=== PATIENT | female | born 1950 | race Caucasian/White ===

== ENCOUNTER 2020-07-24 07:48 | Outpatient (REF) | payer MEDICARE, SELFPAY ==
[2020-07-24 11:59] LABS: Alanine Aminotransferase 22 U/L (0-31); Albumin Level 4.1 g/dL (3.5-5.0); Alkaline Phosphatase 49 U/L (39-117); Anion Gap 14 (12-20); Aspartate Amino Transferase 18 U/L (5-31); Bilirubin Total 0.8 mg/dL (0.0-1.0); Blood Urea Nitrogen 17 mg/dL (9-16); Calcium 8.6 mg/dL (8.4-10.2); Carbon Dioxide 29 mmol/L (22-29); Chloride 104 mmol/L (96-108); Estimated Glomerular Filt Rate > 60; Glucose Fasting 88 mg/dL (60-99); Potassium 4.5 mmol/l (3.3-5.1); Sodium 142 mmol/L (135-145); Total Protein 6.5 g/dL (6.5-8.0)
[2020-07-24 12:01] LABS: Vitamin D 25-OH Total 34.6 ng/mL (>30)
[2020-07-28 21:47] LABS: N-Telopeptide 25 (see note); NTXCreaRU 82 mg/dL (20-275)
== END 2020-07-24 07:49 | disposition home or self-care (01) ==
LOC: HO.HMGCLDS 07:48
PROVIDERS: PCP Internal Medicine; Visit Provider Internal Medicine Endocrinology, Diabetes & Metabolism
DX: M81.0 Age-related osteoporosis without current pathological fracture (principal)
CPT/HCPCS: 80053; 82306; 82523

== ENCOUNTER → 2020-08-03 11:09 | Outpatient (BNVA) | payer MEDICARE, SELFPAY | PROVIDERS: Referring Provider Internal Medicine; Visit Provider Internal Medicine Endocrinology, Diabetes & Metabolism | DX: Z13.89 Encounter for screening for other disorder (principal) | CPT/HCPCS: 99212 ==

== ENCOUNTER → 2020-08-04 10:30 | Outpatient (BNVA) | payer MEDICARE, SELFPAY | PROVIDERS: Visit Provider Nurse Practitioner Gerontology | DX: M81.0 Age-related osteoporosis without current pathological fracture (principal) | CPT/HCPCS: 96401; J0897 ==

== ENCOUNTER 2020-08-18 07:16 | Outpatient (REF) | payer MEDICARE, SELFPAY ==
[2020-08-18 11:44] LABS: Albumin Level 3.9 g/dL (3.5-5.0); Calcium 8.6 mg/dL (8.4-10.2)
== END 2020-08-18 07:17 | disposition home or self-care (01) ==
LOC: HO.HMGCLDS 07:16
PROVIDERS: PCP Internal Medicine; Visit Provider Internal Medicine Endocrinology, Diabetes & Metabolism
DX: M81.0 Age-related osteoporosis without current pathological fracture (principal)
CPT/HCPCS: 82040; 82310

== ENCOUNTER 2020-08-27 08:59 | Outpatient (REF) | payer MEDICARE, SELFPAY ==
[2020-08-27 10:34] LABS: MANUAL DIFF FLAG NO
[2020-08-27 10:44] LABS: Basophils Percent Auto 0.7 % (0-2); Eosinophils Absolute Auto 0.2 X10*3/uL (0.0-0.4); Hematocrit 42.4 % (37-47); Hemoglobin 13.8 g/dl (12.0-16.0); Imm Gran Abs Auto 0.01 X10*3/uL (0.00-0.03); Imm Gran Pct Auto 0.2 % (0.0-0.4); Lymphocytes Percent Auto 35.1 % (20-40); Mean Corpuscular HGB Conc 32.5 g/dl (31.0-35.0); Mean Corpuscular Hemoglobin 31.9 pg (27.0-33.0); Mean Corpuscular Volume 98.1 fL (80-98); Mean Platelet Volume 9.4 fL (9.4-12.3); Monocytes Absolute Auto 0.5 X10*3/uL (0.1-1.2); Monocytes Percent Auto 8.2 % (2-11); Neutrophils Percent Auto 52.8 % (45-73); Platelet Count 287 X10*3/uL (160-400); Red Blood Count 4.32 X10*6/uL (4.20-5.50); Red Cell Distribution Width 12.7 % (11.0-16.0); White Blood Count 5.7 X10*3/uL (4.8-10.8)
[2020-08-27 11:27] LABS: Erythrocyte Sedimentation Rate 6 MM/HR (0-20)
== END 2020-08-27 09:00 | disposition home or self-care (01) ==
LOC: HO.LAB 08:59
PROVIDERS: PCP Internal Medicine; Referring Provider Internal Medicine; Visit Provider Hospitalist
DX: J31.0 Chronic rhinitis (principal); R05 Cough; R91.8 Other nonspecific abnormal finding of lung field; K21.9 Gastro-esophageal reflux disease without esophagitis
CPT/HCPCS: 36415; 82785; 85025; 85652; 86003; 99212

== ENCOUNTER 2020-09-03 11:27 | Outpatient (REF) | payer MEDICARE, SELFPAY ==
--- NOTE | 2020-09-03 11:28 | CT_ITS ---
EXAMINATION: CT CHEST WITHOUT CONTRAST CLINICAL INFORMATION: Nonspecific abnormal finding of lung field COMPARISON: None TECHNIQUE: Multidetector volumetric CT imaging of the chest was done. Axial MIP volume rendering provided. Sagittal and coronal reformatted images were obtained. This CT examination was performed using dose optimization techniques as appropriate, variously including the following: *Automated exposure control *Adjustment of mA and/or kV according to patient size (this includes techniques or standardized protocols for targeted exams where dose is matched to indication/reason for exam; i.e. extremities or head) *Use of iterative reconstruction technique DLP: 100 mGy-cm FINDINGS: LUNGS AND PLEURA: Trachea and central airways are widely patent and normal in caliber. Multiple small calcified granulomas are present in both lungs. There is a 0.3 cm noncalcified nodule at the right lung apex (image 54, series 7). 0.3 cm noncalcified nodule is observed in the region of junction of the right minor and major fissures (image 242, series 7). An irregular 0.9 cm subsolid opacity is present in the anterior right upper lobe. A mildly dilated bronchus is seen in this area of the nodularity, within which there is a small, 0.4 cm irregular solid focus with adjacent groundglass attenuation. This has a linear configuration on coronal reformatted images. Although it probably represents focal fibrosis, intermittent imaging surveillance would be advised to ensure stability, and exclude an evolving neoplastic lesion. Small, 0.2 cm noncalcified nodular focus is present in the left upper lobe (image 195, series 7). No pleural effusion. CARDIOVASCULAR: Cardiac chambers, thoracic aorta and pulmonary arteries are normal in size. No pericardial effusion. Mild atherosclerotic calcification of the aortic arch. MEDIASTINUM AND LOWER NECK: No mediastinal mass. The esophagus and the visualized portion of the thyroid gland are unremarkable. LYMPHATICS: No axillary or internal mammary lymphadenopathy. No pathologic sized hilar or mediastinal lymph nodes. UPPER ABDOMEN: Adrenal glands are normal. The visualized solid and hollow viscera of the upper abdomen have normal appearance on these noncontrast images. SKELETAL AND CHEST WALL: No chest wall mass. Thoracic vertebra have normal height and alignment. No suspicious skeletal lesions within the thorax. Mild spondylosis of the thoracic spine. Small Schmorl's node of the T12 inferior endplate. CT/CT chest wo con IMPRESSION: * Multiple small calcified granulomas are present in both lungs. * An irregular 0.9 cm subsolid nodule is present in the anterior right upper lobe. There are no recent chest CT imaging exams for comparison. In the absence of comparison studies, standard recommendations would be to pursue noncontrast chest CT follow-up in the next 3-6 months to determine persistence. If the nodule is unchanged on future follow-up, then annual CT imaging surveillance may be performed.
== END 2020-09-03 11:28 | disposition home or self-care (01) ==
LOC: HO.CT 11:27
PROVIDERS: PCP Internal Medicine; Visit Provider Hospitalist
DX: R91.8 Other nonspecific abnormal finding of lung field (principal)
CPT/HCPCS: 71250

== ENCOUNTER 2020-10-06 14:34 | Outpatient (REF) | payer MEDICARE, SELFPAY ==
--- NOTE | 2020-10-06 14:40 | XR_ITS ---
EXAMINATION: XR BILATERAL HIPS WITH AP PELVIS CLINICAL INFORMATION: Bilateral hip pain COMPARISON: Previous x-ray December 2016 TECHNIQUE: 2 views of each hip FINDINGS: Right: Bone alignment is normal. No fracture or dislocation seen. There is mild arthritis with joint space narrowing and small osteophytes. Soft tissues are unremarkable. Left: Bone alignment is normal. No fracture or dislocation is seen. There is mild arthritis with joint space narrowing and small osteophytes soft tissues are unremarkable. XR/XR hips JEANNE min 3V IMPRESSION: Mild bilateral hip arthritis.
== END 2020-10-06 14:35 | disposition home or self-care (01) ==
LOC: HO.HMGCX 14:34
PROVIDERS: PCP Internal Medicine; Visit Provider Nurse Practitioner Family
DX: M25.551 Pain in right hip (principal); M25.552 Pain in left hip
CPT/HCPCS: 73522

== ENCOUNTER → 2020-10-28 10:51 | Outpatient (BNVA) | payer MEDICARE, SELFPAY | PROVIDERS: PCP Internal Medicine; Visit Provider Hospitalist | DX: R91.8 Other nonspecific abnormal finding of lung field (principal); R05 Cough; J31.0 Chronic rhinitis; J41.1 Mucopurulent chronic bronchitis | CPT/HCPCS: 99212 ==

== ENCOUNTER 2021-01-19 11:44 | Outpatient (REF) | payer MEDICARE, SELFPAY ==
[2021-01-19 12:28] LABS: Glucose Urine UA NEG (NEG); Leukocyte Esterase Urine NEG (NEG); Nitrite Urine NEG (NEG); Specific Gravity - Urine 1.015 (1.005-1.025); Urine Blood NEG (NEG); Urine Ketones NEG (NEG); Urine Protein NEG (NEG-TRACE)
[2021-01-19 12:31] LABS: Appearance Urine CLEAR; Color Urine YELLOW
[2021-01-19 12:54] LABS: WBC Urine 0-2 /HPF (0-4)
== END 2021-01-19 11:45 | disposition home or self-care (01) ==
LOC: HO.LNP 11:44
PROVIDERS: Visit Provider Internal Medicine
DX: N93.9 Abnormal uterine and vaginal bleeding, unspecified (principal); R31.9 Hematuria, unspecified
CPT/HCPCS: 81001

== ENCOUNTER 2021-01-21 07:36 | Outpatient (REF) | payer MEDICARE, SELFPAY ==
[2021-01-21 12:07] LABS: Albumin Level 3.9 g/dL (3.5-5.0); Calcium 8.9 mg/dL (8.4-10.2)
[2021-01-21 12:36] LABS: Vitamin D 25-OH Total 30.8 ng/mL (>30)
[2021-01-26 18:32] LABS: N-Telopeptide 28 (see note); NTXCreaRU 83 mg/dL (20-275)
== END 2021-01-21 07:37 | disposition home or self-care (01) ==
LOC: HO.HMGCLDS 07:36
PROVIDERS: PCP Internal Medicine; Visit Provider Internal Medicine Endocrinology, Diabetes & Metabolism
DX: M81.0 Age-related osteoporosis without current pathological fracture (principal)
CPT/HCPCS: 36415; 82040; 82306; 82310; 82523

== ENCOUNTER → 2021-02-01 12:25 | Outpatient (BNVA) | payer MEDICARE, SELFPAY | PROVIDERS: PCP Internal Medicine; Visit Provider Internal Medicine Endocrinology, Diabetes & Metabolism | DX: M81.0 Age-related osteoporosis without current pathological fracture (principal); Z79.899 Other long term (current) drug therapy | CPT/HCPCS: 99212 ==

== ENCOUNTER → 2021-02-02 10:28 | Outpatient (BNVA) | payer MEDICARE, SELFPAY | PROVIDERS: PCP Internal Medicine; Visit Provider Hospitalist | DX: J30.2 Other seasonal allergic rhinitis (principal); R09.82 Postnasal drip; J41.1 Mucopurulent chronic bronchitis; R91.8 Other nonspecific abnormal finding of lung field; R05 Cough | CPT/HCPCS: 99212 ==

== ENCOUNTER 2021-06-02 09:53 | Outpatient (REF) | payer MEDICARE, SELFPAY ==
[2021-06-02 11:49] LABS: MANUAL DIFF FLAG NO
[2021-06-02 11:54] LABS: Basophils Absolute Auto 0.1 X10*3/uL (0.0-0.2); Basophils Percent Auto 0.8 % (0-2); Eosinophils Absolute Auto 0.1 X10*3/uL (0.0-0.4); Hematocrit 42.4 % (37-47); Hemoglobin 14.1 g/dl (12.0-16.0); Imm Gran Abs Auto 0.01 X10*3/uL (0.00-0.03); Imm Gran Pct Auto 0.2 % (0.0-0.4); Lymphocytes Absolute Auto 1.6 X10*3/uL (1.2-4.9); Lymphocytes Percent Auto 26.6 % (20-40); Mean Corpuscular HGB Conc 33.3 g/dl (31.0-35.0); Mean Corpuscular Hemoglobin 32.5 pg (27.0-33.0); Mean Corpuscular Volume 97.7 fL (80-98); Mean Platelet Volume 9.2 fL (9.4-12.3); Monocytes Absolute Auto 0.5 X10*3/uL (0.1-1.2); Neutrophils Absolute Auto 3.6 X10*3/uL (2.0-8.3); Neutrophils Percent Auto 61.4 % (45-73); Platelet Count 257 X10*3/uL (160-400); Red Blood Count 4.34 X10*6/uL (4.20-5.50); Red Cell Distribution Width 13.2 % (11.0-16.0); White Blood Count 5.9 X10*3/uL (4.8-10.8)
[2021-06-02 12:06] LABS: Albumin Level 4.1 g/dL (3.5-5.0); Calcium 9.5 mg/dL (8.4-10.2)
[2021-06-02 12:33] LABS: Erythrocyte Sedimentation Rate 7 MM/HR (0-20)
[2021-06-03 18:32] LABS: IgA 143 mg/dL (70-320); IgG 829 mg/dL (600-1540); IgM 25 mg/dL (50-300)
[2021-06-03 23:17] LABS: Immunoglobulin E 17 kU/L (<OR=114)
[2021-06-04 13:16] LABS: Anti Nuclear Antibody Screen NEGATIVE (NEGATIVE)
[2021-06-07 12:46] LABS: Asperg fumigatus Precip Abs NEGATIVE (NEGATIVE); Micropoly faeni Abs NEGATIVE (NEGATIVE); Pigeon serum Abs NEGATIVE (NEGATIVE); Saccharo pora viridis Abs NEGATIVE (NEGATIVE); Thermo candidus Abs NEGATIVE (NEGATIVE); Thermoa vulgaris #1 NEGATIVE (NEGATIVE)
== END 2021-06-02 09:54 | disposition home or self-care (01) ==
LOC: HO.LAB 09:53
PROVIDERS: Internal Medicine Endocrinology, Diabetes & Metabolism; PCP Internal Medicine; Visit Provider Hospitalist
DX: R91.8 Other nonspecific abnormal finding of lung field (principal); M81.0 Age-related osteoporosis without current pathological fracture; J31.0 Chronic rhinitis; J41.1 Mucopurulent chronic bronchitis
CPT/HCPCS: 36415; 82040; 82310; 82784; 82785; 85025; 85652; 86038; 86039; 86331; 86606; 86609; 99212

== ENCOUNTER 2021-06-15 10:06 | Outpatient (REF) | payer MEDICARE, SELFPAY ==
--- NOTE | ~2021-06-15 | CT_ITS ---
EXAMINATION: CT CHEST WITHOUT CONTRAST CLINICAL INFORMATION: Other nonspecific abnormal finding of lung field. Pulmonary nodules. COMPARISON: Previous chest CT August 2020 TECHNIQUE: Multidetector volumetric CT imaging of the chest was done. Axial MIP volume rendering provided. Sagittal and coronal reformatted images were obtained. This CT examination was performed using dose optimization techniques as appropriate, variously including the following: *Automated exposure control *Adjustment of mA and/or kV according to patient size (this includes techniques or standardized protocols for targeted exams where dose is matched to indication/reason for exam; i.e. extremities or head) *Use of iterative reconstruction technique DLP: 95 mGy-cm FINDINGS: LUNGS: The heterogeneous partially cystic partially solid 9 mm right upper lobe nodule axial image 166 series 5 is stable. There is a a second 5 mm groundglass attenuation peripheral right lower lobe nodule axial image 4 3 series 5 that is stable. Other smaller 3 mm solid noncalcified and noncalcified nodules are stable. No new pulmonary nodules are seen. MEDIASTINUM: The mediastinum is normal. PLEURA: There is no pleural effusion. No pleural mass or thickening. AXILLA: No lymphadenopathy. UPPER ABDOMEN: Unremarkable. OSSEOUS STRUCTURES: There are mild degenerative changes of the spine. CT/CT chest wo con IMPRESSION: Stable pulmonary nodules.
== END 2021-06-15 10:07 | disposition home or self-care (01) ==
LOC: HO.CT 10:06
PROVIDERS: PCP Internal Medicine; Visit Provider Hospitalist
DX: R91.8 Other nonspecific abnormal finding of lung field (principal)
CPT/HCPCS: 71250

== ENCOUNTER 2021-07-08 14:53 | Outpatient (REF) | payer MEDICARE, SELFPAY ==
--- NOTE | ~2021-07-08 | MM_ITS ---
EXAMINATION: MM SCREENING DIGITAL BREAST TOMOSYNTHESIS, BILATERAL CLINICAL INFORMATION: Screening. Asymptomatic. The lifetime risk of breast cancer based on the Tyrer-Cuzick Model is 3%. COMPARISON: Mammography: 04/30/2020, 02/12/2019, 02/05/2018 TECHNIQUE: Digital breast tomosynthesis is performed in both the craniocaudal and mediolateral oblique views along with computer-aided detection (CAD). Synthesized 2D images are generated from the tomosynthesis. FINDINGS: There are scattered areas of fibroglandular density (ACR BI-RADS breast composition Category b). There are no significant masses, abnormal calcifications, or other abnormalities. No developing density. No significant changes. MM/MM tomosynthesis screening BI IMPRESSION: No mammographic evidence of malignancy. ASSESSMENT: BI-RADS 1: Negative RECOMMENDATION: Routine annual mammography screening. This patient's information was entered into a reminder system with a target due date for their next mammogram.
== END 2021-07-08 14:54 | disposition home or self-care (01) ==
LOC: HO.MAMMO 14:53
PROVIDERS: Visit Provider Internal Medicine
DX: Z12.31 Encounter for screening mammogram for malignant neoplasm of breast (principal)
CPT/HCPCS: 77063; 77067

== ENCOUNTER → 2021-07-27 09:21 | Outpatient (BNVA) | payer MEDICARE, SELFPAY | PROVIDERS: PCP Internal Medicine; Visit Provider Hospitalist | DX: R91.8 Other nonspecific abnormal finding of lung field (principal); J31.0 Chronic rhinitis; J41.1 Mucopurulent chronic bronchitis | CPT/HCPCS: 99212 ==

== ENCOUNTER 2021-08-24 06:58 | Outpatient (REF) | payer MEDICARE, SELFPAY ==
[2021-08-24 11:32] LABS: Calcium 9.6 mg/dL (8.4-10.2)
[2021-08-24 12:03] LABS: Vitamin D 25-OH Total 35.2 ng/mL (>30)
[2021-08-27 17:27] LABS: N-Telopeptide 69 (see note); NTXCreaRU 104 mg/dL (20-275)
== END 2021-08-24 06:59 | disposition home or self-care (01) ==
LOC: HO.HMGCLDS 06:58
PROVIDERS: PCP Internal Medicine; Visit Provider Internal Medicine Endocrinology, Diabetes & Metabolism
DX: M81.0 Age-related osteoporosis without current pathological fracture (principal)
CPT/HCPCS: 36415; 82040; 82306; 82310; 82523

== ENCOUNTER → 2021-09-01 07:49 | Outpatient (BNVA) | payer MEDICARE, SELFPAY | PROVIDERS: PCP Internal Medicine; Visit Provider Internal Medicine | DX: M81.0 Age-related osteoporosis without current pathological fracture (principal); E55.9 Vitamin D deficiency, unspecified | CPT/HCPCS: 99212 ==

== ENCOUNTER 2021-12-27 09:45 | Outpatient (REF) | payer MEDICARE, SELFPAY ==
[2021-12-27 12:27] LABS: Alanine Aminotransferase 26 U/L (0-31); Albumin Level 3.9 g/dL (3.5-5.0); Alkaline Phosphatase 81 U/L (39-117); Anion Gap 12 (12-20); Aspartate Amino Transferase 22 U/L (5-31); Bilirubin Total 0.6 mg/dL (0.0-1.0); Blood Urea Nitrogen 18 mg/dL (9-16); Calcium 9.6 mg/dL (8.4-10.2); Carbon Dioxide 28 mmol/L (22-29); Chloride 102 mmol/L (96-108); Estimated Glomerular Filt Rate > 60; Glucose Random 92 mg/dL (60-115); Phosphorus 3.6 mg/dL (2.7-4.5); Potassium 4.5 mmol/L (3.3-5.1); Sodium 137 mmol/L (135-145); Total Protein 6.4 g/dL (6.5-8.0)
[2021-12-27 12:51] LABS: Thyroid Stimulating Hormone 1.95 uIU/mL (0.32-4.0); Vitamin D 25-OH Total 37.5 ng/mL (>30)
[2021-12-28 11:16] LABS: Calcium (PTHI) 9.2 mg/dL (8.6-10.4); PTHI 40 pg/mL (16-77)
[2021-12-30 12:17] LABS: Alkaline Phosphatase Bone 16.9 mcg/L (5.6-29.0)
[2021-12-31 22:32] LABS: Prot Elec - Albumin 3.9 g/dL (3.8-4.8); Prot Elec - Alpha1 0.3 g/dL (0.2-0.3); Prot Elec - Alpha2 0.7 g/dL (0.5-0.9); Prot Elec - Beta 1 0.4 g/dL (0.4-0.6); Prot Elec - Beta 2 0.3 g/dL (0.2-0.5); Prot Elec - Gamma 0.7 g/dL (0.8-1.7); Prot Elec - Total Protein 6.3 g/dL (6.1-8.1)
== END 2021-12-27 09:46 | disposition home or self-care (01) ==
LOC: HO.HMGCLDS 09:45
PROVIDERS: Visit Provider Internal Medicine
DX: M81.0 Age-related osteoporosis without current pathological fracture (principal); E55.9 Vitamin D deficiency, unspecified
CPT/HCPCS: 36415; 80053; 82306; 82330; 83970; 84075; 84100; 84165; 84439; 84443

== ENCOUNTER 2021-12-29 09:10 | Outpatient (REF) | payer MEDICARE, SELFPAY ==
[2021-12-29 12:35] LABS: Creatinine, mg/dL 48.27
[2021-12-29 15:07] LABS: Creatinine, 24Hr Urine 0.8 G/Day (1.0-2.0); Total Volume 24 Hour Urine 1725 mL
[2021-12-31 19:12] LABS: Calcium, 24 Hr Urine 136 mg/24 h; Calcium/Creatinine Ratio 158 mg/g creat (30-275); Creatinine 24Hr Urine 0.86 g/24 h (0.50-2.15)
[2022-01-04 16:41] LABS: N-Telopeptide 104 (see note); NTXCreaRU 113 mg/dL (20-275)
== END 2021-12-29 09:11 | disposition home or self-care (01) ==
LOC: HO.HMGCLNP 09:10
PROVIDERS: Visit Provider Internal Medicine
DX: M81.0 Age-related osteoporosis without current pathological fracture (principal)
CPT/HCPCS: 82340; 82523; 82570

== ENCOUNTER → 2022-01-24 10:21 | Outpatient (BNVA) | payer MEDICARE, SELFPAY | PROVIDERS: PCP Internal Medicine; Visit Provider Hospitalist | DX: J41.1 Mucopurulent chronic bronchitis (principal); R91.8 Other nonspecific abnormal finding of lung field; J31.0 Chronic rhinitis | CPT/HCPCS: 99212 ==

== ENCOUNTER → 2022-03-10 08:54 | Outpatient (BNVA) | payer MEDICARE, SELFPAY | PROVIDERS: PCP Internal Medicine; Visit Provider Internal Medicine | DX: M81.0 Age-related osteoporosis without current pathological fracture (principal); E55.9 Vitamin D deficiency, unspecified | CPT/HCPCS: Q3014 ==

== ENCOUNTER 2022-05-03 10:31 | Outpatient (REF) | payer MEDICARE, SELFPAY ==
--- NOTE | ~2022-05-03 | CT_ITS ---
EXAMINATION: CT CHEST WITHOUT CONTRAST CLINICAL INFORMATION: Other nonspecific abnormal finding of lungs. Pulmonary nodules. COMPARISON: CT chest 06/15/2021. TECHNIQUE: Multidetector volumetric CT imaging of the chest was done. Axial MIP volume rendering provided. Sagittal and coronal reformatted images were obtained. This CT examination was performed using dose optimization techniques as appropriate, variously including the following: *Automated exposure control *Adjustment of mA and/or kV according to patient size (this includes techniques or standardized protocols for targeted exams where dose is matched to indication/reason for exam; i.e. extremities or head) *Use of iterative reconstruction technique DLP: 102 mGy-cm FINDINGS: BENCH MOLDER: Unremarkable. LUNGS: The lungs are well expanded and clear of acute pneumonic consolidation. Again visualized partially cystic and semisolid 1 cm lesion right upper lobe axial image 151/9. A 2 mm calcified nodule is seen in right upper lobe axial image 148/9. There are punctate 1 mm calcifications in both lower lobes. No consolidation, mass or ground-glass density seen. MEDIASTINUM: The thyroid lobes are symmetric and normal. The central trachea and the bronchi are widely patent. Heart size and the great vessels are normal caliber. No abnormal size mediastinal or hilar lymph node seen. There is no pericardial effusion. PLEURA: There is no pleural effusion. No pleural mass or thickening. AXILLA: No lymphadenopathy. UPPER ABDOMEN: Visualized spleen, pancreas and bilateral adrenal glands are unremarkable. OSSEOUS STRUCTURES: No aggressive lytic or sclerotic process seen. CT/CT chest wo con IMPRESSION: Stable calcified bilateral pulmonary nodules. Semisolid and cystic 1 cm lymph node right upper lobe previously measured 9 mm is again noted, stable. Fleischner guidelines were followed.
== END 2022-05-03 10:32 | disposition home or self-care (01) ==
LOC: HO.CT 10:31
PROVIDERS: PCP Internal Medicine; Visit Provider Hospitalist
DX: R91.8 Other nonspecific abnormal finding of lung field (principal); J41.1 Mucopurulent chronic bronchitis
CPT/HCPCS: 71250

== ENCOUNTER → 2022-06-07 14:24 | Outpatient (BNVA) | payer MEDICARE, SELFPAY | PROVIDERS: PCP Internal Medicine; Referring Provider Internal Medicine; Visit Provider Internal Medicine Cardiovascular Disease | DX: I49.3 Ventricular premature depolarization (principal); E78.5 Hyperlipidemia, unspecified | CPT/HCPCS: 93005; 99212 ==

== ENCOUNTER 2022-06-15 14:21 | Outpatient (REF) | payer MEDICARE, SELFPAY ==
[2022-06-15 17:06] LABS: Alanine Aminotransferase 26 U/L (0-31); Albumin Level 4.2 g/dL (3.5-5.0); Alkaline Phosphatase 74 U/L (39-117); Anion Gap 14 (12-20); Aspartate Amino Transferase 23 U/L (5-31); Bilirubin Total 0.7 mg/dL (0.0-1.0); Blood Urea Nitrogen 15 mg/dL (9-16); Calcium 8.7 mg/dL (8.4-10.2); Carbon Dioxide 25 mmol/L (22-29); Chloride 103 mmol/L (96-108); Estimated Glomerular Filt Rate > 60; Glucose Random 86 mg/dL (60-115); Phosphorus 3.4 mg/dL (2.7-4.5); Potassium 4.2 mmol/L (3.3-5.1); Sodium 138 mmol/L (135-145); Total Protein 6.4 g/dL (6.5-8.0)
[2022-06-15 17:19] LABS: Vitamin D 25-OH Total 33.7 ng/mL (>30)
[2022-06-16 14:57] LABS: PTHI 73 pg/mL (16-77)
== END 2022-06-15 14:22 | disposition home or self-care (01) ==
LOC: HO.HMGCLDS 14:21
PROVIDERS: PCP Internal Medicine; Visit Provider Internal Medicine
DX: M81.0 Age-related osteoporosis without current pathological fracture (principal); E55.9 Vitamin D deficiency, unspecified
CPT/HCPCS: 36415; 80053; 82306; 83970; 84100

== ENCOUNTER → 2022-06-22 09:23 | Outpatient (BNVA) | payer MEDICARE, SELFPAY | PROVIDERS: PCP Internal Medicine; Visit Provider Hospitalist | DX: R91.8 Other nonspecific abnormal finding of lung field (principal); J31.0 Chronic rhinitis; J41.1 Mucopurulent chronic bronchitis | CPT/HCPCS: 99212 ==

== ENCOUNTER 2022-06-24 08:37 | Outpatient (REF) | payer MEDICARE, SELFPAY ==
--- NOTE | ~2022-06-24 | MM_ITS ---
EXAMINATION: BONE DENSITOMETRY CLINICAL INDICATION: Age-related osteoporosis without current pathological fracture. COMPARISON: Previous BD dated 06/12/2020 and baseline BD dated 08/05/2008, spine and left hip; 06/12/2020, left forearm radius 33%. TECHNIQUE: Using a [employer] DXA System (software version: 13.1) manufactured by [employer], dual-energy x-ray absorptiometry was performed of the lumbar spine, left hip, and left forearm radius 33%. The images are of good technical quality. Summary results are attached. FINDINGS: AP SPINE L1-L4: Current: BMD 1.103 g/cm2, Z-score 1.2, T-score -0.6, normal, 7.9% decrease from previous, 7.3% increase from baseline (<5% change is not significant). Prior: BMD 1.197 g/cm2. Baseline: BMD 1.028 g/cm2. LEFT FEMUR, NECK: Current: BMD 0.770 g/cm2, Z-score 0.0, T-score -1.9, osteopenia. Prior: BMD 0.764 g/cm2. Baseline: BMD 0.800 g/cm2. LEFT FEMUR, TOTAL: Current: BMD 0.782 g/cm2, Z-score 0.0, T-score -1.8, osteopenia, 3.2% decrease from previous, 8.0% decrease from baseline (<5% change is not significant). Prior: BMD 0.808 g/cm2. Baseline: BMD 0.850 g/cm2. LEFT FOREARM RADIUS 33%: BMD 0.612 g/cm2, Z-score -0.8, T-score -3.0, osteoporosis, 10.1% decrease from baseline (<5% change is not significant). Prior (and baseline for radius): BMD 0.681 g/cm2. IDENTIFIED RISK FACTORS: Early menopause, secondary osteoporosis, osteoporosis, hysterectomy, bilateral oophorectomy. HISTORY OF FRACTURE: None listed. MEDICATIONS: Calcium/multivitamin, bisphosphonate. MM/XR DEXA appendicular skeleton IMPRESSION: 1. DIAGNOSIS: Osteoporosis based on the lowest T-score value of -3.0 in the forearm radius 33% applying World Health Organization criteria. 2. 10-YEAR FRACTURE RISK PREDICTION, FRAX: According to the guidelines, FRAX calculation should only be performed on patients in the osteopenia bone density category. Therefore, FRAX was not performed on this patient. 3. Treatment Recommendations: NOF guidelines recommend consideration for treatment in postmenopausal women and men age 50 and older presenting with the following: -A hip or vertebral (clinical or morphometric) fracture. -T-score less than or equal to -2.5 at the femoral neck or spine after appropriate evaluation to exclude secondary causes. -Low bone mass at the hip or spine and a 10-year fracture probability by FRAX of greater than or equal to 3% for hip fracture or greater than or equal to 20% for major osteoporotic fracture based on the [place] adapted WHO algorithm. 4. Other Recommendations: All treatment decisions require clinical judgment and consideration of individual patient factors, including patient preferences, comorbidities, previous drug use, risk factors not captured in the FRAX model (e.g. frailty, falls, vitamin D deficiency, increased bone turnover, interval significant decline in bone density) and possible under or overestimation of fracture risk by FRAX. Additional medical evaluation for secondary cause of low bone mineral density may be appropriate. FUTURE SCAN RECOMMENDATION: People with diagnosed cases of or at high risk for fracture should have regular bone mineral density tests. For patients eligible for Medicare, routine testing is allowed once every 2 years. The testing frequency can be increased to one year for patients who have rapidly progressing disease, those who are receiving or discontinuing medical therapy to restore bone mass, or have additional risk factors.
== END 2022-06-24 08:38 | disposition home or self-care (01) ==
LOC: HO.MAMMO 08:37
PROVIDERS: PCP Internal Medicine; Visit Provider Internal Medicine
DX: Z13.820 Encounter for screening for osteoporosis (principal); M81.0 Age-related osteoporosis without current pathological fracture; Z78.0 Asymptomatic menopausal state
CPT/HCPCS: 77081

== ENCOUNTER → 2022-06-28 14:04 | Outpatient (BNVA) | payer MEDICARE, SELFPAY | PROVIDERS: PCP Internal Medicine; Visit Provider Internal Medicine | DX: M81.0 Age-related osteoporosis without current pathological fracture (principal); E04.9 Nontoxic goiter, unspecified; E55.9 Vitamin D deficiency, unspecified | CPT/HCPCS: 99212 ==

== ENCOUNTER 2022-07-12 13:43 | Outpatient (REF) | payer MEDICARE, SELFPAY ==
--- NOTE | ~2022-07-12 | MM_ITS ---
EXAMINATION: MM SCREENING DIGITAL BREAST TOMOSYNTHESIS, BILATERAL CLINICAL INFORMATION: Screening. Asymptomatic. The lifetime risk of breast cancer based on the Tyrer-Cuzick Model is 3%. COMPARISON: Mammography: 07/08/2021, 04/30/2020, 02/12/2019 TECHNIQUE: Digital breast tomosynthesis is performed in both the craniocaudal and mediolateral oblique views along with computer-aided detection (CAD). Synthesized 2D images are generated from the tomosynthesis. FINDINGS: There are scattered areas of fibroglandular density (ACR BI-RADS breast composition Category b). There are no significant masses, abnormal calcifications, or other abnormalities. Parenchymal pattern is similar to prior studies. There is no developing density or architectural abnormality. The axilla and skin contours are unremarkable. No significant changes. MM/MM tomosynthesis screening BI IMPRESSION: No mammographic evidence of malignancy. ASSESSMENT: BI-RADS 1: Negative RECOMMENDATION: Routine annual mammography screening. This patient's information was entered into a reminder system with a target due date for their next mammogram.
== END 2022-07-12 13:44 | disposition home or self-care (01) ==
LOC: HO.MAMMO 13:43
PROVIDERS: PCP Internal Medicine; Visit Provider Internal Medicine
DX: Z12.31 Encounter for screening mammogram for malignant neoplasm of breast (principal)
CPT/HCPCS: 77063; 77067

== ENCOUNTER 2022-07-19 13:52 | Outpatient (REF) | payer MEDICARE, SELFPAY ==
--- NOTE | ~2022-07-19 | US_ITS ---
EXAMINATION: US THYROID CLINICAL INFORMATION: Nontoxic goiter, unspecified. COMPARISON: None TECHNIQUE: Linear transducer grayscale and color Doppler examination with attention to the region of the thyroid. FINDINGS: SIZE: Measurements of the thyroid lobes and nodules are given in sagittal, anteroposterior and transverse dimensions respectively. Right Thyroid Lobe: 5.23 x 1.56 x 1.42 cm, volume 6.05 mL. Parenchyma: The gland echotexture is homogeneous. Thyroid vascularity is increased. Left Thyroid Lobe: 5.55 x 1.30 x 1.57 cm, volume 5.91 mL. Parenchyma: The gland echotexture is homogeneous. Thyroid vascularity is increased. Isthmus: 0.24 cm in maximum AP dimension. Estimated total number of nodules greater than or equal to 1 cm: 0. Business Associate nodules are described as follows: 1. Location: Right superior. Size: 0.51 x 0.49 x 0.63 cm, volume 0.08 mL. Nodule characteristics: Composition: Spongiform (0). Echogenicity: Anechoic (0). Shape: Not taller than wide (0). Margins: Smooth (0). Echogenic Foci: None (0). ACR TI-RADS total points: 0 ACR TI-RADS category: 1 2. Location: Right mid. Size: 1.0 x 0.56 x 0.64 cm, volume 0.18 mL. Nodule characteristics: Composition: Spongiform (0). Echogenicity: Anechoic (0). Shape: Not taller than wide (0). Margins: Smooth (0). Echogenic Foci: None (0). ACR TI-RADS total points: 0 ACR TI-RADS category: 1 3. Location: Right inferior. Size: 0.56 x 0.30 x 0.57 cm, volume 0.05 mL. Nodule characteristics: Composition: Spongiform (0). Echogenicity: Anechoic (0). Shape: Not taller than wide (0). Margins: Smooth (0). Echogenic Foci: None (0). ACR TI-RADS total points: 0 ACR TI-RADS category: 1 4. Location: Left superior. Size: 0.56 x 0.31 x 0.55 cm, volume 0.05 mL. Nodule characteristics: Composition: Spongiform (0). Echogenicity: Anechoic (0). Shape: Not taller than wide (0). Margins: Smooth (0). Echogenic Foci: None (0). ACR TI-RADS total points: 0 ACR TI-RADS category: 1 5. Location: Left mid. Size: 0.40 x 0.31 x 0.42 cm, volume 0.03 mL. Nodule characteristics: Composition: Spongiform (0). Echogenicity: Anechoic (0). Shape: Not taller than wide (0). Margins: Smooth (0). Echogenic Foci: None (0). ACR TI-RADS total points: 0 ACR TI-RADS category: 1 NODES: No lymphadenopathy is seen in the tissue surrounding the thyroid gland. US/US thyroid IMPRESSION: Bilateral nodules do not meet ACR criteria for follow-up. ACR TI-RADS RECOMMENDATION REFERENCE: Ultrasound-guided fine-needle aspiration, followup ultrasound, no further follow up. * TR1 (0 point) and TR 2 (2 points): No FNA or follow up. * TR3 (3 points): FNA if more than or equal to 2.5 cm in maximum dimension, followup ultrasound in 1, 3 and 5 years if 1.5 to 2.4 cm in maximum dimension. * TR4 (4-6 points): FNA if more than or equal to 1.5 cm in maximum dimension, followup ultrasound in 1, 2, 3 and 5 years if 1 to 1.4 cm in maximum dimension. * TR5 (more than or equal to 7 points): FNA if more than or equal to 1 cm in maximum dimension, followup ultrasound every year for 5 years if 0.5 to 0.9 cm in maximum dimension. * TR3, TR4 or TR5 nodules that are below the size threshold for followup receive no follow up.
== END 2022-07-19 13:53 | disposition home or self-care (01) ==
LOC: HO.HMGCX 13:52
PROVIDERS: PCP Internal Medicine; Visit Provider Internal Medicine
DX: E04.9 Nontoxic goiter, unspecified (principal)
CPT/HCPCS: 76536

== ENCOUNTER 2022-08-30 06:58 | Outpatient (REF) | payer MEDICARE, SELFPAY ==
[2022-08-30 12:00] LABS: Alanine Aminotransferase 25 U/L (0-31); Aspartate Amino Transferase 20 U/L (5-31); Cholesterol 195 mg/dL; HDL Cholesterol 80 mg/dL; LDL Cholesterol Calculated 101 mg/dl; Triglycerides 73 mg/dL
== END 2022-08-30 06:59 | disposition home or self-care (01) ==
LOC: HO.HMGCLDS 06:58
PROVIDERS: PCP Internal Medicine; Visit Provider Internal Medicine
DX: E78.5 Hyperlipidemia, unspecified (principal)
CPT/HCPCS: 36415; 80061; 84450; 84460

== ENCOUNTER 2022-10-13 08:44 | Outpatient (REF) | payer MEDICARE, SELFPAY ==
--- NOTE | 2022-10-13 09:15 | PM.OP ---
Brief Operative Note Date of Service: 10/13/22 Pre-op diagnosis: Multinodular Thyroid Procedure: EXAMINATION: US THYROID CLINICAL INFORMATION: Multinodular Thyroid COMPARISON: Prior TECHNIQUE: Linear transducer grimes-scale and color Doppler examination with attention to the region of the thyroid. FINDINGS: SIZE: Measurements of the thyroid lobes and nodules are given in sagittal, anteroposterior and transverse dimensions respectively. Right Thyroid Lobe: 5.3 x 1.2 x 2.0 cm, volume 6.7 mL. Parenchyma: The gland echotexture is heterogenous. Thyroid vascularity is normal. Left Thyroid Lobe: 4.8 x 1.3 x 1.4 cm, volume 4.6 mL. Parenchyma: The gland echotexture is homogenous. Thyroid vascularity is normal. Isthmus: 0.2 cm in maximum AP dimension. RIGHT THYROID LOBE: There are no nodules. LEFT THYROID LOBE: There is 1 nodule. There is a 0.6 x 0.3 x 0.5 cm predominantly solid hypoechoic nodule with smooth margins and no microcalcifications. Vascularity is normal. NODES: No lymph nodes were assessed during today's exam. Surgeon: Salina Jha, DO Was an [employer] Developer used for this Procedure?: No Estimated blood loss (mL): 0
== END 2022-10-13 08:45 | disposition home or self-care (01) ==
LOC: HO.US 08:44
PROVIDERS: Visit Provider Internal Medicine
DX: E04.2 Nontoxic multinodular goiter (principal)
CPT/HCPCS: 76536

== ENCOUNTER → 2022-12-27 09:35 | Outpatient (BNVA) | payer MEDICARE, SELFPAY | PROVIDERS: PCP Internal Medicine; Visit Provider Hospitalist | DX: R91.8 Other nonspecific abnormal finding of lung field (principal); J31.0 Chronic rhinitis; J41.1 Mucopurulent chronic bronchitis; G47.33 Obstructive sleep apnea (adult) (pediatric) | CPT/HCPCS: 99212 ==

== ENCOUNTER 2023-01-03 07:19 | Outpatient (REF) | payer MEDICARE, SELFPAY ==
[2023-01-03 12:12] LABS: Alanine Aminotransferase 26 U/L (0-31); Alkaline Phosphatase 72 U/L (39-117); Anion Gap 9 (12-20); Aspartate Amino Transferase 20 U/L (5-31); Bilirubin Total 0.6 mg/dL (0.0-1.0); Blood Urea Nitrogen 21 mg/dL (9-16); Calcium 9.4 mg/dL (8.4-10.2); Carbon Dioxide 31 mmol/L (22-29); Chloride 105 mmol/L (96-108); Estimated Glomerular Filt Rate > 60; Glucose Random 101 mg/dL (60-115); Phosphorus 3.1 mg/dL (2.7-4.5); Potassium 4.3 mmol/L (3.3-5.1); Sodium 141 mmol/L (135-145); Total Protein 6.2 g/dL (6.5-8.0)
[2023-01-03 12:14] LABS: Vitamin D 25-OH Total 34.7 ng/mL (>30)
[2023-01-04 13:49] LABS: Calcium (PTHI) 9.6 mg/dL (8.6-10.4); PTHI 35 pg/mL (16-77)
== END 2023-01-03 07:20 | disposition home or self-care (01) ==
LOC: HO.HMGCLDS 07:19
PROVIDERS: Internal Medicine; PCP Internal Medicine; Visit Provider Internal Medicine
DX: M81.0 Age-related osteoporosis without current pathological fracture (principal); E55.9 Vitamin D deficiency, unspecified
CPT/HCPCS: 36415; 80053; 82306; 83970; 84100

== ENCOUNTER 2023-01-04 07:32 | Outpatient (REF) | payer MEDICARE, SELFPAY ==
[2023-01-10 07:09] LABS: N-Telopeptide 33 (see note); NTXCreaRU 53 mg/dL (20-275)
== END 2023-01-04 07:33 | disposition home or self-care (01) ==
LOC: HO.HMGCLNP 07:32
PROVIDERS: Visit Provider Internal Medicine
DX: M81.0 Age-related osteoporosis without current pathological fracture (principal)
CPT/HCPCS: 82523

== ENCOUNTER → 2023-01-10 09:09 | Outpatient (REF) | payer MEDICARE, SELFPAY | LOC: HO.SL 09:09 | PROVIDERS: PCP Internal Medicine; Visit Provider Hospitalist | DX: G47.33 Obstructive sleep apnea (adult) (pediatric) (principal) | CPT/HCPCS: 95806 ==

== ENCOUNTER → 2023-01-16 12:55 | Outpatient (BNVA) | payer MEDICARE, SELFPAY | PROVIDERS: PCP Internal Medicine; Visit Provider Internal Medicine | DX: M81.0 Age-related osteoporosis without current pathological fracture (principal); E04.9 Nontoxic goiter, unspecified; E55.9 Vitamin D deficiency, unspecified | CPT/HCPCS: 99212 ==

== ENCOUNTER 2023-06-09 09:25 | Outpatient (REF) | payer MEDICARE, SELFPAY ==
--- NOTE | ~2023-06-09 | CT_ITS ---
EXAMINATION: CT CHEST WITHOUT CONTRAST CLINICAL INFORMATION: Follow-up lung nodule COMPARISON: 05/03/2022 and 06/15/2021 and 09/03/2020 TECHNIQUE: Multidetector volumetric CT imaging of the chest was done. Axial MIP volume rendering provided. Sagittal and coronal reformatted images were obtained. This CT examination was performed using dose optimization techniques as appropriate, variously including the following: *Automated exposure control *Adjustment of mA and/or kV according to patient size (this includes techniques or standardized protocols for targeted exams where dose is matched to indication/reason for exam; i.e. 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 This is felt likely to reflect postinflammatory scarring given the interval two-year stability. Calcified right upper and right lower lobe granulomata are again evident. No new or suspicious mass, nodule or consolidation is evident. The trachea and major bronchi are patent. MEDIASTINUM: The mediastinum is normal. CORONARY ARTERY CALCIFICATION: None visualized on this study. PLEURA: There is no pleural effusion. No pleural mass or thickening. AXILLA: No lymphadenopathy. UPPER ABDOMEN: Unremarkable. OSSEOUS STRUCTURES: Unremarkable. CT/CT chest wo IV con IMPRESSION: 1. Since 09/03/2020, no significant change in ill-defined right upper lobe nodule, presumably postinflammatory. 2. Stable small bilateral calcified granulomata. 3. No new or suspicious disease in the chest. 4. Follow-up thoracic imaging should be based on the patient's risk status. Fleischner guidelines were followed.
== END 2023-06-09 09:26 | disposition home or self-care (01) ==
LOC: HO.CT 09:25
PROVIDERS: PCP Internal Medicine; Visit Provider Hospitalist
DX: R91.8 Other nonspecific abnormal finding of lung field (principal)
CPT/HCPCS: 71250

== ENCOUNTER 2023-06-22 13:03 | Outpatient (AMB) | payer MEDICARE, SELFPAY ==
[2023-06-22 13:16] VITALS: PULSE 72; O2SAT 96; BMI 24.5
--- NOTE | 2023-06-22 13:16 | A.OFFVIS_ITS ---
Intake Vital Signs 06/22/23 13:16 Height 5 ft 3 in Weight 138 lb 3.677 oz BMI 24.5 Pulse 72 Pulse Source Pulse Oximeter Pulse Oximetry (%) 96 Oxygen Delivery Method Room Air Intake Visit Reasons: ct follow up Other Spatial Scientist Required: No Allergies meloxicam Allergy (Severe, Verified 06/22/23 13:17) esophagitis minocycline Allergy (Severe, Verified 06/22/23 13:17) esophagitis HPI HPI Comments History of Present Illness Details The patient is a 72-year-old woman with a known history of pulmonary nodules. Overall she has been doing well for respiratory status. Denies any coughing or shortness of breath or any other concerning symptoms. She did have a CT scan of the chest back in June 2018. We did review the images here in the office. He does have an 8 mm ground-glass the pulmonary nodule in addition to other smaller nodules. I did compare this finding to her CT scan from 2014 and it was indeed interval increase in the size of the nodules. Her CT scan from 2016 was relatively similar to the 1 she had 2018. Based on the fact that this was nodules are subsolid and ground glassy when he to monitor them for longer period of time. The fact that the increasing size from 2014 2016 also suggested we have to monitor this very closely to avoid smoldering malignant processes. At this point the patient is scheduled to undergo a CT scan now. She did have a CT scan of the chest that was personally by us in the office back in August 2019 demonstrating multiple pulmonary nodules largest 1 measuring 8 mm and ground- glass in nature. Explained to her that the ground-glass nodular densities we have to follow little longer due to the possibility of a smoldering malignancy. At this point the patient will have a repeat CT scan this month which should be 1 year from her last 1. In addition to that we will check for allergies. 12/12/2020 the patient is here for pulmo nary follow-up visit. Overall she continues to have this productive cough which is ongoing and on comfortable. Sometimes she feels that is a postnasal drip and sometimes she feels the mucus is coming from her lungs. Did do accumulate in the the neck area and she feels congested. She did try the singular but was not very helpful. We did have her go for blood work but no significant allergies noted. No significant eosinophilia noted and normal sedimentation rate. At this point the patient has evidence of chronic bronchitis with ongoing wheezing and rhonchi. The patient is not interested in using inhalers at this time. She is open to trying azithromycin 3 times a week and see if this helps with the treatment of a chronic bronchitis. In addition to that we did look at her CT scan of the [facility] t. We did compare this CT scan to there CT scan from [facility] back in 2019 and also from 2017. It appears that she has this 1 cm subsolid nodular density. Does not appear to have significant change in size which is reassuring. However it is subsolid and ground-glass therefore should be monitor closely. Based on the fact that the nodule looks fairly the same will hold off on doing any more CT scans until 18 months from now. In the meantime will treat her for the chronic bronchitis her follow-up in 3 months. 06/02/2021 the patient is here for a pulmonary follow-up visit. Since we last spoke she is doing better on the Breo. Her cough and chest congestion are improved. She did not have the blood work which she will have it done today to assess for her underlying chronic bronchitis. She also has a pulmonary nodule which is a ground-glass the nodular density in the right upper lobe that is measuring 9 mm back and August 2020. patient is concerned because she is developing some chest heaviness and some increase discomfort in the chest area and some fullness in her chest than axilla and neck area. She is concerned about this nodule. She has looked at all reports going back to 2015 in appears that the measurements and slowly increased in size. Therefore based on worsening symptoms and the interval increase in the right upper lobe nodular density on however repeat a CT scan of the chest now. 07/27/2021 the patient is here for a pul monary follow-up visit. Since we last spoke the patient stopped the Breo. She did not really see any significant improvement. She does feel this sensation that she wants to cough in does have some shortness of breath at times. Her breathing does feel better. 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 Otherwise her blood work was reassuring. We also reviewed her CT scan of the chest personally by me as the subsolid nodular density in the right upper lobe which appears to be pretty stable when compared to 2019 measuring between 9-10 mm in size. In addition to that there was a 5 mm ground-glass nodular density in the right lower lobe. She also has other subcentimeter pulmonary nodules that are solid in nature that appear to be stable as well. No evidence of any pneumonitis or airway disease. On examination she does have some wheezing. Will provide her with a peak flow in order for her to check her peak flows while she goes back on the Breo. if she does not feel that the Breo is helping she will call so we can provide her with an alternative inhaler. 01/24/2022 patient is here for a pulmonary follow-up visit. She continues to have a cough. Moderate severity. Sometimes the cough is a result of a scratchy throat. Sometimes she even scratches her throat with her finger. A does provi de some relief sometimes she feels that the cough is more the and associated with chest tightness and wheezing. She has been using the Breo which has been partially helpful. We did talk about considering other medications to suppress her upper airway cough syndrome. She is going to try some dark chocolate and also we did talk about the Tessalon Perles. Patient may also have an allergic component to the for Astelin nasal spray may be helpful. In the meantime she also has some wheezing on examination. Therefore will optimize therapy by switching her Breo to Trelegy. I am hopeful that this provides additional support. When she completes the months on Trelegy come go back to Breo and see if her symptoms reoccur. The patient has underlying pulmonary nodules. She should have a CT scan a year from her last 1 which will be sometime in May 2022. Will follow-up after that. 06/22/2022 the patient is here for a pulmonary follow-up visit. The patient continues to complaint of cough. She did try the Trelegy inhaler but was not helpful. She went back on the Breo. Still she does not see any significant improvement. On examination she does have expiratory wheezing. Will go ahead and add Spiriva to Breo see if this provides better affect. In addition to that she did undergo a CT scan of the chest that was personally by me. We did compared to her CT scans from 2020 and 2019. The subsolid pulmonary nodules not changing significantly but he did increase briefly from 9 mm to 10 mm since last year. I do not see any worsening solid component to the nodule. At this point will plan to repeat the CT scan in 1 year. In the meantime will present her at thoracic conference to can look at the nodule a little closer in multidisciplinary approach since the had a slight increase in size. 12/27/2022 the patient is here for a pulmo nary follow-up visit. The patient overall is doing better. She is tolerating the Breo. She did not tolerate the Spiriva due to dryness of her mouth and other adverse effects. Therefore she stopped it. She did not really see any significant improvement on the Spiriva anyway. She continues on the Breo. Now she is going to allergy season. She does have a cough and some nasal congestion. She is using her nasal sprays with good effect. On examination she also has some mild wheezing. Therefore will go ahead and add Singulair to her regimen to help with allergic symptoms and asthma symptoms as well. The patient also has significant daytime drowsiness with an Hollister score elevated at 10 over 24. She has had episodes which she has awakened suddenly at nighttime with shortness of breath. She has noticed a day been happening more often and she is getting concern. Usually happen when she is in deep sleep. This is very likely to be sleep apnea. Therefore will have her undergo a home sleep study at this time. She also has pulmonary nodules however closely monitoring. She is due for CT scan in May. Therefore, will follow-up after her sleep study. But, if her sleep study is negative she can postpone that visit till May after her CT scan. 06/22/2023 the patient is here for a pulmonary follow-up visit. The patient overall has been doing well. Denies any significant shortness of breath or wheezing. She is responding well to the current respiratory regimen which is Breo. She is tried multiple inhalers in the past without any good response. The patient has been exercising regularly. She does get winded at times. On examination she does have some wheezing. I did recommend we can increase the Breo to the 200 mcg dose at least for a month and see if it helps. She also complains of daytime drowsiness. The patient did have a home sleep study. It demonstrated that she did have mild sleep apnea primarily while sleeping supine. She will try positional therapy. I will give her some ideas. However, she continues have daytime drowsiness she should consider trial of CPAP specially because of her cardiovascular risk factors. We did review her CT scan of the chest that she had in May 2023 demonstrating stable subsolid pulmonary nodule in the rather low. Has not changed in the last few years. This is a subsolid nodule so we just have to make sure we follow it a little bit longer. She has had CT scans now for some time. Therefore will plan to follow this nodule in 18-24 months. If the patient develops any worsening symptoms prior to that she is to call the office for an earlier assessment. [facility] Medical History (Updated 06/10/23 @ 09:40 by Keli Ball MD) Hearing loss ADAM (obstructive sleep apnea) Depression, major, in remission Multinodular thyroid Goiter Vitamin D deficiency Osteoporosis Dyslipidemia Osteopenia of left femoral neck Seasonal allergies Chronic bronchitis GERD (gastroesophageal reflux disease) Pulmonary nodules Chronic rhinitis Surgical History Hx of colonoscopy Hx of esophagogastroduodenoscopy History of total abdominal hysterectomy and bilateral salpingo-oophorectomy Family History Father CVD (cardiovascular disease) Hypertension GI cancer Mother Hypertension Alzheimer disease Daughter Mental health disorder Sister Mental health disorder Social History Alcohol intake: current Alcohol intake frequency: a few times a month Alcohol type: wine Patient Tobacco Use Status: Former Tobacco user Tobacco use type: Cigarette Years Smoked: 10 years Review of Systems Const Reports no additional complaints, Reports daytime sleepiness, Denies frequent falls, Denies headache(s), Reports snoring and Denies weakness Eyes Denies blind spots, Denies blurry vision, Denies change in vision, Denies diplopia and Denies loss of vision ENT Reports no additional complaints, Denies vertigo, Denies dizziness and Denies headache(s) Card Reports no additional complaints and Reports dyspnea on exertion Resp Reports no additional complaints, Reports cough, Reports dyspnea on exertion, Reports snoring and Reports wheezing Details: Denies nausea or vomiting Musc Reports no additional complaints, Reports as per HPI, Denies abnormal gait and Denies numbness Skin/Breast Reports wounds (Abrasion of left knee) Neuro Denies abnormal gait, Denies vertigo, Denies dizziness, Denies frequent falls, Denies headache(s), Denies lack of coordination, Denies loss of vision, Denies memory loss, Denies numbness and Denies weakness Psych Denies memory loss Aller/Immun Reports wheezing Physical Exam Vital Signs: Last Vital Signs Pulse 72 06/22/23 13:16 Pulse Ox 96 06/22/23 13:16 Oxygen Delivery Method Room Air 06/22/23 13:16 BMI result Body Mass Index 24.5 Const General: alert Neck Neck: Yes normal visual inspection Chest Chest palpation & inspection: normal inspection of the chest Resp Auscultation: wheezes and diminished lung sounds Cardio Rate: regular rate Rhythm: regular rhythm Heart sounds: S1 normal heart sound present and S2 normal heart sound present GI Inspection: Yes normal to inspection and No distended Results Reviewed Results Reviewed: [address] [address] [address] Scan Report Signed Patient: Aislinn Sarkar MR#: [id number] : 1950 Acct:[id number] Age/Sex: 72 / F ADM Date: 06/09/23 Loc: HO.CT Attending Dr: Valentin Badillo MD Ordering Physician: Valentin Badillo MD Date of Service: 06/09/23 Procedure(s): CT chest wo IV con Accession Number(s): [id number] cc: Keli Ball MD; Valentin Badillo MD~ EXAMINATION: CT CHEST WITHOUT CONTRAST CLINICAL INFORMATION: Follow-up lung nodule COMPARISON: 05/03/2022 and 06/15/2021 and 09/03/2020 TECHNIQUE: Multidetector volumetric CT imaging of the chest was done. Axial MIP volume rendering provided. Sagittal and coronal reformatted images were obtained. This CT examination was performed using dose optimization techniques as appropriate, variously including the following: *Automated exposure control *Adjustment of mA and/or kV according to patient size (this includes techniques or standardized protocols for targeted exams where dose is matched to indication/reason for exam; i.e. extremities or head) *Use of iterative reconstruction technique DLP: 105 mGy-cm FINDINGS: SPEECH AND HEARING DIRECTOR: Unremarkable LUNGS: There is been no significant change in 11 x 9 mm ill-defined nodular opacity in the right upper lobe with a focal cystic or cavitary component. This is felt likely to reflect postinflammatory scarring given the interval two-year stability. Calcified right upper and right lower lobe granulomata are again evident. No new or suspicious mass, nodule or consolidation is evident. The trachea and major bronchi are patent. MEDIASTINUM: The mediastinum is normal. CORONARY ARTERY CALCIFICATION: None visualized on this study. PLEURA: There is no pleural effusion. No pleural mass or thickening. AXILLA: No lymphadenopathy. UPPER ABDOMEN: Unremarkable. OSSEOUS STRUCTURES: Unremarkable. CT/CT chest wo IV con IMPRESSION: 1. Since 09/03/2020, no significant change in ill-defined right upper lobe nodule, presumably postinflammatory. 2. Stable small bilateral calcified granulomata. 3. No new or suspicious disease in the chest. 4. Follow-up thoracic imaging should be based on the patient's risk status. Fleischner guidelines were followed. Dictated By: Tomy Chapman MD Signed By: <Electronically signed by Tomy Chapman MD in OV> 06/13/23 1105 DD/ 0953 TD/TT: Special Agent In Charge: Assessment & Plan Assessment & Plan (1) Pulmonary nodules: Code(s): R91.8 - Other nonspecific abnormal finding of lung field (2) Chronic rhinitis: Code(s): J31.0 - Chronic rhinitis (3) Chronic bronchitis: Code(s): J42 - Unspecified chronic bronchitis Qualifiers: Chronic bronchitis type: mucopurulent Qualified Code(s): J41.1 - Mucopurulent chronic bronchitis (4) ADAM (obstructive sleep apnea): Code(s): G47.33 - Obstructive sleep apnea (adult) (pediatric) Plan POsitional sleep therapy. Consider elastic mandibular device with her dentist. Otherwise, consider trial of APAP ELOINA as needed and prior to exercise activity increase Breo 200mcg 1 inhaltion daily continue singulair stopped Spiriva, adverse effects repeat CT scan 18-24 months Astelin nasal spray F/U 12 months Medications: New fluticasone furoate-vilanterol 200-25 mcg/dose (Breo Ellipta) 1 inh inhalation DAILY 30 days 60 ea 11RF J45.909 - Unspecified asthma, uncomplicated Coding Level of Care Code Est Pt Level 4 (33390) Diagnoses Pulmonary nodules R91.8 Chronic rhinitis J31.0 Mucopurulent chronic bronchitis J41.1 Chronic bronchitis type: mucopurulent ADAM (obstructive sleep apnea) G47.33 Time Spent (min) 18
== END 2023-06-22 13:47 | disposition home or self-care (01) ==
PROVIDERS: PCP Internal Medicine; Visit Provider Hospitalist
DX: R91.8 Other nonspecific abnormal finding of lung field (principal); J31.0 Chronic rhinitis; J41.1 Mucopurulent chronic bronchitis; G47.33 Obstructive sleep apnea (adult) (pediatric)
CPT/HCPCS: 99214

== ENCOUNTER → 2023-06-22 13:03 | Outpatient (BNVA) | payer MEDICARE, SELFPAY | PROVIDERS: PCP Internal Medicine; Visit Provider Hospitalist | DX: R91.8 Other nonspecific abnormal finding of lung field (principal); J31.0 Chronic rhinitis; J41.1 Mucopurulent chronic bronchitis; G47.33 Obstructive sleep apnea (adult) (pediatric) | CPT/HCPCS: 99212 ==

== ENCOUNTER 2023-07-18 12:49 | Outpatient (REF) | payer MEDICARE, SELFPAY | END 2023-07-18 12:50 | disposition home or self-care (01) | LOC: HO.MAMMO 12:49 | PROVIDERS: PCP Internal Medicine; Visit Provider Internal Medicine | DX: Z12.31 Encounter for screening mammogram for malignant neoplasm of breast (principal) | CPT/HCPCS: 77063; 77067 ==

== ENCOUNTER → 2023-07-18 13:00 | Outpatient (BNV) | payer MEDICARE, SELFPAY | PROVIDERS: PCP Internal Medicine; Visit Provider Radiology Diagnostic Radiology | DX: Z12.31 Encounter for screening mammogram for malignant neoplasm of breast (principal) | CPT/HCPCS: 77063; 77067 ==

== ENCOUNTER 2023-08-28 08:24 | Outpatient (AMB) | payer MEDICARE, SELFPAY ==
--- NOTE | 2023-08-28 08:33 | A.OFFVIS_ITS ---
Intake Vital Signs 08/28/23 08:37 Height 5 ft 3 in Weight 138 lb 2 oz BMI 24.5 BP 118/76 Blood Pressure Location Rt brachial Position Sitting Pulse 71 Pulse Source Pulse Oximeter Pulse Oximetry (%) 96 Oxygen Delivery Method Room Air Intake Visit Reasons: SHERIDAN G0439 Allergies meloxicam Allergy (Severe, Verified 10/24/23 01:50) esophagitis minocycline Allergy (Severe, Verified 10/24/23 01:50) esophagitis Medication List - Last Reconciled 08/28/23 by Keli Ball MD atorvastatin 20 mg PO DAILY Breo Ellipta 100-25 mcg/dose (fluticasone furoate-vilanterol) 1 ea PO DAILY NS calcium carbonate 600 mg PO DAILY 30 days citalopram 40 mg PO DAILY montelukast (Singulair) 10 mg PO BEDTIME 30 days xtasudad-qzj-fegl-FA-vit K-lut 8 mg iron-400 mcg-50 mcg (Centrum Silver Women) 1 tab PO DAILY risedronate 150 mg PO .once a month 90 days vitamin B complex 1 tab PO DAILY HPI SHERIDAN G0439 HPI Details SWV 73-year-old lady with history of pulmonary nodules, chronic bronchitis, obstructive sleep apnea, followed by Pulmonary; has osteopenia in left femoral neck and left femur currently on risedronate, multinodular thyroid, currently followed by endocrine clinic, and has an appointment coming up next month, has dyslipidemia and osteoarthritis, here today for her subsequent annual wellness visit. She is up-to-date with her screening mammogram done 07/18/2023 with normal findings, had a bone density scan done 06/24/2022 which showed presence of osteopenia in left femoral neck and left femur, and had a normal screening colonoscopy done in 2019 by doctors removed again . She had a normal fasting lipid panel screening done as well as a fasting glucose done January 03. She is up-to-date with her flu vaccine, pneumococcal vaccine, Shingrix vaccine and Tdap, but does not want to get the COVID booster and is hesitant to get RSV vaccine. ? Medical / Social History Reviewed? Past Medical History ?Yes . ? [place] of Care / Care Team list updated ?Yes . ? Surgical/Hospitalization History ?Yes . ? Current Medications (including OTC and supplements) ?Yes . ? Family History ?Yes . ? Tobacco Control form ?Yes . ? AUDIT-C (Alcohol use) form ?Yes . ? Illicit drug use in Social History ?Yes . ? Current diagnosis of depression? ?No ? Appropriate PHQ2/PHQ9 completed ?Yes . ? Data entered by ?Utility Person and reviewed by provider ? Fall Risk ? Fall History? Have you had any falls with injury in the past year? ?No . ? Have you had two or more falls in the past year? ?No . ? Fall Risk Assessment: ?No falls in the past year . ? HRA filled out by the patient, reviewed by Provider and scanned. ?SWV ? Balance? Romberg ?Yes . ? Tandem walk ?Yes . ? Walk and Turn ?Yes . ? Rise from sit to stand ?Yes . ?Vision? Corrective lens ?Yes ? Vision screen ? Up-to-date, sees [facility], and has seen Dr. Domingo ?Hearing? Whisper test ?fail, has been referred to the [facility] speech and hearing center . ?Written Plan?Completed. See Patient Documents.? [facility] Medical History Hearing loss ADAM (obstructive sleep apnea) Depression, major, in remission Multinodular thyroid Goiter Vitamin D deficiency Osteoporosis Dyslipidemia Osteopenia of left femoral neck Seasonal allergies Chronic bronchitis GERD (gastroesophageal reflux disease) Pulmonary nodules Chronic rhinitis Surgical History Hx of colonoscopy Hx of esophagogastroduodenoscopy History of total abdominal hysterectomy and bilateral salpingo-oophorectomy Family History Father CVD (cardiovascular disease) Hypertension GI cancer Mother Hypertension Alzheimer disease Daughter Mental health disorder Sister Mental health disorder Social History Alcohol intake: current Alcohol intake frequency: a few times a month Alcohol type: wine Patient Tobacco Use Status: Former Tobacco user Tobacco use type: Cigarette Years Smoked: 10 years Questionnaire Medicare Wellness Checkup [age] What gender do you identify with?: female During the past 4 weeks, how much have you been bothered by emotional problems such as feeling anxious, depressed, irritable, sad or downhearted, and blue?: slightly During the past 4 weeks, has your physical & emotional health limited your so cial activities with family, friends, neighbors, or groups?: not at all During the past 4 weeks, how much bodily pain have you generally had?: no pain During the past 4 weeks, was someone available to help you if you needed & wanted help?: yes, as much as I wanted During the past 4 weeks, what was the hardest physical activity you could do for at least 2 minutes?: moderate Can you get to places out of walking distance without help? (For eg., can you travel alone on buses, taxis or drive your car?): Yes Can you go shopping for groceries or clothes without someone's help?: Yes Can you prepare your own meals?: Yes Can you do your housework without help?: Yes Because of any health problems, do you need the help of another person with your personal care needs such as eating, bathing, dressing or getting around the house?: No Can you handle your own money without help?: Yes During the past 4 weeks, how would you rate your health in general?: good During the past 4 weeks how have things been going for you?: pretty well Are you having difficulties driving your car?: no Do you always fasten your seat belt when you are in a car?: yes, usually During past 4 weeks, have you been bothered by the following: never: Falling or dizzy when standing up, Sexual problems?, Trouble eating well?, Teeth or denture problems? and Problems using the telephone? and sometimes: Tiredness or fatigue? Have you fallen 2 or more times in the past year?: No Are you afraid of falling?: No Are you a smoker?: no During the past 4 weeks, how many drinks of wine, beer, or other alcoholic beverages did you have?: 6-9 drinks per week Do you exercise for about 20 minutes 3 or more times a week?: yes, most of the time Have you been given information to help with the following?: no: Hazards in your house that might hurt you? and no: Keeping track of your medications? How often do you have trouble taking medicines the way you have been told to take them?: I always take medicine as prescribed How confident are you that you can control & manage most of your health problems?: very confident What is your race?: White Mini Mental State Exam (MMSE) Orientation What is the (year) (season) (date) (day) (month)?: year (2022), season (Winter), date (08/28/2023), day (Monday) and month (August) Where are we (state) (county) (town or city) (hospital) (floor)?: state ([place]), counts include 234 beds at the [facility] ([place]), town or city ([place]) and hospital/clinic ([facility]) Score Score: 9 Activity of Daily Living Bathing - sponge bath, tub bath or shower: receives no assistance (gets in/out by self, if usual bathing means Dressing - getting clothes from closets & drawers, including inner/outer garments & fasteners.: gets clothes & gets completely dressed without help Toileting - going to the 'toilet room' for urine/bowel elimination & cleaning self/arranging clothes: goes to toilet room, cleans self, arranges clothes without help Transfer: moves in & out of bed and chair without help (may use support object) Continence: controls urination/bowel movements completely by self Feeding: feeds self without help Total Score: 0 Information obtained from: patient Using telephone: independent Traveling: independent Shopping: independent Preparing meals: independent Housework: independent Taking medicine: independent Managing money: independent PHQ-9 Over the last 2 weeks, how often have you been bothered by any of the following problems? 1. Little interest or pleasure in doing things: not at all 2. Feeling down, depressed, or hopeless: not at all 3. Trouble falling or staying asleep, or sleeping too much: several days 4. Feeling tired or having little energy: several days 5. Poor appetite or overeating: not at all 6. Feeling bad about yourself - or that you are a failure or have let yourself or your family down: not at all 7. Trouble concentrating on things, such as reading the newspaper or watching television: not at all 8. Moving or speaking so slowly that other people could have noticed. Or the opposite - being so fidgety or restless that you have been moving around a lot more than usual: not at all 9. Thoughts that you would be better off or of hurting yourself in some way: not at all Total score: 2 Depression Screening Interpretation: Negative Depression Screening Done: Yes 37577 - PHQ-9 Billing: Yes Source: Developed by Drs. Gabo Weems, Mary Briscoe, Simone Smith and colleagues, with an educational javon from [employer]. SONJA-7 AMB Questionnaire SONJA-7 Date SONJA - 7 assessed: 08/28/23 Feeling nervous, anxious, or on edge: 1 = Several days Not being able to stop or control worryin = Several days Worrying too much about different things: 1 = Several days Trouble relaxin = Several days Being so restless that it is hard to sit still: 0 = Not at all Becoming easily annoyed or irritable: 1 = Several days Feeling afraid as if something awful might happen: 1 = Several days Total SONJA-7 score (0-4 normal; 5-9 mild; 10-14 moderate; 15-21 severe): 6 Source: Developed by Drs. Gabo Weems, Mary Briscoe, Simone Smith and colleagues, with an educational javon from [employer]. AUDIT C Alcohol Use Questionnaire (AUDIT-C) 1. How often do you have a drink containing alcohol?: 4 or more times a week 2. How many drinks containing alcohol do you have on a typical day when you are drinking?: 1 or 2 3. How often do you have six or more drinks on one occasion?: Never Total Score: 4 Physical Exam Vital Signs: Last Vital Signs Pulse 71 08/28/23 08:37 BP 118/76 08/28/23 08:37 Pulse Ox 96 08/28/23 08:37 Oxygen Delivery Method Room Air 08/28/23 08:37 BMI result Body Mass Index 24.5 Assessment & Plan Assessment & Plan (1) Encounter for subsequent annual wellness visit (AWV) in Medicare patient: Code(s): Z00.00 - Encounter for general adult medical examination without abnormal findings Plan: Medical wellness checklist reviewed discussed with patient and updated. Copy given. Up-to-date with her advanced directive (2) Depression, major, in remission: Code(s): F32.5 - Major depressive disorder, single episode, in full remission Plan: On citalopram (3) Multinodular thyroid: Code(s): E04.2 - Nontoxic multinodular goiter Plan: Asymptomatic (4) Osteoporosis: Code(s): M81.0 - Age-related osteoporosis without current pathological fracture Plan: Taking risedronate and multivitamins as well as calcium carbonate supplement (5) Dyslipidemia: Code(s): E78.5 - Hyperlipidemia, unspecified Plan: On atorvastatin (6) Chronic bronchitis: Code(s): J42 - Unspecified chronic bronchitis Qualifiers: Chronic bronchitis type: mucopurulent Qualified Code(s): J41.1 - Mucopurulent chronic bronchitis Plan: On Breo Ellipta followed by Pulmonary (7) Osteoarthritis of both hips: Code(s): M16.0 - Bilateral primary osteoarthritis of hip Plan: Takes Tylenol as needed (8) Pulmonary nodules: Code(s): R91.8 - Other nonspecific abnormal finding of lung field Plan: Followed by Pulmonary (9) ADAM (obstructive sleep apnea): Code(s): G47.33 - Obstructive sleep apnea (adult) (pediatric) Plan: Followed by Pulmonary Quality Reporting (2019) Depression/Bipolar (159/160/161/177) PHQ-9: Total score: 2 Coding Level of Care Code Medicare Subsequent (G0439) Diagnoses Encounter for subsequent annual wellness visit (AWV) in Medicare patient Z00.00 Depression, major, in remission F32.5 Multinodular thyroid E04.2 Osteoporosis M81.0 Dyslipidemia E78.5 Mucopurulent chronic bronchitis J41.1 Chronic bronchitis type: mucopurulent Osteoarthritis of both hips M16.0 Pulmonary nodules R91.8 ADAM (obstructive sleep apnea) G47.33 CPT Codes Advance Care Planning - Advance Care Planning discussion: On file, no changes ([id number]) Advance Care Planning - Time spent: 1-15 minutes, on File ([id number]) Advance Care Planning Advance Care Planning discussion: On file, no changes Date of discussion: 08/28/23 Who was present: Patient Forms completed: Health Care Proxy and MOLST Time spent: 1-15 minutes, on File Actual minutes spent: 15
[2023-08-28 08:37] VITALS: BP 118/76; PULSE 71; O2SAT 96; BMI 24.5
== END 2023-08-28 09:24 | disposition home or self-care (01) ==
PROVIDERS: Visit Provider Internal Medicine
DX: Z00.00 Encounter for general adult medical examination without abnormal findings (principal); F32.5 Major depressive disorder, single episode, in full remission; J41.1 Mucopurulent chronic bronchitis; E04.2 Nontoxic multinodular goiter; M81.0 Age-related osteoporosis without current pathological fracture; E78.5 Hyperlipidemia, unspecified; M16.0 Bilateral primary osteoarthritis of hip; R91.8 Other nonspecific abnormal finding of lung field; G47.33 Obstructive sleep apnea (adult) (pediatric)
CPT/HCPCS: 1123F; G0439

== ENCOUNTER 2023-10-05 13:18 | Outpatient (REF) | payer MEDICARE, SELFPAY ==
[2023-10-05 16:51] LABS: Alanine Aminotransferase 25 U/L (0-31); Alkaline Phosphatase 61 U/L (39-117); Anion Gap 12 (12-20); Aspartate Amino Transferase 21 U/L (5-31); Bilirubin Total 0.4 mg/dL (0.0-1.0); Blood Urea Nitrogen 19 mg/dL (9-16); Calcium 9.6 mg/dL (8.4-10.2); Carbon Dioxide 30 mmol/L (22-29); Chloride 103 mmol/L (96-108); Estimated Glomerular Filt Rate > 60; Glucose Random 74 mg/dL (60-115); Phosphorus 3.5 mg/dL (2.7-4.5); Potassium 3.7 mmol/L (3.3-5.1); Sodium 141 mmol/L (135-145); Total Protein 6.7 g/dL (6.5-8.0)
[2023-10-05 16:55] LABS: Free T4 (Free Thyroxine) 0.85 ng/dL (0.71-1.85); Thyroid Stimulating Hormone 1.25 uIU/mL (0.32-4.0); Vitamin D 25-OH Total 67.8 ng/mL (>30)
== END 2023-10-05 13:19 | disposition home or self-care (01) ==
LOC: HO.HMGCLDS 13:18
PROVIDERS: PCP Internal Medicine; Visit Provider Internal Medicine
DX: M81.0 Age-related osteoporosis without current pathological fracture (principal); E55.9 Vitamin D deficiency, unspecified; E04.2 Nontoxic multinodular goiter
CPT/HCPCS: 36415; 80053; 82306; 84075; 84100; 84439; 84443

== ENCOUNTER 2023-10-06 07:25 | Outpatient (REF) | payer MEDICARE, SELFPAY ==
[2023-10-11 15:32] LABS: N-Telopeptide 44 (see note); NTXCreaRU 71 mg/dL (20-275)
== END 2023-10-06 07:26 | disposition home or self-care (01) ==
LOC: HO.HMGCLNP 07:25
PROVIDERS: Visit Provider Internal Medicine
DX: M81.0 Age-related osteoporosis without current pathological fracture (principal)
CPT/HCPCS: 82523

== ENCOUNTER 2023-10-16 12:46 | Outpatient (AMB) | payer MEDICARE, SELFPAY ==
--- NOTE | 2023-10-16 13:00 | MHC.OFFVIS ---
Intake Vital Signs 10/16/23 13:01 Height 5 ft 3 in Weight 139 lb 5.314 oz BMI 24.7 BP 122/68 Blood Pressure Location Lt brachial Position Sitting Pulse 72 Pulse Source Pulse Oximeter Intake Visit Reasons: F/U Osteoporosis Intake Note: Patient presents today for Osteoporosis follow up, last seen by Dr. Arrieta on 01/16/2023. Resource Conservationist Required: No Accompanied by: Self / Same As Patient Allergies meloxicam Allergy (Severe, Verified 10/16/23 13:04) esophagitis minocycline Allergy (Severe, Verified 10/16/23 13:04) esophagitis Medication List - Last Reconciled 10/16/23 by Gabo Washington MD atorvastatin 20 mg PO DAILY Breo Ellipta 100-25 mcg/dose (fluticasone furoate-vilanterol) 1 ea PO DAILY NS calcium carbonate 600 mg PO DAILY 30 days citalopram 40 mg PO DAILY montelukast (Singulair) 10 mg PO BEDTIME 30 days nipvbvvh-pja-wmfr-FA-vit K-lut 8 mg iron-400 mcg-50 mcg (Centrum Silver Women) 1 tab PO DAILY risedronate 150 mg PO .once a month 90 days vitamin B complex 1 tab PO DAILY HPI HPI Comments History of Present Illness Details 73 YO Female with PMHx Osteoporosis who is seen in F/U for the same. She was previously followed by Dr. Cruz. The patient last saw Dr. Arrieta First diagnosed in 2017 when her BMD declined in the hip to the osteoporotic range. She was previously osteopenic dating back to 2002. She was on Fosamax initially and used this for 1 year in the early , but developed severe GERD so this was stopped. She started Prolia 02/01/2019 and received 3 doses, the last 07/2020. She did not tolerate Prolia well due to myalgias, so this was stopped. She was switched to Risedronate 150 mg once a month as of January 2021. She is tolerating the Risedronate well. After our initial visit we completed a full biochemical assessment for secondary causes of Osteoporosis, which was completely WNL other than elevated NTX indicating rapid bone turnover. No history of pathologic fracture or ONJ. Has 1 servings of dietary calcium per day in the form of milk. Takes Calcium supplement 600 mg daily. She is not on a Vitamin D supplement currently. Did use PPI many years ago. Denies ever using anticoagulant, antiepileptic or glucocorticoid medication. Does weight bearing exercise 3 days per week in the form of aerobics and walking.. 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 Menses were regular coming monthly. . She did not breastfeed. She underwent a TAHBSOO at the age of 41. She did use HRT until the age of 48. Denies history of Kidney stones. Denies family history of Osteoporosis or hip fracture. UTD on dental cleanings and sees dentist every 6 months. No planned upcoming dental work or extractions. DXA dated 06/24/2022: FINDINGS: AP SPINE L1-L4: Current: BMD 1.103 g/cm2, Z-score 1.2, T-score -0.6, normal, 7.9% decrease from previous, 7.3% increase from baseline (<5% change is not significant). Prior: BMD 1.197 g/cm2. Baseline: BMD 1.028 g/cm2. LEFT FEMUR, NECK: Current: BMD 0.770 g/cm2, Z-score 0.0, T-score -1.9, osteopenia. Prior: BMD 0.764 g/cm2. Baseline: BMD 0.800 g/cm2. LEFT FEMUR, TOTAL: Current: BMD 0.782 g/cm2, Z-score 0.0, T-score -1.8, osteopenia, 3.2% decrease from previous, 8.0% decrease from baseline (<5% change is not significant). Prior: BMD 0.808 g/cm2. Baseline: BMD 0.850 g/cm2. LEFT FOREARM RADIUS 33%: BMD 0.612 g/cm2, Z-score -0.8, T-score -3.0, osteoporosis, 10.1% decrease from baseline (<5% change is not significant). Prior (and baseline for radius): BMD 0.681 g/cm2. Labs: Laboratory Tests 01/03/23 01/03/23 01/04/23 07:26 07:26 05:30 Sodium 141 Potassium 4.3 Creatinine 0.74 Estimated GFR > 60 Albumin 4.0 N-Telopeptide X-li nked 33 25-OH Vitamin D To peg 34.7 PTH Intact 35 Calcium (PTH Intac t) 9.6 PFSH Medical History Hearing loss ADAM (obstructive sleep apnea) Depression, major, in remission Multinodular thyroid Goiter Vitamin D deficiency Osteoporosis Dyslipidemia Osteopenia of left femoral neck Seasonal allergies Chronic bronchitis GERD (gastroesophageal reflux disease) Pulmonary nodules Chronic rhinitis Surgical History Hx of colonoscopy Hx of esophagogastroduodenoscopy History of total abdominal hysterectomy and bilateral salpingo-oophorectomy Family History Father CVD (cardiovascular disease) Hypertension GI cancer Mother Hypertension Alzheimer disease Daughter Mental health disorder Sister Mental health disorder Social History Alcohol intake: current Alcohol intake frequency: a few times a month Alcohol type: wine Patient Tobacco Use Status: Former Tobacco user Tobacco use type: Cigarette Years Smoked: 10 years Physical Exam Vital Signs: Last Vital Signs Pulse 72 10/16/23 13:01 BP 122/68 10/16/23 13:01 BMI result Body Mass Index 24.7 Const Other: Thyroid gland is of normal size weighs about 15 g. There are no thyroid nodules palpated Assessment & Plan Assessment & Plan (1) Osteoporosis: Code(s): M81.0 - Age-related osteoporosis without current pathological fracture Plan: This is a 73-year-old white female with a history of osteoporosis with negative secondary workup. Patient was treated with Prolia in the past is now taking risedronate. Urine NTX is still suppressed. Would have patient hold the risedronate and continue calcium and vitamin-D. Will check DEXA bone density in about 8 9 months' time along with urine NTX. Depending upon above may reinitiate the bisphosphonate 1st continue the drug holiday (2) Multinodular thyroid: Code(s): E04.2 - Nontoxic multinodular goiter Plan: History of subcentimeter thyroid nodules with low T-rads score. No need for follow-up ultrasound Orders: Orders Collagen Crosslinks NTX 8 Months M81.0 - Age-related osteoporosis without current pathological fracture XR DEXA axial skeleton 8 Months M81.0 - Age-related osteoporosis without current pathological fracture Coding Level of Care Code Est Pt Level 3 (87730) Diagnoses Osteoporosis M81.0 Multinodular thyroid E04.2
[2023-10-16 13:01] VITALS: BP 122/68; PULSE 72; BMI 24.7
== END 2023-10-16 13:30 | disposition home or self-care (01) ==
PROVIDERS: PCP Internal Medicine; Visit Provider Internal Medicine Endocrinology, Diabetes & Metabolism
DX: M81.0 Age-related osteoporosis without current pathological fracture (principal); E04.2 Nontoxic multinodular goiter
CPT/HCPCS: 99213

== ENCOUNTER → 2023-10-16 12:46 | Outpatient (BNVA) | payer MEDICARE, SELFPAY | PROVIDERS: Visit Provider Internal Medicine Endocrinology, Diabetes & Metabolism | DX: M81.0 Age-related osteoporosis without current pathological fracture (principal); E04.2 Nontoxic multinodular goiter | CPT/HCPCS: 99212 ==

== ENCOUNTER 2023-11-14 06:28 | Outpatient (REF) | payer MEDICARE, SELFPAY ==
[2023-11-14 11:55] LABS: Alanine Aminotransferase 24 U/L (0-31); Aspartate Amino Transferase 21 U/L (5-31); Cholesterol 195 mg/dL (<200); HDL Cholesterol 80 mg/dL (>40); LDL Cholesterol Calculated 97 mg/dL (<100); Triglycerides 94 mg/dL (<150)
== END 2023-11-14 06:29 | disposition home or self-care (01) ==
LOC: HO.HMGCLDS 06:28
PROVIDERS: PCP Internal Medicine; Visit Provider Internal Medicine
DX: E78.5 Hyperlipidemia, unspecified (principal)
CPT/HCPCS: 36415; 80061; 84450; 84460

== ENCOUNTER 2023-11-24 08:21 | Outpatient (REF) | payer MEDICARE, SELFPAY | END 2023-11-24 08:22 | disposition home or self-care (01) | LOC: HO.SH 08:21 | PROVIDERS: Visit Provider Internal Medicine | DX: Z01.118 Encounter for examination of ears and hearing with other abnormal findings (principal); H91.90 Unspecified hearing loss, unspecified ear | CPT/HCPCS: 92557; 92567 ==

== ENCOUNTER 2023-12-18 08:44 | Outpatient (AMB) | payer MEDICARE, SELFPAY ==
--- NOTE | 2023-12-18 09:40 | MHC.OFFWIV ---
Intake Vital Signs 12/18/23 09:41 Height 5 ft 3 in Weight 139 lb 4 oz BMI 24.7 BP 130/72 Blood Pressure Location Rt brachial Position Sitting Pulse 82 Pulse Source Pulse Oximeter Temp 98.0 F Temp Source Oral Pulse Oximetry (%) 99 Oxygen Delivery Method Room Air Intake Visit Reasons: Ep swollen throat Intake Note: Pt presents to the office today for throat swelling. She states this has been going on for about 5 months and states that she has a lot of mucous buildup and states she has been having a bad sore throat. She states she also has right ear pain on and off as well. Patient Tobacco Use Status: Former Tobacco user Allergies meloxicam Allergy (Severe, Verified 12/18/23 10:32) esophagitis minocycline Allergy (Severe, Verified 12/18/23 10:32) esophagitis Medication List - Last Reconciled 12/18/23 by Canelo Dominique MD atorvastatin 20 mg PO DAILY Breo Ellipta 100-25 mcg/dose (fluticasone furoate-vilanterol) 1 ea PO DAILY NS calcium carbonate 600 mg PO DAILY 30 days citalopram 40 mg PO DAILY montelukast (Singulair) 10 mg PO BEDTIME 30 days febkeyla-zns-uxih-FA-vit K-lut 8 mg iron-400 mcg-50 mcg (Centrum Silver Women) 1 tab PO DAILY vitamin B complex 1 tab PO DAILY HPI Ep swollen throat HPI Details Year old female presents to the office for a sick visit. Patient is reporting symptoms of sore throat and difficulty swallowing. Symptoms present for a few weeks. Also complaining of itchiness around the corners of the eye, sneezing. PFSH Medical History Hearing loss ADAM (obstructive sleep apnea) Depression, major, in remission Multinodular thyroid Goiter Vitamin D deficiency Osteoporosis Dyslipidemia Osteopenia of left femoral neck Seasonal allergies Chronic bronchitis GERD (gastroesophageal reflux disease) Pulmonary nodules Chronic rhinitis Surgical History Hx of colonoscopy Hx of esophagogastroduodenoscopy History of total abdominal hysterectomy and bilateral salpingo-oophorectomy Family History Father CVD (cardiovascular disease) Hypertension GI cancer Mother Hypertension Alzheimer disease Daughter Mental health disorder Sister Mental health disorder Social History Alcohol intake: current Alcohol intake frequency: a few times a month Alcohol type: wine Patient Tobacco Use Status: Former Tobacco user Tobacco use type: Cigarette Years Smoked: 10 years Physical Exam Vital Signs: Last Vital Signs Temp 98.0 F 12/18/23 09:41 Pulse 82 12/18/23 09:41 BP 130/72 12/18/23 09:41 Pulse Ox 99 12/18/23 09:41 Oxygen Delivery Method Room Air 12/18/23 09:41 BMI result Body Mass Index 24.7 Const General: cooperative and healthy appearing Nutritional Appearance: well nourished Orientation/consciousness: patient oriented x3 Limitations: no limitations HEENT Head: Yes normal to inspection Eyes General: appearance normal, both eyes and all related structures Neck Neck: Yes normal visual inspection Chest Chest palpation & inspection: normal palpation of entire chest wall Resp Effort & Inspection: normal respiratory effort Neuro General: patient oriented x3 Results AMB Rapid Strep AMB Rapid Strep Negative Last Edit by Yolanda Zhu MA on 12/18/23 09:56 Results Reviewed Results Reviewed: Laboratory Last Values Strep Scn Rapid Clinic Negative 12/18/23 09:53 Assessment & Plan Assessment & Plan (1) Allergic rhinitis: Code(s): J30.9 - Allergic rhinitis, unspecified Plan: Patient was advised to increase the Singulair to once a day. Zyrtec added to the regimen. Antibiotics added to the regimen. If symptoms do not improve to follow-up here. Orders: Orders AMB Rapid Strep Screen Today Z13.9 - Encounter for screening, unspecified Coding Level of Care Code Est Pt Level 3 (51240) Diagnoses Allergic rhinitis J30.9
[2023-12-18 09:41] VITALS: BP 130/72; PULSE 82; TEMP 36.7; O2SAT 99; BMI 24.7
== END 2023-12-18 10:50 | disposition home or self-care (01) ==
PROVIDERS: PCP Internal Medicine; Visit Provider Internal Medicine
DX: J30.9 Allergic rhinitis, unspecified (principal); J02.9 Acute pharyngitis, unspecified
CPT/HCPCS: 87880; 99213

== ENCOUNTER 2024-02-01 13:22 | Outpatient (AMB) | payer MEDICARE, SELFPAY ==
[2024-02-01 13:33] VITALS: BP 136/66; PULSE 84; O2SAT 96; BMI 24.6
--- NOTE | 2024-02-01 13:33 | A.OFFPC_ITS ---
Vital Signs 02/01/24 13:33 Height 5 ft 3 in Weight 139 lb BMI 24.6 BP 136/66 Blood Pressure Location Rt brachial Position Sitting Pulse 84 Pulse Source Pulse Oximeter Pulse Oximetry (%) 96 Oxygen Delivery Method Room Air Intake Visit Reasons: F/U Throat lots of mucus Intake Note: Pt is here today follow up from walk in. Allergies meloxicam Allergy (Severe, Verified 02/01/24 13:59) esophagitis minocycline Allergy (Severe, Verified 02/01/24 13:59) esophagitis Medication List - Last Reconciled 02/01/24 by Keli Ball MD atorvastatin 20 mg PO DAILY Breo Ellipta 100-25 mcg/dose (fluticasone furoate-vilanterol) 1 ea PO DAILY NS calcium carbonate 600 mg PO DAILY 30 days citalopram 40 mg PO DAILY fexofenadine 60 mg PO Q12H montelukast (Singulair) 10 mg PO BEDTIME 30 days nequxluf-xgv-hlid-FA-vit K-lut 8 mg iron-400 mcg-50 mcg (Centrum Silver Women) 1 tab PO DAILY vitamin B complex 1 tab PO DAILY Tobacco use date assessed: 02/01/24 Fall risk assessment: No Falls in past year Last assessed Fall Risk: 02/01/24 Dental Screening Dental Screen Date: 02/01/24 Did you have a dental visit in the last 12 months?: Yes Did you have a dental problem in the last 6 months where you did not have access to dental care?: No Was dental information given to patient?: Patient has dentist HPI F/U Throat lots of mucus HPI Details 73-year-old lady here today complaining of having frequent episodes of nasal congestion and mucus in her throat. This has been present now for the last 6 months and seems to have gotten better in November, went to the walk-in clinic and was given cetirizine 10 mg to take at night which she stopped taking as it was making her very drowsy. She has been using Flonase, doing saline nasal washes which has helped, however it seems like symptoms are starting to come back again. Denies any accompanying fever, no chills, no shortness of breath, no cough or wheezing reported [facility] Medical History (Updated 02/01/24 @ 14:05 by Keli Ball MD) Environmental and seasonal allergies Hearing loss ADAM (obstructive sleep apnea) Depression, major, in remission Multinodular thyroid Goiter Vitamin D deficiency Osteoporosis Dyslipidemia Osteopenia of left femoral neck Seasonal allergies Chronic bronchitis GERD (gastroesophageal reflux disease) Pulmonary nodules Chronic rhinitis Surgical History Hx of colonoscopy Hx of esophagogastroduodenoscopy History of total abdominal hysterectomy and bilateral salpingo-oophorectomy Family History Father CVD (cardiovascular disease) Hypertension GI cancer Mother Hypertension Alzheimer disease Daughter Mental health disorder Sister Mental health disorder Social History Housing: House Alcohol intake: current Alcohol intake frequency: a few times a month Alcohol type: wine Patient Tobacco Use Status: Former Tobacco user Tobacco use type: Cigarette Years Smoked: 10 years Current occupational status: unemployed Cognitive needs: No Hearing needs: No Vision needs: Yes Questionnaire PHQ-9 Over the last 2 weeks, how often have you been bothered by any of the following problems? Depression Screening Interpretation: Negative Depression Screening Done: Yes Source: Developed by Drs. Gabo Weems, Mary Briscoe, Simone Smith and colleagues, with an educational javon from [employer]. Thrive Questionnaire Date Thrive assessed: 02/01/24 I am a: Patient What is your living situation today?: I have a steady place to live Within the past 12 months, did the food you bought not last and you didn't have the money to get more?: Never true Within the past 12 months, did you worry whether your food would run out before you got money to buy more?: Never true Do you have trouble paying for medicines?: No Do you have trouble getting transportation to medical appointments?: No Do you have trouble paying your heating and electricity bill?: No Do you have trouble taking care of your child, family member or friend?: No Do you have trouble with day-to-day activities such as bathing, preparing meals, shopping, managing finances, etc.?: No Are you currently unemployed and looking for a job?: No Are you interested in more education?: No THRIVE Score: 0 AUDIT C Alcohol Use Questionnaire (AUDIT-C) 1. How often do you have a drink containing alcohol?: 4 or more times a week 2. How many drinks containing alcohol do you have on a typical day when you are drinking?: 1 or 2 3. How often do you have six or more drinks on one occasion?: Never Total Score: 4 Score Reviewed/Action Taken: Yes SONJA-7 AMB Questionnaire SONJA-7 Date SONJA - 7 assessed: 02/01/24 Feeling nervous, anxious, or on edge: 0 = Not at all Not being able to stop or control worryin = Not at all Worrying too much about different things: 1 = Several days Trouble relaxin = Not at all Being so restless that it is hard to sit still: 0 = Not at all Becoming easily annoyed or irritable: 1 = Several days Feeling afraid as if something awful might happen: 0 = Not at all Total SONJA-7 score (0-4 normal; 5-9 mild; 10-14 moderate; 15-21 severe): 2 Source: Developed by Drs. Gabo Weems, Mary Briscoe, Simone Smith and colleagues, with an educational javon from [employer]. SONJA-7 Assessment Billing SONJA-7 Assessment Tool: SONJA-7 Assessment 44467 Review of Systems Const Reports no additional complaints Eyes Reports no additional complaints ENT Reports as per HPI, Denies otalgia, Denies facial pain, Denies epistaxis and Denies sore throat Card Reports no additional complaints Resp Reports no additional complaints Aller/Immun Reports as per HPI Physical exam (Primary Care) Vital Signs: Last Vital Signs Pulse 84 02/01/24 13:33 BP 136/66 02/01/24 13:33 Pulse Ox 96 02/01/24 13:33 Oxygen Delivery Method Room Air 02/01/24 13:33 BMI result Body Mass Index 24.6 Tobacco/Smoking Status: Tobacco use Status Tobacco use date assessed 02/01/24 02/01/24 13:37 Patient Tobacco Use Status Former Tobacco user 02/01/24 13:37 Tobacco use type Cigarette 02/01/24 13:37 Depression Screening Interpretation: Negative Thrive Assessment: Date of Thrive Assessment Date Thrive assessed 11/29/21 02/01/24 13:37 Const General: cooperative, healthy appearing, comfortable and no acute distress HENMT Head: Yes normal to inspection and Yes normocephalic Ears: hearing grossly normal bilaterally, TM's normal bilaterally and EAC's normal General nose exam: Normal external nose present and No nasal discharge present Face and sinus: Yes sinuses nontender and Yes face symmetric Mouth: Normal oral and palatal mucosa present and moist mucous membranes Eyes General: appearance normal, both eyes and all related structures Neck Neck: Yes full ROM, Yes no lymphadenopathy, Yes supple and Yes torticollis Resp Auscultation: clear to auscultation bilaterally Cardio Other: S1-S2 present regular rate and rhythm Skin General skin exam: no rashes or lesions noted Assessment and Plan Assessment & Plan (1) Environmental and seasonal allergies: Code(s): J30.89 - Other allergic rhinitis Plan: Patient stop taking cetirizine as it was making her very drowsy, prescription was sent for fexofenadine 60 mg per tablet to take 1 every 12 hours as needed for nasal congestion may continue using saline nasal wash. Medications: New fexofenadine 60 mg PO Q12H 60 tabs 0RF Coding Level of Care Code Est Pt Level 3 (97889) Diagnoses Environmental and seasonal allergies J30.89 Additional Codes SONJA-7 Assessment Billing - SONJA-7 Assessment Tool: SONJA-7 Assessment 24059 ([id number])
== END 2024-02-01 14:45 | disposition home or self-care (01) ==
PROVIDERS: PCP Internal Medicine; Visit Provider Internal Medicine
DX: J30.89 Other allergic rhinitis (principal)
CPT/HCPCS: 99213

== ENCOUNTER 2024-06-21 08:56 | Outpatient (AMB) | payer MEDICARE, SELFPAY ==
[2024-06-21 09:01] VITALS: BP 130/64; PULSE 78; O2SAT 99; BMI 24.6
--- NOTE | 2024-06-21 09:01 | A.OFFVIS_ITS ---
Vital Signs 06/21/24 09:01 Height 5 ft 3 in Weight 138 lb 14.259 oz BMI 24.6 BP 130/64 Blood Pressure Location Lt brachial Position Sitting Pulse 78 Pulse Source Pulse Oximeter Pulse Oximetry (%) 99 Oxygen Delivery Method Room Air Intake Visit Reasons: COPD Type Bar And Segment Assembler Required: No Allergies meloxicam Allergy (Severe, Verified 06/21/24 09:03) esophagitis minocycline Allergy (Severe, Verified 06/21/24 09:03) esophagitis HPI Comments Details: The patient is a 73-year-old woman with a known history of pulmonary nodules. Overall she has been doing well for respiratory status. Denies any coughing or shortness of breath or any other concerning symptoms. She did have a CT scan of the chest back in June 2018. We did review the images here in the office. He does have an 8 mm ground-glass the pulmonary nodule in addition to other smaller nodules. I did compare this finding to her CT scan from 2014 and it was indeed interval increase in the size of the nodules. Her CT scan from 2016 was relatively similar to the 1 she had 2018. Based on the fact that this was nodules are subsolid and ground glassy when he to monitor them for longer period of time. The fact that the increasing size from 2014 2016 also suggested we have to monitor this very closely to avoid smoldering malignant processes. At this point the patient is scheduled to undergo a CT scan now. She did have a CT scan of the chest that was personally by us in the office back in August 2019 demonstrating multiple pulmonary nodules largest 1 measuring 8 mm and ground- glass in nature. Explained to her that the ground-glass nodular densities we have to follow little longer due to the possibility of a smoldering malignancy. At this point the patient will have a repeat CT scan this month which should be 1 year from her last 1. In addition to that we will check for allergies. 12/12/2020 the patient is here for pulmonary follow-up visit. Overall she continues to have this productive cough which is ongoing and on comfortable. Sometimes she feels that is a postnasal drip and sometimes she feels the mucus is coming from her lungs. Did do accumulate in the the neck area and she feels congested. She did try the singular but was not very helpful. We did have her go for blood work but no significant allergies noted. No significant eosinophilia noted and normal sedimentation rate. At this point the patient has evidence of chronic bronchitis with ongoing wheezing and rhonchi. The patient is not interested in using inhalers at this time. She is open to trying azithromycin 3 times a week and see if this helps with the treatment of a chronic bronchitis. In addition to that we did look at her CT scan of the chest. We did compare this CT scan to there CT scan from [facility] back in 2019 and also from 2017. It appears that she has this 1 cm subsolid nodular density. Does not appear to have significant change in size which is reassuring. However it is subsolid and ground-glass therefore should be monitor closely. Based on the fact that the nodule looks fairly the same will hold off on doing any more CT scans until 18 months from now. In the meantime will treat her for the chronic bronchitis her follow-up in 3 months. 06/02/2021 the patient is here for a pulmonary follow-up visit. Since we last spoke she is doing better on the Breo. Her cough and chest congestion are improved. She did not have the blood work which she will have it done today to assess for her underlying chronic bronchitis. She also has a pulmonary nodule which is a ground-glass the nodular density in the right upper lobe that is measuring 9 mm back and August 2020. patient is concerned because she is developing some chest heaviness and some increase discomfort in the chest area and some fullness in her chest than axilla and neck area. She is concerned about this nodule. She has looked at all reports going back to 2015 in appears that the measurements and slowly increased in size. Therefore based on worsening symptoms and the interval increase in the right upper lobe nodular density on however repeat a CT scan of the chest now. 07/27/2021 the patient is here for a pulmonary follow-up visit. Since we last spoke the patient stopped the Breo. She did not really see any significant improvement. She does feel this sensation that she wants to cough in does have some shortness of breath at times. Her breathing does feel better. 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 Otherwise her blood work was reassuring. We also reviewed her CT scan of the chest personally by me as the subsolid nodular density in the right upper lobe which appears to be pretty stable when compared to 2019 measuring between 9-10 mm in size. In addition to that there was a 5 mm ground-glass nodular density in the right lower lobe. She also has other subcentimeter pulmonary nodules that are solid in nature that appear to be stable as well. No evidence of any pneumonitis or airway disease. On examination she does have some wheezing. Will provide her with a peak flow in order for her to check her peak flows while she goes back on the Breo. if she does not feel that the Breo is helping she will call so we can provide her with an alternative inhaler. 01/24/2022 patient is here for a pulmonary follow-up visit. She continues to have a cough. Moderate severity. Sometimes the cough is a result of a scratchy throat. Sometimes she even scratches her throat with her finger. A does pr ovide some relief sometimes she feels that the cough is more the and associated with chest tightness and wheezing. She has been using the Breo which has been partially helpful. We did talk about considering other medications to suppress her upper airway cough syndrome. She is going to try some dark chocolate and also we did talk about the Tessalon Perles. Patient may also have an allergic component to the for Astelin nasal spray may be helpful. In the meantime she also has some wheezing on examination. Therefore will optimize therapy by switching her Breo to Trelegy. I am hopeful that this provides additional support. When she completes the months on Trelegy come go back to Breo and see if her symptoms reoccur. The patient has underlying pulmonary nodules. She should have a CT scan a year from her last 1 which will be sometime in May 2022. Will follow-up after that. 06/22/2022 the patient is here for a pulmonary follow-up visit. The patient continues to complaint of cough. She did try the Trelegy inhaler but was not helpful. She went back on the Breo. Still she does not see any significant improvement. On examination she does have expiratory wheezing. Will go ahead and add Spiriva to Breo see if this provides better affect. In addition to that she did undergo a CT scan of the chest that was personally by me. We did compared to her CT scans from 2020 and 2019. The subsolid pulmonary nodules not changing significantly but he did increase briefly from 9 mm to 10 mm since last year. I do not see any worsening solid component to the nodule. At this point will plan to repeat the CT scan in 1 year. In the meantime will present her at thoracic conference to can look at the nodule a little closer in multidisciplinary approach since the had a slight increase in size. 12/27/2022 the patient is here for a pulmonary follow-up visit. The patient overall is doing better. She is tolerating the Breo. She did not tolerate the Spiriva due to dryness of her mouth and other adverse effects. Therefore she stopped it. She did not really see any significant improvement on the Spiriva anyway. She continues on the Breo. Now she is going to allergy season. She does have a cough and some nasal congestion. She is using her nasal sprays with good effect. On examination she also has some mild wheezing. Therefore will go ahead and add Singulair to her regimen to help with allergic symptoms and asthma symptoms as well. The patient also has significant daytime drowsiness with an [place] score elevated at 10 over 24. She has had episodes which she has awakened suddenly at nighttime with shortness of breath. She has noticed a day been happening more often and she is getting concern. Usually happen when she is in deep sleep. This is very likely to be sleep apnea. Therefore will have her undergo a home sleep study at this time. She also has pulmonary nodules however closely monitoring. She is due for CT scan in May. Therefore, wi ll follow-up after her sleep study. But, if her sleep study is negative she can postpone that visit till May after her CT scan. 06/22/2023 the patient is here for a pulmonary follow-up visit. The patient overall has been doing well. Denies any significant shortness of breath or wheezing. She is responding well to the current respiratory regimen which is Breo. She is tried multiple inhalers in the past without any good response. The patient has been exercising regularly. She does get winded at times. On examination she does have some wheezing. I did recommend we can increase the Breo to the 200 mcg dose at least for a month and see if it helps. She also complains of daytime drowsiness. The patient did have a home sleep study. It demonstrated that she did have mild sleep apnea primarily while sleeping supine. She will try positional therapy. I will give her some ideas. However, she continues have daytime drowsiness she should consider trial of CPAP specially because of her cardiovascular risk factors. We did review her CT scan of the chest that she had in May 2023 demonstrating stable subsolid pulmonary nodule in the rather low. Has not changed in the last few years. This is a subsolid nodule so we just have to make sure we follow it a little bit longer. She has had CT scans now for some time. Therefore will plan to follow this nodule in 18-24 months. If the patient develops any worsening symptoms prior to that she is to call the office for an earlier assessment. 06/21/2024 the patient is here for a pulmonary follow-up visit over the went to time she had a hard time with slow. She had pharyngitis and also some difficulty swallowing. She did go to an urgent care and she was given additional allergy medications without any significant improvement. So her symptoms did improve. Then after that effort her told her that she was having some issues with halitosis. She wants to see a dentist. She had to have a tooth extraction which she had recently without any complications. Seems to be getting a little better. She still has a little bit of soreness in the throat. Also has poor dentition. Will be reasonable to treat with chlorhexidine at this time. The patient also has pulmonary nodules noted on previous CT scans specially from 06/14/2023. Will go ahead and plan to repeat the CT scan in 6 months specially with her ongoing respiratory symptoms. She is responding well to the Breo inhaler. She did not do well on the higher dose so she was brought down to the 100 mcg dose with better effect. She still has some wheezing at times. The patient also has nasal congestion will go ahead and start her nasal therapy. [facility] Medical History (Updated 02/01/24 @ 14:05 by eKli Ball MD) Environmental and seasonal allergies Hearing loss ADAM (obstructive sleep apnea) Depression, major, in remission Multinodular thyroid Goiter Vitamin D deficiency Osteoporosis Dyslipidemia Osteopenia of left femoral neck Seasonal allergies Chronic bronchitis GERD (gastroesophageal reflux disease) Pulmonary nodules Chronic rhinitis Surgical History Hx of colonoscopy Hx of esophagogastroduodenoscopy History of total abdominal hysterectomy and bilateral salpingo-oophorectomy Family History Father CVD (cardiovascular disease) Hypertension GI cancer Mother Hypertension Alzheimer disease Daughter Mental health disorder Sister Mental health disorder Social History Housing: House Alcohol intake: current Alcohol intake frequency: a few times a month Alcohol type: wine Patient Tobacco Use Status: Former Tobacco user Tobacco use type: Cigarette Years Smoked: 10 years Current occupational status: unemployed Cognitive needs: No Hearing needs: No Vision needs: Yes Review of Systems Const Reports no additional complaints, Reports daytime sleepiness, Denies frequent falls, Denies headache(s), Reports snoring and Denies weakness Eyes Denies blind spots, Denies blurry vision, Denies change in vision, Denies diplopia and Denies loss of vision ENT Reports no additional complaints, Denies vertigo, Denies dizziness and Denies headache(s) Card Reports no additional complaints and Reports dyspnea on exertion Resp Reports no additional complaints, Reports cough, Reports dyspnea on exertion, Reports snoring and Reports wheezing Details: Denies nausea or vomiting Musc Reports no additional complaints, Reports as per HPI, Denies abnormal gait and Denies numbness Skin/Breast Reports wounds (Abrasion of left knee) Neuro Denies abnormal gait, Denies vertigo, Denies dizziness, Denies frequent falls, Denies headache(s), Denies lack of coordination, Denies loss of vision, Denies memory loss, Denies numbness and Denies weakness Psych Denies memory loss Aller/Immun Reports wheezing Physical Exam Vital Signs: Last Vital Signs Pulse 78 06/21/24 09:01 BP 130/64 06/21/24 09:01 Pulse Ox 99 06/21/24 09:01 Oxygen Delivery Method Room Air 06/21/24 09:01 BMI result Body Mass Index 24.6 Const General: alert Neck Neck: Yes normal visual inspection Chest Chest palpation & inspection: normal inspection of the chest Resp Auscultation: no wheezes and diminished lung sounds Cardio Rate: regular rate Rhythm: regular rhythm Heart sounds: S1 normal heart sound present and S2 normal heart sound present GI Inspection: Yes normal to inspection and No distended Assessment & Plan Assessment & Plan (1) Pulmonary nodules: Code(s): R91.8 - Other nonspecific abnormal finding of lung field Category: Medical (2) Chronic rhinitis: Code(s): J31.0 - Chronic rhinitis Category: Medical (3) Chronic bronchitis: Code(s): J42 - Unspecified chronic bronchitis Category: Medical Qualifiers: Chronic bronchitis type: mucopurulent Qualified Code(s): J41.1 - Mucopurulent chronic bronchitis (4) ADAM (obstructive sleep apnea): Code(s): G47.33 - Obstructive sleep apnea (adult) (pediatric) Category: Medical Plan POsitional sleep therapy. Consider elastic mandibular device with her dentist. Otherwise, consider trial of APAP ELOINA as needed and prior to exercise activity Breo 100mcg 1 inhaltion daily (did not tolerate the 200mcg) discontinued singulair stopped Spiriva, adverse effects repeat CT scan 6 months Astelin nasal spray restart Fluticasone chlerhexadine MW consider Doxycycline F/U 6 months Orders: Orders CT chest wo IV con 6 Months R91.8 - Other nonspecific abnormal finding of lung field Medications: New fluticasone propionate 50 mcg/actuation 2 sprays intranasal DAILY 15.8 mL 11RF 30 days J31.0 - Chronic rhinitis chlorhexidine gluconate 0.12% 15 mL buccal DAILY 473 mL 5RF 14 days Coding Level of Care Code Est Pt Level 4 (95214) Diagnoses Pulmonary nodules R91.8 Chronic rhinitis J31.0 Mucopurulent chronic bronchitis J41.1 Chronic bronchitis type: mucopurulent ADAM (obstructive sleep apnea) G47.33 Time Spent (min) 16
== END 2024-06-21 09:21 | disposition home or self-care (01) ==
PROVIDERS: PCP Internal Medicine; Visit Provider Hospitalist
DX: R91.8 Other nonspecific abnormal finding of lung field (principal); J31.0 Chronic rhinitis; J41.1 Mucopurulent chronic bronchitis; G47.33 Obstructive sleep apnea (adult) (pediatric)
CPT/HCPCS: 99214

== ENCOUNTER → 2024-06-21 08:56 | Outpatient (BNVA) | payer MEDICARE, SELFPAY | PROVIDERS: PCP Internal Medicine; Visit Provider Hospitalist | DX: J41.1 Mucopurulent chronic bronchitis (principal); R91.8 Other nonspecific abnormal finding of lung field; J31.0 Chronic rhinitis; G47.33 Obstructive sleep apnea (adult) (pediatric) | CPT/HCPCS: 99212 ==

== ENCOUNTER 2024-07-23 13:42 | Outpatient (REF) | payer MEDICARE, SELFPAY ==
--- NOTE | ~2024-07-23 | MM_ITS ---
EXAMINATION: BONE DENSITOMETRY CLINICAL INDICATION: Age-related osteoporosis without current pathological fracture. COMPARISON: Previous BD dated 06/24/2022 and baseline BD dated 08/05/2008, spine and left hip; 06/12/2020, forearm radius 33%. TECHNIQUE: Using a [employer] DXA System (software version: 13.1) manufactured by [employer], dual-energy x-ray absorptiometry was performed of the lumbar spine, left hip and left forearm radius 33%. The images are of good technical quality. Summary results are attached. FINDINGS: LEFT FEMUR, NECK: Current: BMD 0.772 g/cm2, Z-score 0.1, T-score -1.9, osteopenia. Prior: BMD 0.770 g/cm2. Baseline: BMD 0.800 g/cm2. LEFT FEMUR, TOTAL: Current: BMD 0.748 g/cm2, Z-score -0.2, T-score -2.1, osteopenia, 4.3% decrease from previous, 12.0% decrease from baseline (<5% change is not significant). Prior: BMD 0.782 g/cm2. Baseline: BMD 0.850 g/cm2. AP SPINE L1-L4: Current: BMD 1.066 g/cm2, Z-score 0.9, T-score -1.0, normal, 3.4% decrease from previous, 3.7% decrease from baseline (<5% change is not significant). Prior: BMD 1.103 g/cm2. Baseline: BMD 1.028 g/cm2. LEFT FOREARM RADIUS 33%: BMD 0.667 g/cm2, Z-score 0.0, T-score -2.4, osteopenia, 9.0% increase from previous, 2.1% decrease from baseline (<5% change is not significant). Prior: BMD 0.612 g/cm2. Baseline: BMD 0.681 g/cm2. IDENTIFIED RISK FACTORS: Osteoporosis. Early menopause, secondary osteoporosis, hysterectomy, bilateral oophorectomy. HISTORY OF FRACTURE: None listed. MEDICATIONS: Calcium/multivitamin, bisphosphonate. MM/XR DEXA axial skeleton IMPRESSION: 1. DIAGNOSIS: Osteopenia based on the lowest T-score value of -2.4 in the forearm radius 33% applying World Health Organization criteria. 2. 10-YEAR FRACTURE RISK PREDICTION, FRAX: Not performed in this patient on estrogen or bone building treatments. 3. Treatment Recommendations: NOF guidelines recommend consideration for treatment in postmenopausal women and men age 50 and older presenting with the following: -A hip or vertebral (clinical or morphometric) fracture. -T-score less than or equal to -2.5 at the femoral neck or spine after appropriate evaluation to exclude secondary causes. -Low bone mass at the hip or spine and a 10-year fracture probability by FRAX of greater than or equal to 3% for hip fracture or greater than or equal to 20% for major osteoporotic fracture based on the [place] adapted WHO algorithm. 4. Other Recommendations: All treatment decisions require clinical judgment and consideration of individual patient factors, including patient preferences, comorbidities, previous drug use, risk factors not captured in the FRAX model (e.g. frailty, falls, vitamin D deficiency, increased bone turnover, interval significant decline in bone density) and possible under or overestimation of fracture risk by FRAX. Additional medical evaluation for secondary cause of low bone mineral density may be appropriate. FUTURE SCAN RECOMMENDATION: People with diagnosed cases of osteoporosis or at high risk for fracture should have regular bone mineral density tests. For patients eligible for Medicare, routine testing is allowed once every 2 years. The testing frequency can be increased to one year for patients who have rapidly progressing disease, those who are receiving or discontinuing medical therapy to restore bone mass, or have additional risk factors. Electronically signed by: Brian Meyer MD 07/25/2024 01:41 PM EDT RP
--- NOTE | ~2024-07-23 | MM_ITS ---
EXAMINATION: MM SCREENING DIGITAL BREAST TOMOSYNTHESIS, BILATERAL CLINICAL INFORMATION: Screening. Asymptomatic. COMPARISON: Mammography: Comparison is made with available priors TECHNIQUE: Digital breast mammography with tomosynthesis is performed in both the craniocaudal and mediolateral oblique views along with computer-aided detection (CAD). FINDINGS: There are scattered areas of fibroglandular density (ACR BI-RADS breast composition Category b). There are no significant masses, abnormal calcifications, or other abnormalities. MM/MM tomosynthesis screening BI IMPRESSION: No mammographic evidence of malignancy. ASSESSMENT: BI-RADS BI-RADS 1 - Negative RECOMMENDATION: Routine annual mammography screening. 1 year F/U This examination should not preclude the clinical evaluation of a suspicious palpable abnormality. This patient's information was entered into a reminder system with a target due date for their next mammogram. Electronically signed by: Martha Cohen DO 07/31/2024 10:46 AM MICHELLE
== END 2024-07-23 13:43 | disposition home or self-care (01) ==
LOC: HO.MAMMO 13:42
PROVIDERS: PCP Internal Medicine; Visit Provider Internal Medicine Endocrinology, Diabetes & Metabolism
DX: Z12.31 Encounter for screening mammogram for malignant neoplasm of breast (principal); M81.0 Age-related osteoporosis without current pathological fracture
CPT/HCPCS: 77063; 77067; 77080

== ENCOUNTER → 2024-07-23 14:30 | Outpatient (BNV) | payer MEDICARE, SELFPAY | PROVIDERS: PCP Internal Medicine; Visit Provider Internal Medicine | DX: Z12.31 Encounter for screening mammogram for malignant neoplasm of breast (principal) | CPT/HCPCS: 77063; 77067 ==

== ENCOUNTER 2024-08-01 14:20 | Outpatient (AMB) | payer MEDICARE, SELFPAY ==
[2024-08-01 14:24] VITALS: BP 115/56; PULSE 78; BMI 25.1
--- NOTE | 2024-08-01 14:24 | MHC.OFFVIS ---
Vital Signs 08/01/24 14:24 Height 5 ft 3 in Weight 141 lb 8.588 oz BMI 25.1 BP 115/56 L Blood Pressure Location Lt brachial Position Sitting Pulse 78 Pulse Source Pulse Oximeter Intake Visit Reasons: f/u osteoporosis-conf Intake Note: Patient present today for Osteoporosis follow up visit. Assistant Director Of Admissions Required: No Accompanied by: Self / Same As Patient Allergies meloxicam Allergy (Severe, Verified 08/01/24 14:28) esophagitis minocycline Allergy (Severe, Verified 08/01/24 14:28) esophagitis HPI Comments Details: 74 YO Female with PMHx Osteoporosis who is seen in F/U for the same. She was previously followed by Dr. Cruz. First diagnosed in 2018 when her BMD declined in the hip to the osteoporotic range. She was previously osteopenic dating back to 2002. She was on Fosamax initially and used this for 1 year in the early , but developed severe GERD so this was stopped. She started Prolia 02/01/2019 and received 3 doses, the last 07/2020. She did not tolerate Prolia well due to myalgias, so this was stopped. She was switched to Risedronate 150 mg once a month as of January 2021. She is tolerating the Risedronate well. After our initial visit we completed a full biochemical assessment for secondary causes of Osteoporosis, which was completely WNL other than elevated NTX indicating rapid bone turnover. No history of pathologic fracture or ONJ. Has 1 servings of dietary calcium per day in the form of milk. Takes Calcium supplement 600 mg daily. She is not on a Vitamin D supplement currently. Did use PPI many years ago. Denies ever using anticoagulant, antiepileptic or glucocorticoid medication. Does weight bearing exercise 3 days per week in the form of aerobics and walking.. 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 Menses were regular coming monthly. . She did not breastfeed. She underwent a TAHBSOO at the age of 41. She did use HRT until the age of 48. Denies history of Kidney stones. Denies family history of Osteoporosis or hip fracture. UTD on dental cleanings and sees dentist every 6 months. No planned upcoming dental work or extractions. DXA dated 06/24/2022: FINDINGS: AP SPINE L1-L4: Current: BMD 1.103 g/cm2, Z-score 1.2, T-score -0.6, normal, 7.9% decrease from previous, 7.3% increase from baseline (<5% change is not significant). Prior: BMD 1.197 g/cm2. Baseline: BMD 1.028 g/cm2. LEFT FEMUR, NECK: Current: BMD 0.770 g/cm2, Z-score 0.0, T-score -1.9, osteopenia. Prior: BMD 0.764 g/cm2. Baseline: BMD 0.800 g/cm2. LEFT FEMUR, TOTAL: Current: BMD 0.782 g/cm2, Z-score 0.0, T-score -1.8, osteopenia, 3.2% decrease from previous, 8.0% decrease from baseline (<5% change is not significant). Prior: BMD 0.808 g/cm2. Baseline: BMD 0.850 g/cm2. LEFT FOREARM RADIUS 33%: BMD 0.612 g/cm2, Z-score -0.8, T-score -3.0, osteoporosis, 10.1% decrease from baseline (<5% change is not significant). Prior (and baseline for radius): BMD 0.681 g/cm2. Labs: Laboratory Tests 01/03/23 01/03/23 01/04/23 07:26 07:26 05:30 Sodium 141 Potassium 4.3 Creatinine 0.74 Estimated GFR > 60 Albumin 4.0 N-Telopeptide X-linked 33 25-OH Vitamin D Total 34.7 PTH Intact 35 Calcium (PTH Intact) 9.6 Off pharmacologic therapy. On calcium and vitamin-D. No fracture since last visit [facility] Medical History (Updated 02/01/24 @ 14:05 by Keli Ball MD) Environmental and seasonal allergies Hearing loss ADAM (obstructive sleep apnea) Depression, major, in remission Multinodular thyroid Goiter Vitamin D deficiency Osteoporosis Dyslipidemia Osteopenia of left femoral neck Seasonal allergies Chronic bronchitis GERD (gastroesophageal reflux disease) Pulmonary nodules Chronic rhinitis Surgical History Hx of colonoscopy Hx of esophagogastroduodenoscopy History of total abdominal hysterectomy and bilateral salpingo-oophorectomy Family History Father CVD (cardiovascular disease) Hypertension GI cancer Mother Hypertension Alzheimer disease Daughter Mental health disorder Sister Mental health disorder Social History Housing: House Alcohol intake: current Alcohol intake frequency: a few times a month Alcohol type: wine Patient Tobacco Use Status: Former Tobacco user Tobacco use type: Cigarette Years Smoked: 10 years Current occupational status: unemployed Cognitive needs: No Hearing needs: No Vision needs: Yes Physical Exam Vital Signs: Last Vital Signs Pulse 78 08/01/24 14:24 BP 115/56 L 08/01/24 14:24 BMI result Body Mass Index 25.1 Assessment & Plan Assessment & Plan (1) Osteoporosis: Code(s): M81.0 - Age-related osteoporosis without current pathological fracture Category: Medical Plan: This is a 73-year-old white female with a history of osteoporosis with negative secondary workup. Patient was treated with Prolia in the past is then risedronate now on drug holiday. Bone density is stable Would have patient continue to hold the risedronate and continue calcium and vitamin-D. Will check urine NTX. Depending upon above may reinitiate the bisphosphonate 1st continue the drug holiday Coding Level of Care Code Est Pt Level 3 (10309) Diagnoses Osteoporosis M81.0
== END 2024-08-01 14:40 | disposition home or self-care (01) ==
LOC: HO.ENCR 14:21
PROVIDERS: PCP Internal Medicine; Visit Provider Internal Medicine Endocrinology, Diabetes & Metabolism
DX: M81.0 Age-related osteoporosis without current pathological fracture (principal)
CPT/HCPCS: 99213

== ENCOUNTER → 2024-08-01 14:20 | Outpatient (BNVA) | payer MEDICARE, SELFPAY | PROVIDERS: PCP Internal Medicine; Visit Provider Internal Medicine Endocrinology, Diabetes & Metabolism | DX: M81.0 Age-related osteoporosis without current pathological fracture (principal) | CPT/HCPCS: 99212 ==

== ENCOUNTER 2024-08-02 07:45 | Outpatient (REF) | payer MEDICARE, SELFPAY ==
[2024-08-09 15:59] LABS: N-Telopeptide 74 (see note); NTXCreaRU 79 mg/dL (20-275)
== END 2024-08-02 07:46 | disposition home or self-care (01) ==
LOC: HO.HMGCLDS 07:45
PROVIDERS: PCP Internal Medicine; Visit Provider Internal Medicine Endocrinology, Diabetes & Metabolism
DX: M81.0 Age-related osteoporosis without current pathological fracture (principal)
CPT/HCPCS: 82523

== ENCOUNTER 2024-08-29 10:42 | Outpatient (AMB) | payer MEDICARE, SELFPAY ==
[2024-08-29 10:44] VITALS: BP 130/78; PULSE 70; O2SAT 96; BMI 25.0
--- NOTE | 2024-08-29 10:44 | A.OFFVIS_ITS ---
Intake Vital Signs 08/29/24 10:44 Height 5 ft 3 in Weight 141 lb 6 oz BMI 25.0 BP 130/78 Blood Pressure Location Rt brachial Position Sitting Pulse 70 Pulse Source Pulse Oximeter Pulse Oximetry (%) 96 Oxygen Delivery Method Room Air Intake Visit Reasons: SHERIDAN G0439 Allergies meloxicam Allergy (Severe, Verified 08/29/24 13:12) esophagitis minocycline Allergy (Severe, Verified 08/29/24 13:12) esophagitis Medication List - Last Reconciled 08/29/24 by Keli Ball MD atorvastatin 20 mg PO DAILY Breo Ellipta 100-25 mcg/dose (fluticasone furoate-vilanterol) 1 ea PO DAILY NS calcium carb-vitamin D3-vit K2 600 mg-1,000 unit-90 mcg tabs PO citalopram 40 mg PO DAILY fluticasone propionate 50 mcg/actuation 2 sprays intranasal DAILY 30 days montelukast 10 mg PO BEDTIME risedronate (Actonel) 150 mg PO .monthly vitamin B complex 1 tab PO DAILY Do you need a note to return to daycare/school/sports/work: No HPI SHERIDAN G0439 HPI Details SWV 74 year-old lady with history of pulmonary nodules, chronic bronchitis, obstructive sleep apnea, followed by Pulmonary; has osteopenia in left femoral neck and left femur currently on risedronate, multinodular thyroid, currently followed by endocrine clinic, has dyslipidemia , depression in remission , and osteoarthritis, here today for her subsequent annual wellness visit. She is up-to-date with her screening mammogram done 07/23/24 with normal findings, had a bone density scan done at the same time which showed presence of osteopenia in left femoral neck and left femur, and had a normal screening colonoscopy done in 2018, repeat due in 2028. . She had a normal fasting lipid panel screening done as well as a fasting glucose done 11/14/23 She is up-to-date with her flu vaccine, pneumococcal vaccine, Shingrix vaccine and Tdap, but does not want to get the COVID booster and is hesitant to get RSV vaccine. ? Medical / Social History Reviewed? Past Medical History ?Yes . ? [place] of Care / Care Team list updated ?Yes . ? Surgical/Hospitalization History ?Yes . ? Current Medications (including OTC and supplements) ?Yes . ? Family History ?Yes . ? Tobacco Control form ?Yes . ? AUDIT-C (Alcohol use) form ?Yes . ? Illicit drug use in Social History ?Yes . ? Current diagnosis of depression? ?No ? Appropriate PHQ2/PHQ9 completed ?Yes . ? Data entered by ?Medical Administrative Technician and reviewed by provider ? Fall Risk ? Fall History? Have you had any falls with injury in the past year? ?No . ? Have you had two or more falls in the past year? ?No . ? Fall Risk Assessment: ?No falls in the past year . ? HRA filled out by the patient, reviewed by Provider and scanned. ?SWV ? Balance? Romberg negative ? Tandem walk ?Yes . ? Walk and Turn ?Yes . ? Rise from sit to stand ?Yes . ?Vision? Corrective lens ?Yes ? Vision screen ? Up-to-date, sees [facility], and has seen Dr. Domingo ?Hearing? Whisper test ?fail, has Hearing aids which she returned , stating she does not need it still . ?Written Plan?Completed. See Patient Documents.? HPI Comments History of Present Illness Details The patient is a 74-year-old female With past medical history significant for osteoporosis, obstructive sleep apnea, depression major in remission, history of goiter and multinodular thyroid, dyslipidemia, chronic bronchitis , pulmonary nodule, chronic GERD , presenting today with multiple medical issues. Her acid reflux has been problematic, with occurrences a few times a week without clear food triggers, leading to frequent heartburn and occasional sore throats. Currently not taking any medication to address her symptoms She is currently seeing Dr. Washington for treatment of her osteoporosis. She was on Fosamax initially but developed severe GERD so this was stopped and was started on Prolia 02/01/2019, received 3 doses last one of which was on 08/14/20. Patient states that she did not tolerate it as well , developed myalgias , and it was stopped . She was then started on risidronate 150 mg once a month as of January 2021, tolerating medication well, And has been placed on drug holiday by dr. Washington. She was later started back on it after urine NTX was checked which revealed elevated levels. Additionally, she noted a growing mass below right breast, which was previously documented as a benign fatty tumor but has increased significantly in size, causing occasional pain and tightness under breast , worse when she wears a bra . [facility] Medical History (Updated 08/29/24 @ 13:19 by Keli Ball MD) Heartburn symptom Environmental and seasonal allergies Hearing loss ADAM (obstructive sleep apnea) Depression, major, in remission Multinodular thyroid Goiter Vitamin D deficiency Osteoporosis Dyslipidemia Osteopenia of left femoral neck Seasonal allergies Chronic bronchitis GERD (gastroesophageal reflux disease) Pulmonary nodules Chronic rhinitis Surgical History Hx of colonoscopy Hx of esophagogastroduodenoscopy History of total abdominal hysterectomy and bilateral salpingo-oophorectomy Family History Father CVD (cardiovascular disease) Hypertension GI cancer Mother Hypertension Alzheimer disease Daughter Mental health disorder Sister Mental health disorder Social History Housing: House Alcohol intake: current Alcohol intake frequency: a few times a month Alcohol type: wine Patient Tobacco Use Status: Former Tobacco user Tobacco use type: Cigarette Years Smoked: 10 years Current occupational status: unemployed Cognitive needs: No Hearing needs: No Vision needs: Yes Questionnaire Medicare Wellness Checkup [age] What gender do you identify with?: female During the past 4 weeks, how much have you been bothered by emotional problems such as feeling anxious, depressed, irritable, sad or downhearted, and blue?: moderately During the past 4 weeks, has your physical & emotional health limited your social activities with family, friends, neighbors, or groups?: slightly During the past 4 weeks, how much bodily pain have you generally had?: very mild pain During the past 4 weeks, was someone available to help you if you needed & wanted help?: yes, as much as I wanted During the past 4 weeks, what was the hardest physical activity you could do for at least 2 minutes?: heavy Can you get to places out of walking distance without help? (For eg., can you travel alone on buses, taxis or drive your car?): Yes Can you go shopping for groceries or clothes without someone's help?: Yes Can you prepare your own meals?: Yes Can you do your housework without help?: Yes Because of any health problems, do you need the help of another person with your personal care needs such as eating, bathing, dressing or getting around the house?: No Can you handle your own money without help?: Yes During the past 4 weeks, how would you rate your health in general?: very good During the past 4 weeks how have things been going for you?: pretty well Are you having difficulties driving your car?: no Do you always fasten your seat belt when you are in a car?: yes, usually During past 4 weeks, have you been bothered by the following: never: Falling or dizzy when standing up, Sexual problems?, Trouble eating well? and Problems using the telephone?, seldom: Teeth or denture problems? and often: Tiredness or fatigue? Have you fallen 2 or more times in the past year?: No Are you afraid of falling?: No Are you a smoker?: no During the past 4 weeks, how many drinks of wine, beer, or other alcoholic beverages did you have?: 6-9 drinks per week Do you exercise for about 20 minutes 3 or more times a week?: yes, some of the time Have you been given information to help with the following?: no: Hazards in your house that might hurt you? and no: Keeping track of your medications? How often do you have trouble taking medicines the way you have been told to take them?: I always take medicine as prescribed How confident are you that you can control & manage most of your health problems?: very confident What is your race?: White Mini Mental State Exam (MMSE) Orientation What is the (year) (season) (date) (day) (month)?: year (2023), season (fall), date (08/29/2024), day () and month (August) Where are we (state) (county) (town or city) (hospital) (floor)?: state ([place]), county ([place]), town or city ([place]) and hospital/clinic ([facility]) Score Score: 9 Activity of Daily Living Bathing - sponge bath, tub bath or shower: receives no assistance (gets in/out by self, if usual bathing means Dressing - getting clothes from closets & drawers, including inner/outer garments & fasteners.: gets clothes & gets completely dressed without help Toileting - going to the 'toilet room' for urine/bowel elimination & cleaning self/arranging clothes: goes to toilet room, cleans self, arranges clothes without help Transfer: moves in & out of bed and chair without help (may use support object) Continence: controls urination/bowel movements completely by self Feeding: feeds self without help Total Score: 0 Information obtained from: patient Using telephone: independent Traveling: independent Shopping: independent Preparing meals: independent Housework: independent Taking medicine: independent Managing money: independent PHQ-9 Over the last 2 weeks, how often have you been bothered by any of the following problems? 1. Little interest or pleasure in doing things: several days 2. Feeling down, depressed, or hopeless: not at all 3. Trouble falling or staying asleep, or sleeping too much: several days 4. Feeling tired or having little energy: more than half the days 5. Poor appetite or overeating: not at all 6. Feeling bad about yourself - or that you are a failure or have let yourself or your family down: not at all 7. Trouble concentrating on things, such as reading the newspaper or watching television: not at all 8. Moving or speaking so slowly that other people could have noticed. Or the opposite - being so fidgety or restless that you have been moving around a lot more than usual: not at all 9. Thoughts that you would be better off or of hurting yourself in some way: not at all Total score: 4 Depression Screening Interpretation: Negative Depression Screening Done: Yes 08083 - PHQ-9 Billing: Yes Source: Developed by Drs. Gabo Weems, Mary Briscoe, Simone Smith and colleagues, with an educational javon from [employer]. Review of Systems Const All systems reviewed & are unremarkable except as noted in HPI and below Physical Exam Vital Signs: Last Vital Signs Pulse 70 08/29/24 10:44 BP 130/78 08/29/24 10:44 Pulse Ox 96 08/29/24 10:44 Oxygen Delivery Method Room Air 08/29/24 10:44 BMI result Body Mass Index 25.0 Const General: healthy appearing, no acute distress, alert and Physically active Nutritional Appearance: average body habitus Orientation/consciousness: patient oriented x3 Neck Neck: Yes normal visual inspection, Yes full ROM, Yes no lymphadenopathy and Yes supple Chest Other: round mass , fluctuant , nontender to palpation undr right breast Resp Auscultation: no wheezes and diminished lung sounds Cardio Rate: regular rate Rhythm: regular rhythm Heart sounds: S1 normal heart sound present and S2 normal heart sound present GI Inspection: Yes normal to inspection and No distended Palpation (GI): Soft to palpation, nontender, no guarding and no masses Neuro General: patient oriented x3 Assessment & Plan Assessment & Plan (1) Encounter for subsequent annual wellness visit (AWV) in Medicare patient: Code(s): Z00.00 - Encounter for general adult medical examination without abnormal findings Plan: medical wellness reviewd , discussed with patient and updated , copy given (2) Dyslipidemia: Code(s): E78.5 - Hyperlipidemia, unspecified (3) Osteoporosis: Code(s): M81.0 - Age-related osteoporosis without current pathological fracture (4) Vitamin D deficiency: Code(s): E55.9 - Vitamin D deficiency, unspecified (5) Depression, major, in remission: Code(s): F32.5 - Major depressive disorder, single episode, in full remission (6) Mass of soft tissue of abdomen: Code(s): R19.00 - Intra-abdominal and pelvic swelling, mass and lump, unspecified site (7) Heartburn symptom: Code(s): R12 - Heartburn Plan - Anxiety: Continue citalopram - Osteoporosis: Continue current management with monthly Actonel and continue with adequate dietary calcium and vitamin D supplementation - Acid Reflux: Start Pepcid AC for symptom relief, assess effectiveness. - Bad Breath: Evaluate after addressing reflux; up-to-date with her dental prophylaxis - Fatty Tumor/Possible Hernia: Refer to a surgeon, patient requesting Dr. Ching, for evaluation and possible excision. - Visual Impairment: Continue routine follow-up care. - Encourage lifestyle modifications to manage reflux and consider alternative medications if ineffective. Patient was informed and verbally consented to the use of an ambient scribe for clinic note documentation during this visit. Orders: Orders Basic Metabolic Panel Fasting 01/23/25 E55.9 - Vitamin D deficiency, unspecified, E78.5 - Hyperlipidemia, unspecified, M81.0 - Age-related osteoporosis without current pathological fracture Aspartate Amino Transferase 01/23/25 E55.9 - Vitamin D deficiency, unspecified, E78.5 - Hyperlipidemia, unspecified, M81.0 - Age-related osteoporosis without current pathological fracture Alanine Aminotransferase 01/23/25 E55.9 - Vitamin D deficiency, unspecified, E78.5 - Hyperlipidemia, unspecified, M81.0 - Age-related osteoporosis without current pathological fracture Lipid Panel 01/23/25 E55.9 - Vitamin D deficiency, unspecified, E78.5 - Hyperlipidemia, unspecified, M81.0 - Age-related osteoporosis without current pathological fracture Vitamin D 25-OH Total 01/23/25 E55.9 - Vitamin D deficiency, unspecified, E78.5 - Hyperlipidemia, unspecified, M81.0 - Age-related osteoporosis without current pathological fracture Vitamin B12 and Folate 01/23/25 E55.9 - Vitamin D deficiency, unspecified, E78.5 - Hyperlipidemia, unspecified, M81.0 - Age-related osteoporosis without current pathological fracture Referrals General Surgery Referral R19.00 - Intra-abdominal and pelvic swelling, mass and lump, unspecified site Medications: New hydrocortisone 2.5% 1 appl topical BID PRN 30 grams 0RF skin irritation lorazepam 0.5 mg PO DAILY PRN 20 tabs 0RF anxiety Quality Reporting (2019) Depression/Bipolar (159/160/161/177) PHQ-9: Total score: 4 Coding Level of Care Code Medicare Subsequent (G0439) Est Pt Level 4 (54042) Diagnoses Encounter for subsequent annual wellness visit (AWV) in Medicare patient Z00.00 Dyslipidemia E78.5 Osteoporosis M81.0 Vitamin D deficiency E55.9 Depression, major, in remission F32.5 Mass of soft tissue of abdomen R19.00 Heartburn symptom R12 CPT Codes Advance Care Planning - Advance Care Planning discussion: On file, no changes ([id number]) Advance Care Planning - Time spent: 1-15 minutes, on File ([id number]) Additional Codes PHQ-9 - 10822 - PHQ-9 Billing: Yes ([id number]) Advance Care Planning Advance Care Planning discussion: On file, no changes Date of discussion: 08/29/24 Who was present: patient Forms completed: Health Care Proxy and MOLST Time spent: 1-15 minutes, on File Actual minutes spent: 2
== END 2024-08-29 11:38 | disposition home or self-care (01) ==
PROVIDERS: PCP Internal Medicine; Visit Provider Internal Medicine
DX: Z00.00 Encounter for general adult medical examination without abnormal findings (principal); E78.5 Hyperlipidemia, unspecified; M81.0 Age-related osteoporosis without current pathological fracture; E55.9 Vitamin D deficiency, unspecified; F32.5 Major depressive disorder, single episode, in full remission; R19.00 Intra-abdominal and pelvic swelling, mass and lump, unspecified site; R12 Heartburn

== ENCOUNTER → 2024-08-29 10:42 | Outpatient (BNVA) | payer MEDICARE, SELFPAY | PROVIDERS: PCP Internal Medicine; Visit Provider Internal Medicine | DX: Z00.00 Encounter for general adult medical examination without abnormal findings (principal); E78.5 Hyperlipidemia, unspecified; M81.0 Age-related osteoporosis without current pathological fracture; E55.9 Vitamin D deficiency, unspecified; F32.5 Major depressive disorder, single episode, in full remission; R12 Heartburn; R19.00 Intra-abdominal and pelvic swelling, mass and lump, unspecified site | CPT/HCPCS: 96127; 99212 ==

== ENCOUNTER 2024-10-09 11:02 | Outpatient (AMB) | payer MEDICARE, SELFPAY ==
--- NOTE | 2024-10-09 11:09 | A.OFFVIS_ITS ---
Vital Signs 10/09/24 11:14 Height 5 ft 3 in Weight 135 lb BMI 23.9 Intake Visit Reasons: Mass right upper quadrant Intake Note: This patient presents for Mass right upper quadrant. Pt c/o; reports mass RUQ, occasional redness depending on clothing, no pain or discomfort. Enrolled Nurse Required: No Accompanied by: Self / Same As Patient Allergies meloxicam Allergy (Severe, Verified 10/09/24 11:15) esophagitis minocycline Allergy (Severe, Verified 10/09/24 11:15) esophagitis Medication List - Last Reconciled 10/09/24 by Murphy Wallace MD atorvastatin 20 mg PO DAILY Breo Ellipta 100-25 mcg/dose (fluticasone furoate-vilanterol) 1 ea PO DAILY NS calcium carb-vitamin D3-vit K2 600 mg-1,000 unit-90 mcg tabs PO citalopram 40 mg PO DAILY fluticasone propionate 50 mcg/actuation 2 sprays intranasal DAILY 30 days hydrocortisone 2.5% 1 appl topical BID PRN lorazepam 0.5 mg PO DAILY PRN montelukast 10 mg PO BEDTIME risedronate (Actonel) 150 mg PO .monthly vitamin B complex 1 tab PO DAILY HPI HPI Mass right upper quadrant: Details: 74-year-old female referred for a mass under the right breast on the lower chest. She says she has noticed this about 10 years ago but this has been increasing in size over the years. She describes some discomfort and some skin changes. She denies any discharge. She is healthy otherwise except for a diagnosis of COPD but she says she quit smoking about 30 years ago. [facility] Medical History (Updated 10/09/24 @ 11:26 by Murphy Wallace MD) Lipoma of chest wall Heartburn symptom Environmental and seasonal allergies Hearing loss ADAM (obstructive sleep apnea) Depression, major, in remission Multinodular thyroid Goiter Vitamin D deficiency Osteoporosis Dyslipidemia Osteopenia of left femoral neck Seasonal allergies Chronic bronchitis GERD (gastroesophageal reflux disease) Pulmonary nodules Chronic rhinitis Surgical History Hx of colonoscopy Hx of esophagogastroduodenoscopy History of total abdominal hysterectomy and bilateral salpingo-oophorectomy Family History Father CVD (cardiovascular disease) Hypertension GI cancer Mother Hypertension Alzheimer disease Daughter Mental health disorder Sister Mental health disorder Social History Housing: House Alcohol intake: current Alcohol intake frequency: a few times a month Alcohol type: wine Patient Tobacco Use Status: Former Tobacco user Tobacco use type: Cigarette Years Smoked: 10 years Current occupational status: unemployed Cognitive needs: No Hearing needs: No Vision needs: Yes Review of Systems Const Denies chills and Denies fever(s) Card Denies chest pain, Denies dyspnea and Denies dyspnea on exertion Resp Denies cough, Denies dyspnea and Denies dyspnea on exertion GI Denies hematochezia and Denies change in bowel habits Denies hematuria Musc Denies back pain and Denies limited range of motion Neuro Denies focal weakness and Denies convulsions Psych Denies depression and Denies mood swings Physical Exam Vital Signs: BMI result Body Mass Index 23.9 Const General: comfortable and no acute distress Orientation/consciousness: patient oriented x3 Neck Neck: Yes no lymphadenopathy Chest Other: Lower chest under the breast is note of a soft mass about 7 cm in dimension, consistent with a lipoma Resp Auscultation: clear to auscultation bilaterally Cardio Rhythm: regular rhythm GI Palpation (GI): Soft to palpation, nontender and no guarding Neuro General: patient oriented x3 Assessment & Plan Assessment & Plan (1) Lipoma of chest wall: Code(s): D17.1 - Benign lipomatous neoplasm of skin and subcutaneous tissue of trunk Category: Medical Plan: She has a large lipoma under the right breast. This has been increasing in size over the years. She now wants this removed. I explained the technique of excision which will be under anesthesia in view of the large size. I explained the risks including but not limited to bleeding, infections and poor healing, as well as the benefits and alternatives. I reviewed with her what to expect postoperatively. She has given consent. Coding Level of Care Code New Pt Level 3 (05437) Diagnoses Lipoma of chest wall D17.1
[2024-10-09 11:14] VITALS: BMI 23.9
== END 2024-10-09 11:24 | disposition home or self-care (01) ==
PROVIDERS: PCP Internal Medicine; Visit Provider Surgery
DX: D17.1 Benign lipomatous neoplasm of skin and subcutaneous tissue of trunk (principal)
CPT/HCPCS: 99203

== ENCOUNTER → 2024-10-09 11:02 | Outpatient (BNVA) | payer MEDICARE, SELFPAY | PROVIDERS: PCP Internal Medicine; Visit Provider Surgery | DX: D17.1 Benign lipomatous neoplasm of skin and subcutaneous tissue of trunk (principal) | CPT/HCPCS: 99202 ==

== ENCOUNTER 2024-11-27 09:10 | Outpatient (REF) | payer MEDICARE, SELFPAY ==
--- OUTSIDE RECORDS SUMMARY | 2024-11-27 10:07 | XMS_ITS | Clinical Summary ---
Author Organization [facility] [employer] Address [address] [place] [address] [place] [address] Care Team Providers Care Planisher Name Role Phone Unavailable Primary Care Provider Unavailabl e Immunizations Name Administration Dates Next Due Influenza, seasonal, injectable, preservative fr ee 06/17/2024 Social History Tobacco Use Types Packs/Day Years Used Date Smoking Tobacco: Never Assessed Comments Unknown Sex and Gender Information Value Date Recorded Sex Assigned at Female 07/25/2022 10:39 AM EDT Legal Sex Female 10:39 AM EDT Gender Identity Female 07/25/2022 10:39 AM EDT Sexual Orientation Straight 07/25/2022 10 :39 AM EDT Plan of Treatment Health Maintenance Due Date Last Done Comments Depression Screening 1950 SDOH Screening 1950 Alcohol/Substance Use Screening 1960 Tobacco Screening 1960 Hepatitis C Screening 1966 RSV Patients and Patients Aged 60 years or older (1 - 1-dose 75+ series) 2023 COVID-19 Vaccine ( season) 2024 06/29/2022, 08/26/2021, 12/23/2020, Additional history exists DTaP/Tdap/Td Vaccines (2 - Td or Tdap) 02/26/2033 02/26/2023 Zoster Vaccines Completed 08/31/2019, 06/19/2019 Pneumococcal Vaccine: 50+ Years Completed 08/26/2022, 07/18/2013 Influenza Vaccine Completed 06/17/2024, , 06/23/2022, Additional history exists HIB Vaccines Aged Out No longer eligi ble based on patient's age to complete this topic HPV Vaccines Aged Out No longer eligi ble based on patient's age to complete this topic Hepatitis A Vaccines Aged Out No long er eligible based on patient's age to complete this topic Hepatitis B Vaccines Aged Out No long er eligible based on patient's age to complete this topic IPV Vaccines Aged Out No longer eligi ble based on patient's age to complete this topic Meningococcal Vaccine Aged Out No ailyn kecia eligible based on patient's age to complete this topic RSV under 20 months Aged Out No longe r eligible based on patient's age to complete this topic Rotavirus Vaccines Aged Out No longer eligible based on patient's age to complete this topic Insurance MEDICARE [facility] MEDEX CARE
[2024-12-02 22:18] LABS: N-Telopeptide 45 (see note); NTXCreaRU 67 mg/dL (20-275)
== END 2024-11-27 09:11 | disposition home or self-care (01) ==
LOC: HO.HMGCLDS 09:10
PROVIDERS: PCP Internal Medicine; Visit Provider Internal Medicine Endocrinology, Diabetes & Metabolism
DX: M81.0 Age-related osteoporosis without current pathological fracture (principal)
CPT/HCPCS: 82523

== ENCOUNTER 2024-12-04 09:44 | Outpatient (REF) | payer MEDICARE, SELFPAY ==
--- NOTE | ~2024-12-04 | CT_ITS ---
CLINICAL HISTORY: R91.8 - Other nonspecific abnormal finding of lung field CT chest without IV contrast. COMPARISON: CT chest dated 06/09/23 at 09:[address] chest dated 09/03/20 at 11:58 EST FINDINGS: Visualized thyroid is unremarkable. No supraclavicular or axillary lymphadenopathy. Ascending aorta and main pulmonary artery are normal in caliber. Aortic annular and valve calcifications. No pericardial effusion. Normal esophagus. No mediastinal lymphadenopathy. No pleural effusion. No consolidation. Trachea and central airways are clear. No significant bronchial wall thickening. No bronchiectasis. Stable appearance of ill-defined nodular opacity within the right upper lobe with internal cystic or cavitary component measuring in total 1.1 x 0.9 cm (series 4, image 45), stable. This is stable in size and appearance since earliest available imaging performed in 2019. No new or growing pulmonary nodule. Visualized portions of the upper abdomen are unremarkable. Mild spondylosis. No acute fracture identified. IMPRESSION: 1. Stable appearance of ill-defined right upper lobe nodular opacity since earliest available imaging performed in 2019, favored to postinflammatory. No further specific follow-up recommendations. This document has been electronically signed by: João Elizabeth MD on 12/04/2024 14:53:30
--- OUTSIDE RECORDS SUMMARY | 2024-12-04 10:47 | XMS_ITS | Clinical Summary ---
Author Organization [facility] [employer] Address [address] [place] [address] [place] [address] Care Team Providers Care Cleaning Attendant Name Role Phone Unavailable Primary Care Provider [...] age to complete this topic Insurance MEDICARE [facility] MEDEX CARE
== END 2024-12-04 09:45 | disposition home or self-care (01) ==
LOC: HO.CT 09:44
PROVIDERS: PCP Internal Medicine; Visit Provider Hospitalist
DX: R91.8 Other nonspecific abnormal finding of lung field (principal); M81.0 Age-related osteoporosis without current pathological fracture
CPT/HCPCS: 71250; 99212

== ENCOUNTER → 2024-12-04 09:46 | Outpatient (BNV) | payer MEDICARE, SELFPAY | PROVIDERS: PCP Internal Medicine; Visit Provider Radiology Diagnostic Radiology | DX: R91.8 Other nonspecific abnormal finding of lung field (principal) | CPT/HCPCS: 71250 ==

== ENCOUNTER 2024-12-04 12:48 | Outpatient (AMB) | payer MEDICARE, SELFPAY ==
[2024-12-04 12:54] VITALS: BP 124/66; PULSE 74; O2SAT 98; BMI 24.9
--- NOTE | 2024-12-04 12:54 | MHC.OFFVIS ---
Vital Signs 12/04/24 12:54 Height 5 ft 3 in Weight 140 lb 10.479 oz BMI 24.9 BP 124/66 Blood Pressure Location Rt brachial Position Sitting Pulse 74 Pulse Source Pulse Oximeter Pulse Oximetry (%) 98 Oxygen Delivery Method Room Air Intake Visit Reasons: Osteoporosis Intake Note: Patient present today for Osteoporosis follow up visit. Allergies meloxicam Allergy (Severe, Verified 12/04/24 12:56) esophagitis minocycline Allergy (Severe, Verified 12/04/24 12:56) esophagitis HPI Comments Details: 74 YO Female with PMHx Osteoporosis who is seen in F/U for the same. She was previously followed by Dr. Cruz. First diagnosed in 2018 when her BMD declined in the hip to the osteoporotic range. She was previously osteopenic dating back to 2002. She was on Fosamax initially and used this for 1 year in the early s, but developed severe GERD so this was stopped. She started Prolia 02/01/2019 and received 3 doses, the last 07/2020. She did not tolerate Prolia well due to myalgias, so this was stopped. She was switched to Risedronate 150 mg once a month as of January 2021. She is tolerating the Risedronate well. After our initial visit we completed a full biochemical assessment for secondary causes of Osteoporosis, which was completely WNL other than elevated NTX indicating rapid bone turnover. No history of pathologic fracture or ONJ. Has 1 servings of dietary calcium per day in the form of milk. Takes Calcium supplement 600 mg daily. She is not on a Vitamin D supplement currently. Did use PPI many years ago. Denies ever using anticoagulant, antiepileptic or glucocorticoid medication. Does weight bearing exercise 3 days per week in the form of aerobics and walking.. 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 Menses were regular coming monthly. . She did not breastfeed. She underwent a TAHBSOO at the age of 41. She did use HRT until the age of 48. Denies history of Kidney stones. Denies family history of Osteoporosis or hip fracture. UTD on dental cleanings and sees dentist every 6 months. No planned upcoming dental work or extractions. DXA dated 06/24/2022: FINDINGS: AP SPINE L1-L4: Current: BMD 1.103 g/cm2, Z-score 1.2, T-score -0.6, normal, 7.9% decrease from previous, 7.3% increase from baseline (<5% change is not significant). Prior: BMD 1.197 g/cm2. Baseline: BMD 1.028 g/cm2. LEFT FEMUR, NECK: Current: BMD 0.770 g/cm2, Z-score 0.0, T-score -1.9, osteopenia. Prior: BMD 0.764 g/cm2. Baseline: BMD 0.800 g/cm2. LEFT FEMUR, TOTAL: Current: BMD 0.782 g/cm2, Z-score 0.0, T-score -1.8, osteopenia, 3.2% decrease from previous, 8.0% decrease from baseline (<5% change is not significant). Prior: BMD 0.808 g/cm2. Baseline: BMD 0.850 g/cm2. LEFT FOREARM RADIUS 33%: BMD 0.612 g/cm2, Z-score -0.8, T-score -3.0, osteoporosis, 10.1% decrease from baseline (<5% change is not significant). Prior (and baseline for radius): BMD 0.681 g/cm2. Labs: Laboratory Tests 01/03/23 01/03/23 01/04/23 07:26 07:26 05:30 Sodium 141 Potassium 4.3 Creatinine 0.74 Estimated GFR > 60 Albumin 4.0 N-Telopeptide X-linked 33 25-OH Vitamin D Total 34.7 PTH Intact 35 Calcium (PTH Intact) 9.6 on pharmacologic therapy. On calcium and vitamin-D. No fracture since last visit .Started risidronate 09/2025 once monthly Recent urine NTX was suppressed The patient is a 74-year-old female presenting on follow up today with concerns regarding the management and treatment options for osteoporosis. The patient has been using medications such as Risedronate after a prior course of Prolia, with evidence that her bone density improves on medication. However, the patient is contemplating potential discontinuation due to concerns about dental complications and insurance-related issues. Currently, her bone density T-score is at a low of -2.4 in the forearm, indicating osteopenia, but she has had no history of fractures. Consideration is being given to halting Risedronate, possibly evaluating bone density in a year and a half to guide further management. The patient engages in weight-bearing exercises at a senior center, which she finds very helpful for maintaining bone health. [facility] Medical History (Updated 10/09/24 @ 11:26 by Murphy Wallace MD) Lipoma of chest wall Heartburn symptom Environmental and seasonal allergies Hearing loss ADAM (obstructive sleep apnea) Depression, major, in remission Multinodular thyroid Goiter Vitamin D deficiency Osteoporosis Dyslipidemia Osteopenia of left femoral neck Seasonal allergies Chronic bronchitis GERD (gastroesophageal reflux disease) Pulmonary nodules Chronic rhinitis Surgical History Hx of colonoscopy Hx of esophagogastroduodenoscopy History of total abdominal hysterectomy and bilateral salpingo-oophorectomy Family History Father CVD (cardiovascular disease) Hypertension GI cancer Mother Hypertension Alzheimer disease Daughter Mental health disorder Sister Mental health disorder Social History Housing: House Alcohol intake: current Alcohol intake frequency: a few times a month Alcohol type: wine Patient Tobacco Use Status: Former Tobacco user Tobacco use type: Cigarette Years Smoked: 10 years Current occupational status: unemployed Cognitive needs: No Hearing needs: No Vision needs: Yes Assessment & Plan Assessment & Plan (1) Osteoporosis: Code(s): M81.0 - Age-related osteoporosis without current pathological fracture Category: Medical Plan: This is a 74-year-old white female with a history of osteoporosis with negative secondary workup. Patient was treated with Prolia in the past is then risedronate now on drug holiday. Bone density is stable. Urine NTX is suppressed 1. Osteopenia: Managed primarily with a cautiously considered cessation of Risedronate and monitoring for a future bone density test in 1.5 years. Continuation of calcium and vitamin D intake is advised. The approach intends to observe the changes in bone density without medication to evaluate the benefits of long-term medication use. The repeat DEXA bone density can be performed by the patient's primary care provider. If the bone density decline since the osteoporotic range, the risedronate can be restarted by the patient's primary care provider with the patient referred back to endocrinology. I discussed with the patient the potential risks and benefits of continuing versus pausing Risedronate treatment for osteopenia. We discussed the strategy of monitoring bone density over time to assess medication effectiveness. She has not experienced fractures and currently maintains a T-score that does not indicate osteoporosis. I explained the relevance of bone turnover markers and their role in helping us assess treatment efficacy. The benefits of calcium and vitamin D supplementation and regular weight-bearing exercises were confirmed, and options of future reevaluation of bone health were considered. The patient had an opportunity to ask questions regarding treatment plan. The patient expressed understanding and agreement with the above treatment plan. Patient was informed and verbally consented to the use of an ambient scribe for clinic note documentation during this visit. Coding Level of Care Code Est Pt Level 3 (36364) Diagnoses Osteoporosis M81.0
--- OUTSIDE RECORDS SUMMARY | 2024-12-04 14:49 | XMS_ITS | Clinical Summary ---
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
== END 2024-12-04 13:10 | disposition home or self-care (01) ==
LOC: HO.ENCR 12:49
PROVIDERS: PCP Internal Medicine; Visit Provider Internal Medicine Endocrinology, Diabetes & Metabolism
DX: M81.0 Age-related osteoporosis without current pathological fracture (principal)
CPT/HCPCS: 99213

== ENCOUNTER 2024-12-25 09:29 | Outpatient (AMB) | payer MEDICARE, SELFPAY ==
[2024-12-25 09:49] VITALS: BP 122/64; PULSE 81; O2SAT 95; BMI 24.6
--- NOTE | 2024-12-25 09:49 | MHC.OFFVIS ---
Vital Signs 12/25/24 09:49 Height 5 ft 3 in Weight 139 lb BMI 24.6 BP 122/64 Blood Pressure Location Lt brachial Position Sitting Pulse 81 Pulse Source Doppler Pulse Oximetry (%) 95 Oxygen Delivery Method Room Air Intake Visit Reasons: COPD Allergies meloxicam Allergy (Severe, Verified 12/25/24 09:53) esophagitis minocycline Allergy (Severe, Verified 12/25/24 09:53) esophagitis HPI Comments Details: The patient is a 74 year-old woman with a known history of pulmonary nodules. Overall she has been doing well for respiratory status. Denies any coughing or shortness of breath or any other concerning symptoms. She did have a CT scan of the chest back in June 2018. We did review the images here in the office. He does have an 8 mm ground-glass the pulmonary nodule in addition to other smaller nodules. I did compare this finding to her CT scan from 2014 and it was indeed interval increase in the size of the nodules. Her CT scan from 2016 was relatively similar to the 1 she had 2018. Based on the fact that this was nodules are subsolid and ground glassy when he to monitor them for longer period of time. The fact that the increasing size from 2014 2016 also suggested we have to monitor this very closely to avoid smoldering malignant processes. At this point the patient is scheduled to undergo a CT scan now. She did have a CT scan of the chest that was personally by us in the office back in August 2019 demonstrating multiple pulmonary nodules largest 1 measuring 8 mm and ground-glass in nature. Explained to her that the ground-glass nodular densities we have to follow little longer due to the possibility of a smoldering malignancy. At this point the patient will have a repeat CT scan this month which should be 1 year from her last 1. In addition to that we will check for allergies. 12/12/2020 the patient is here for pulmonary follow-up visit. Overall she continues to have this productive cough which is ongoing and on comfortable. Sometimes she feels that is a postnasal drip and sometimes she feels the mucus is coming from her lungs. Did do accumulate in the the neck area and she feels congested. She did try the singular but was not very helpful. We did have her go for blood work but no significant allergies noted. No significant eosinophilia noted and normal sedimentation rate. At this point the patient has evidence of chronic bronchitis with ongoing wheezing and rhonchi. The patient is not interested in using inhalers at this time. She is open to trying azithromycin 3 times a week and see if this helps with the treatment of a chronic bronchitis. In addition to that we did look at her CT scan of the chest. We did compare this CT scan to there CT scan from [facility] back in 2019 and also from 2017. It appears that she has this 1 cm subsolid nodular density. Does not appear to have significant change in size which is reassuring. However it is subsolid and ground-glass therefore should be monitor closely. Based on the fact that the nodule looks fairly the same will hold off on doing any more CT scans until 18 months from now. In the meantime will treat her for the chronic bronchitis her follow-up in 3 months. 06/02/2021 the patient is here for a pulmonary follow-up visit. Since we last spoke she is doing better on the Breo. Her cough and chest congestion are improved. She did not have the blood work which she will have it done today to assess for her underlying chronic bronchitis. She also has a pulmonary nodule which is a ground-glass the nodular density in the right upper lobe that is measuring 9 mm back and August 2020. patient is concerned because she is developing some chest heaviness and some increase discomfort in the chest area and some fullness in her chest than axilla and neck area. She is concerned about this nodule. She has looked at all reports going back to 2014 in appears that the measurements and slowly increased in size. Therefore based on worsening symptoms and the interval increase in the right upper lobe nodular density on however repeat a CT scan of the chest now. 07/27/2021 the patient is here for a pulmonary follow-up visit. Since we last spoke the patient stopped the Breo. She did not really see any significant improvement. She does feel this sensation that she wants to cough in does have some shortness of breath at times. Her breathing does feel better. 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 Otherwise her blood work was reassuring. We also reviewed her CT scan of the chest personally by me as the subsolid nodular density in the right upper lobe which appears to be pretty stable when compared to 2019 measuring between 9-10 mm in size. In addition to that there was a 5 mm ground-glass nodular density in the right lower lobe. She also has other subcentimeter pulmonary nodules that are solid in nature that appear to be stable as well. No evidence of any pneumonitis or airway disease. On examination she does have some wheezing. Will provide her with a peak flow in order for her to check her peak flows while she goes back on the Breo. if she does not feel that the Breo is helping she will call so we can provide her with an alternative inhaler. 01/24/2022 patient is here for a pulmonary follow-up visit. She continues to have a cough. Moderate severity. Sometimes the cough is a result of a scratchy throat. Sometimes she even scratches her throat with her finger. A does provide some relief sometimes she feels that the cough is more the and associated with chest tightness and wheezing. She has been using the Breo which has been partially helpful. We did talk about considering other medications to suppress her upper airway cough syndrome. She is going to try some dark chocolate and also we did talk about the Tessalon Perles. Patient may also have an allergic component to the for Astelin nasal spray may be helpful. In the meantime she also has some wheezing on examination. Therefore will optimize therapy by switching her Breo to Trelegy. I am hopeful that this provides additional support. When she completes the months on Trelegy come go back to Breo and see if her symptoms reoccur. The patient has underlying pulmonary nodules. She should have a CT scan a year from her last 1 which will be sometime in May 2022. Will follow-up after that. 06/22/2022 the patient is here for a pulmonary follow-up visit. The patient continues to complaint of cough. She did try the Trelegy inhaler but was not helpful. She went back on the Breo. Still she does not see any significant improvement. On examination she does have expiratory wheezing. Will go ahead and add Spiriva to Breo see if this provides better affect. In addition to that she did undergo a CT scan of the chest that was personally by me. We did compared to her CT scans from 2020 and 2019. The subsolid pulmonary nodules not changing significantly but he did increase briefly from 9 mm to 10 mm since last year. I do not see any worsening solid component to the nodule. At this point will plan to repeat the CT scan in 1 year. In the meantime will present her at thoracic conference to can look at the nodule a little closer in multidisciplinary approach since the had a slight increase in size. 12/27/2022 the patient is here for a pulmonary follow-up visit. The patient overall is doing better. She is tolerating the Breo. She did not tolerate the Spiriva due to dryness of her mouth and other adverse effects. Therefore she stopped it. She did not really see any significant improvement on the Spiriva anyway. She continues on the Breo. Now she is going to allergy season. She does have a cough and some nasal congestion. She is using her nasal sprays with good effect. On examination she also has some mild wheezing. Therefore will go ahead and add Singulair to her regimen to help with allergic symptoms and asthma symptoms as well. The patient also has significant daytime drowsiness with an Chantilly score elevated at 10 over 24. She has had episodes which she has awakened suddenly at nighttime with shortness of breath. She has noticed a day been happening more often and she is getting concern. Usually happen when she is in deep sleep. This is very likely to be sleep apnea. Therefore will have her undergo a home sleep study at this time. She also has pulmonary nodules however closely monitoring. She is due for CT scan in May. Therefore, will follow-up after her sleep study. But, if her sleep study is negative she can postpone that visit till May after her CT scan. 06/22/2023 the patient is here for a pulmonary follow-up visit. The patient overall has been doing well. Denies any significant shortness of breath or wheezing. She is responding well to the current respiratory regimen which is Breo. She is tried multiple inhalers in the past without any good response. The patient has been exercising regularly. She does get winded at times. On examination she does have some wheezing. I did recommend we can increase the Breo to the 200 mcg dose at least for a month and see if it helps. She also complains of daytime drowsiness. The patient did have a home sleep study. It demonstrated that she did have mild sleep apnea primarily while sleeping supine. She will try positional therapy. I will give her some ideas. However, she continues have daytime drowsiness she should consider trial of CPAP specially because of her cardiovascular risk factors. We did review her CT scan of the chest that she had in May 2023 demonstrating stable subsolid pulmonary nodule in the rather low. Has not changed in the last few years. This is a subsolid nodule so we just have to make sure we follow it a little bit longer. She has had CT scans now for some time. Therefore will plan to follow this nodule in 18-24 months. If the patient develops any worsening symptoms prior to that she is to call the office for an earlier assessment. 06/21/2024 the patient is here for a pulmonary follow-up visit over the went to time she had a hard time with slow. She had pharyngitis and also some difficulty swallowing. She did go to an urgent care and she was given additional allergy medications without any significant improvement. So her symptoms did improve. Then after that effort her told her that she was having some issues with halitosis. She wants to see a dentist. She had to have a tooth extraction which she had recently without any complications. Seems to be getting a little better. She still has a little bit of soreness in the throat. Also has poor dentition. Will be reasonable to treat with chlorhexidine at this time. The patient also has pulmonary nodules noted on previous CT scans specially from 06/14/2023. Will go ahead and plan to repeat the CT scan in 6 months specially with her ongoing respiratory symptoms. She is responding well to the Breo inhaler. She did not do well on the higher dose so she was brought down to the 100 mcg dose with better effect. She still has some wheezing at times. The patient also has nasal congestion will go ahead and start her nasal therapy. 12/25/2024 the patient is here for pulmonary follow-up visit. Overall she is doing okay. She still has the same complaints of this very tenacious mucus buildup in her throat. Sometimes it chokes her up. Sometimes difficult to expectorate. Sometimes is related to a sore throat. She does not feel like it is really drainage from the nose. She is not sure is coming from. She did have a CT scan of the chest recently that were I personally reviewed with her. She still has this irregular looking nodular density in the right upper lobe that has not appear to change compared to last year. Although is irregular and concerning in appearance. Therefore still think that she should continue to follow yearly basis. In addition to that her rest of the lungs appeared to be healthy. She does have an exam have erythematous slow. She does complaint of reflux at times. I do believe that reflux may be playing a big role in her ongoing chronic bronchitis. Likely for micro aspirations. Will go ahead and start her on azithromycin to see this provides relief. In addition to that will order a barium swallow. She does not feel like her maintenance inhalers helping so therefore she can hold off although she should have a rescue inhaler available in case she needs it. And if she notices that she needs it more than 2 times a week she needs to go back on her maintenance inhaler. Will plan to follow-up in 4-6 months. If she has any issues prior to this she will call for an earlier assessment. Also to note because she has been on citalopram when she starts the macrolide therapy she will need to get an EKG to make sure that her QT is within normal limits. [facility] Medical History (Updated 12/25/24 @ 23:20 by Valentin Badillo MD) GERD (gastroesophageal reflux disease) Lipoma of chest wall Heartburn symptom Environmental and seasonal allergies Hearing loss ADAM (obstructive sleep apnea) Depression, major, in remission Multinodular thyroid Goiter Vitamin D deficiency Osteoporosis Dyslipidemia Osteopenia of left femoral neck Seasonal allergies Chronic bronchitis Pulmonary nodules Chronic rhinitis Surgical History Hx of colonoscopy Hx of esophagogastroduodenoscopy History of total abdominal hysterectomy and bilateral salpingo-oophorectomy Family History Father CVD (cardiovascular disease) Hypertension GI cancer Mother Hypertension Alzheimer disease Daughter Mental health disorder Sister Mental health disorder Social History Housing: House Alcohol intake: current Alcohol intake frequency: a few times a month Alcohol type: wine Patient Tobacco Use Status: Former Tobacco user Tobacco use type: Cigarette Years Smoked: 10 years Current occupational status: unemployed Cognitive needs: No Hearing needs: No Vision needs: Yes Review of Systems Const Reports no additional complaints, Reports daytime sleepiness, Denies frequent falls, Denies headache(s), Reports snoring and Denies weakness Eyes Denies blind spots, Denies blurry vision, Denies change in vision, Denies diplopia and Denies loss of vision ENT Reports no additional complaints, Denies vertigo, Denies dizziness and Denies headache(s) Card Reports no additional complaints and Reports dyspnea on exertion Resp Reports no additional complaints, Reports chest congestion, Reports cough, Reports dyspnea on exertion, Reports snoring and Denies wheezing GI Reports dyspepsia and Reports heartburn Details: Denies nausea or vomiting Musc Reports no additional complaints, Reports as per HPI, Denies abnormal gait and Denies numbness Skin/Breast Reports wounds (Abrasion of left knee) Neuro Denies abnormal gait, Denies vertigo, Denies dizziness, Denies frequent falls, Denies headache(s), Denies lack of coordination, Denies loss of vision, Denies memory loss, Denies numbness and Denies weakness Psych Denies memory loss Aller/Immun Denies wheezing Physical Exam Vital Signs: Last Vital Signs Pulse 81 12/25/24 09:49 BP 122/64 12/25/24 09:49 Pulse Ox 95 12/25/24 09:49 Oxygen Delivery Method Room Air 12/25/24 09:49 BMI result Body Mass Index 24.6 Const General: alert Neck Neck: Yes normal visual inspection Chest Chest palpation & inspection: normal inspection of the chest Resp Auscultation: no wheezes and diminished lung sounds Cardio Rate: regular rate Rhythm: regular rhythm Heart sounds: S1 normal heart sound present and S2 normal heart sound present GI Inspection: Yes normal to inspection and No distended Assessment & Plan Assessment & Plan (1) Pulmonary nodules: Code(s): R91.8 - Other nonspecific abnormal finding of lung field Category: Medical (2) Chronic rhinitis: Code(s): J31.0 - Chronic rhinitis Category: Medical (3) Chronic bronchitis: Code(s): J42 - Unspecified chronic bronchitis Category: Medical Qualifiers: Chronic bronchitis type: mucopurulent Qualified Code(s): J41.1 - Mucopurulent chronic bronchitis (4) ADAM (obstructive sleep apnea): Code(s): G47.33 - Obstructive sleep apnea (adult) (pediatric) Category: Medical (5) GERD (gastroesophageal reflux disease): Code(s): K21.9 - Gastro-esophageal reflux disease without esophagitis Category: Medical Plan Positional sleep therapy. Consider elastic mandibular device with her dentist. ELOINA as needed and prior to exercise activity repeat CT scan 12 months Astelin nasal spray restart Fluticasone start Azithromycin MWF Barium swallow EKG F/U 4-6 months Orders: Orders ECG 12 lead EKG Today J44.9 - Chronic obstructive pulmonary disease, unspecified [place] barium swallow Today K21.9 - Gastro-esophageal reflux disease without esophagitis Medications: New azithromycin Take 1 tablet on Monday/Monday/Monday 250 mg PO 3XW 12 tabs 1RF 28 days K21.9 - Gastro-esophageal reflux disease without esophagitis albuterol sulfate 90 mcg/actuation 2 inhalations inhalation Q6H PRN 18 grams 12RF shortness of breath or wheezing 30 days J44.9 - Chronic obstructive pulmonary disease, unspecified Coding Level of Care Code Est Pt Level 4 (31155) Complex EM visit Add On G2211 Diagnoses Pulmonary nodules R91.8 Chronic rhinitis J31.0 Mucopurulent chronic bronchitis J41.1 Chronic bronchitis type: mucopurulent ADAM (obstructive sleep apnea) G47.33 GERD (gastroesophageal reflux disease) K21.9 Time Spent (min) 17
--- OUTSIDE RECORDS SUMMARY | 2024-12-25 10:41 | XMS_ITS | Clinical Summary ---
Author Organization Formerly [facility] [employer] Address [address] [place] [address] [place] [address] Care Team Providers Care Accreditation Coordinator Name Role Phone Unavailable Primary Care Provider [...] to complete this topic Insurance MEDICARE [facility] MEDEX CARE
--- OUTSIDE RECORDS SUMMARY | 2024-12-25 10:41 | XMS_ITS | Data Portability ---
Author Organization [place] - [facility], [facility], [facility] Address [address] [place] [address] Care Team Providers Care Photolithographic Stripper Name Role Phone NELL DUVALL Referring Provider DUSTIN CORTEZ Trenching Machine Operator SIMIN HUERTA Internal Medicine [phone] Assessment No assessment recorded. Plan of Treatment Reminders Order Date Submit Date Provider Last Modified By Organization Details Last Modified Time Details Appointments None recorded. Lab AST/SGOT (aspartate aminotransf erase), serum or plasma 2015 016 [facility], [address] [place], [address], 6 12:27:59 ALT (alanine aminotransf erase), serum or plasma 2015 016 [facility], [address], [place], [address], 6 12:28:00 venipunctur e 2015 016 [facility], [address], [place], [address], 6 12:05:16 lipid panel, serum 2015 016 [facility], [address], [place], [address], 6 12:28:00 Referral None recorded. Procedures None recorded. Surgeries None recorded. Imaging None recorded. Medication Orders Aplisol 5 tub. unit/0.1 mL intradermal injection solution 2014 015 [email or web address] Not available 6 11:35:07 Patient TargetsNo targets recorded. Patient Instructions Encounter Date Encounter Id Patient Instructions Last Modified By Organization Details Last Modified Time 11/20/2014 [id number] learning about mood disorders RALPH Not available 11/21/2014 04:02:53 10/14/2015 [id number] depression treatment: care instructions RALPH Not available 10/15/2015 10:29:41 08/30/2016 [id number] depression treatment: care instructions RALPH Not available 08/31/2016 07:39:12 Reason for Referral None Reported. Results Created Date Observation Date Name Description Value Unit Range Abnormal Flag Note LastModifiedBy Organization Detail LastModifiedTime 10/16/19 16 10/16/2015 AST/S GOT (aspa rtate amino trans feras e), serum or plasm a AST (SGOT) 14 U/L 13-39 Not Available [facility] [address] [facility] [address] [place], [address], 10/16/2015 12:27:59 10/16/19 16 10/16/2015 ALT (alec ine amino trans feras e), serum or plasm a ALT (SGPT) 16 U/L 7-52 Not Available [facility] [address] [place], [address], 10/16/2015 12:28:00 10/16/19 16 10/16/2015 lipid panel , serum cholesterol 222 mg/dL 20-180 high Not Available [facility] [address] [place], [address], 10/16/2015 12:28:00 10/16/19 16 10/16/2015 lipid panel , serum triglyceride s 119 mg/dL 30-150 Not Available [facility] [address] [place], [address], 10/16/2015 12:28:00 10/16/19 16 10/16/2015 lipid panel , serum HDL cholesterol 72 mg/dL 23-92 Not Available [facility] [address] [facility] [address] [facility], [place], [address], 10/16/2015 12:28:00 10/16/19 16 10/16/2015 lipid panel , serum LDL calculated 126 mg/dL <=100 high Not Available [facility] [address] [facility] [address] [facility], [place], [address], 10/16/2015 12:28:00 10/16/19 16 10/16/2015 lipid panel , serum VLDL cholesterol 24 calc Not Available [facility] [address], [address], 10/16/2015 12:28:00 10/16/19 16 10/16/2015 lipid panel , serum HDL risk factor 3.1 calc RISK FACTO R MALE FEMAL E 1/2 AVG RISK 3.4 3.3 AVG RISK 5.0 4.0 2X AVG RISK 9.6 7.1 3X AVG RISK 24.0 11.0 Not Available [facility] [address], [address], 10/16/2015 12:28:00 10/16/19 16 10/16/2015 lipid panel , serum cholesterol/ HDL ratio 3 calc CHOL/ HDL RATIO <3 OPTIM AL 3-4 BORDE RLINE >6 HIGH RISK Not Available [facility] [address] [facility] [address] [place], [address], 10/16/2015 12:28:00 10/16/19 16 10/16/2015 lipid panel , serum non-HDL cholesterol 150 calc NON-H DL MULUGETA STERO L <190 MG/DL LOW RISK <160 MG/DL MODER ATE RISK <130 MG/DL HIGH RISK Not Available [facility] [address], [place], [address], 10/16/2015 12:28:00 10/16/19 16 10/16/2015 venip unctu re venipuncture CHARGE Not Available [facility] [address], [place], [address], 10/16/2015 12:05:16 11/21/19 15 11/20/2014 x-ray , chest PA AND LATERA L CHEST Histor y: Consta nt chroni c cough. Dry cough. Findin gs: PA and latera l views of the chest obtain ed on 5 demons trates heart, medias tinum and pulmon rach vascul arity to be normal . Acute parenc hymal infilt rates are not identi fied. Impres dustin: 1. No active pulmon rach diseas e. Thank you for this referr al. Electr onical ly signed Estelle montana Radiol ogist: Nell adames DO [email or web address] [address], [facility], 11/21/2014 15:45:35 12/02/19 15 12/01/2014 CT, chest No observ ation record ed. [email or web address] [facility] [address] [place], [address], 12/03/2014 12:08:51 07/28/20 15 03/04/2015 imagi ng/di agnos tic resul t No observ ation record ed. [email or web address] Not Available 2014 16:54:22 07/28/20 15 07/15/2015 imagi ng/di agnos tic resul t No observ ation record ed. [email or web address] Not Available 2014 16:54:22 10/19/19 16 10/14/2015 RT hip 3 views AP PELVIS AND RIGHT HIP: THREE VIEWS Histor y: Right hip and right thigh pain. Compar davi: None. Findin gs: Three views of the pelvis and right hip were obtain ed. There is degene rative arthri tis with mild narrow ing of the right femora l-acet abular joint accomp anied by mild margin al spurri ng of the femora l head. No bony erosio ns are seen. The left hip joint and sacroi liac joints are grossl y preser stephanie. There are multip le pelvic phlebo liths. Impres dustin: 1. Mild osteoa rthrit is, right hip. Thank you for this referr al. Buchanan onical ly signed Readin g Radiol ogist: Nancy Evangelista MD [facility] [address] [place], [address], 10/19/2015 12:20:48 10/19/19 16 10/14/2015 RT femur 4 views RIGHT FEMUR: FOUR VIEWS Histor y: Right hip and right thigh pain. Compar davi: None. Findin gs: Four views of the right femur were obtain ed. No fractu re is presen t. At the right hip, there is degene rative arthri tis with mild joint space narrow ing and mild margin al spurri ng of the femora l head. The right femur is otherw ise unrema rkable . No suspic ious bony lesion is seen. As visual ized, the soft tissue s are negati ve. Impres dustin: 1. Negati ve for fractu re or acute osseou s abnorm ality. 2. Mild degene rative arthri tis, right hip. Otherw ise, negati ve exam. 3. No suspic ious bony lesion seen. Thank you for this referr al. Buchanan onical ly signed Readin g Radiol ogist: Nancy Evangelista MD [facility] [address] [place], [address], 10/19/2015 12:20:48 08/12/20 16 08/10/2016 RT hip 3 views RIGHT HIP: THREE VIEWS Histor y: Right hip pain. Techni que: A three- view pelvis and right hip x-ray series was perfor med. Compar davi: Compar davi was made to the pelvis and right hip x-ray perfor med on 6. Findin gs: The bones of the pelvis and right hip are intact . There is no eviden ce for an acute fractu re or bone destru ction. There is mild narrow ing of the right hip, which is compat ible with mild osteoa rthrit is. The left hip has a normal width. The sacroi liac joints are symmet rical and have normal widths . There are degene rative change s of the lower lumbar spine. The soft tissue s are unrema rkable . Impres dustin: Compar ed to 6: 1. Mild osteoa rthrit is of the right hip. 2. Degene rative change s of the lower lumbar spine. 3. No eviden ce for acute bony change s. If the sympto ms persis t, then an MRI is recomm ended for furthe r evalua tion, if there are not any contra indica tions. Thank you for this referr al. Electr onical ly signed Readin g Radiol ogist: Елена Sal MD [address], [facility], 08/30/2016 11:42:16 09/27/19 17 09/22/2016 chest 2 views CHEST: TWO VIEWS Histor y: Cough. Techni que: APA and latera l chest x-ray was perfor med. Compar davi: Compar davi was made to the chest x-ray perfor med on 5. Findin gs: The lungs are clear. The heart and medias tinum are within normal limits . There is mild levosc oliosi s of the thorac ic spine. The soft tissue s are unrema rkable . Impres dustin: Compar ed to 5: 1. No active cardio pulmon rach diseas e. Thank you for this referr al. Please Note: The [employer], [facility] and the [place] Preven tative Servic es Task Force now approv e CT Low Dose Chest Screen ing in the follow ing patien ts: * Age 55-77 who curren tly smoke or who have quit within the last 15 years * Asympt omatic patien ts with a 30 pack year smokin g histor y (i.e. 1 pack/d ay for 30 years; 2 pack/d ay for 15 years) Electr onical ly signed Readin g Radiol ogist: Елена Sal MD [address], [address], 09/28/2016 17:09:30 Result Notes None recorded. Problems Name Problem SNOMED Code Status Onset Date Resolution Date Notes Provider Name and Address Organization Details Recorded Time Depressive disorder 75153839 Completed 10/14/2015 Maryann O'Ministerio null, [facility], [facility] 11:18:45 Cough 04650757 Completed 08/30/2016 DO [address]ya Verma [address], [email or web address], [address], [facility], [facility] 11:36:48 Pure hypercholes terolemia 823523261 Active Maryann O'Ministerio null, [facility], [facility] 11:18:45 Recurrent major depression 07365677 Active Maryann O'Ministerio null, [facility], [facility] 11:18:45 Hip pain 00870188 Active Maryann O'Ministerio null, [facility], [facility] 11:18:45 Thigh pain 74344576 Active Maryann O'Ministerio null, [facility], [facility] 11:18:45 Notes:right lung nodules 201 6, 12 months, [facility] Problem Notes None recorded. Procedures Surgical History Date Name Laterality Status Provider Name and Address Organization Details Recorded Time 08/30/20 16 Dictated Progress Note completed DO Mireya Verma[address], [email or web address], [address], [facility], [facility] 08/30/2016 11:59:05 10/14/19 16 Dictated Progress Note completed DO Ray Verma [address], [place], [address], [facility], [facility] 10/14/2015 12:00:31 11/20/19 15 Dictated Progress Note completed DO Ray Verma [address], [email or web address], [address], [facility], [facility] 11/20/2014 16:53:37 09/22/20 09 Colonoscopy completed Zaynab Banks [facility], [facility] 10/03/2014 11:19:15 09/25/18 92 Hysterectomy completed Nell Duvall, DO [address], [place], [address], [facility], [facility] 10/06/2014 17:12:15 Imaging Results Imaging Date Name Status LastModified by Organ [facility] Details LastModified Time 11/20/2014 x-ray, chest completed [email or web address] [facility] [address] [place] [address], [address], 11/21/2014 15:45:35 12/01/2014 CT, chest completed [email or web address] [facility] [address], [place], [address], 12/03/2014 12:08:51 03/04/2015 imaging/diag nostic result completed Information not available 07/28/2015 16:54:22 07/15/2015 imaging/diag nostic result completed Information not available 07/28/2015 16:54:22 10/14/2015 RT hip 3 views completed blepley [facility] [address] [place], [address], 10/19/2015 12:20:48 10/14/2015 RT femur 4 views completed blepley [facility] [address] [place], [address], 10/19/2015 12:20:48 08/10/2016 RT hip 3 views completed dgooding [facility] [address] [place] [address], [address], 08/30/2016 11:42:16 09/22/2016 chest 2 views completed dgooding [facility] [address] [place] [address], [address], 09/28/2016 17:09:30 Procedure Notes None recorded. Medical Equipment None Reported. Allergies Allergen ID Allergen Name Allergen Category Reaction Reaction Severity Criticality Documentation Date Start Date Code Code System Note Provider Name and Address Organization Details Recorded Time 737008 minocycli ne medicatio n rash severe Not available 10/14/2015 6980 RxNorm job garcía Maryann BRIDGET [facility], [facility] 6 11:26:18 Medications Name Sig Start Date Stop Date Status Note LastModified by Organization Details LastModified Time Augmentin 875 mg-125 mg tablet Take 1 tablet every 12 hours by oral route. 2015 active Not Available Not Available Not Avai lable atorvasta tin 20 mg tablet Take 1 tablet every day by oral route. active Not Available Not Available No t Available citalopra m 40 mg tablet Take 1 tablet every day by oral route. active Not Available Not Available No t Available ibuprofen 200 mg capsule Take 1 capsule every 6 hours by oral route as needed. active Not Available Not Available No t Available Medrol (Mohan) 4 mg tablets in a dose pack Take by oral route as directed . 2015 active Not Available Not Available Not Avai lable Aplisol 5 tub. unit/0.1 mL intraderm al injection solution Take 0.1 mL every day by intrader mal route. 08/30 completed 0.1ml placed intrader alin Not Available Not Available Not Available Zithromax Z-Mohan 250 mg tablet take 2 po today then 1 qd for 4 more days 09/21 completed Not Available Not Available Not Available lorazepam 0.5 mg tablet Take 1 tablet every day by oral route as needed. active Not Available Not Available No t Available pravastat in 20 mg tablet Take 2 tablets every other day by oral route. 08/30 completed med change Not Available Not Available Not Available cyclobenz aprine 5 mg tablet Take 1 tablet 3 times a day by oral route for 10 days. 2014 active Not Available Not Available Not Avai lable Multi Vitamin 1qd active Not Available Not Available Not Available Vitals Date Recorded Body height Respiratory rate Oxygen saturation Oxygen saturation in Arterial blood by Pulse oximetry Body weight Body temperature Heart rate Body mass index (BMI) Systolic blood pressure Diastolic blood pressure Provider Name and Address Organization Details Last Updated DateTime 5 161.29 cm 18 /min 98 % 98 % 50699.9 318 g 98.3 [degF] 77 /min 24.4 kg/m2 128 mm[Hg] 72 mm[Hg] Ana Claire [facility], [facility] 5 14:33:38 Date Recorded Body height Heart rate Body temperature Body weight Respiratory rate Body mass index (BMI) Systolic blood pressure Diastolic blood pressure Provider Name and Address Organization Details Last Updated DateTime 6 161.29 cm 72 /min 98.3 [degF] 95496.3 3943 g 16 /min 24.2 kg/m2 118 mm[Hg] 70 mm[Hg] Maryann Harrington [facility], [facility] 6 11:26:18 Date Recorded Body temperature Oxygen saturation Oxygen saturation in Arterial blood by Pulse oximetry Respiratory rate Body mass index (BMI) Body weight Heart rate Body height Systolic blood pressure Diastolic blood pressure Provider Name and Address Organization Details Last Updated DateTime 6 98.5 [degF] 98 % 98 % 14 /min 24.2 kg/m2 18732.9 71131 g 71 /min 161.29 cm 132 mm[Hg] 80 mm[Hg] Marcy Cardenas [facility], [facility] 6 09:15:33 Date Recorded Body height Body mass index (BMI) Body weight Respiratory rate Body temperature Heart rate Systolic blood pressure Diastolic blood pressure Provider Name and Address Organization Details Last Updated DateTime 6 161.29 cm 24 kg/m2 41373.5 75006 g 16 /min 98.3 [degF] 20 /min 106 mm[Hg] 72 mm[Hg] Maryann Harrington [facility], [facility] 6 11:27:55 Social History Question Answer Notes LastModified by Organizat ion Details LastModified Time Tobacco Smoking Status Former Smoker Zaynab may [facility], [facility] 10/03/2014 11:19:15 Alcohol Use 1-2 Per Day Wine Information not available 10/03/2014 Year Quit Tobacco Use 1980 Information not available 10/03/2014 How Much Tobacco Do You Smoke? 1 PPD Information not available 10/03/2014 How Many Years Have You Smoked Tobacco? 10 Information not available 10/03/2014 Sex: Unknown Functional Status None recorded. Mental Status None recorded. Family History Relationship Description Onset Age of this Age Resolved Age Notes LastModified by Organization Details LastModified Time Mother Alzheimer's disease 85 [email or web address] Not available 2015 11:19:22 Mother Hypertensive disorder [email or web address] Not available 2015 11:19:22 Father Hypertensive disorder [email or web address] Not available 2015 11:19:22 Notes:Father from C A at age of 91, FHX; Depression, High cholesterol, Skin CA & Stroke Medical History Condition Response Cancer (location) N Other N Gout N Thyroid Disease N Kidney Stones N Measles/Mumps N Emphysema/COPD N Sexually Transmitted Disease N Depression Y Prostate Problems N Vascular Disease N Rash/Skin Condition N Amputation (location) N Parkinson's N Paralysis N Headaches/Migraines Y Cardiac Pacemaker/defibrillator N Nerve Damage / Neuropathy N Arthritis N Sleep disorder/Insomnia N Heart disease / Heart Attack N Crohn's Disease N HIV/AIDS N Stroke/TIA N Colon Problems Y High Cholesterol Y Serious Injuries N Kidney Disease N Memory Loss/Alzheimer's N Gallbladder disease N High blood pressure N Congestive heart failure N Falls N Alcohol Overuse N Blood Thinner Treatment N Hormone Replacement N Nervous Breakdown N Idas's Esophagus N Anemia N Urinary Problems N Colon Polyps N Gastritis N Hospitalizations (other than operations) N Back pain Y Diabetes N Rheumatic Fever N Bleeding Disorder N Cardiac Arrhythmias /irregular heart rat e N Osteopenia/Osteoporosis Y Anxiety/Stress N Asthma N Vision Problems N Erectile / Sexual Dysfunction N Ostomies (location) N Seizures N Jaundice N Hepatitis N Past Reacton to Contrast Media N Cirrhosis N GERD/Ulcer N Chicken Pox Y Allergies (other than meds) N Gynecological HistoryNo gynecological history recorded. Obstetrics History GPAL:G 0 P 0 0 0 0 Immunizations Vaccine Type Date Status Note Provider Nam e and Address Organization Details Recorded Time Pneumococcal Conjugate, unspecified formulation 3 completed Zaynab may [facility], [facility] 10/03/2014 11:19:15 tetanus toxoid, adsorbed 3 completed Zaynab may [facility], [facility] 10/03/2014 11:19:15 influenza nasal, unspecified formulation 4 completed Zaynab Banks null, [facility], [facility] 10/03/2014 11:19:15 zoster live 2 completed Zaynab Banks null, [facility], [facility] 10/03/2014 11:19:15 influenza, unspecified formulation 5 completed Maryann CummingsOscarMinisterio null, [facility], [facility] 10/14/2015 11:26:18 Influenza, split virus, trivalent, preservative 6 completed Maryann Harrington null, [facility], [facility] 08/30/2016 11:27:55 Past Encounters Encounter ID Performer Location Encounter Start Date Encounter Closed Date Diagnosis/Indication Diagnosis SNOMED-CT Code Diagnosis ICD10 Code Diagnosis Note [id number] Ana Claire [facility] [address] [address] 7 10/06/2014 09:32:55 10/06/2014 10:41:57 Low back pain 806108568 [id number] [facility] [address] [address] 7 11/20/2014 14:13:43 11/20/2014 15:21:35 Depressive disorder 85988612 Cough 61689973 [id number] Nell Duvall DO [facility] [address] [address] 7 08/31/2015 11:29:11 08/31/2015 12:04:49 Tuberculosis screening 539242596 Z11.1 [id number] Nell Duvall DO [facility] [address] [address] 7 10/14/2015 11:17:19 10/14/2015 11:48:37 Pure hypercholesterolemia 907085094 E78.0 Recurrent major depression 23067758 F33.9 Hip pain 16979402 M25.55 1 Thigh pain 31411833 M79. 651 Cough 43394335 R05 [id number] Myriam BOWERS [facility] [address] [address] 7 11/25/2015 09:04:30 11/25/2015 11:06:07 Anxiety 31279255 F41.9 She has taken the Lorazepam, had the same bottle for the past 8 years which only has taken 15. Instructed patient to follow up if symptoms persists and voiced understand ing. Instructed to go to ER if develop life threatenin g symptoms and voiced understand ing. Instructed on side effects and possible drug interactio ns and voiced understand ing. Instructed to take medication as directed and voiced understand ing. [id number] Nell Duvall DO [facility] [address] [address] [place] [address] 08/30/2016 11:12:18 08/30/2016 11:51:05 Localized, primary osteoarthritis of the pelvic region and thigh 463895823 M19.91 Pure hypercholesterolemia 516903175 E78.00 Recurrent major depression 71805735 F33.9 Health Concerns Section Related Observation LastModified by Organization Detai ls LastModified Time None Recorded Concern Status LastModified by Organization Details LastModified Time None Recorded Advance Directives Directive None Recorded Payers Encounter Date Sequence Insurance Name Policy Number Policy Kuhn Covered Member ID Kuhn Member ID Guarantor Name 11/20/2014 2 [place] [id number] Aislinn A Pontz [id number] Aislinn Pontz 11/20/2014 1 [place] Aislinn A Pontz [id number] A Aislinn Pontz 08/31/2015 2 [place] [id number] Aislinn A Pontz [id number] Aislinn Pontz 08/31/2015 1 [place] Aislinn A Pontz [id number] A Aislinn Pontz 10/14/2015 2 [place] [id number] Aislinn A Pontz [id number] Aislinn Pontz 10/14/2015 1 [place] Aislinn A Pontz [id number] A Aislinn Pontz 11/25/2015 2 [place] [id number] Aislinn A Pontz [id number] Aislinn Pontz 11/25/2015 1 [place] Aislinn A Pontz [id number] A Aislinn [place] 08/30/2016 2 [facility] [id number] Aislinn Mcallister [place] [id number] Aislinn [place] 08/30/2016 1 [place] Aislinn Mcallister [place] [id number] Esvin Tao Antonina Notes Date Note Type Note Provider Name and Address Organization Details Recorded Time 11/25/2015 text/html AnxietyReported bypatient.Reason for visit:acute complaint Anxiety Type:episodic anxiety Onset/Timing:recurren t episode Context:major life stressors Associated Symptoms:denies suicidal ideations; no significant weight change; no shortness of breath; no panic; appetite good; energy good; no apathy; maintaining functionality;sleep disturbances Myriam BOWERS [address], [place], [address], [facility], [facility] 11/25/2015 10:09:40 OBGyn Episode No OBEpisode recorded.
== END 2024-12-25 10:17 | disposition home or self-care (01) ==
LOC: HO.HPS 09:30
PROVIDERS: PCP Internal Medicine; Visit Provider Hospitalist
DX: R91.8 Other nonspecific abnormal finding of lung field (principal); J31.0 Chronic rhinitis; J41.1 Mucopurulent chronic bronchitis; G47.33 Obstructive sleep apnea (adult) (pediatric); K21.9 Gastro-esophageal reflux disease without esophagitis
CPT/HCPCS: 99214; G2211

== ENCOUNTER → 2024-12-25 09:29 | Outpatient (BNVA) | payer MEDICARE, SELFPAY | PROVIDERS: PCP Internal Medicine; Visit Provider Hospitalist | DX: J41.1 Mucopurulent chronic bronchitis (principal); J31.0 Chronic rhinitis; R91.8 Other nonspecific abnormal finding of lung field; G47.33 Obstructive sleep apnea (adult) (pediatric); K21.9 Gastro-esophageal reflux disease without esophagitis | CPT/HCPCS: 99212 ==

== ENCOUNTER → 2025-01-01 11:48 | Outpatient (REF) | payer MEDICARE, SELFPAY ==
--- NOTE | 2025-01-01 11:53 | ECG_ITS ---
Test Reason : copd Blood Pressure : */* mmHG Vent. Rate : 69 BPM Atrial Rate : 69 BPM P-R Int : 156 ms QRS Dur : 82 ms QT Int : 424 ms P-R-T Axes : 6 -17 58 degrees QTcB Int : 454 ms Normal sinus rhythm Normal ECG When compared with ECG of 05-Mar-2015 10:21, No significant change was found Referred By: Valentin Badillo Electronically Signed By: Dexter Lofton
--- OUTSIDE RECORDS SUMMARY | 2025-01-01 13:57 | XMS_ITS | Encounter Summary ---
Author Organization [facility] Address [address] [place] [address] Care Team Providers Care Bias Cutter Helper Name Role Phone Keli Ball Md, MD Primary Care Provider Unavailable Encounter Details Date Type Department Care Team Description 07/13/2018 Orders Only Pulmonology - [address] [place] [address] Valentin Badillo MD Multiple pulmonary nodules; Breath shortness Social History Tobacco Use Types Packs/Day Years Used Date Smoking Tobacco: Former Cigarettes 1 15 Alcohol Use Standard Drinks/Week Comments Yes 0 (1 standard drink = 0.6 oz pur e alcohol) Sex Assigned at Date Recorded Not on file documented as of this encounter Plan of Treatment Not on file documented as of this encounter Procedures Procedure Name Priority Date/Time Associated Diagnosis Comments CAT SCAN OF CHEST NO CONTRAST Routine 2018 Multiple pulmonary nodules Breath shortness documented in this encounter Results * CAT SCAN OF CHEST NO CONTRAST (2018) Valentin Badillo MD CT SCANS documented in this encounter Visit Diagnoses Diagnosis Multiple pulmonary nodules Other nonspecific abnormal finding of lung field Breath shortness Shortness of breath documented in this encounter Care Teams Bias Cutter Helper Relationship Specialty Start Date End Date Keli Ball MD, MD PCP - General Internal Medicine 07/21/17 documented as of this encounter
--- OUTSIDE RECORDS SUMMARY | 2025-01-01 13:57 | XMS_ITS | Data Portability ---
Author Organization [place] - [facility], [facility], [facility] Address [address] [place] [address] Care Team Providers Care Supervisor Hydrochloric Area Name Role Phone NELL DUVALL Referring Provider [phone] DUSTIN CORTEZ Blood Bank Worker SIMIN HUERTA Internal Medicine Assessment No assessment recorded. Plan of Treatment Reminders Order Date Submit Date Provider Last Modified By Organization Details Last Modified Time Details Appointments None recorded. Lab AST/SGOT (aspartate aminotransf erase), serum or plasma 2015 016 [facility], [address] [place], [address], 6 12:27:59 ALT (alanine aminotransf erase), serum or plasma 2015 016 [facility], [address], [place], [address], 6 12:28:00 venipunctur e 2015 016 [facility], [address], [place], [address], 6 12:05:16 lipid panel, serum 2015 016 [facility], [address], [place], [address], 6 12:28:00 Referral None recorded. Procedures None recorded. Surgeries None recorded. Imaging None recorded. Medication Orders Aplisol 5 tub. unit/0.1 mL intradermal injection solution 2014 015 dgooding Not available 6 11:35:07 Patient TargetsNo targets recorded. Patient Instructions Encounter Date Encounter Id Patient Instructions Last Modified By Organization Details Last Modified Time 11/20/2014 [id number] learning about mood disorders RALPH Not available 11/21/2014 04:02:53 10/14/2015 [id number] depression treatment: care instructions RALPH Not available 10/15/2015 10:29:41 08/30/2016 [id number] depression treatment: care instructions RALPH Not available 08/31/2016 07:39:12 Reason for Referral None Reported. Results Created Date Observation Date Name Description Value Unit Range Abnormal Flag Note LastModifiedBy Organization Detail LastModifiedTime 10/16/19 16 10/16/2015 AST/S GOT (aspa rtate amino trans feras e), serum or plasm a AST (SGOT) 14 U/L 13-39 Not Available [facility] [address] [place], [address], 10/16/2015 12:27:59 10/16/19 16 10/16/2015 ALT (alec ine amino trans feras e), serum or plasm a ALT (SGPT) 16 U/L 7-52 Not Available [facility] [address] [place], [address], 10/16/2015 12:28:00 10/16/19 16 10/16/2015 lipid panel , serum cholesterol 222 mg/dL 20-180 high Not Available [facility] [address] [place], [address], 10/16/2015 12:28:00 10/16/19 16 10/16/2015 lipid panel , serum triglyceride s 119 mg/dL 30-150 Not Available [facility] [address] [place], [address], 10/16/2015 12:28:00 10/16/19 16 10/16/2015 lipid panel , serum HDL cholesterol 72 mg/dL 23-92 Not Available [facility] [address] [facility] [address] [facility], [place], [address], 10/16/2015 12:28:00 10/16/19 16 10/16/2015 lipid panel , serum LDL calculated 126 mg/dL <=100 high Not Available [facility] [address] [facility] [address] [facility], [place], [address], 10/16/2015 12:28:00 10/16/19 16 10/16/2015 lipid panel , serum VLDL cholesterol 24 calc Not Available [facility] [address], [address], 10/16/2015 12:28:00 10/16/19 16 10/16/2015 lipid panel , serum HDL risk factor 3.1 calc RISK FACTO R MALE FEMAL E 1/2 AVG RISK 3.4 3.3 AVG RISK 5.0 4.0 2X AVG RISK 9.6 7.1 3X AVG RISK 24.0 11.0 Not Available [facility] [address], [address], 10/16/2015 12:28:00 10/16/19 16 10/16/2015 lipid panel , serum cholesterol/ HDL ratio 3 calc CHOL/ HDL RATIO <3 OPTIM AL 3-4 BORDE RLINE >6 HIGH RISK Not Available [facility] [address] [facility] [address] [place], [address], 10/16/2015 12:28:00 10/16/19 16 10/16/2015 lipid panel , serum non-HDL cholesterol 150 calc NON-H DL MULUGETA STERO L <190 MG/DL LOW RISK <160 MG/DL MODER ATE RISK <130 MG/DL HIGH RISK Not Available [facility] [address], [place], [address], 10/16/2015 12:28:00 10/16/19 16 10/16/2015 venip unctu re venipuncture CHARGE Not Available [facility] [address], [place], [address], 10/16/2015 12:05:16 11/21/19 15 11/20/2014 x-ray , [...] [place] Radiol ogist: Nell adames DO [email or web address] [address], [facility], 11/21/2014 15:45:35 12/02/19 15 12/01/2014 CT, chest No observ ation record ed. [email or web address] [facility] [address] [place], [address], 12/03/2014 12:08:51 07/28/20 15 03/04/2015 imagi ng/di [...] Readin g Radiol ogist: Nancy Evangelista MD [facility] [address] [place], [address], 10/19/2015 12:20:48 10/19/19 16 10/14/2015 RT femur [...] Readin g Radiol ogist: Nancy Evangelista MD [facility] [address] [place], [address], 10/19/2015 12:20:48 08/12/20 16 08/10/2016 RT hip [...] Readin g Radiol ogist: Елена Sal MD [address], [facility], 08/30/2016 11:42:16 09/27/19 17 09/22/2016 chest 2 [...] Note: [facility] [employer] [facility], [facility] and the [place] Preven tative Servic es [...] Readin g Radiol ogist: Елена Sal MD [address], [address], 09/28/2016 17:09:30 Result Notes None recorded. Problems Name Problem SNOMED Code Status Onset Date Resolution Date Notes Provider Name and Address Organization Details Recorded Time Depressive disorder 91062236 Completed 10/14/2015 Maryann O'Ministerio null, [facility] Physician [facility], [facility] 11:18:45 Cough 33927696 Completed 08/30/[address] Verm[address], [place], [address], [facility] Physician [facility], [facility] 11:36:48 Pure hypercholes terolemia 517452254 Active Maryann O'Ministerio null, [facility], [facility] 11:18:45 Recurrent major depression 83036902 Active Maryann O'Ministerio null, [facility], [facility] 11:18:45 Hip pain 25009206 Active Maryann O'Ministerio null, [facility] Physician [facility], [facility] 11:18:45 Thigh pain 94457693 Active Maryann O'Ministerio null, [facility], [facility] 11:18:45 Notes:right lung nodules 201 6, 12 months, Dr. Cortez [facility] Problem Notes None recorded. Procedures Surgical History Date Name Laterality Status Provider Name and Address Organization Details Recorded Time 08/30/20 16 Dictated Progress Note completed DO Mireya Verma[address], [place], [address], [facility] Physician [facility], [facility] 08/30/2016 11:59:05 10/14/19 16 Dictated Progress Note completed DO Ray Verma [address], [place], [address], [facility] Physician [facility], [facility] 10/14/2015 12:00:31 11/20/19 15 Dictated Progress Note completed DO Ray Verma [address], [place], [address], [facility], [facility] 11/20/2014 16:53:37 09/22/20 09 Colonoscopy completed Zaynab Banks [facility], [facility] 10/03/2014 11:19:15 09/25/18 92 Hysterectomy completed Nell Duvall, DO [address], [place], [address], [facility], [facility] 10/06/2014 17:12:15 Imaging Results Imaging Date Name Status LastModified by [facility] Details LastModified Time 11/20/2014 x-ray, chest completed [email or web address] [facility] [address] [place] [address], [address], 11/21/2014 15:45:35 12/01/2014 CT, chest completed [email or web address] [facility] [address], [place], [address], 12/03/2014 12:08:51 03/04/2015 imaging/diag nostic result completed Information not available 07/28/2015 16:54:22 07/15/2015 imaging/diag nostic result completed Information not available 07/28/2015 16:54:22 10/14/2015 RT hip 3 views completed [email or web address] [facility] [address] [place], [address], 10/19/2015 12:20:48 10/14/2015 RT femur 4 views completed [email or web address] [facility] [address] [place], [address], 10/19/2015 12:20:48 08/10/2016 RT hip 3 views completed [email or web address] [facility] [address] [place] [address], [address], 08/30/2016 11:42:16 09/22/2016 chest 2 views completed [email or web address] [facility] [address] [place] [address], [address], 09/28/2016 17:09:30 Procedure Notes None recorded. Medical Equipment None Reported. Allergies Allergen ID Allergen Name Allergen Category Reaction Reaction Severity Criticality Documentation Date Start Date Code Code System Note Provider Name and Address Organization Details Recorded Time [id number] minocycli ne medicatio n rash severe Not available 10/14/2015 6980 RxNorm job garcía Maryann BRIDGET [facility], [facility] 6 11:26:18 Medications Name Sig Start Date [...] cm 18 /min 98 % 98 % 24250.9 318 g 98.3 [degF] 77 /min 24.4 kg/m2 128 mm[Hg] 72 mm[Hg] Ana Claire [facility], [facility] 5 14:33:38 Date Recorded Body height Heart rate Body temperature Body weight Respiratory rate Body mass index (BMI) Systolic blood pressure Diastolic blood pressure Provider Name and Address Organization Details Last Updated DateTime 6 161.29 cm 72 /min 98.3 [degF] 04124.3 3943 g 16 /min 24.2 kg/m2 118 mm[Hg] 70 mm[Hg] Maryann Harrington [facility], [facility] 6 11:26:18 Date Recorded Body temperature Oxygen saturation Oxygen saturation in Arterial blood by Pulse oximetry Respiratory rate Body mass index (BMI) Body weight Heart rate Body height Systolic blood pressure Diastolic blood pressure Provider Name and Address Organization Details Last Updated DateTime 6 98.5 [degF] 98 % 98 % 14 /min 24.2 kg/m2 54199.9 85691 g 71 /min 161.29 cm 132 mm[Hg] 80 mm[Hg] Marcy Cardenas [facility], [facility] 6 09:15:33 Date Recorded Body height Body mass index (BMI) Body weight Respiratory rate Body temperature Heart rate Systolic blood pressure Diastolic blood pressure Provider Name and Address Organization Details Last Updated DateTime 6 161.29 cm 24 kg/m2 07383.5 57059 g 16 /min 98.3 [degF] 20 /min 106 mm[Hg] 72 mm[Hg] Maryann Harrington [facility], [facility] 6 11:27:55 Social History Question Answer Notes LastModified by Organizat ion Details LastModified Time Tobacco Smoking Status Former Smoker Zaynab may [facility], [facility] 10/03/2014 11:19:15 Alcohol Use 1-2 Per Day [...] Details LastModified Time [facility]'s [email or web address] Not available 2015 11:19:22 Mother Hypertensive disorder [email or web address] Not available 2015 11:19:22 Father Hypertensive disorder [email or web address] Not available 2015 11:19:22 Notes:Father from [place] A at age of 91, FHX; Depression, High cholesterol, Skin CA & Stroke Medical History Condition Response Cancer (location) N Other N Gout N Kidney Stones N Measles/Mumps N Sexually Transmitted Disease N Depression Y Prostate Problems N Parkinson's N Paralysis N Headaches/Migraines Y Cardiac Pacemaker/defibrillator N Arthritis N Crohn's Disease N HIV/AIDS N Stroke/TIA N Kidney Disease N Gallbladder disease N High blood pressure N Alcohol Overuse N Blood Thinner Treatment N Nervous Breakdown N Dias's Esophagus N Urinary Problems N Gastritis N Back pain Y Rheumatic Fever N Bleeding Disorder N Osteopenia/Osteoporosis Y Asthma N Ostomies (location) N Seizures N Jaundice N Hepatitis N Past Reacton to Contrast Media N Cirrhosis N Chicken Pox Y Allergies (other than meds) N Thyroid Disease N Emphysema/COPD N Vascular Disease N Rash/Skin Condition N Amputation (location) N Nerve Damage / Neuropathy N Sleep disorder/Insomnia N Heart disease / Heart Attack N High Cholesterol Y Colon Problems Y Serious Injuries N Memory Loss/Alzheimer's N Congestive heart failure N Falls N Hormone Replacement N Anemia N Colon Polyps N Hospitalizations (other than operations) N Diabetes N Cardiac Arrhythmias /irregular heart rat e N Anxiety/Stress N Vision Problems N Erectile / Sexual Dysfunction N GERD/Ulcer N Gynecological HistoryNo gynecological history recorded. Obstetrics History GPAL:G 0 P 0 0 0 0 Immunizations Vaccine Type Date Status Note Provider Nam e and Address Organization Details Recorded Time Pneumococcal Conjugate, unspecified formulation 3 completed Zaynab may [facility], [facility] 10/03/2014 11:19:15 tetanus toxoid, adsorbed 3 completed Zaynab may [facility], [facility] 10/03/2014 11:19:15 influenza nasal, unspecified formulation 4 completed Zaynab Banks null, [facility], [facility] 10/03/2014 11:19:15 zoster live 2 completed Zaynab Banks null, [facility], [facility] 10/03/2014 11:19:15 influenza, unspecified formulation 5 completed Maryann CummingsOscarMinisterio null, [facility], [facility] 10/14/2015 11:26:18 Influenza, split virus, trivalent, preservative 6 completed Maryann Harrington null, [facility], [facility] 08/30/2016 11:27:55 Past Encounters Encounter ID Performer Location Encounter Start Date Encounter Closed Date Diagnosis/Indication Diagnosis SNOMED-CT Code Diagnosis ICD10 Code Diagnosis Note [id number] Ana Claire [facility] [address] [place] [address] 10/06/2014 09:32:55 10/06/2014 10:41:57 Low back pain 509778857 [id number] [facility] [address] [address] 7 11/20/2014 14:13:43 11/20/2014 15:21:35 Depressive disorder 34511469 Cough 76971934 [id number] Nell Duvall DO [facility] [address] [address] 7 08/31/2015 11:29:11 08/31/2015 12:04:49 Tuberculosis screening 136323070 Z11.1 [id number] Nell Duvall DO [facility] [address] [address] 10/14/2015 11:17:19 10/14/2015 11:48:37 Pure hypercholesterolemia 896288607 E78.0 Recurrent major depression 47245505 F33.9 Hip pain 18104445 M25.55 1 Thigh pain 27685930 M79. 651 Cough 67044163 R05 [id number] Myriam BOWERS [facility] [address] [address] 11/25/2015 09:04:30 11/25/2015 11:06:07 Anxiety 56827962 F41.9 She has taken the Lorazepam, had [...] medication as directed and voiced understand ing. [id number] Nell Duvall DO [facility] [address] [place] [address] 08/30/2016 11:12:18 08/30/2016 11:51:05 Localized, primary osteoarthritis of the pelvic region and thigh 294796557 M19.91 Pure hypercholesterolemia 251441124 E78.00 Recurrent major depression 35094866 F33.9 Health Concerns Section Related Observation LastModified by Organization Detai ls LastModified Time None Recorded Concern Status LastModified by Organization Details LastModified Time None Recorded Advance Directives Directive None Recorded Payers Encounter Date Sequence Insurance Name Policy Number Policy Kuhn Covered Member ID Kuhn Member ID Guarantor Name 11/20/2014 2 [place] [id number] Aislinn A Pontz [id number] Aislinn Pontz 11/20/2014 1 [place] Aislinn A Pontz [id number] A Aislinn Pontz 08/31/2015 2 [place] [id number] Aislinn A Pontz [id number] Aislinn Pontz 08/31/2015 1 [place] Aislinn A Pontz [id number] A Aislinn Pontz 10/14/2015 2 [place] [id number] Aislinn A Pontz [id number] Aislinn Pontz 10/14/2015 1 [place] Aislinn A Pontz [id number] A Aislinn Pontz 11/25/2015 2 [place] [id number] Aislinn A Pontz [id number] Aislinn Pontz 11/25/2015 1 [place] Aislinn A Pontz [id number] A Aislinn Antonina 08/30/2016 2 [facility] [id number] Aislinn Mcallister Antonina [id number] Aislinn Antonina 08/30/2016 1 [place] Aislinn Mcallister Antonina [id number] Esvin Tao Antonina Notes Date Note Type Note Provider Name and Address Organization Details Recorded Time 11/25/2015 text/html AnxietyReported bypatient.Reason for visit:acute complaint Anxiety Type:episodic anxiety Onset/Timing:recurren t episode Context:major life stressors Associated Symptoms:denies suicidal ideations; no significant weight change; no shortness of breath; no panic; appetite good; energy good; no apathy; maintaining functionality;sleep disturbances Myriam BOWERS [address], [place], [address], [facility], [facility] 11/25/2015 10:09:40 OBGyn Episode No OBEpisode recorded.
--- OUTSIDE RECORDS SUMMARY | 2025-01-01 13:57 | XMS_ITS | Encounter Summary ---
Author Organization [facility] Address [address] [place] [address] Care Team Providers Care Grounding Engineer Name Role Phone Keli Ball Md, MD Primary Care Provider Unavailable Reason for Visit * Reason Onset Date Comments Architect Intern Feedback 07/17/2018 CT Encounter Details Date Type Department Care Team Description 07/17/2018 Telephone Pulmonology - [address] [place] [address] Valentin Badillo MD Architect Intern Feedback (CT) Social History Tobacco Use Types Packs/Day Years Used Date Smoking Tobacco: Former Cigarettes 1 15 Alcohol Use Standard Drinks/Week Comments Yes 0 (1 standard drink = 0.6 oz pur e alcohol) Sex Assigned at Date Recorded Not on file documented as of this encounter Miscellaneous Notes * Telephone Encounter - Palak Badillo - 07/17/2018 12:01 PM EDT FYI to , The referrals department received a CT order for scheduling. It was forwarded to [facility] however I received a fax stating patient will not schedule with them because she already has a CT completed on 07/03/18. Thank you, Palak Referrals Department documented in this encounter Plan of Treatment Not on file documented as of this encounter Visit Diagnoses Not on filedocumented in this encounter Care Teams Grounding Engineer Relationship Specialty Start Date End Date Keli Ball MD, MD PCP - General Internal Medicine 07/21/17 documented as of this encounter
--- OUTSIDE RECORDS SUMMARY | 2025-01-01 13:57 | XMS_ITS | Clinical Summary ---
Author Organization [facility] [employer] Address [address] [place] [address] [place] [address] Care Team Providers Care Furniture Removalist Name Role Phone Unavailable Primary Care Provider [...] age to complete this topic Insurance MEDICARE [facility] MEDEX CARE
--- OUTSIDE RECORDS SUMMARY | 2025-01-01 13:57 | XMS_ITS | Encounter Summary ---
Author Organization [facility] Address [address] [place] [address] Care Team Providers Care Senior Data Quality Analyst Name Role Phone Keli Ball Md, MD Primary Care Provider Unavailable Encounter Details Date Type Department Care Team Description 08/04/2017 Transfer Records Medical Records [address] [place] [address] Abstract, Provider Social History Tobacco Use Types Packs/Day Years [...] on filedocumented in this encounter Care Teams Senior Data Quality Analyst Relationship Specialty Start Date End Date Keli Ball MD, MD PCP - General Internal Medicine 07/21/17 documented as of this encounter
--- OUTSIDE RECORDS SUMMARY | 2025-01-01 13:57 | XMS_ITS | Encounter Summary ---
Author Organization [facility] Address [address] [place] [address] Care Team Providers Care Market Research Manager Name Role Phone Keli Ball Md, MD Primary Care Provider Unavailable Encounter Details Date Type Department Care Team Description 07/13/2018 Telephone Adult Medicine [address] [address] Tony Stallworth MD [address] [place] [address] Social History Tobacco Use Types Packs/Day Years [...] on filedocumented in this encounter Care Teams Market Research Manager Relationship Specialty Start Date End Date Keli Ball MD, MD PCP - General Internal Medicine 07/21/17 documented as of this encounter
== END ==
LOC: HO.CARD 11:48
PROVIDERS: PCP Internal Medicine; Visit Provider Hospitalist
DX: J44.9 Chronic obstructive pulmonary disease, unspecified (principal)
CPT/HCPCS: 93005

== ENCOUNTER → 2025-01-01 11:53 | Outpatient (BNV) | payer MEDICARE, SELFPAY | PROVIDERS: PCP Internal Medicine; Visit Provider Internal Medicine Cardiovascular Disease | DX: J44.9 Chronic obstructive pulmonary disease, unspecified (principal) | CPT/HCPCS: 93010 ==

== ENCOUNTER 2025-01-22 08:10 | Outpatient (REF) | payer MEDICARE, SELFPAY ==
--- OUTSIDE RECORDS SUMMARY | 2025-01-22 08:24 | XMS_ITS | Encounter Summary ---
Author Organization [facility] Address [address] [place] [address] Care Team Providers Care Political Reporter Name Role Phone Keli Ball Md, MD Primary Care Provider Unavailable Encounter Details Date Type Department Care Team Description 07/23/2018 Release of Information Medical Records [address] [place] [address] Abstract, Provider Social History Tobacco Use Types [...] on filedocumented in this encounter Care Teams Political Reporter Relationship Specialty Start Date End Date Keli Ball MD, MD PCP - General Internal Medicine 07/21/17 documented as of this encounter
--- OUTSIDE RECORDS SUMMARY | 2025-01-22 08:24 | XMS_ITS | Encounter Summary ---
Author Organization [facility] Address [address] [place] [address] Care Team Providers Care Section Housekeeper Name Role Phone Keli Ball Md, MD Primary Care Provider Unavailable Encounter Details Date Type Department Care Team Description 08/03/2017 Release of Information Medical Records [address] [place] [address] Abstract, Provider Social History Tobacco Use Types [...] on filedocumented in this encounter Care Teams Section Housekeeper Relationship Specialty Start Date End Date Keli Ball MD, MD PCP - General Internal Medicine 07/21/17 documented as of this encounter
--- OUTSIDE RECORDS SUMMARY | 2025-01-22 08:25 | XMS_ITS | Encounter Summary ---
Author Organization [facility] Address [address] [place] [address] Care Team Providers Care Film Loader Name Role Phone Keli Ball Md, MD Primary Care Provider Unavailable Encounter Details Date Type Department Care Team Description 07/13/2018 Orders Only Pulmonology - [address] [place] [address] Valentin Badillo MD Multiple pulmonary [...] breath documented in this encounter Care Teams Film Loader Relationship Specialty Start Date End Date Keli Ball MD, MD PCP - General Internal Medicine 07/21/17 documented as of this encounter
--- OUTSIDE RECORDS SUMMARY | 2025-01-22 08:25 | XMS_ITS | Clinical Summary ---
Author Organization [facility] [employer] Address [address] [place] [address] [place] [address] Care Team Providers Care Qa Test Analyst Name Role Phone Unavailable Primary Care Provider [...] age to complete this topic Insurance MEDICARE [facility] MEDEX CARE
--- OUTSIDE RECORDS SUMMARY | 2025-01-22 08:25 | XMS_ITS | Encounter Summary ---
Author Organization [facility] Address [address] [place] [address] Care Team Providers Care Equipment Operator Warehouse Name Role Phone Keli Ball Md, MD Primary Care Provider Unavailable Encounter Details Date Type Department Care Team Description 07/13/2018 Telephone Adult Medicine [address] [address] Tony Stallworth MD [address] [place] [id number] Social History Tobacco Use Types Packs/Day Years [...] on filedocumented in this encounter Care Teams Equipment Operator Warehouse Relationship Specialty Start Date End Date Keli Ball MD, MD PCP - General Internal Medicine 07/21/17 documented as of this encounter
--- OUTSIDE RECORDS SUMMARY | 2025-01-22 08:25 | XMS_ITS | Data Portability ---
Author Organization [place] - [facility], [facility], [facility] Address [address] [place] [address] Care Team Providers Care Loader Operator Supervisor Name Role Phone NELL DUVALL Referring Provider [phone] DUSTIN CORTEZ Director Orange SIMIN HUERTA Internal Medicine [phone] Assessment No assessment recorded. Plan of Treatment Reminders Order Date Submit Date Provider Last Modified By Organization Details Last Modified Time Details Appointments None recorded. Lab AST/SGOT (aspartate aminotransf erase), serum or plasma 2015 016 [facility], [address] [place], [address], 6 12:27:59 ALT (alanine aminotransf erase), serum or plasma 2015 016 [facility], [address], [place], [address], 6 12:28:00 venipunctur e 2015 016 [facility], [address], [place], [address], 6 12:05:16 lipid panel, serum 2015 016 [facility], [address], [place], [address], 6 12:28:00 Referral None recorded. Procedures None recorded. Surgeries None recorded. Imaging None recorded. Medication Orders Aplisol 5 tub. unit/0.1 mL intradermal injection solution 2014 015 dgooding Not available 6 11:35:07 Patient TargetsNo targets recorded. Patient Instructions Encounter Date Encounter Id Patient Instructions Last Modified By Organization Details Last Modified Time 11/20/2014 [id number] learning about mood disorders RALPH Not available 11/21/2014 04:02:53 10/14/2015 [id number] depression treatment: care instructions RALPH Not available 10/15/2015 10:29:41 08/30/2016 [id number] depression treatment: care instructions RALPH Not available 08/31/2016 07:39:12 Reason for Referral None Reported. Results Created Date Observation Date Name Description Value Unit Range Abnormal Flag Note LastModifiedBy Organization Detail LastModifiedTime 10/16/19 16 10/16/2015 AST/S GOT (aspa rtate amino trans feras e), serum or plasm a AST (SGOT) 14 U/L 13-39 Not Available [facility] [address] [place], [address], 10/16/2015 12:27:59 10/16/19 16 10/16/2015 ALT (alec ine amino trans feras e), serum or plasm a ALT (SGPT) 16 U/L 7-52 Not Available [facility] [address] [place], [address], 10/16/2015 12:28:00 10/16/19 16 10/16/2015 lipid panel , serum cholesterol 222 mg/dL 20-180 high Not Available [facility] [address] [place], [address], 10/16/2015 12:28:00 10/16/19 16 10/16/2015 lipid panel , serum triglyceride s 119 mg/dL 30-150 Not Available [facility] [address] [place], [address], 10/16/2015 12:28:00 10/16/19 16 10/16/2015 lipid panel , serum HDL cholesterol 72 mg/dL 23-92 Not Available [facility] [address] [facility] [address] [facility], [place], [address], 10/16/2015 12:28:00 10/16/19 16 10/16/2015 lipid panel , serum LDL calculated 126 mg/dL <=100 high Not Available [facility] [address] [facility] [address] [facility], [place], [address], 10/16/2015 12:28:00 10/16/19 16 10/16/2015 lipid panel , serum VLDL cholesterol 24 calc Not Available [facility] [address], [address], 10/16/2015 12:28:00 10/16/19 16 10/16/2015 lipid panel , serum HDL risk factor 3.1 calc RISK FACTO R MALE FEMAL E 1/2 AVG RISK 3.4 3.3 AVG RISK 5.0 4.0 2X AVG RISK 9.6 7.1 3X AVG RISK 24.0 11.0 Not Available [facility] [address], [address], 10/16/2015 12:28:00 10/16/19 16 10/16/2015 lipid panel , serum cholesterol/ HDL ratio 3 calc CHOL/ HDL RATIO <3 OPTIM AL 3-4 BORDE RLINE >6 HIGH RISK Not Available [facility] [address] [facility] [address] [place], [address], 10/16/2015 12:28:00 10/16/19 16 10/16/2015 lipid panel , serum non-HDL cholesterol 150 calc NON-H DL MULUGETA STERO L <190 MG/DL LOW RISK <160 MG/DL MODER ATE RISK <130 MG/DL HIGH RISK Not Available [facility] [address], [place], [address], 10/16/2015 12:28:00 10/16/19 16 10/16/2015 venip unctu re venipuncture CHARGE Not Available [facility] [address], [place], [address], 10/16/2015 12:05:16 11/21/19 15 11/20/2014 x-ray , [...] [place] Radiol ogist: Nell adames DO [email or web address] [address], [facility], 11/21/2014 15:45:35 12/02/19 15 12/01/2014 CT, chest No observ ation record ed. [email or web address] [facility] ([facility] [address] [place], [address], 12/03/2014 12:08:51 07/28/20 15 03/04/2015 imagi ng/di [...] Readin g Radiol ogist: Nancy Evangelista MD [facility] [address] [place], [address], 10/19/2015 12:20:48 10/19/19 16 10/14/2015 RT femur [...] Readin g Radiol ogist: Nancy Evangelista MD [facility] [address] [place], [address], 10/19/2015 12:20:48 08/12/20 16 08/10/2016 RT hip [...] Readin g Radiol ogist: Елена Sal MD [address], [facility], 08/30/2016 11:42:16 09/27/19 17 09/22/2016 chest 2 [...] Note: [facility] [employer], [facility] and the [place] Preven tative Servic [...] Readin g Radiol ogist: Елена Sal MD [address], [address], 09/28/2016 17:09:30 Result Notes None recorded. Problems Name Problem SNOMED Code Status Onset Date Resolution Date Notes Provider Name and Address Organization Details Recorded Time Depressive disorder 72391035 Completed 10/14/2015 Maryann O'Ministerio null, [facility] Physician [facility], [facility] 11:18:45 Cough 88707099 Completed 08/30/2016 DO Ray Verma [address], [place], [address], [facility] Physician [facility], [facility] 11:36:48 Pure hypercholes terolemia 424208386 Active Maryann O'Ministerio null, [facility], [facility] 6 11:18:45 Recurrent major depression 14656322 Active Maryann O'Ministerio null, [facility] Physician [facility], [facility] 6 11:18:45 Pain of hip region 23167643 Active Maryann O'Ministerio null, [facility] Physician [facility], [facility] 11:18:45 Thigh pain 07455148 Active Maryann O'Ministerio null, [facility] Physician [facility], [facility] 11:18:45 Notes:right lung nodules 201 6, 12 months, [facility] Problem Notes None recorded. Procedures Surgical History Date Name Laterality Status Provider Name and Address Organization Details Recorded Time 08/30/20 16 Dictated Progress Note completed DO Mireya Verma[address], [place], [address], [facility] Physician [facility], [facility] 08/30/2016 11:59:05 10/14/19 16 Dictated Progress Note completed DO Ray Verma [address], [place], [address], [facility] Physician [facility], [facility] 10/14/2015 12:00:31 11/20/19 15 Dictated Progress Note completed DO Ray Verma [address], [place], [address], [facility], [facility] 11/20/2014 16:53:37 09/22/20 09 Colonoscopy completed Zaynab Banks [facility] Physician [facility], [facility] 10/03/2014 11:19:15 09/25/18 92 Hysterectomy completed Nell Duvall, DO [address], [place], [address], [facility] Physician [facility], [facility] 10/06/2014 17:12:15 Imaging Results Imaging Date Name Status LastModified by [facility] Details LastModified Time 11/20/2014 x-ray, chest completed [email or web address] [facility] [address] [place] [address], [address], 11/21/2014 15:45:35 12/01/2014 CT, chest completed [email or web address] [facility] [address] [place], [address], 12/03/2014 12:08:51 03/04/2015 imaging/diag nostic result completed Information not available 07/28/2015 16:54:22 07/15/2015 imaging/diag nostic result completed Information not available 07/28/2015 16:54:22 10/14/2015 RT hip 3 views completed blepley [facility] [address] [place], [address], 10/19/2015 12:20:48 10/14/2015 RT femur 4 views completed blepley [facility] [address] [place], [address], 10/19/2015 12:20:48 08/10/2016 RT hip 3 views completed dgooding [facility] [address] [place], [address], 08/30/2016 11:42:16 09/22/2016 chest 2 views completed dgooding [facility] [address] [place] [address], [address], 09/28/2016 17:09:30 Procedure Notes None recorded. Medical Equipment None Reported. Allergies Allergen ID Allergen Name Allergen Category Reaction Reaction Severity Criticality Documentation Date Start Date Code Code System Note Provider Name and Address Organization Details Recorded Time 349039 minocycli ne medicatio n rash severe Not available 10/14/2015 6980 RxNorm job garcía BRIDGET [facility], [facility] 6 11:26:18 Medications Name Sig Start Date [...] cm 18 /min 98 % 98 % 66249.9 318 g 98.3 [degF] 77 /min 24.4 kg/m2 128 mm[Hg] 72 mm[Hg] Ana Claire [facility], [facility] 5 14:33:38 Date Recorded Body height Heart rate Body temperature Body weight Respiratory rate Body mass index (BMI) Systolic blood pressure Diastolic blood pressure Provider Name and Address Organization Details Last Updated DateTime 6 161.29 cm 72 /min 98.3 [degF] 90616.3 3943 g 16 /min 24.2 kg/m2 118 mm[Hg] 70 mm[Hg] Maryann Harrington [facility], [facility] 6 11:26:18 Date Recorded Body temperature Oxygen saturation Oxygen saturation in Arterial blood by Pulse oximetry Respiratory rate Body mass index (BMI) Body weight Heart rate Body height Systolic blood pressure Diastolic blood pressure Provider Name and Address Organization Details Last Updated DateTime 6 98.5 [degF] 98 % 98 % 14 /min 24.2 kg/m2 82004.9 08023 g 71 /min 161.29 cm 132 mm[Hg] 80 mm[Hg] Marcy Cardenas [facility], [facility] 6 09:15:33 Date Recorded Body height Body mass index (BMI) Body weight Respiratory rate Body temperature Heart rate Systolic blood pressure Diastolic blood pressure Provider Name and Address Organization Details Last Updated DateTime 6 161.29 cm 24 kg/m2 83757.5 50783 g 16 /min 98.3 [degF] 20 /min 106 mm[Hg] 72 mm[Hg] Maryann Harrington [facility], [facility] 6 11:27:55 Social History Question Answer Notes LastModified by Organizat ion Details LastModified Time Tobacco Smoking Status Former Smoker Zaynab may [facility], [facility] 10/03/2014 11:19:15 Alcohol Use 1-2 Per Day [...] Details LastModified Time Mother Alzheimer's disease [address] [email or web address] Not available 2015 11:19:22 [email or web address] Not available 2015 11:19:22 Father Hypertensive disorder [...] N Hormone Replacement N Nervous Breakdown N Dias's Esophagus N Anemia N Urinary Problems N [...] Time Pneumococcal Conjugate, unspecified formulation 3 completed BRIDGET Berumen [facility], [facility] 10/03/2014 11:19:15 tetanus toxoid, adsorbed 3 completed Zaynab may [facility], [facility] 10/03/2014 11:19:15 influenza nasal, unspecified formulation 4 completed Zaynab Banks null, [facility], [facility] 10/03/2014 11:19:15 zoster live 2 completed Zaynab Banks null, [facility], [facility] 10/03/2014 11:19:15 influenza, unspecified formulation 5 completed Maryann CummingsOscarMinisterio null, [facility], [facility] 10/14/2015 11:26:18 Influenza, split virus, trivalent, preservative 6 completed Maryann Harrington null, [facility], [facility] 08/30/2016 11:27:55 Past Encounters Encounter ID Performer Location Encounter Start Date Encounter Closed Date Diagnosis/Indication Diagnosis SNOMED-CT Code Diagnosis ICD10 Code Diagnosis Note [id number] Ana Claire [facility] [address] [address] 7 10/06/2014 09:32:55 10/06/2014 10:41:57 Low back pain 281709511 [id number] [facility] [address] [address] 7 11/20/2014 14:13:43 11/20/2014 15:21:35 Depressive disorder 60126852 Cough 40121366 [id number] Nell Duvall DO [facility] [address] [address] 7 08/31/2015 11:29:11 08/31/2015 12:04:49 Tuberculosis screening 855026023 Z11.1 [id number] Nell Duvall DO [facility] [address] [address] 7 10/14/2015 11:17:19 10/14/2015 11:48:37 Pure hypercholesterolemia 777162878 E78.0 Recurrent major depression 39215322 F33.9 Pain of hip region 14127 002 M25.551 Thigh pain 11605439 M79. 651 Cough 11727072 R05 [id number] Myriam BOWERS [facility] [address] [address] 7 11/25/2015 09:04:30 11/25/2015 11:06:07 Anxiety 02595454 F41.9 She has taken the Lorazepam, had [...] medication as directed and voiced understand ing. [id number] Nell Duvall DO [facility] [address] [address] [place] [address] 08/30/2016 11:12:18 08/30/2016 11:51:05 Localized, primary osteoarthritis of the pelvic region and thigh 375515221 M19.91 Pure hypercholesterolemia 096697599 E78.00 Recurrent major depression 76211767 F33.9 Health Concerns Section Related Observation LastModified by Organization Detai ls LastModified Time None Recorded Concern Status LastModified by Organization Details LastModified Time None Recorded Advance Directives Directive None Recorded Payers Encounter Date Sequence Insurance Name Policy Number Policy Kuhn Covered Member ID Kuhn Member ID Guarantor Name 11/20/2014 2 [place] [id number] Aislinn A Pontz [id number] Aislinn Pontz 11/20/2014 1 [place] Aislinn A Pontz [id number] A Aislinn Pontz 08/31/2015 2 [place] [id number] Aislinn A Pontz [id number] Aislinn Pontz 08/31/2015 1 [place] Aislinn A Pontz [id number] A Aislinn Pontz 10/14/2015 2 [place] [id number] Aislinn A Pontz [id number] Aislinn Pontz 10/14/2015 1 [place] Aislinn A Pontz [id number] A Aislinn Pontz 11/25/2015 2 [place] [id number] Aislinn A Pontz [id number] Aislinn Pontz 11/25/2015 1 [place] Aislinn A Pontz [id number] A Aislinn Antonina 08/30/2016 2 [facility] [id number] Aislinn Mcallister Antonina [id number] Aislinn Antonina 08/30/2016 1 [place] Aislinn Mcallister Antonina [id number] Esvin Tao Antonina Notes Date Note Type Note Provider Name and Address Organization Details Recorded Time 11/25/2015 text/html AnxietyReported bypatient.Reason for visit:acute complaint Anxiety Type:episodic anxiety Onset/Timing:recurren t episode Context:major life stressors Associated Symptoms:denies suicidal ideations; no significant weight change; no shortness of breath; no panic; appetite good; energy good; no apathy; maintaining functionality;sleep disturbances Myriam BOWERS [address] [facility], [place], [address], [facility] - [facility], [facility] 11/25/2015 10:09:40 OBGyn Episode No OBEpisode recorded.
[2025-01-22 10:41] LABS: Alanine Aminotransferase 24 U/L (0-31); Anion Gap 11 (12-20); Aspartate Amino Transferase 24 U/L (5-31); Blood Urea Nitrogen 13 mg/dL (9-16); Calcium 9.4 mg/dL (8.4-10.2); Carbon Dioxide 30 mmol/L (22-29); Chloride 105 mmol/L (96-108); Cholesterol 199 mg/dL (<200); Estimated Glomerular Filt Rate > 60; Glucose Fasting 95 mg/dL (60-99); HDL Cholesterol 78 mg/dL (>40); LDL Cholesterol Calculated 101 mg/dL (<100); Potassium 4.1 mmol/L (3.3-5.1); Sodium 142 mmol/L (135-145); Triglycerides 102 mg/dL (<150)
[2025-01-22 11:07] LABS: Folate 15.2 ng/mL (> or = 4.0); Vitamin B12 763 pg/mL (200-900)
[2025-01-22 11:08] LABS: Vitamin D 25-OH Total 65.2 ng/mL (>30)
== END 2025-01-22 08:11 | disposition home or self-care (01) ==
LOC: HO.HMGCLDS 08:10
PROVIDERS: PCP Internal Medicine; Visit Provider Internal Medicine
DX: E55.9 Vitamin D deficiency, unspecified (principal); M81.0 Age-related osteoporosis without current pathological fracture; E78.5 Hyperlipidemia, unspecified
CPT/HCPCS: 36415; 80048; 80061; 82306; 82607; 82746; 84450; 84460

== ENCOUNTER 2025-01-29 09:13 | Outpatient (AMB) | payer MEDICARE, SELFPAY ==
--- NOTE | 2025-01-29 09:23 | A.OFFPC_ITS ---
Vital Signs 01/29/25 09:34 Height 5 ft 3 in Weight 142 lb BMI 25.2 BP 130/80 Blood Pressure Location Lt brachial Position Sitting Respiration 15 Pulse 74 Pulse Source Pulse Oximeter Temp 98.2 F Temp Source Oral Pulse Oximetry (%) 95 Oxygen Delivery Method Room Air Intake Visit Reasons: 5 months f/up Intake Note: Pt is here today for her 5mo. f/u Allergies meloxicam Allergy (Severe, Verified 01/29/25 09:53) esophagitis minocycline Allergy (Severe, Verified 01/29/25 09:53) esophagitis Medication List - Last Reconciled 01/29/25 by Keli Ball MD atorvastatin 20 mg PO DAILY calcium carb-vitamin D3-vit K2 600 mg-1,000 unit-90 mcg tabs PO citalopram 40 mg PO DAILY hydrocortisone 2.5% 1 appl topical BID PRN lorazepam 0.5 mg PO DAILY PRN vitamin B complex 1 tab PO DAILY Tobacco use date assessed: 01/29/25 Fall risk assessment: No Falls in past year Last assessed Fall Risk: 01/29/25 Dental Screening Dental Screen Date: 01/29/25 Did you have a dental visit in the last 12 months?: Yes Did you have a dental problem in the last 6 months where you did not have access to dental care?: Yes Was dental information given to patient?: Patient has dentist HPI 5 months f/up HPI Details 74-year-old lady, with a history of dysl ipidemia and depression currently, here today for follow-up . She has been compliant with taking medications, states that she has been feeling well, with depression stable controlled on citalopram, rarely needs to take lorazepam for acute anxiety attacks. Recent fasting labs showed lipids are within normal limits. [facility] Medical History Cervicalgia GERD (gastroesophageal reflux disease) Lipoma of chest wall Heartburn symptom Environmental and seasonal allergies Hearing loss ADAM (obstructive sleep apnea) Depression, major, in remission Multinodular thyroid Goiter Vitamin D deficiency Osteoporosis Dyslipidemia Osteopenia of left femoral neck Seasonal allergies Chronic bronchitis Pulmonary nodules Chronic rhinitis Surgical History Hx of colonoscopy Hx of esophagogastroduodenoscopy History of total abdominal hysterectomy and bilateral salpingo-oophorectomy Family History Father CVD (cardiovascular disease) Hypertension GI cancer Mother Hypertension Alzheimer disease Daughter Mental health disorder Sister Mental health disorder Social History Housing: House Alcohol intake: current Alcohol intake frequency: a few times a month Alcohol type: wine Patient Tobacco Use Status: Former Tobacco user Tobacco use type: Cigarette Years Smoked: 10 years Current occupational status: unemployed Cognitive needs: No Hearing needs: No Vision needs: Yes Questionnaire PHQ-9 Over the last 2 weeks, how often have you been bothered by any of the following problems? 1. Little interest or pleasure in doing things: not at all 2. Feeling down, depressed, or hopeless: not at all 3. Trouble falling or staying asleep, or sleeping too much: several days 4. Feeling tired or having little energy: several days 5. Poor appetite or overeating: not at all 6. Feeling bad about yourself - or that you are a failure or have let yourself or your family down: not at all 7. Trouble concentrating on things, such as reading the newspaper or watching television: not at all 8. Moving or speaking so slowly that other people could have noticed. Or the opposite - being so fidgety or restless that you have been moving around a lot more than usual: not at all 9. Thoughts that you would be better off or of hurting yourself in some way: not at all Total score: 2 Depression Screening Interpretation: Negative (Controlled on citalopram) Depression Screening Done: Yes 64736 - PHQ-9 Billing: Yes Source: Developed by Drs. Gabo Weems, Mary Briscoe, Simone Smith and colleagues, with an educational javon from [employer]. Thrive Questionnaire Date Thrive assessed: 01/22/25 I am a: Patient What is your living situation today?: I have a steady place to live Within the past 12 months, did the food you bought not last and you didn't have the money to get more?: Never true Within the past 12 months, did you worry whether your food would run out before you got money to buy more?: Never true Do you have trouble paying for medicines?: No Do you have trouble getting transportation to medical appointments?: No Do you have trouble paying your heating and electricity bill?: No Do you have trouble taking care of your child, family member or friend?: No Do you have trouble with day-to-day activities such as bathing, preparing meals, shopping, managing finances, etc.?: No Are you currently unemployed and looking for a job?: No Are you interested in more education?: No Please select the resources that you would like help with: None Currently or been in a relationship where the following occur: No concerns reported THRIVE Score: 0 AUDIT C Alcohol Use Questionnaire (AUDIT-C) 1. How often do you have a drink containing alcohol?: 2-3 times a week 2. How many drinks containing alcohol do you have on a typical day when you are drinking?: 1 or 2 3. How often do you have six or more drinks on one occasion?: Never Total Score: 3 SONJA-7 AMB Questionnaire SONJA-7 Date SONJA - 7 assessed: 01/29/25 Feeling nervous, anxious, or on edge: 1 = Several days Not being able to stop or control worryin = Not at all Worrying too much about different things: 1 = Several days Trouble relaxin = Not at all Being so restless that it is hard to sit still: 0 = Not at all Becoming easily annoyed or irritable: 0 = Not at all Feeling afraid as if something awful might happen: 0 = Not at all Total SONJA-7 score (0-4 normal; 5-9 mild; 10-14 moderate; 15-21 severe): 2 Source: Developed by Drs. Gabo Weems, Mary Briscoe, Simone Smith and colleagues, with an educational javon from [employer]. Review of Systems Const All systems reviewed & are unremarkable except as noted in HPI and below Physical exam (Primary Care) Vital Signs: Last Vital Signs Temp 98.2 F 01/29/25 09:34 Pulse 74 01/29/25 09:34 Resp 15 01/29/25 09:34 BP 130/80 01/29/25 09:34 Pulse Ox 95 01/29/25 09:34 Oxygen Delivery Method Room Air 05/07/25 09:34 BMI result Body Mass Index 25.2 Tobacco/Smoking Status: Tobacco use Status Tobacco use date assessed 01/29/25 01/29/25 09:36 Patient Tobacco Use Status Former Tobacco user 01/29/25 09:24 Tobacco use type Cigarette 01/29/25 09:24 PHQ-9: PHQ-9 Score PHQ-9: Total score 4 01/29/25 09:55 Depression Screening Interpretation: Negative (Controlled on citalopram) Thrive Assessment: Date of Thrive Assessment Date Thrive assessed 01/22/25 01/29/25 09:24 Currently or been in a relationship where the following occur: No concerns reported Const General: healthy appearing, comfortable and no acute distress Orientation/consciousness: patient oriented x3 HENMT Head: Yes normocephalic Ears: hearing grossly normal bilaterally, TM's normal bilaterally and EAC's normal General nose exam: Normal external nose present and No nasal discharge present Face and sinus: Yes face symmetric Mouth: Normal oral and palatal mucosa present and moist mucous membranes Eyes General: appearance normal, both eyes and all related structures Neck Neck: Yes full ROM, Yes no lymphadenopathy and Yes supple Resp Auscultation: clear to auscultation bilaterally Cardio Other: S1-S2 present regular rate and rhythm GI Palpation (GI): Soft to palpation, nontender, no guarding and no masses Auscultation: normal bowel sounds Skin General skin exam: no rashes or lesions noted Neuro General: patient oriented x3, gait normal, Normal light touch and pain sensation and no focal motor deficits Extrem General: Yes full ROM, Yes no joint enlargement, Yes no clubbing, cyanosis or edema and Yes normal gait Psych Affect: normal affect Results Reviewed Results Reviewed: Name: Aislinn Sarkar Age/Sex: 74/F : 1950 Unit#: [id number] Attend Dr: Keli Ball MD Re01/22/25 Status: DEP [facility]F [facility] kamron: SPEC : [id number] GAVINO: 01/22/25 STATUS: COMP REQ : [id number] RECD: 01/22/[address]: Keli Ball MD COMP: 01/22/25 ENTERED: 01/22/[address] [facility] [address]: ORDERED: Met Prof Fast, AST, ALT, Lipid Panel, Vitamin D 25-OH Test Result Flag Reference Sodium 142 135-145 mmol/L Potassium 4.1 3.3-5.1 mmol/L CL 105 96-108 mmol/L CO2 30 H 22-29 mmol/L Gap 11 L 12-20 BUN 13 9-16 mg/dL Creat 0.70 0.5-1.4 mg/dL eGFR > 60 Chronic Kidney Disease: Estimated GFR < 60 mL/min/1.73m2 Severe Kidney Disease: Estimated GFR < 15 mL/min/1.73m2 FBS 95 60-99 mg/dL CA 9.4 8.4-10.2 mg/dL AST (GOT) 24 5-31 U/L ALT (GPT) 24 0-31 U/L Triglyceride 102 <150 mg/dL Desirable Triglyceride: less than 150 mg/dL Borderline High Triglyceride 150-199 mg/dL High Triglyceride: 200-499 mg/dL Very High Triglyceride: greater than or equal to 5OO mg/dL Cholesterol 199 <200 mg/dL Desirable Cholesterol: less than 200 mg/dL Borderline High Cholesterol: 200-239 mg/dL High Cholesterol: greater than 239 mg/dL LDL Calculated 101 H <100 mg/dL Desirable LDL: less than 100 mg/dL Near Optimal/Above Optimal LDL: 110-129 mg/dL Borderline High LDL: 130-159 mg/dL High LDL: 160-189 mg/dL Very High LDL: greater than or equal to 190 mg/dL HDL 78 >40 mg/dL Desirable HDL: greater than 40 mg/dL Note: This HDL assay may give artificially low results in patients with liver disease. Vitamin D 25-OH 65.2 >30 ng/mL Health Based Reference Values* < 20 ng/mL Deficient 20-30 ng/mL Insufficient > 30 ng/mL Sufficient Coding Level of Care Code Est Pt Level 4 (21317) Complex EM visit Add On G2211 Diagnoses Dyslipidemia E78.5 Depression, major, in remission F32.5 Additional Codes PHQ-9 - 44068 - PHQ-9 Billing: Yes ([id number]) Assessment & Plan Assessment & Plan (1) Dyslipidemia: Code(s): E78.5 - Hyperlipidemia, unspecified Category: Medical Plan: Reviewed recent fasting lipid profile with patient with levels within normal limits . Continue atorvastatin 20 mg daily , in addition to adherence to low-cholesterol diet and regular exercise, at least 30 minutes 3 to 4 times a week. Advised patient to make healthy food choices, eat more fruits, vegetables, whole grains, wild caught fish and low-fat dairy. Limit amount of meat and fried or fatty food products, as well as processed foods and fast foods. Follow-up scheduled with repeat fasting lipid panel in months. (2) Depression, major, in remission: Code(s): F32.5 - Major depressive disorder, single episode, in full remission Category: Medical Plan: Continue with citalopram and takes lorazepam only as needed for acute anxiety attacks
[2025-01-29 09:34] VITALS: BP 130/80; PULSE 74; RESP 15; TEMP 36.8; O2SAT 95; BMI 25.2
--- OUTSIDE RECORDS SUMMARY | 2025-01-29 09:45 | XMS_ITS | Encounter Summary ---
Author Organization [facility] Address [address] [place] [address] Care Team Providers Care Agent Based Modeler Name Role Phone Keli Ball Md, MD Primary Care Provider Unavailable Encounter Details Date Type Department Care Team Description 07/23/2018 Release of Information Medical Records [address] [place] [id number] Abstract, Provider Social History Tobacco Use Types [...] on filedocumented in this encounter Care Teams Agent Based Modeler Relationship Specialty Start Date End Date Keli Ball MD, MD PCP - General Internal Medicine 07/21/17 documented as of this encounter
--- OUTSIDE RECORDS SUMMARY | 2025-01-29 09:46 | XMS_ITS | Encounter Summary ---
Author Organization [facility] Address [address] [place] [address] Care Team Providers Care Editor Farm Journal Name Role Phone Keli Ball Md, MD Primary Care Provider Unavailable Encounter Details Date Type Department Care Team Description 07/13/2018 Telephone Adult Medicine [address] [id number] Tony Stallworth MD [address] [place] [id number] Social History Tobacco Use Types Packs/Day Years [...] on filedocumented in this encounter Care Teams Editor Farm Journal Relationship Specialty Start Date End Date Keli Ball MD, MD PCP - General Internal Medicine 07/21/17 documented as of this encounter
--- OUTSIDE RECORDS SUMMARY | 2025-01-29 09:46 | XMS_ITS | Data Portability ---
Author Organization [place] - [facility], [facility], [facility] Address [address] [place] [address] Care Team Providers Care Mooner Name Role Phone NELL DUVALL Referring Provider DUSTIN CORTEZ Chief Technician X Ray SIMIN HUERTA Internal Medicine Assessment No assessment recorded. Plan of Treatment Reminders Order Date Submit Date Provider Last Modified By Organization Details Last Modified Time Details Appointments None recorded. Lab AST/SGOT (aspartate aminotransf erase), serum or plasma 2015 016 [facility], [address] [place], [address], 6 12:27:59 ALT (alanine aminotransf erase), serum or plasma 2015 016 [facility], [address], [place], [address], 6 12:28:00 venipunctur e 2015 016 [facility], [address], [place], [address], 6 12:05:16 lipid panel, serum 2015 016 [facility], [address], [place], [address], 6 12:28:00 Referral None recorded. Procedures None recorded. Surgeries None recorded. Imaging None recorded. Medication Orders Aplisol 5 tub. unit/0.1 mL intradermal injection solution 2014 015 dgooding Not available 6 11:35:07 Patient TargetsNo targets recorded. Patient Instructions Encounter Date Encounter Id Patient Instructions Last Modified By Organization Details Last Modified Time 11/20/2014 [id number] learning about mood disorders RALPH Not available 11/21/2014 04:02:53 10/14/2015 [id number] depression treatment: care instructions RALPH Not available 10/15/2015 10:29:41 08/30/2016 [id number] depression treatment: care instructions RALPH Not available 08/31/2016 07:39:12 Reason for Referral None Reported. Results Created Date Observation Date Name Description Value Unit Range Abnormal Flag Note LastModifiedBy Organization Detail LastModifiedTime 10/16/19 16 10/16/2015 AST/S GOT (aspa rtate amino trans feras e), serum or plasm a AST (SGOT) 14 U/L 13-39 Not Available [facility] [address] [place], [address], 10/16/2015 12:27:59 10/16/19 16 10/16/2015 ALT (alec ine amino trans feras e), serum or plasm a ALT (SGPT) 16 U/L 7-52 Not Available [facility] [address] [place], [address], 10/16/2015 12:28:00 10/16/19 16 10/16/2015 lipid panel , serum cholesterol 222 mg/dL 20-180 high Not Available [facility] [address] [place], [address], 10/16/2015 12:28:00 10/16/19 16 10/16/2015 lipid panel , serum triglyceride s 119 mg/dL 30-150 Not Available [facility] [address] [place], [address], 10/16/2015 12:28:00 10/16/19 16 10/16/2015 lipid panel , serum HDL cholesterol 72 mg/dL 23-92 Not Available [facility] [address] [facility] [address] [facility], [place], [address], 10/16/2015 12:28:00 10/16/19 16 10/16/2015 lipid panel , serum LDL calculated 126 mg/dL <=100 high Not Available [facility] [address] [facility] [address] [facility], [place], [address], 10/16/2015 12:28:00 10/16/19 16 10/16/2015 lipid panel , serum VLDL cholesterol 24 calc Not Available [facility] [address], [address], 10/16/2015 12:28:00 10/16/19 16 10/16/2015 lipid panel , serum HDL risk factor 3.1 calc RISK FACTO R MALE FEMAL E 1/2 AVG RISK 3.4 3.3 AVG RISK 5.0 4.0 2X AVG RISK 9.6 7.1 3X AVG RISK 24.0 11.0 Not Available [facility] [address], [address], 10/16/2015 12:28:00 10/16/19 16 10/16/2015 lipid panel , serum cholesterol/ HDL ratio 3 calc CHOL/ HDL RATIO <3 OPTIM AL 3-4 BORDE RLINE >6 HIGH RISK Not Available [facility] [address] [facility] [address] [place], [address], 10/16/2015 12:28:00 10/16/19 16 10/16/2015 lipid panel , serum non-HDL cholesterol 150 calc NON-H DL MULUGETA STERO L <190 MG/DL LOW RISK <160 MG/DL MODER ATE RISK <130 MG/DL HIGH RISK Not Available [facility] [address], [place], [address], 10/16/2015 12:28:00 10/16/19 16 10/16/2015 venip unctu re venipuncture CHARGE Not Available [facility] [address], [place], [address], 10/16/2015 12:05:16 11/21/19 15 11/20/2014 x-ray , [...] [place] Radiol ogist: Nell adames DO [email or web address] [address], [facility], 11/21/2014 15:45:35 12/02/19 15 12/01/2014 CT, chest No observ ation record ed. [email or web address] [facility] ([facility]) [address] [place], [address], 12/03/2014 12:08:51 07/28/20 15 03/04/2015 imagi ng/di [...] Readin g Radiol ogist: Nancy Evangelista MD [facility] [address] [place], [address], 10/19/2015 12:20:48 10/19/19 16 10/14/2015 RT femur [...] Readin g Radiol ogist: Nancy Evangelista MD [facility] [address] [place], [address], 10/19/2015 12:20:48 08/12/20 16 08/10/2016 RT hip [...] Readin g Radiol ogist: Елена Sal MD [address], [facility], 08/30/2016 11:42:16 09/27/19 17 09/22/2016 chest 2 [...] Note: [facility] [employer], [facility] and the [place] Preven tative Servic [...] Readin g Radiol ogist: Елена Sal MD [address], [address], 09/28/2016 17:09:30 Result Notes None recorded. Problems Name Problem SNOMED Code Status Onset Date Resolution Date Notes Provider Name and Address Organization Details Recorded Time Depressive disorder 50084861 Completed 10/14/2015 Maryann O'Ministerio null, [facility], [facility] 11:18:45 Cough 76205512 Completed 08/30/2016 DO Ray Verma [address], [place], [address], [facility] Physician [facility], [facility] 11:36:48 Pure hypercholes terolemia 355965620 Active Maryann O'Ministerio null, [facility], [facility] 6 11:18:45 Recurrent major depression 68528357 Active Maryann O'Ministerio null, [facility] Physician [facility], [facility] 6 11:18:45 Pain of hip region 98819868 Active Maryann O'Ministerio null, [facility] Physician [facility], [facility] 11:18:45 Thigh pain 55217582 Active Maryann O'Ministerio null, [facility]ician [facility], [facility] 11:18:45 Notes:right lung nodules 201 6, 12 months, Dr. Cortez [facility] Problem Notes None recorded. Procedures Surgical History Date Name Laterality Status Provider Name and Address Organization Details Recorded Time 08/30/20 16 Dictated Progress Note completed DO Mireya Verma[address], [place], [address], [facility] Physician [facility], [facility] 08/30/2016 11:59:05 10/14/19 16 Dictated Progress Note completed DO aRy Verma [address], [place], [address], [facility] Physician [facility], [facility] 10/14/2015 12:00:31 11/20/19 15 Dictated Progress Note completed DO Ray Verma [address], [place], [address], [facility], [facility] 11/20/2014 16:53:37 09/22/20 09 Colonoscopy completed Zaynab Banks [facility], [facility] 10/03/2014 11:19:15 09/25/18 92 Hysterectomy completed Nell Duvall, DO [address], [place], [address], [facility] Physician [facility], [facility] 10/06/2014 17:12:15 Imaging Results Imaging Date Name Status LastModified by Organ atformerly [facility], [facility] Details LastModified Time 11/20/2014 x-ray, chest completed [email or web address] [facility] [address] [place] [address], [address], 11/21/2014 15:45:35 12/01/2014 CT, chest completed [facility] [address] [place], [address], 12/03/2014 12:08:51 03/04/2015 imaging/diag nostic result completed Information not available 07/28/2015 16:54:22 07/15/2015 imaging/diag nostic result completed Information not available 07/28/2015 16:54:22 10/14/2015 RT hip 3 views completed blepley [facility] [address] [place], [address], 10/19/2015 12:20:48 10/14/2015 RT femur 4 views completed blepley [facility] [address] [place], [address], 10/19/2015 12:20:48 08/10/2016 RT hip 3 views completed dgooding [facility] [address] [place], [address], 08/30/2016 11:42:16 09/22/2016 chest 2 views completed dgooding [facility] [address] [place] [address], [address], 09/28/2016 17:09:30 Procedure Notes None recorded. Medical Equipment None Reported. Allergies Allergen ID Allergen Name Allergen Category Reaction Reaction Severity Criticality Documentation Date Start Date Code Code System Note Provider Name and Address Organization Details Recorded Time 492174 minocycli ne medicatio n rash severe Not available 10/14/2015 6980 RxNorm job garcía BRIDGET [facility], [facility] 6 11:26:18 Medications Name Sig Start Date [...] cm 18 /min 98 % 98 % 53343.9 318 g 98.3 [degF] 77 /min 24.4 kg/m2 128 mm[Hg] 72 mm[Hg] Ana Claire [facility], [facility] 5 14:33:38 Date Recorded Body height Heart rate Body temperature Body weight Respiratory rate Body mass index (BMI) Systolic blood pressure Diastolic blood pressure Provider Name and Address Organization Details Last Updated DateTime 6 161.29 cm 72 /min 98.3 [degF] 10437.3 3943 g 16 /min 24.2 kg/m2 118 mm[Hg] 70 mm[Hg] Maryann Harrington [facility], [facility] 6 11:26:18 Date Recorded Body temperature Oxygen saturation Oxygen saturation in Arterial blood by Pulse oximetry Respiratory rate Body mass index (BMI) Body weight Heart rate Body height Systolic blood pressure Diastolic blood pressure Provider Name and Address Organization Details Last Updated DateTime 6 98.5 [degF] 98 % 98 % 14 /min 24.2 kg/m2 70353.9 46658 g 71 /min 161.29 cm 132 mm[Hg] 80 mm[Hg] Marcy Cardenas [facility], [facility] 6 09:15:33 Date Recorded Body height Body mass index (BMI) Body weight Respiratory rate Body temperature Heart rate Systolic blood pressure Diastolic blood pressure Provider Name and Address Organization Details Last Updated DateTime 6 161.29 cm 24 kg/m2 39757.5 92109 g 16 /min 98.3 [degF] 20 /min 106 mm[Hg] 72 mm[Hg] Maryann Harrington [facility], [facility] 6 11:27:55 Social History Question Answer Notes LastModified by Organizat ion Details LastModified Time Tobacco Smoking Status Former Smoker Zaynab may [facility], [facility] 10/03/2014 11:19:15 Alcohol Use 1-2 Per Day [...] LastModified Time [facility]'s [email or web address] Not available 2015 11:19:22 Mother [facility]pertensive [email or web address] Not available 2015 11:19:22 Father Hypertensive disorder [...] Conjugate, unspecified formulation 3 completed BRIDGET [facility], [facility] 10/03/2014 11:19:15 tetanus toxoid, adsorbed 3 completed Zaynab may [facility], [facility] 10/03/2014 11:19:15 influenza nasal, unspecified formulation 4 completed Zaynab Banks null, [facility], [facility] 10/03/2014 11:19:15 zoster live 2 completed Zaynab Banks null, [facility], [facility] 10/03/2014 11:19:15 influenza, unspecified formulation 5 completed Maryann EmilianoOscarMinisterio null, [facility], [facility] 10/14/2015 11:26:18 Influenza, split virus, trivalent, preservative 6 completed Maryann CummingsOscarMinisterio null, [facility], [facility] 08/30/2016 11:27:55 Past Encounters Encounter ID Performer Location Encounter Start Date Encounter Closed Date Diagnosis/Indication Diagnosis SNOMED-CT Code Diagnosis ICD10 Code Diagnosis Note [id number] ELISSA Hightower [facility] [address] [address] 10/06/2014 09:32:55 10/06/2014 10:41:57 Low back pain 479224691 [id number] Nell Duavll DO [facility] [address] [address] 11/20/2014 14:13:43 11/20/2014 15:21:35 Depressive disorder 61628537 Cough 13714380 [id number] Nell Duvall DO [facility] [address] [address] 08/31/2015 11:29:11 08/31/2015 12:04:49 Tuberculosis screening 363208376 Z11.1 [id number] Nell Duvall DO [facility] [address] [address] 10/14/2015 11:17:19 10/14/2015 11:48:37 Pure hypercholesterolemia 070874001 E78.0 Recurrent major depression 63375507 F33.9 Pain of hip region 04289 002 M25.551 Thigh pain 73854952 M79. 651 Cough 31090891 R05 [id number] Myriam BOWERS [facility] [address] [address] 7 11/25/2015 09:04:30 11/25/2015 11:06:07 Anxiety 83684845 F41.9 She has taken the Lorazepam, had [...] medication as directed and voiced understand ing. [id number] Nell Duvall DO [facility] [address] [place] [address] 08/30/2016 11:12:18 08/30/2016 11:51:05 Localized, primary osteoarthritis of the pelvic region and thigh 180542038 M19.91 Pure hypercholesterolemia 063688324 E78.00 Recurrent major depression 28563605 F33.9 Health Concerns Section Related Observation LastModified by Organization Detai ls LastModified Time None Recorded Concern Status LastModified by Organization Details LastModified Time None Recorded Advance Directives Directive None Recorded Payers Insurance Date Sequence Insurance Name Policy Number Policy Kuhn Covered Member ID Kuhn Member ID Guarantor Name 09/22/2016 1 [place] Aislinn Sarkar [id number] Esvin Sarkar 09/22/2016 2 [facility]: [facility] [id number] Aislinn Sarkar [id number] Aislinn Sarkar Notes Date Note Type Note Provider Name and Address Organization Details Recorded Time 11/25/2015 text/html AnxietyReported bypatient.Reason for visit:acute complaint Anxiety Type:episodic anxiety Onset/Timing:recurren t episode Context:major life stressors Associated Symptoms:denies suicidal ideations; no significant weight change; no shortness of breath; no panic; appetite good; energy good; no apathy; maintaining functionality;sleep disturbances Myriam BOWERS [address], [place], [address], [facility] 11/25/2015 10:09:40 OBGyn Episode No OBEpisode recorded.
--- OUTSIDE RECORDS SUMMARY | 2025-01-29 09:46 | XMS_ITS | Clinical Summary ---
Author Organization [employer] Address [address] [place] [address] [address] [place] [address] Care Team Providers Care Children[employer] Club Attendant Name Role Phone Unavailable Primary Care [...] age to complete this topic Insurance MEDICARE Member Subscriber Plan / Payer (Ef fective 2013-Present) Name:Aislinn Sarkar Member ID:[id number] Relation to Subscriber:Self Name:Aislinn Sarkar Subscriber ID:[id number] Payer ID:STATE Group ID:Not on file Type:Medicare Address: [facility].[address] [address] [facility]
== END 2025-01-29 10:15 | disposition home or self-care (01) ==
LOC: HO.HMCC 09:14
PROVIDERS: PCP Internal Medicine; Visit Provider Internal Medicine
DX: E78.5 Hyperlipidemia, unspecified (principal); F32.5 Major depressive disorder, single episode, in full remission

== ENCOUNTER → 2025-01-29 09:13 | Outpatient (BNVA) | payer MEDICARE, SELFPAY | PROVIDERS: PCP Internal Medicine; Visit Provider Internal Medicine | DX: E78.5 Hyperlipidemia, unspecified (principal); F32.5 Major depressive disorder, single episode, in full remission | CPT/HCPCS: 96127; 99212 ==

== ENCOUNTER 2025-02-03 13:24 | Outpatient (AMB) | payer MEDICARE, SELFPAY ==
--- OUTSIDE RECORDS SUMMARY | 2025-02-03 13:43 | XMS_ITS | Data Portability ---
Author Organization [place] - [facility], [facility], [facility] Address [address] [place] [address] Care Team Providers Care Vice President Media Relations Name Role Phone NELL DUVALL Referring Provider DUSTIN CORTEZ Curator SIMIN HUERTA Internal Medicine [phone] Assessment No assessment recorded. Plan of Treatment Reminders Order Date Submit Date Provider Last Modified By Organization Details Last Modified Time Details Appointments None recorded. Lab AST/SGOT (aspartate aminotransf erase), serum or plasma 2015 016 [facility], [address] [place], [address], 6 12:27:59 ALT (alanine aminotransf erase), serum or plasma 2015 016 [facility], [address], [place], [address], 6 12:28:00 venipunctur e 2015 016 [facility], [address], [place], [address], 6 12:05:16 lipid panel, serum 2015 016 [facility], [address], [place], [address], 6 12:28:00 Referral None recorded. Procedures None recorded. Surgeries None recorded. Imaging None recorded. Medication Orders Aplisol 5 tub. unit/0.1 mL intradermal injection solution 2014 015 [facility] Not available 6 11:35:07 Patient TargetsNo targets recorded. Patient Instructions Encounter Date Encounter Id Patient Instructions Last Modified By Organization Details Last Modified Time 11/20/2014 [id number] learning about mood disorders RALPH Not available 11/21/2014 04:02:53 10/14/2015 [id number] depression treatment: care instructions RALPH Not available 10/15/2015 10:29:41 08/30/2016 [id number] depression treatment: care instructions RALPH Not available 08/31/2016 07:39:12 Reason for Referral None Reported. Results Created Date Observation Date Name Description Value Unit Range Abnormal Flag Note LastModifiedBy Organization Detail LastModifiedTime 10/16/19 16 10/16/2015 AST/S GOT (aspa rtate amino trans feras e), serum or plasm a AST (SGOT) 14 U/L 13-39 Not Available [facility] [address] [place], [address], 10/16/2015 12:27:59 10/16/19 16 10/16/2015 ALT (alec ine amino trans feras e), serum or plasm a ALT (SGPT) 16 U/L 7-52 Not Available [facility] [address] [place], [address], 10/16/2015 12:28:00 10/16/19 16 10/16/2015 lipid panel , serum cholesterol 222 mg/dL 20-180 high Not Available [facility] [address] [place], [address], 10/16/2015 12:28:00 10/16/19 16 10/16/2015 lipid panel , serum triglyceride s 119 mg/dL 30-150 Not Available [facility] [address] [place], [address], 10/16/2015 12:28:00 10/16/19 16 10/16/2015 lipid panel , serum HDL cholesterol 72 mg/dL 23-92 Not Available [facility] [address] [facility] [address] [facility], [place], [address], 10/16/2015 12:28:00 10/16/19 16 10/16/2015 lipid panel , serum LDL calculated 126 mg/dL <=100 high Not Available [facility] [address] [facility] [address] [facility], [place], [address], 10/16/2015 12:28:00 10/16/19 16 10/16/2015 lipid panel , serum VLDL cholesterol 24 calc Not Available [facility] [address], [address], 10/16/2015 12:28:00 10/16/19 16 10/16/2015 lipid panel , serum HDL risk factor 3.1 calc RISK FACTO R MALE FEMAL E 1/2 AVG RISK 3.4 3.3 AVG RISK 5.0 4.0 2X AVG RISK 9.6 7.1 3X AVG RISK 24.0 11.0 Not Available [facility] [address], [address], 10/16/2015 12:28:00 10/16/19 16 10/16/2015 lipid panel , serum cholesterol/ HDL ratio 3 calc CHOL/ HDL RATIO <3 OPTIM AL 3-4 BORDE RLINE >6 HIGH RISK Not Available [facility] [address] [facility] [address] [place], [address], 10/16/2015 12:28:00 10/16/19 16 10/16/2015 lipid panel , serum non-HDL cholesterol 150 calc NON-H DL MULUGETA STERO L <190 MG/DL LOW RISK <160 MG/DL MODER ATE RISK <130 MG/DL HIGH RISK Not Available [facility] [address], [place], [address], 10/16/2015 12:28:00 10/16/19 16 10/16/2015 venip unctu re venipuncture CHARGE Not Available [facility] [address], [place], [address], 10/16/2015 12:05:16 11/21/19 15 11/20/2014 x-ray , [...] [place] Radiol ogist: Nell adames DO [email or web address] [address], [facility] [place], 11/21/2014 15:45:35 12/02/19 15 12/01/2014 CT, chest No observ ation record ed. [email or web address] [facility] ([facility]) [address] [place], [address], 12/03/2014 12:08:51 07/28/20 15 03/04/2015 imagi ng/di [...] Readin g Radiol ogist: Nancy Evangelista MD [facility] [address] [place], [address], 10/19/2015 12:20:48 10/19/19 16 10/14/2015 RT femur [...] Readin g Radiol ogist: Nancy Evangelista MD [facility] [address] [place], [address], 10/19/2015 12:20:48 08/12/20 16 08/10/2016 RT hip [...] Readin g Radiol ogist: Елена Sal MD [address], [facility] [place], 08/30/2016 11:42:16 09/27/19 17 09/22/2016 chest 2 [...] Note: [facility] [employer], [facility] and the [place] Preven tative Servic es [...] Readin g Radiol ogist: Елена Sal MD [address], [address], 09/28/2016 17:09:30 Result Notes None recorded. Problems Name Problem SNOMED Code Status Onset Date Resolution Date Notes Provider Name and Address Organization Details Recorded Time Depressive disorder 33435762 Completed 10/14/2015 Maryann O'Ministerio null, [facility], [facility] 11:18:45 Cough 90592749 Completed 08/30/2016 DO Ray Verma [address], [place], [address], [facility], [facility] 11:36:48 Pure hypercholes terolemia 915884014 Active Maryann O'Ministerio null, [facility], [facility] 6 11:18:45 Recurrent major depression 67826823 Active Maryann O'Ministerio null, [facility], [facility] 6 11:18:45 Pain of hip region 20772834 Active Maryann O'Ministerio null, [facility], [facility] 11:18:45 Thigh pain 97898786 Active Maryann O'Ministerio null, [facility], [facility] 11:18:45 Notes:right lung nodules 201 6, 12 months, Dr. Cortez [facility] Problem Notes None recorded. Procedures Surgical History Date Name Laterality Status Provider Name and Address Organization Details Recorded Time 08/30/20 16 Dictated Progress Note completed DO Mireya Verma[address], [place], [address], [facility], [facility] 08/30/2016 11:59:05 10/14/19 16 Dictated Progress Note completed DO Ray Verma [address], [place], [address], [facility] Physician [facility], [facility] 10/14/2015 12:00:31 11/20/19 15 Dictated Progress Note completed DO Ray Verma [address], [place], [address], [facility], [facility] 11/20/2014 16:53:37 09/22/20 09 Colonoscopy completed Zaynab Banks [facility], [facility] 10/03/2014 11:19:15 09/25/18 92 Hysterectomy completed Nell Duvall, DO [address], [place], [address], [facility], [facility] 10/06/2014 17:12:15 Imaging Results Imaging Date Name Status LastModified by Organ atunc health Details LastModified Time 11/20/2014 x-ray, chest completed [email or web address] [facility] [address] [place] [address], [address], 11/21/2014 15:45:35 12/01/2014 CT, chest completed [facility] [address] [place], [address], 12/03/2014 12:08:51 03/04/2015 imaging/diag nostic result completed Information not available 07/28/2015 16:54:22 07/15/2015 imaging/diag nostic result completed Information not available 07/28/2015 16:54:22 10/14/2015 RT hip 3 views completed blepley [facility] [address] [place], [address], 10/19/2015 12:20:48 10/14/2015 RT femur 4 views completed blepley [facility] [address] [place], [address], 10/19/2015 12:20:48 08/10/2016 RT hip 3 views completed dgooding [facility] [address] [place], [address], 08/30/2016 11:42:16 09/22/2016 chest 2 views completed dgooding [facility] [address] [place] [address], [address], 09/28/2016 17:09:30 Procedure Notes None recorded. Medical Equipment None Reported. Allergies Allergen ID Allergen Name Allergen Category Reaction Reaction Severity Criticality Documentation Date Start Date Code Code System Note Provider Name and Address Organization Details Recorded Time 280058 minocycli ne medicatio n rash severe Not available 10/14/2015 6980 RxNorm job garcía BRIDGET [facility], [facility] 6 11:26:18 Medications Name Sig Start [...] cm 18 /min 98 % 98 % 94422.9 318 g 98.3 [degF] 77 /min 24.4 kg/m2 128 mm[Hg] 72 mm[Hg] Ana Claire [facility], [facility] 5 14:33:38 Date Recorded Body height Heart rate Body temperature Body weight Respiratory rate Body mass index (BMI) Systolic blood pressure Diastolic blood pressure Provider Name and Address Organization Details Last Updated DateTime 6 161.29 cm 72 /min 98.3 [degF] 20589.3 3943 g 16 /min 24.2 kg/m2 118 mm[Hg] 70 mm[Hg] Maryann Harrington [facility], [facility] 6 11:26:18 Date Recorded Body temperature Oxygen saturation Oxygen saturation in Arterial blood by Pulse oximetry Respiratory rate Body mass index (BMI) Body weight Heart rate Body height Systolic blood pressure Diastolic blood pressure Provider Name and Address Organization Details Last Updated DateTime 6 98.5 [degF] 98 % 98 % 14 /min 24.2 kg/m2 55249.9 51507 g 71 /min 161.29 cm 132 mm[Hg] 80 mm[Hg] Marcy Cardenas [facility], [facility] 6 09:15:33 Date Recorded Body height Body mass index (BMI) Body weight Respiratory rate Body temperature Heart rate Systolic blood pressure Diastolic blood pressure Provider Name and Address Organization Details Last Updated DateTime 6 161.29 cm 24 kg/m2 80973.5 59626 g 16 /min 98.3 [degF] 20 /min 106 mm[Hg] 72 mm[Hg] Maryann Harrington [facility], [facility] 6 11:27:55 Social History Question Answer Notes LastModified by Organizat ion Details LastModified Time Tobacco Smoking Status Former Smoker Zaynab may [facility], [facility] 10/03/2014 11:19:15 Alcohol Use 1-2 Per [...] Details LastModified Time Mother Alzheimer's disease 85 [email or web address] Not available 2015 11:19:22 Mother Hypertensive disorder [email or web address] Not available 2015 11:19:22 Father Hypertensive disorder [email or web address] Not available 2015 11:19:22 Notes:Father from C A at age of 91, FHX; Depression, High cholesterol, Skin CA & Stroke Medical History Condition Response Cancer (location) N Other N Gout N Thyroid Disease N Kidney Stones N Emphysema/COPD N Measles/Mumps N Sexually Transmitted Disease N Depression Y Prostate Problems N Vascular Disease N Rash/Skin Condition N Amputation (location) N Parkinson's N Paralysis N Headaches/Migraines Y Cardiac Pacemaker/defibrillator N Nerve Damage / Neuropathy N Arthritis N Sleep disorder/Insomnia N Heart disease / Heart Attack N Crohn's Disease N HIV/AIDS N Stroke/TIA N High Cholesterol Y Colon Problems Y Serious Injuries N Kidney Disease N [...] Conjugate, unspecified formulation 3 completed BRIDGET [facility], [facility] 10/03/2014 11:19:15 tetanus toxoid, adsorbed 3 completed Zaynab may [facility], [facility] 10/03/2014 11:19:15 influenza nasal, unspecified formulation 4 completed Zaynab Banks null, [facility], [facility] 10/03/2014 11:19:15 zoster live 2 completed Zaynab Banks null, [facility], [facility] 10/03/2014 11:19:15 influenza, unspecified formulation 5 completed Maryann EmilianoOscarMinisterio null, [facility], [facility] 10/14/2015 11:26:18 Influenza, split virus, trivalent, preservative 6 completed Maryann CummingsOscarMinisterio null, [facility], [facility] 08/30/2016 11:27:55 Past Encounters Encounter ID Performer Location Encounter Start Date Encounter Closed Date Diagnosis/Indication Diagnosis SNOMED-CT Code Diagnosis ICD10 Code Diagnosis Note [id number] ELISSA Hightower [facility] [address] [address] 7 10/06/2014 09:32:55 10/06/2014 10:41:57 Low back pain 093230137 [id number] Nell Duvall DO [facility] [address] [address] 7 11/20/2014 14:13:43 11/20/2014 15:21:35 Depressive disorder 81740283 Cough 57254245 [id number] Nell Duvall DO [facility] [address] [address] 7 08/31/2015 11:29:11 08/31/2015 12:04:49 Tuberculosis screening 153505434 Z11.1 [id number] Nell Duvall DO [facility] [address] [address] 7 10/14/2015 11:17:19 10/14/2015 11:48:37 Pure hypercholesterolemia 671494151 E78.0 Recurrent major depression 09651498 F33.9 Pain of hip region 16897 002 M25.551 Thigh pain 24610111 M79. 651 Cough 50855916 R05 [id number] Myriam BOWERS [facility] [address] [address] 7 11/25/2015 09:04:30 11/25/2015 11:06:07 Anxiety 52553183 F41.9 She has taken the Lorazepam, had [...] medication as directed and voiced understand ing. [id number] Nell Duvall DO [facility] [address] [address] [place] [address] 08/30/2016 11:12:18 08/30/2016 11:51:05 Localized, primary osteoarthritis of the pelvic region and thigh 803027607 M19.91 Pure hypercholesterolemia 423506906 E78.00 Recurrent major depression 40481245 F33.9 Health Concerns Section Related Observation LastModified by Organization Detai ls LastModified Time None Recorded Concern Status LastModified by Organization Details LastModified Time None Recorded Advance Directives Directive None Recorded Payers Insurance Date Sequence Insurance Name Policy Number Policy Kuhn Covered Member ID Kuhn Member ID Guarantor Name 09/22/2016 1 [place] Aislinn Sarkar [id number] Esvin Sarkar 09/22/2016 2 [facility] [id number] Aislinn Sarkar [id number] Aislinn Sarkar Notes Date Note Type Note Provider Name and Address Organization Details Recorded Time 11/25/2015 text/html AnxietyReported bypatient.Reason for visit:acute complaint Anxiety Type:episodic anxiety Onset/Timing:recurren t episode Context:major life stressors Associated Symptoms:denies suicidal ideations; no significant weight change; no shortness of breath; no panic; appetite good; energy good; no apathy; maintaining functionality;sleep disturbances Myriam BOWERS [address], [place], [address], [facility] 11/25/2015 10:09:40 OBGyn Episode No OBEpisode recorded.
--- OUTSIDE RECORDS SUMMARY | 2025-02-03 13:43 | XMS_ITS | Encounter Summary ---
Author Organization [facility] Address [address] [place] [address] Care Team Providers Care Broommaking Supervisor Name Role Phone Keli Ball Md, MD Primary Care Provider Unavailable Encounter Details Date Type Department Care Team Description 08/03/2017 Release of Information Medical Records [address] [place] [address] Abstract, Provider Social History Tobacco Use Types [...] on filedocumented in this encounter Care Teams Broommaking Supervisor Relationship Specialty Start Date End Date Keli Ball MD, MD PCP - General Internal Medicine 07/21/17 documented as of this encounter
--- OUTSIDE RECORDS SUMMARY | 2025-02-03 13:43 | XMS_ITS | Encounter Summary ---
Author Organization [facility] Address [address] [place] [address] Care Team Providers Care Labor Arbitrator Name Role Phone Keli Ball Md, MD Primary Care Provider Unavailable Encounter Details Date Type Department Care Team Description 08/04/2017 Transfer Records Medical Records [address] [place] [address] Abstract, Provider Social History Tobacco Use Types [...] on filedocumented in this encounter Care Teams Labor Arbitrator Relationship Specialty Start Date End Date Keli Ball MD, MD PCP - General Internal Medicine 07/21/17 documented as of this encounter
--- OUTSIDE RECORDS SUMMARY | 2025-02-03 13:43 | XMS_ITS | Encounter Summary ---
Author Organization [facility] Address [address] [place] [address] Care Team Providers Care Associate Professor Of Philosophy Name Role Phone Keli Ball Md, MD Primary Care Provider Unavailable Encounter Details Date Type Department Care Team Description 07/23/2018 Release of Information Medical Records [address] [place] [address] Abstract, Provider Social History Tobacco Use Types [...] on filedocumented in this encounter Care Teams Associate Professor Of Philosophy Relationship Specialty Start Date End Date Keli Ball MD, MD PCP - General Internal Medicine 07/21/17 documented as of this encounter
--- OUTSIDE RECORDS SUMMARY | 2025-02-03 13:43 | XMS_ITS | Clinical Summary ---
Author Organization [facility] [employer] Address [address] [place] [address] [address] [place] [address] Care Team Providers Care Cable Systems Installer Name Role Phone Unavailable Primary Care Provider [...] Payer (Ef fective 2013-Present) Name:Aislinn Sarkar Member ID:[id number] Relation to Subscriber:Self Name:Aislinn Sarkar Subscriber ID:[id number] Payer ID:STATE Group ID:Not on file Type:Medicare Address: [facility].[address] [address] [facility] MEDEX C[facility]
--- NOTE | 2025-02-03 14:16 | AM.OFFWIN_ITS ---
Intake Vital Signs 02/03/25 14:17 BP 110/74 Blood Pressure Location Lt brachial Position Sitting Pulse 68 Pulse Source Pulse Oximeter Pulse Oximetry (%) 98 Oxygen Delivery Method Room Air Intake Visit Reasons: EP Stiff neck Patient Tobacco Use Status: Former Tobacco user Allergies meloxicam Allergy (Severe, Verified 01/29/25 09:53) esophagitis minocycline Allergy (Severe, Verified 01/29/25 09:53) esophagitis HPI HPI Comments History of Present Illness Details 74 y/o Female patient who presents to [facility] walk in clinic with c/o Cervical Neck pain and stiffness for few days now. [facility] Medical History GERD (gastroesophageal reflux disease) Lipoma of chest wall Heartburn symptom Environmental and seasonal allergies Hearing loss ADAM (obstructive sleep apnea) Depression, major, in remission Multinodular thyroid Goiter Vitamin D deficiency Osteoporosis Dyslipidemia Osteopenia of left femoral neck Seasonal allergies Chronic bronchitis Pulmonary nodules Chronic rhinitis Surgical History Hx of colonoscopy Hx of esophagogastroduodenoscopy History of total abdominal hysterectomy and bilateral salpingo-oophorectomy Family History Father CVD (cardiovascular disease) Hypertension GI cancer Mother Hypertension Alzheimer disease Daughter Mental health disorder Sister Mental health disorder Social History Housing: House Alcohol intake: current Alcohol intake frequency: a few times a month Alcohol type: wine Patient Tobacco Use Status: Former Tobacco user Tobacco use type: Cigarette Years Smoked: 10 years Current occupational status: unemployed Cognitive needs: No Hearing needs: No Vision needs: Yes Review of Systems Const All systems reviewed & are unremarkable except as noted in HPI and below Physical Exam Vital Signs: Last Vital Signs Pulse 68 02/03/25 14:17 BP 110/74 02/03/25 14:17 Pulse Ox 98 02/03/25 14:17 Oxygen Delivery Method Room Air 02/03/25 14:17 Const General: no acute distress Nutritional Appearance: well nourished Orientation/consciousness: patient oriented x3 Neck Neck: Yes full ROM and Yes no lymphadenopathy Back/Spine/Pelvis Cervical Spine: cervical ROM normal, cervical muscular tenderness, pain with cervical ROM and Cervical spine tenderness Neuro General: patient oriented x3, gait normal and moves all extremities Assessment & Plan Assessment & Plan (1) Cervicalgia: Code(s): M54.2 - Cervicalgia Plan: Ordered Xray Placed an order for Chiro Acetaminophne for pain relief. Patient has allergy to Meloxicam on the list, so unable to Prescribe NSAIDs. Ice/Hot Orders: Orders XR cervical spine 3V Today M54.2 - Cervicalgia Referrals Chiropractic Referral M54.2 - Cervicalgia Medications: New acetaminophen 1,000 mg (2 x 500 mg) PO Q6H PRN 30 caps 0RF pain M54.2 - Cervicalgia cyclobenzaprine 10 mg PO BEDTIME 14 tabs 0RF M54.2 - Cervicalgia Coding Level of Care Code Est Pt Level 4 (72980) Diagnoses Cervicalgia M54.2 Time Spent (min) 20
[2025-02-03 14:17] VITALS: BP 110/74; PULSE 68; O2SAT 98
== END 2025-02-03 14:59 | disposition home or self-care (01) ==
PROVIDERS: PCP Internal Medicine; Visit Provider Nurse Practitioner Family
DX: M54.2 Cervicalgia (principal)

== ENCOUNTER 2025-02-03 13:24 | Outpatient (REF) | payer MEDICARE, SELFPAY ==
--- NOTE | ~2025-02-03 | XR_ITS ---
EXAMINATION: XR CERVICAL SPINE CLINICAL INFORMATION: M54.2 - Cervicalgia COMPARISON: None available. TECHNIQUE: 2 views of the cervical spine were obtained. FINDINGS: There is no scoliosis. There is mild straightening of the normal lordosis. Normal bone mineralization. Craniocervical junction and C1-2 articulation are intact and aligned. No compression deformity, acute fracture, or suspicious bone lesion. Minimal degenerative anterolisthesis C4 on C5. Minimal degenerative retrolisthesis C5 on C6. Moderate disc degeneration present C5-6 and C6-7. Normal facet alignment. Multilevel left greater than right hypertrophic degenerative facet changes, most notable on the left at C2-3, C3-4, and C4-5. No prevertebral soft tissue abnormality. Lung apices appear clear. XR/XR cervical spine 2V IMPRESSION: 1. No acute bony abnormalities of the cervical spine. 2. Moderate spondylosis. Electronically signed by: David Smith MD 02/03/2025 03:13 PM EDT
--- OUTSIDE RECORDS SUMMARY | 2025-02-03 14:53 | XMS_ITS | Clinical Summary ---
Author Organization [facility] Address [address] [place] [address] Care Team Providers Care Retail Account Representative Name Role Phone Keli Ball Md, MD Primary Care Provider Unavailable Allergies Active Allergy Reactions Severity Noted Date Comments Meloxicam 06/09/2017 Minocycline 06/09/2017 Medications Medication Sig Dispensed Refills Start Date End Date Status atorvastatin (LIPITOR) 20 MG tablet Take 20 mg by mouth daily. 0 Active citalopram (CELEXA) 40 MG tablet Take 40 mg by mouth daily. 0 Active Multiple Vitamins-Minerals (MULTIVITAMIN ADULT) Chew Tab Take by mouth. 0 Active Active Problems Problem Noted Date Multiple pulmonary nodules 06/09/2017 Breath shortness 06/09/2017 Social History Tobacco Use Types Packs/Day Years Used Date Smoking Tobacco: Former Cigarettes 1 15 Alcohol Use Standard Drinks/Week Comments Yes 0 (1 standard drink = 0.6 oz pur e alcohol) Sex Assigned at Date Recorded Not on file Last Filed Vital Signs Vital Sign Reading Time Taken Comments Blood Pressure 110/70 06/11/2018 11:20 AM EDT Pulse 71 06/11/2018 11:20 AM EDT Temperature - - Respiratory Rate - - Oxygen Saturation 98% 06/11/2018 11:20 AM EDT r/a Inhaled Oxygen Concentration - - Weight 63.5 kg (140 lb) 06/11/2018 11:20 AM EDT Height 160 cm (5' 3 ) 06/11/2018 11:20 AM EDT Body Mass Index 24.8 06/11/2018 11:20 AM EDT Plan of Treatment Health Maintenance Due Date Last Done Comments Covid-19 Vaccine (#1) 01/01/1951 DEPRESSION SCREEN 1960 HEPATITIS C SCREENING 1966 TOBACCO CHECK/ADVISE 1966 DTAP/TDAP/TD (1 - Tdap) 1967 CHOLESTEROL SCREENING 1968 MAMMOGRAM 1988 SHINGLES VACCINE (1 of 2) 1998 BONE DENSITY SCREENING 2013 FALL RISK ASSESSMENT 2013 PNEUMOCOCCAL VACCINE (1 - PCV) 2013 INFLUENZA (Season Ended) 2025 Care Teams Retail Account Representative Relationship Specialty Start Date End Date Keli Ball MD, MD PCP - General Internal Medicine 07/21/17
--- OUTSIDE RECORDS SUMMARY | 2025-02-03 14:53 | XMS_ITS | Encounter Summary ---
Author Organization [facility] Address [address] [place] [address] Care Team Providers Care Top Closer Name Role Phone Keli Ball Md, MD Primary Care Provider Unavailable Encounter Details Date Type Department Care Team Description 07/23/2018 Release of Information Medical Records [address] [place] [id number] Abstract, Provider Social History Tobacco Use Types [...] on filedocumented in this encounter Care Teams Top Closer Relationship Specialty Start Date End Date Keli Ball MD, MD PCP - General Internal Medicine 07/21/17 documented as of this encounter
--- OUTSIDE RECORDS SUMMARY | 2025-02-03 14:53 | XMS_ITS | Encounter Summary ---
Author Organization [facility] Address [address] [place] [address] Care Team Providers Care Commercial Engineer Name Role Phone Keli Ball Md, MD Primary Care Provider Unavailable Reason for Visit * Reason Onset Date Comments Master Dyer Feedback 07/17/2018 CT Encounter Details Date Type Department Care Team Description 07/17/2018 Telephone Pulmonology - [address] [place] [address] Valentin Badillo MD Master Dyer Feedback (CT) Social History Tobacco Use Types [...] order for scheduling. It was forwarded to [facility] however I received a fax stating patient will not schedule with them because she already has a CT completed on 07/03/18. Thank you, Palak Referrals Department documented in this encounter Plan of Treatment Not on file documented as of this encounter Visit Diagnoses Not on filedocumented in this encounter Care Teams Commercial Engineer Relationship Specialty Start Date End Date Keli Ball MD, MD PCP - General Internal Medicine 07/21/17 documented as of this encounter
--- OUTSIDE RECORDS SUMMARY | 2025-02-03 14:54 | XMS_ITS | Encounter Summary ---
Author Organization [facility] Address [address] [place] [address] Care Team Providers Care Car Conditioner Name Role Phone Keli Ball Md, MD Primary Care Provider Unavailable Encounter Details Date Type Department Care Team Description 07/13/2018 Orders Only Pulmonology - [address] [place] [address] Valentin Badillo MD Multiple pulmonary [...] breath documented in this encounter Care Teams Car Conditioner Relationship Specialty Start Date End Date Keli Ball MD, MD PCP - General Internal Medicine 07/21/17 documented as of this encounter
--- OUTSIDE RECORDS SUMMARY | 2025-02-03 14:54 | XMS_ITS | Clinical Summary ---
Author Organization [employer] Address [address] [place] [address] 7 [place] [address] Care Team Providers Care Curing Finisher Name Role Phone Unavailable Primary Care Provider [...] Payer (Ef fective 2013-Present) Name:Aislinn Sarkar Member ID:[id number] Relation to Subscriber:Self Name:Aislinn Sarkar Subscriber ID:[id number] Payer ID:STATE Group ID:Not on file Type:Medicare Address: [facility].[address] [address] [facility] MEDEX CARE
== END 2025-02-03 13:25 | disposition home or self-care (01) ==
LOC: HO.HMGCX 13:24
PROVIDERS: PCP Internal Medicine; Visit Provider Nurse Practitioner Family
DX: M54.2 Cervicalgia (principal)
CPT/HCPCS: 72040; 99212

== ENCOUNTER → 2025-02-03 14:54 | Outpatient (BNV) | payer MEDICARE, SELFPAY | PROVIDERS: PCP Internal Medicine; Visit Provider Radiology Diagnostic Radiology | DX: M47.812 Spondylosis without myelopathy or radiculopathy, cervical region (principal) | CPT/HCPCS: 72040 ==

== ENCOUNTER 2025-03-25 09:16 | Outpatient (REF) | payer MEDICARE, SELFPAY ==
--- NOTE | ~2025-03-25 | FL_ITS ---
EXAMINATION: XR BARIUM SWALLOW CLINICAL INFORMATION: Gastroesophageal reflux disease without esophagitis COMPARISON: None available. TECHNIQUE: Routine barium swallow was performed in upright upright view with thick barium and barium coated saltine crackers and thin barium in prone lying position. FINDINGS: Following oral administration of thick barium there is normal propagation bolus from the oral cavity through the pharynx, esophagus into stomach. There is no obstruction, narrowing or stricture. There is no extrinsic compression. On oral demonstration of barium coated saltine crackers there is normal oral mastication and propagation of bolus from the oral cavity, pharynx, esophagus into stomach. On placing patient prone lying and oral administration of thin barium there is good distention of esophagus without intraluminal filling defect or narrowing. On supine view there is small sliding hiatal hernia with without reflux. FLUOROSCOPY TIME: 2 minute 27 seconds. DOSE AREA PRODUCT: 1666 uGy-m2 (microgray-meter squared) [place] barium swallow IMPRESSION: Unremarkable barium swallow exam. Electronically signed by: Jasper aBrillas MD 03/25/2025 01:47 PM EDT
--- OUTSIDE RECORDS SUMMARY | 2025-03-25 09:50 | XMS_ITS | Clinical Summary ---
Author Organization [employer] Address [address] [place] [address] [address] [place] [address] Care Team Providers Care Clinical Office Technician Name Role Phone Unavailable Primary Care Provider Unavailabl e Immunizations Immunization Administration Dates Next Due Influenza, seasonal, injectable, [...] patient's age to complete this topic Meningococcal B Vaccine Aged Out No l onger eligible based on patient's age to complete this topic Meningococcal Vaccine Aged Out No ailyn kecia eligible based on patient's age to complete this topic RSV under 20 months Aged Out No longe r eligible based on patient's age to complete this topic Rotavirus Vaccines Aged Out No longer eligible based on patient's age to complete this topic Insurance [place] [phone] [facility]
--- OUTSIDE RECORDS SUMMARY | 2025-03-25 09:50 | XMS_ITS | Patient Health Record ---
Author Organization [facility] Address [address] [place] [address] Care Team Providers Care Apparel Manufacture Instructor Name Role Phone Lizzy LEMOS, Keli Primary Care Provider Slick Newsome Jr Reason For Referral No Information Plan Of Treatment No Information Insurance Providers Payer Name Payer Address Payer Phone Subscriber Number Group Number Insured Name Patient Relationship to Insured Coverage Start Date Coverage End Date MEDICARE OF [place] [address] [place] [address] [id number] ANDREW RON Self - patient is the insured MEDEX ATTN CLAIMS [address] [place] [phone] [id number] ANDREW RON Self - patient is the insured
--- OUTSIDE RECORDS SUMMARY | 2025-03-25 09:50 | XMS_ITS | Data Portability ---
Author Organization [place] - [facility] [employer], [facility], [facility] Address [address] [place] [address] Care Team Providers Care Fire Pilot Name Role Phone NELL DUVALL Referring Provider DUSTIN CORTEZ Coding And Reimbursement Specialist SIMIN HUERAT Internal Medicine Assessment No assessment recorded. Plan of Treatment Reminders Order Date Submit Date Provider Last Modified By Organization Details Last Modified Time Details Appointments None recorded. Lab AST/SGOT (aspartate aminotransf erase), serum or plasma 2015 016 [facility], [address] [place], [address], 6 12:27:59 ALT (alanine aminotransf erase), serum or plasma 2015 016 [facility], [address] [place], [address], 6 12:28:00 venipunctur e 2015 016 [facility], [address] [place], [address], 6 12:05:16 lipid panel, serum 2015 016 [facility], [address] [place], [address], 6 12:28:00 Referral None recorded. Procedures None recorded. Surgeries None recorded. Imaging None recorded. Medication Orders Aplisol 5 tub. unit/0.1 mL intradermal injection solution 2014 015 dgooding Not available 6 11:35:07 Patient TargetsNo targets recorded. Patient Instructions Encounter Date Encounter Id Patient Instructions Last Modified By Organization Details Last Modified Time 11/20/2014 [id number] learning about mood disorders RALPH Not available 11/21/2014 04:02:53 10/14/2015 [id number] depression treatment: care instructions RALPH Not available 10/15/2015 10:29:41 08/30/2016 [id number] depression treatment: care instructions RALPH Not available 08/31/2016 07:39:12 Reason for Referral None Reported. Results Created Date Observation Date Name Description Value Unit Range Abnormal Flag Note LastModifiedBy Organization Detail LastModifiedTime 10/16/19 16 10/16/2015 AST/S GOT (aspa rtate amino trans feras e), serum or plasm a AST (SGOT) 14 U/L 13-39 Not Available [facility] [address] [place], [address], 10/16/2015 12:27:59 10/16/19 16 10/16/2015 ALT (alec ine amino trans feras e), serum or plasm a ALT (SGPT) 16 U/L 7-52 Not Available [facility] [address] [facility] [address] [place], [address], 10/16/2015 12:28:00 10/16/19 16 10/16/2015 lipid panel , serum cholesterol 222 mg/dL 20-180 high Not Available [facility] [address] [facility] [address] [place], [address], 10/16/2015 12:28:00 10/16/19 16 10/16/2015 lipid panel , serum triglyceride s 119 mg/dL 30-150 Not Available [facility] [address] [facility] [address] [place], [address], 10/16/2015 12:28:00 10/16/19 16 10/16/2015 lipid panel , serum HDL cholesterol 72 mg/dL 23-92 Not Available [facility] [address] [facility] [address] [facility], [place], [address], 10/16/2015 12:28:00 10/16/19 16 10/16/2015 lipid panel , serum LDL calculated 126 mg/dL <=100 high Not Available [facility] [address] [facility] [address], [place], [address], 10/16/2015 12:28:00 10/16/19 16 10/16/2015 lipid panel , serum VLDL cholesterol 24 calc Not Available [facility] [address] [place] [address], [address], 10/16/2015 12:28:00 10/16/19 16 10/16/2015 lipid panel , serum HDL risk factor 3.1 calc RISK FACTO R MALE FEMAL E 1/2 AVG RISK 3.4 3.3 AVG RISK 5.0 4.0 2X AVG RISK 9.6 7.1 3X AVG RISK 24.0 11.0 Not Available [facility] [address], [place], [address], 10/16/2015 12:28:00 10/16/19 16 10/16/2015 lipid panel , serum cholesterol/ HDL ratio 3 calc CHOL/ HDL RATIO <3 OPTIM AL 3-4 BORDE RLINE >6 HIGH RISK Not Available [facility] [address], [place], [address], 10/16/2015 12:28:00 10/16/19 16 10/16/2015 lipid panel , serum non-HDL cholesterol 150 calc NON-H DL MULUGETA STERO L <190 MG/DL LOW RISK <160 MG/DL MODER ATE RISK <130 MG/DL HIGH RISK Not Available [facility] [address], [place], [address], 10/16/2015 12:28:00 10/16/19 16 10/16/2015 venip unctu re venipuncture CHARGE Not Available [facility] [address], [place], [address], 10/16/2015 12:05:16 11/21/19 15 11/20/2014 x-ray , [...] [place] Radiol ogist: Nell adames DO [email or web address] [address], [facility], 11/21/2014 15:45:35 12/02/19 15 12/01/2014 CT, chest No observ ation record ed. [facility] [address] , [place], [address], 12/03/2014 12:08:51 07/28/20 15 03/04/2015 imagi ng/di [...] g Radiol ogist: Nancy Evangelista MD [facility] [address] [place], [address], 10/19/2015 12:20:48 10/19/19 16 10/14/2015 RT femur [...] g Radiol ogist: Nancy Evangelista MD [facility] [address] [place], [address], 10/19/2015 12:20:48 08/12/20 16 08/10/2016 RT hip [...] Readin g Radiol ogist: Елена Sal MD [address], [facility], 08/30/2016 11:42:16 09/27/19 17 09/22/2016 chest 2 [...] Note: [facility], [facility] and the [place] [employer] [...] for 15 years) Electr onical ly signed Estelle [place] Radiol ogist: Елена Sal MD [address], [address], 09/28/2016 17:09:30 Result Notes None recorded. Problems Name Problem SNOMED Code Status Onset Date Resolution Date Notes Provider Name and Address Organization Details Recorded Time Depressive disorder 77571500 Completed 10/14/2015 Maryann O'Ministerio null, [facility], [facility] 11:18:45 Cough 00942230 Completed 08/30/2016 Nell Duvall DO [address], [place], [address], [facility], [facility] 11:36:48 Pure hypercholes terolemia 596610657 Active Maryann O'Ministerio null, [facility], [facility] 11:18:45 Recurrent major depression 08282643 Active Maryann O'Ministerio null, [facility], [facility] 11:18:45 Pain of hip region 71355964 Active Maryann O'Ministerio null, [facility], [facility] 11:18:45 Thigh pain 55614171 Active Maryann O'Ministerio null, [facility], [facility] 11:18:45 Notes:right lung nodules 201 6, 12 months, Dr. Cortez [facility] Problem Notes None recorded. Procedures Surgical History Date Name Laterality Status Provider Name and Address Organization Details Recorded Time 08/30/20 16 Dictated Progress Note completed DO Mireya Verma[address], [place], [address], [facility] Physician [facility], [facility] 08/30/2016 11:59:05 10/14/19 16 Dictated Progress Note completed DO Mireya Verma[address], [place], [address], [facility] Physician [facility], [facility] 10/14/2015 12:00:31 11/20/19 15 Dictated Progress Note completed DO Ray Verm[address], [place], [address], [facility], [facility] 11/20/2014 16:53:37 09/22/20 09 Colonoscopy completed Zaynabporsche Banks [facility] 10/03/2014 11:19:15 09/25/18 92 Hysterectomy completed Nell Davidsoning, DO [address], [place], [address], [facility], [facility] 10/06/2014 17:12:15 Imaging Results None recorded. Procedure Notes None recorded. Medical Equipment None Reported. Allergies Allergen ID Allergen Name Allergen Category Reaction Reaction Severity Criticality Documentation Date Start Date Code Code System Note Provider Name and Address Organization Details Recorded Time 899050 minocycli ne medicatio n rash severe Not available 10/14/2015 6980 RxNorm esema may, [facility] 6 11:26:18 Medications Name Sig Start Date [...] Not Available Vitals Date Recorded Body height Heart rate Body temperature Body weight Respiratory rate Body mass index (BMI) Systolic blood pressure Diastolic blood pressure Provider Name and Address Organization Details Last Updated DateTime 6 161.29 cm 72 /min 98.3 [degF] 81241.3 3943 g 16 /min 24.2 kg/m2 118 mm[Hg] 70 mm[Hg] Maryann Harrington [facility] 6 11:26:18 Date Recorded Body height Respiratory rate Oxygen saturation Oxygen saturation in Arterial blood by Pulse oximetry Body weight Body temperature Heart rate Body mass index (BMI) Systolic blood pressure Diastolic blood pressure Provider Name and Address Organization Details Last Updated DateTime 5 161.29 cm 18 /min 98 % 98 % 27233.9 318 g 98.3 [degF] 77 /min 24.4 kg/m2 128 mm[Hg] 72 mm[Hg] Ana Claire [facility] 5 14:33:38 Date Recorded Body temperature Oxygen saturation Oxygen saturation in Arterial blood by Pulse oximetry Respiratory rate Body mass index (BMI) Body weight Heart rate Body height Systolic blood pressure Diastolic blood pressure Provider Name and Address Organization Details Last Updated DateTime 6 98.5 [degF] 98 % 98 % 14 /min 24.2 kg/m2 46028.9 06941 g 71 /min 161.29 cm 132 mm[Hg] 80 mm[Hg] Marcy aCrdenas [facility] 6 09:15:33 Date Recorded Body height Body mass index (BMI) Body weight Respiratory rate Body temperature Heart rate Systolic blood pressure Diastolic blood pressure Provider Name and Address Organization Details Last Updated DateTime 6 161.29 cm 24 kg/m2 32725.5 46738 g 16 /min 98.3 [degF] 20 /min 106 mm[Hg] 72 mm[Hg] Maryann Len [facility] 6 11:27:55 Social History Question Answer Notes LastModified by Organizat ion Details LastModified Time Tobacco Smoking Status Former Smoker [facility]ab Banks [facility]alo [facility] 10/03/2014 11:19:15 Alcohol Use 1-2 Per Day [...] Details LastModified Time Mother Alzheimer's disease 85 [email or web address] Not available 2015 11:19:22 Mother Hypertensive disorder [email or web address] Not available 2015 11:19:22 Father Hypertensive disorder [...] Pneumococcal Conjugate, unspecified formulation 3 completed Zaynab Banks null, [facility], [facility] 10/03/2014 11:19:15 tetanus toxoid, adsorbed 3 completed Zaynab Banks null, [facility], [facility] 10/03/2014 11:19:15 influenza nasal, unspecified formulation 4 completed Zaynab Banks null, [facility], [facility] 10/03/2014 11:19:15 zoster live 2 completed Zaynab Banks null, [facility], [facility] 10/03/2014 11:19:15 influenza, unspecified formulation 5 [facility] 10/14/2015 11:26:18 Influenza, split virus, trivalent, preservative 6 completed Maryann Cummings'Ministerio null, [facility], [facility] 08/30/2016 11:27:55 Past Encounters Encounter ID Performer Location Encounter Start Date Encounter Closed Date Diagnosis/Indication Diagnosis SNOMED-CT Code Diagnosis ICD10 Code Diagnosis Note [id number] ELISSA Hightower [facility] [address] [place] [address] 10/06/2014 09:32:55 10/06/2014 10:41:57 Low back pain 808205868 [id number] Nell Duvall DO [facility] [address] [place] [address] 11/20/2014 14:13:43 11/20/2014 15:21:35 Depressive disorder 66888948 Cough 48269911 [id number] Nell Duvall DO [facility] [address] [place] [address] 08/31/2015 11:29:11 08/31/2015 12:04:49 Tuberculosis screening 973345251 Z11.1 [id number] Nell Duvall DO [facility] [address] [place] [address] 10/14/2015 11:17:19 10/14/2015 11:48:37 Pure hypercholesterolemia 870099495 E78.0 Recurrent major depression 25177143 F33.9 Pain of hip region 94967 002 M25.551 Thigh pain 81277586 M79. 651 Cough 79887175 R05 [id number] Myriam CARMONAP [facility] [address] [place] [address] 11/25/2015 09:04:30 11/25/2015 11:06:07 Anxiety 93786556 F41.9 She has taken the Lorazepam, had [...] medication as directed and voiced understand ing. [id number] Nell Duvall DO [facility] [address] [place] [address] 08/30/2016 11:12:18 08/30/2016 11:51:05 Localized, primary osteoarthritis of the pelvic region and thigh 743088993 M19.91 Pure hypercholesterolemia 320988955 E78.00 Recurrent major depression 16048232 F33.9 Health Concerns Section Related Observation LastModified by Organization Detai ls LastModified Time None Recorded Concern Status LastModified by Organization Details LastModified Time None Recorded Advance Directives Directive None Recorded Payers Insurance Date Sequence Insurance Name Policy Number Policy Kuhn Covered Member ID Kuhn Member ID Guarantor Name 09/22/2016 1 [place] Aislinn Sarkar [id number] Porsche Sarkar 09/22/2016 2 [facility] [id number] Aislinn Sarkar [id number] Aislinn Sarkar Notes Date Note Type Note Provider Name and Address Organization Details Recorded Time 11/25/2015 text/html AnxietyReported bypatient.Reason for visit:acute complaint Anxiety Type:episodic anxiety Onset/Timing:recurren t episode Context:major life stressors Associated Symptoms:denies suicidal ideations; no significant weight change; no shortness of breath; no panic; appetite good; energy good; no apathy; maintaining functionality;sleep disturbances Myriam BOWERS [address], [place], [address], [facility] - [facility], [facility] 11/25/2015 10:09:40 OBGyn Episode No OBEpisode recorded.
== END 2025-03-25 09:17 | disposition home or self-care (01) ==
LOC: HO.XRAY 09:16
PROVIDERS: PCP Internal Medicine; Visit Provider Hospitalist
DX: K21.9 Gastro-esophageal reflux disease without esophagitis (principal)
CPT/HCPCS: 74220

== ENCOUNTER → 2025-03-25 09:18 | Outpatient (BNV) | payer MEDICARE, SELFPAY | PROVIDERS: PCP Internal Medicine; Visit Provider Radiology Diagnostic Radiology | DX: K21.9 Gastro-esophageal reflux disease without esophagitis (principal) | CPT/HCPCS: 74240 ==

== ENCOUNTER 2025-05-14 10:18 | Outpatient (AMB) | payer MEDICARE, SELFPAY ==
--- NOTE | 2025-05-14 10:22 | MHC.OFFVIS ---
Vital Signs 05/14/25 10:28 Height 5 ft 3 in Weight 140 lb BMI 24.8 BP 145/64 H Blood Pressure Location Rt brachial Position Sitting Pulse 72 Intake Visit Reasons: Mass right upper quadrant Intake Note: Patient here for evaluation of mass on Rt upper quadrant. Present for yrs. Patient c/o: enlarging. Denies pain, tenderness. Sfdc Consultant Required: No Accompanied by: Self / Same As Patient Allergies meloxicam Allergy (Severe, Verified 05/14/25 10:27) esophagitis minocycline Allergy (Severe, Verified 05/14/25 10:27) esophagitis Medication List - Last Reviewed 05/14/25 by FLORA Quevedo acetaminophen 1,000 mg (2 x 500 mg) PO Q6H PRN atorvastatin 20 mg PO DAILY calcium carb-vitamin D3-vit K2 600 mg-1,000 unit-90 mcg tabs PO citalopram 40 mg PO DAILY cyclobenzaprine 10 mg PO BEDTIME hydrocortisone 2.5% 1 appl topical BID PRN lorazepam 0.5 mg PO DAILY PRN vitamin B complex 1 tab PO DAILY HPI HPI Mass right upper quadrant: Details: [age] year old female referred for a lump on the abdominal wall on the right upper quadrant. I had actually seen her last September, for this. She has had this lump over 10 years but this has increased in size. She describes some increasing discomfort as well as skin discoloration. When I 1st met her in September,, she had stated on excision but now she wants to proceed. She says that this has been bothering her more. She is an ex-smoker but she says she quit more than 35 years ago. She says she has been told she may have COPD. She otherwise feels well overall and is very active. [facility] Medical History (Updated 05/14/25 @ 10:36 by Murphy Wallace MD) Lipoma of abdominal wall Cervicalgia GERD (gastroesophageal reflux disease) Lipoma of chest wall Heartburn symptom Environmental and seasonal allergies Hearing loss ADAM (obstructive sleep apnea) Depression, major, in remission Multinodular thyroid Goiter Vitamin D deficiency Osteoporosis Dyslipidemia Osteopenia of left femoral neck Seasonal allergies Chronic bronchitis Pulmonary nodules Chronic rhinitis Surgical History Hx of colonoscopy Hx of esophagogastroduodenoscopy History of total abdominal hysterectomy and bilateral salpingo-oophorectomy Family History Father CVD (cardiovascular disease) Hypertension GI cancer Mother Hypertension Alzheimer disease Daughter Mental health disorder Sister Mental health disorder Social History Housing: House Alcohol intake: current Alcohol intake frequency: a few times a month Alcohol type: wine Patient Tobacco Use Status: Former Tobacco user Tobacco use type: Cigarette Years Smoked: 10 years Current occupational status: unemployed Cognitive needs: No Hearing needs: No Vision needs: Yes Review of Systems Const Denies chills and Denies fever(s) Card Denies chest pain, Denies dyspnea and Denies dyspnea on exertion Resp Denies cough, Denies dyspnea and Denies dyspnea on exertion GI Denies hematochezia and Denies change in bowel habits Denies hematuria Musc Denies back pain and Denies limited range of motion Neuro Denies focal weakness and Denies convulsions Psych Denies depression and Denies mood swings Physical Exam Const General: comfortable and no acute distress Orientation/consciousness: patient oriented x3 Neck Neck: Yes no lymphadenopathy Resp Auscultation: clear to auscultation bilaterally Cardio Rhythm: regular rhythm GI Other: Lipomatous mass on the right upper quadrant about 6 cm in diameter, well-defined, mobile with some skin discoloration Palpation (GI): Soft to palpation, nontender and no guarding Neuro General: patient oriented x3 Assessment & Plan Assessment & Plan (1) Lipoma of abdominal wall: Code(s): D17.1 - Benign lipomatous neoplasm of skin and subcutaneous tissue of trunk Category: Medical Plan She has a large lipoma on the abdominal wall as described above. She now wants this excised. I explained to her the technique of excision of the lipoma under anesthesia. She says that in view of the size, she wants this to be done under some form of anesthesia. I reviewed the risks including but not limited to bleeding, infections and poor healing, as well as the benefits and alternatives. She says she understands and wants to proceed. Coding Level of Care Code Est Pt Level 3 (97672) Diagnoses Lipoma of abdominal wall D17.1
[2025-05-14 10:28] VITALS: BP 145/64; PULSE 72; BMI 24.8
--- OUTSIDE RECORDS SUMMARY | 2025-05-14 11:32 | XMS_ITS | Clinical Summary ---
Author Organization [employer] Address [address] [place] [address] [address] [place] [address] Care Team Providers Care Wellness Nurse Name Role Phone Unavailable Primary Care Provider [...] 2024 06/29/2022, 08/26/2021, 12/23/2020, Additional history exists Influenza Vaccine (#1) 2025 , 06/06/2023, 06/23/2022, Additional history exists DTaP/Tdap/Td Vaccines (2 - Td or Tdap) 02/26/2033 02/26/2023 Zoster Vaccines Completed 08/31/2019, 06/19/2019 Pneumococcal Vaccine: 50+ Years Completed 08/26/2022, 07/18/2013 HIB Vaccines Aged Out No longer eligi [...] to complete this topic Insurance MEDICARE [facility] [id number]
--- OUTSIDE RECORDS SUMMARY | 2025-05-14 11:32 | XMS_ITS | Patient Health Record ---
Author Organization [facility] Address [address] [place] [address] Care Team Providers Care Supervisor Telephone Clerks Name Role Phone Lizzy LEMOS, Keli Primary Care Provider Slick Newsome Jr Reason For Referral No Information Plan Of Treatment No Information Insurance Providers Payer Name Payer Address Payer Phone Subscriber Number Group Number Insured Name Patient Relationship to Insured Coverage Start Date Coverage End Date MEDICARE OF [place] [address] [place] [address] [id number] ANDREW RON Self - patient is the insured [employer] CLAIMS [address] [place] [address] [phone] [id number] ANDREW RON Self - patient is the insured
== END 2025-05-14 10:33 | disposition home or self-care (01) ==
LOC: HO.HGS 10:19
PROVIDERS: PCP Internal Medicine; Visit Provider Surgery
DX: D17.1 Benign lipomatous neoplasm of skin and subcutaneous tissue of trunk (principal)
CPT/HCPCS: 99213

== ENCOUNTER → 2025-05-14 10:18 | Outpatient (BNVA) | payer MEDICARE, SELFPAY | PROVIDERS: PCP Internal Medicine; Visit Provider Surgery | DX: D17.1 Benign lipomatous neoplasm of skin and subcutaneous tissue of trunk (principal) | CPT/HCPCS: 99212 ==

== ENCOUNTER 2025-06-18 11:05 | Outpatient (AMB) | payer MEDICARE, SELFPAY ==
[2025-06-18 11:16] VITALS: BP 130/80; PULSE 80; O2SAT 95; BMI 24.4
--- NOTE | 2025-06-18 11:16 | MHC.OFFVIS ---
Vital Signs 06/18/25 11:16 Height 5 ft 3 in Weight 137 lb 12.623 oz BMI 24.4 BP 130/80 Blood Pressure Location Lt brachial Position Sitting Pulse 80 Pulse Source Pulse Oximeter Pulse Oximetry (%) 95 Oxygen Delivery Method Room Air Intake Visit Reasons: COPD Accompanied by: Self / Same As Patient Allergies meloxicam Allergy (Severe, Verified 06/18/25 11:19) esophagitis minocycline Allergy (Severe, Verified 06/18/25 11:19) esophagitis HPI Comments Details: The patient is a 74 year-old woman with a known history of pulmonary nodules. Overall she has been doing well for respiratory status. Denies any coughing or shortness of breath or any other concerning symptoms. She did have a CT scan of the chest back in June 2018. We did review the images here in the office. He does have an 8 mm ground-glass the pulmonary nodule in addition to other smaller nodules. I did compare this finding to her CT scan from 2014 and it was indeed interval increase in the size of the nodules. Her CT scan from 2016 was relatively similar to the 1 she had 2018. Based on the fact that this was nodules are subsolid and ground glassy when he to monitor them for longer period of time. The fact that the increasing size from 2014 2016 also suggested we have to monitor this very closely to avoid smoldering malignant processes. At this point the patient is scheduled to undergo a CT scan now. She did have a CT scan of the chest that was personally by us in the office back in August 2019 demonstrating multiple pulmonary nodules largest 1 measuring 8 mm and ground-glass in nature. Explained to her that the ground-glass nodular densities we have to follow little longer due to the possibility of a smoldering malignancy. At this point the patient will have a repeat CT scan this month which should be 1 year from her last 1. In addition to that we will check for allergies. 12/12/2020 the patient is here for pulmonary follow-up visit. Overall she continues to have this productive cough which is ongoing and on comfortable. Sometimes she feels that is a postnasal drip and sometimes she feels the mucus is coming from her lungs. Did do accumulate in the the neck area and she feels congested. She did try the singular but was not very helpful. We did have her go for blood work but no significant allergies noted. No significant eosinophilia noted and normal sedimentation rate. At this point the patient has evidence of chronic bronchitis with ongoing wheezing and rhonchi. The patient is not interested in using inhalers at this time. She is open to trying azithromycin 3 times a week and see if this helps with the treatment of a chronic bronchitis. In addition to that we did look at her CT scan of the chest. We did compare this CT scan to there CT scan from [facility] back in 2019 and also from 2017. It appears that she has this 1 cm subsolid nodular density. Does not appear to have significant change in size which is reassuring. However it is subsolid and ground-glass therefore should be monitor closely. Based on the fact that the nodule looks fairly the same will hold off on doing any more CT scans until 18 months from now. In the meantime will treat her for the chronic bronchitis her follow-up in 3 months. 06/02/2021 the patient is here for a pulmonary follow-up visit. Since we last spoke she is doing better on the Breo. Her cough and chest congestion are improved. She did not have the blood work which she will have it done today to assess for her underlying chronic bronchitis. She also has a pulmonary nodule which is a ground-glass the nodular density in the right upper lobe that is measuring 9 mm back and August 2020. patient is concerned because she is developing some chest heaviness and some increase discomfort in the chest area and some fullness in her chest than axilla and neck area. She is concerned about this nodule. She has looked at all reports going back to 2015 in appears that the measurements and slowly increased in size. Therefore based on worsening symptoms and the interval increase in the right upper lobe nodular density on however repeat a CT scan of the chest now. 07/27/2021 the patient is here for a pulmonary follow-up visit. Since we last spoke the patient stopped the Breo. She did not really see any significant improvement. She does feel this sensation that she wants to cough in does have some shortness of breath at times. Her breathing does feel better. 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 Otherwise her blood work was reassuring. We also reviewed her CT scan of the chest personally by me as the subsolid nodular density in the right upper lobe which appears to be pretty stable when compared to 2019 measuring between 9-10 mm in size. In addition to that there was a 5 mm ground-glass nodular density in the right lower lobe. She also has other subcentimeter pulmonary nodules that are solid in nature that appear to be stable as well. No evidence of any pneumonitis or airway disease. On examination she does have some wheezing. Will provide her with a peak flow in order for her to check her peak flows while she goes back on the Breo. if she does not feel that the Breo is helping she will call so we can provide her with an alternative inhaler. 01/24/2022 patient is here for a pulmonary follow-up visit. She continues to have a cough. Moderate severity. Sometimes the cough is a result of a scratchy throat. Sometimes she even scratches her throat with her finger. A does provide some relief sometimes she feels that the cough is more the and associated with chest tightness and wheezing. She has been using the Breo which has been partially helpful. We did talk about considering other medications to suppress her upper airway cough syndrome. She is going to try some dark chocolate and also we did talk about the Tessalon Perles. Patient may also have an allergic component to the for Astelin nasal spray may be helpful. In the meantime she also has some wheezing on examination. Therefore will optimize therapy by switching her Breo to Trelegy. I am hopeful that this provides additional support. When she completes the months on Trelegy come go back to Breo and see if her symptoms reoccur. The patient has underlying pulmonary nodules. She should have a CT scan a year from her last 1 which will be sometime in May 2022. Will follow-up after that. 06/22/2022 the patient is here for a pulmonary follow-up visit. The patient continues to complaint of cough. She did try the Trelegy inhaler but was not helpful. She went back on the Breo. Still she does not see any significant improvement. On examination she does have expiratory wheezing. Will go ahead and add Spiriva to Breo see if this provides better affect. In addition to that she did undergo a CT scan of the chest that was personally by me. We did compared to her CT scans from 2020 and 2019. The subsolid pulmonary nodules not changing significantly but he did increase briefly from 9 mm to 10 mm since last year. I do not see any worsening solid component to the nodule. At this point will plan to repeat the CT scan in 1 year. In the meantime will present her at thoracic conference to can look at the nodule a little closer in multidisciplinary approach since the had a slight increase in size. 12/27/2022 the patient is here for a pulmonary follow-up visit. The patient overall is doing better. She is tolerating the Breo. She did not tolerate the Spiriva due to dryness of her mouth and other adverse effects. Therefore she stopped it. She did not really see any significant improvement on the Spiriva anyway. She continues on the Breo. Now she is going to allergy season. She does have a cough and some nasal congestion. She is using her nasal sprays with good effect. On examination she also has some mild wheezing. Therefore will go ahead and add Singulair to her regimen to help with allergic symptoms and asthma symptoms as well. The patient also has significant daytime drowsiness with an [place] score elevated at 10 over 24. She has had episodes which she has awakened suddenly at nighttime with shortness of breath. She has noticed a day been happening more often and she is getting concern. Usually happen when she is in deep sleep. This is very likely to be sleep apnea. Therefore will have her undergo a home sleep study at this time. She also has pulmonary nodules however closely monitoring. She is due for CT scan in May. Therefore, will follow-up after her sleep study. But, if her sleep study is negative she can postpone that visit till May after her CT scan. 06/22/2023 the patient is here for a pulmonary follow-up visit. The patient overall has been doing well. Denies any significant shortness of breath or wheezing. She is responding well to the current respiratory regimen which is Breo. She is tried multiple inhalers in the past without any good response. The patient has been exercising regularly. She does get winded at times. On examination she does have some wheezing. I did recommend we can increase the Breo to the 200 mcg dose at least for a month and see if it helps. She also complains of daytime drowsiness. The patient did have a home sleep study. It demonstrated that she did have mild sleep apnea primarily while sleeping supine. She will try positional therapy. I will give her some ideas. However, she continues have daytime drowsiness she should consider trial of CPAP specially because of her cardiovascular risk factors. We did review her CT scan of the chest that she had in May 2023 demonstrating stable subsolid pulmonary nodule in the rather low. Has not changed in the last few years. This is a subsolid nodule so we just have to make sure we follow it a little bit longer. She has had CT scans now for some time. Therefore will plan to follow this nodule in 18-24 months. If the patient develops any worsening symptoms prior to that she is to call the office for an earlier assessment. 06/21/2024 the patient is here for a pulmonary follow-up visit over the went to time she had a hard time with slow. She had pharyngitis and also some difficulty swallowing. She did go to an urgent care and she was given additional allergy medications without any significant improvement. So her symptoms did improve. Then after that effort her told her that she was having some issues with halitosis. She wants to see a dentist. She had to have a tooth extraction which she had recently without any complications. Seems to be getting a little better. She still has a little bit of soreness in the throat. Also has poor dentition. Will be reasonable to treat with chlorhexidine at this time. The patient also has pulmonary nodules noted on previous CT scans specially from 06/14/2023. Will go ahead and plan to repeat the CT scan in 6 months specially with her ongoing respiratory symptoms. She is responding well to the Breo inhaler. She did not do well on the higher dose so she was brought down to the 100 mcg dose with better effect. She still has some wheezing at times. The patient also has nasal congestion will go ahead and start her nasal therapy. 12/25/2024 the patient is here for pulmonary follow-up visit. Overall she is doing okay. She still has the same complaints of this very tenacious mucus buildup in her throat. Sometimes it chokes her up. Sometimes difficult to expectorate. Sometimes is related to a sore throat. She does not feel like it is really drainage from the nose. She is not sure is coming from. She did have a CT scan of the chest recently that were I personally reviewed with her. She still has this irregular looking nodular density in the right upper lobe that has not appear to change compared to last year. Although is irregular and concerning in appearance. Therefore still think that she should continue to follow yearly basis. In addition to that her rest of the lungs appeared to be healthy. She does have an exam have erythematous slow. She does complaint of reflux at times. I do believe that reflux may be playing a big role in her ongoing chronic bronchitis. Likely for micro aspirations. Will go ahead and start her on azithromycin to see this provides relief. In addition to that will order a barium swallow. She does not feel like her maintenance inhalers helping so therefore she can hold off although she should have a rescue inhaler available in case she needs it. And if she notices that she needs it more than 2 times a week she needs to go back on her maintenance inhaler. Will plan to follow-up in 4-6 months. If she has any issues prior to this she will call for an earlier assessment. Also to note because she has been on citalopram when she starts the macrolide therapy she will need to get an EKG to make sure that her QT is within normal limits. 06/18/2025 the patient is here for pulmonary follow-up visit. Overall she is doing a little bit better. She did take the azithromycin for the chronic bronchitis and it did help her but not completely. Now she is off it and she still feels a chest congestion. Does not feel like it is a postnasal drip. We also checked her swallowing swallow is perfectly fine except for small hiatal hernia. She feels like the chest congestion is mainly in the lungs. She did try the Breo with the Breo was not working for her. Will go ahead and switch over to Dulera hopefully with the medication she can have better medication distribution with the HFA formulation. The patient also is willing to try Daliresp. For chronic bronchitis. We can try the small dose of 250 mcg dose and increase it as long she can not tolerate from a GI standpoint. We can also increase it further. However, if she continues to be symptomatic will go ahead and repeat a CAT scan little sooner a consider bronchoscopy. Will follow-up in 3 months see her progress. If she has any issues she can always call for further recommendations. [facility] Medical History (Updated 06/18/25 @ 22:24 by Valentin Badillo MD) Lipoma of abdominal wall Cervicalgia GERD (gastroesophageal reflux disease) Lipoma of chest wall Heartburn symptom Environmental and seasonal allergies Hearing loss ADAM (obstructive sleep apnea) Depression, major, in remission Multinodular thyroid Goiter Vitamin D deficiency Osteoporosis Dyslipidemia Osteopenia of left femoral neck Seasonal allergies Chronic bronchitis Pulmonary nodules Chronic rhinitis Surgical History Hx of colonoscopy Hx of esophagogastroduodenoscopy History of total abdominal hysterectomy and bilateral salpingo-oophorectomy Family History Father CVD (cardiovascular disease) Hypertension GI cancer Mother Hypertension Alzheimer disease Daughter Mental health disorder Sister Mental health disorder Social History Housing: House Alcohol intake: current Alcohol intake frequency: a few times a month Alcohol type: wine Patient Tobacco Use Status: Former Tobacco user Tobacco use type: Cigarette Years Smoked: 10 years Current occupational status: unemployed Cognitive needs: No Hearing needs: No Vision needs: Yes Review of Systems Const Reports no additional complaints, Reports daytime sleepiness, Denies frequent falls, Denies headache(s), Reports snoring and Denies weakness Eyes Denies blind spots, Denies blurry vision, Denies change in vision, Denies diplopia and Denies loss of vision ENT Reports no additional complaints, Denies vertigo, Denies dizziness and Denies headache(s) Card Reports no additional complaints and Reports dyspnea on exertion Resp Reports no additional complaints, Reports chest congestion, Reports cough, Reports dyspnea on exertion, Reports snoring and Denies wheezing GI Reports dyspepsia and Reports heartburn Details: Denies nausea or vomiting Musc Reports no additional complaints, Reports as per HPI, Denies abnormal gait and Denies numbness Skin/Breast Reports wounds (Abrasion of left knee) Neuro Denies abnormal gait, Denies vertigo, Denies dizziness, Denies frequent falls, Denies headache(s), Denies lack of coordination, Denies loss of vision, Denies memory loss, Denies numbness and Denies weakness Psych Denies memory loss Aller/Immun Denies wheezing Physical Exam Vital Signs: Last Vital Signs Pulse 80 06/18/25 11:16 BP 130/80 06/18/25 11:16 Pulse Ox 95 06/18/25 11:16 Oxygen Delivery Method Room Air 06/18/25 11:16 BMI result Body Mass Index 24.4 Const General: alert Neck Neck: Yes normal visual inspection Chest Chest palpation & inspection: abnormal inspection of the chest (lipoma) Resp Auscultation: no wheezes and diminished lung sounds Cardio Rate: regular rate Rhythm: regular rhythm Heart sounds: S1 normal heart sound present and S2 normal heart sound present GI Inspection: Yes normal to inspection and No distended Assessment & Plan Assessment & Plan (1) Pulmonary nodules: Code(s): R91.8 - Other nonspecific abnormal finding of lung field Category: Medical (2) Chronic rhinitis: Code(s): J31.0 - Chronic rhinitis Category: Medical (3) Chronic bronchitis: Code(s): J42 - Unspecified chronic bronchitis Category: Medical Qualifiers: Chronic bronchitis type: mucopurulent Qualified Code(s): J41.1 - Mucopurulent chronic bronchitis (4) ADAM (obstructive sleep apnea): Code(s): G47.33 - Obstructive sleep apnea (adult) (pediatric) Category: Medical (5) GERD (gastroesophageal reflux disease): Code(s): K21.9 - Gastro-esophageal reflux disease without esophagitis Category: Medical (6) Pre-op chest exam: Code(s): Z01.811 - Encounter for preprocedural respiratory examination Category: Medical Plan Positional sleep therapy. Consider elastic mandibular device with her dentist. ELOINA as needed and prior to exercise activity repeat CT scan 6 months Astelin nasal spray Fluticasone stop Azithromycin MWF start Dulera start daliresp 250mcg consider bronchoscopy proceed with anesthesia and surgery F/U 3 months Medications: New mometasone-formoterol 200-5 mcg/actuation (Dulera) 2 puffs inhalation Q12H 13 grams 11RF 30 days roflumilast (Daliresp) 250 mcg PO DAILY 30 tabs 11RF 30 days J44.9 - Chronic obstructive pulmonary disease, unspecified Coding Level of Care Code Est Pt Level 4 (47818) Complex EM visit Add On G2211 Diagnoses Pulmonary nodules R91.8 Chronic rhinitis J31.0 Mucopurulent chronic bronchitis J41.1 Chronic bronchitis type: mucopurulent ADAM (obstructive sleep apnea) G47.33 GERD (gastroesophageal reflux disease) K21.9 Pre-op chest exam Z01.811 Time Spent (min) 18
--- OUTSIDE RECORDS SUMMARY | 2025-06-18 14:15 | XMS_ITS | Patient Health Record ---
Author Organization [facility] Address [address] [place] [address] Care Team Providers Care Properties Supervisor Name Role Phone Lizzy LEMOS, Keli Primary Care Provider Slick Newsome Jr [phone] Reason For Referral No Information Plan Of Treatment No Information Insurance Providers Payer Name Payer Address Payer Phone Subscriber Number Group Number Insured Name Patient Relationship to Insured Coverage Start Date Coverage End Date MEDICARE OF [place] [address] [place] [address] [id number] ANDREW RON Self - patient is the insured MEDEX ATTN CLAIMS [address] [place] [address] [phone] [id number] ANDREW RON Self - patient is the insured
--- OUTSIDE RECORDS SUMMARY | 2025-06-18 14:15 | XMS_ITS | Clinical Summary ---
Author Organization [employer] Address [address] [place] [address] [address] [place] [address] Care Team Providers Care Aboriginal Ceremonial Celebrant Name Role Phone Unavailable Primary Care Provider [...] 75+ series) 2023 COVID-19 Vaccine ( season) 2025 06/29/2022, 08/26/2021, 12/23/2020, Additional history exists Influenza [...] age to complete this topic Insurance MEDICARE [facility] [id number]
== END 2025-06-18 12:00 | disposition home or self-care (01) ==
LOC: HO.HPS 11:06
PROVIDERS: PCP Internal Medicine; Visit Provider Hospitalist
DX: R91.8 Other nonspecific abnormal finding of lung field (principal); J31.0 Chronic rhinitis; J41.1 Mucopurulent chronic bronchitis; G47.33 Obstructive sleep apnea (adult) (pediatric); K21.9 Gastro-esophageal reflux disease without esophagitis; Z01.811 Encounter for preprocedural respiratory examination
CPT/HCPCS: 99214; G2211

== ENCOUNTER → 2025-06-18 11:05 | Outpatient (BNVA) | payer MEDICARE, SELFPAY | PROVIDERS: PCP Internal Medicine; Visit Provider Hospitalist | DX: J41.1 Mucopurulent chronic bronchitis (principal); G47.33 Obstructive sleep apnea (adult) (pediatric); J31.0 Chronic rhinitis; K21.9 Gastro-esophageal reflux disease without esophagitis; R91.8 Other nonspecific abnormal finding of lung field; Z87.891 Personal history of nicotine dependence | CPT/HCPCS: 99212 ==

== ENCOUNTER 2025-07-18 05:51 | Day surgery (SDC) | payer MEDICARE, SELFPAY ==
--- OUTSIDE RECORDS SUMMARY | 2025-06-20 07:41 | XMS_ITS | Clinical Summary ---
Author Organization [facility] Address [address] [place] [address] Care Team Providers Care Silk Spooler Name Role Phone Keli Ball Md, MD [...] PNEUMOCOCCAL VACCINE (1 - PCV) 2013 INFLUENZA (#1) 2025 Care Teams Silk Spooler Relationship Specialty Start Date End Date Keli Ball MD, MD PCP - General Internal Medicine 07/21/17
--- OUTSIDE RECORDS SUMMARY | 2025-06-20 07:41 | XMS_ITS | Encounter Summary ---
Author Organization [facility] Address [address] [place] [address] Care Team Providers Care Video Tape Editor Name Role Phone Keli Ball Md, MD Primary Care Provider Unavailable Encounter Details Date Type Department Care Team Description 08/03/2017 Release of Information Medical Records [address] [place] [id number] Abstract, Provider Social History Tobacco Use Types [...] on filedocumented in this encounter Care Teams Video Tape Editor Relationship Specialty Start Date End Date Keli Ball MD, MD PCP - General Internal Medicine 07/21/17 documented as of this encounter
--- OUTSIDE RECORDS SUMMARY | 2025-06-20 07:42 | XMS_ITS | Patient Health Record ---
Author Organization [facility] Address [address] [place] [address] Care Team Providers Care Trim And Burr Operator Name Role Phone Lizzy LEMOS, Keli Primary Care Provider Slick Newsome Jr [phone] Reason For Referral No Information Plan Of Treatment No Information Insurance Providers Payer Name Payer Address Payer Phone Subscriber Number Group Number Insured Name Patient Relationship to Insured Coverage Start Date Coverage End Date MED[place]ARE OF [place] [address] [place] [address] [phone] [id number] ANDREW RON Self - patient is the insured MEDEX ATTN CLAIMS [address] [place] [address] [id number] ANDREW RON Self - patient is the insured
--- OUTSIDE RECORDS SUMMARY | 2025-06-20 07:42 | XMS_ITS | Clinical Summary ---
Author Organization [employer] Address [address] [place] [address] [address] [place] [address] Care Team Providers Care Poultry Breeder Name Role Phone Unavailable Primary Care Provider [...] age to complete this topic Insurance MEDICARE [facility] [id number]
--- OUTSIDE RECORDS SUMMARY | 2025-06-20 07:42 | XMS_ITS | Encounter Summary ---
Author Organization [facility] Address [address] [place] [address] Care Team Providers Care High School Foreign Language Tutor Name Role Phone Keli Ball Md, MD Primary Care Provider Unavailable Encounter Details Date Type Department Care Team Description 07/13/2018 Orders Only Pulmonology - [address] [place] [address] Valentin Badillo MD Multiple pulmonary [...] breath documented in this encounter Care Teams High School Foreign Language Tutor Relationship Specialty Start Date End Date Keli Ball MD, MD PCP - General Internal Medicine 07/21/17 documented as of this encounter
[2025-07-11 13:26] VITALS: BP 143/61; PULSE 68; RESP 16; O2SAT 99; BMI 25.0
--- NOTE | 2025-07-11 13:41 | HO.ANESPROP2 ---
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 Last office visit 05/2025 with med changes and deemed optimized. Started on Dulera, will start roflumilast. Pt reports stable, no need for rescue inhaler PMFSH Active Problems Active Problems: All Active Problems Pre-op chest exam (Acute) Mass of soft tissue of abdomen (Acute) Osteoarthritis of both hips (Acute) Lipoma of abdominal wall (Acute) Cervicalgia (Acute) GERD (gastroesophageal reflux disease) (Acute) Lipoma of chest wall (Acute) Heartburn symptom (Acute) Vitamin D deficiency (Acute) ADAM (obstructive sleep apnea) (Acute) Depression, major, in remission (Acute) Multinodular thyroid (Acute) Goiter (Acute) Osteoporosis (Acute) Dyslipidemia (Acute) Chronic bronchitis (Acute) Pulmonary nodules (Acute) Past Medical History Medical History Arthritis Hiatal hernia Depression Wheezing Bronchitis COPD (chronic obstructive pulmonary disease) Lipoma of abdominal wall Cervicalgia GERD (gastroesophageal reflux disease) Lipoma of chest wall Heartburn symptom Environmental and seasonal allergies Hearing loss ADAM (obstructive sleep apnea) Depression, major, in remission Multinodular thyroid Goiter Vitamin D deficiency Osteoporosis Dyslipidemia Osteopenia of left femoral neck Seasonal allergies Chronic bronchitis Pulmonary nodules Chronic rhinitis Family History Family History Father CVD (cardiovascular disease) Hypertension GI cancer Mother Hypertension Alzheimer disease Daughter Mental health disorder Sister Mental health disorder Family history of problems with anesthesia: No Surgical History Surgical History Hx of colonoscopy Hx of esophagogastroduodenoscopy History of total abdominal hysterectomy and bilateral salpingo-oophorectomy History of Problems with Anesthesia: No Social History Social History Housing: House Are you a primary primary care coordinator to a significant other at home: No Do you presently have visiting nurse or other home services: No Alcohol intake: current Alcohol intake frequency: 0-2 drinks per day Alcohol type: wine Patient Tobacco Use Status: Former Tobacco user Tobacco use type: Cigarette Years Smoked: 10 years Use of substances other than those prescribed or required for medical reasons: No Have you been hit, kicked, punched, or otherwise hurt by someone within the past year? If so, by whom?: No Are you DNR?: Yes Advance Directives: No Advance Directives Information Provided: Yes Advance Directives on File: No Patient : No : No Poor oral hygiene: Yes Current occupational status: unemployed Cognitive needs: No Hearing needs: No Vision needs: Yes Meds Allergies Allergy/AdvReac Type Severity Reaction Status Date / Time meloxicam Allergy Severe esophagitis Verified 06/18/25 11:19 minocycline Allergy Severe esophagitis Verified 06/18/25 11:19 Home Medications ?Medication ?Instructions ?Recorded ?Confirmed ?Last Taken ?Type vitamin B complex 1 tab PO DAILY 02/01/21 07/11/25 Unknown History calcium 600 mg (as carbonate)-vit 1 tab PO DAILY 08/29/24 07/11/25 Unknown History D3 1,000 unit-vitamin K2 90 mcg tab albuterol sulfate 90 mcg/actuation 2 puff inhalation Q6H PRN wheezing 07/11/25 07/11/25 07/18/25 History aerosol inhaler mometasone-formoterol HFA 200 1 puff inhalation DAILY 07/11/25 07/11/25 Unknown History mcg-5 mcg/actuation aerosol inhaler (Dulera) multivitamin 1 tab PO DAILY 07/11/25 07/11/25 Unknown History naproxen sodium 220 mg capsule 220 mg PO Q12H PRN Pain 07/11/25 07/11/25 07/16/25 History Exam Height,Weight and Vital Signs: Height 5 ft 3 in Weight 63.957 kg Last Vital Signs Pulse 68 07/11/25 13:26 Resp 16 07/11/25 13:26 BP 143/61 H 07/11/25 13:26 Pulse Ox 99 07/11/25 13:26 O2 Del Method Room Air 07/11/25 13:26 Pertinent Lab Results Pertinent Lab Results: Laboratory Tests 01/22/25 08:14 Sodium 142 Potassium 4.1 Chloride 105 Carbon Dioxide 30 H BUN 13 Creatinine 0.70 Narrative Narrative: EKG 12/2024 Vent. Rate : 69 BPM Atrial Rate : 69 BPM P-R Int : 156 ms QRS Dur : 82 ms QT Int : 424 ms P-R-T Axes : 6 -17 58 degrees QTcB Int : 454 ms Normal sinus rhythm Normal ECG When compared with ECG of 05-Mar-2015 10:21, No significant change was found Airway Mallampati Class: I TM Dist: >3cm Neck ROM: Full Loose/Missing/Broken Teeth: No (crowns and veneers throughout) Heart: RRR Lungs: CTAB Assessment and Plan Assessment Anesthesia Assessment: Anesthesia Plan Discussed and PAT Visit Final Anesthetic Review Family History of Problems with Anesthesia: No History of Problems with Anesthesia: No Documented by User: Adriana Henderson MD 07/18/25 07:36 [facility] Past Medical History Medical History Arthritis Hiatal hernia Depression Wheezing Bronchitis COPD (chronic obstructive pulmonary disease) Lipoma of abdominal wall Cervicalgia GERD (gastroesophageal reflux disease) Lipoma of chest wall Heartburn symptom Environmental and seasonal allergies Hearing loss ADAM (obstructive sleep apnea) Depression, major, in remission Multinodular thyroid Goiter Vitamin D deficiency Osteoporosis Dyslipidemia Osteopenia of left femoral neck Seasonal allergies Chronic bronchitis Pulmonary nodules Chronic rhinitis Family History Family History Father CVD (cardiovascular disease) Hypertension GI cancer Mother Hypertension Alzheimer disease Daughter Mental health disorder Sister Mental health disorder Surgical History Surgical History Hx of colonoscopy Hx of esophagogastroduodenoscopy History of total abdominal hysterectomy and bilateral salpingo-oophorectomy Social History Social History Housing: House Are you a primary primary care coordinator to a significant other at home: No Do you presently have visiting nurse or other home services: No Alcohol intake: current Alcohol intake frequency: 0-2 drinks per day Alcohol type: wine Patient Tobacco Use Status: Former Tobacco user Tobacco use type: Cigarette Years Smoked: 10 years Use of substances other than those prescribed or required for medical reasons: No Have you been hit, kicked, punched, or otherwise hurt by someone within the past year? If so, by whom?: No Are you DNR?: Yes Advance Directives: No Advance Directives Information Provided: Yes Advance Directives on File: No Patient : No : No Poor oral hygiene: Yes Current occupational status: unemployed Cognitive needs: No Hearing needs: No Vision needs: Yes Meds Allergies Allergy/AdvReac Type Severity Reaction Status Date / Time meloxicam Allergy Severe esophagitis Verified 06/18/25 11:19 minocycline Allergy Severe esophagitis Verified 06/18/25 11:19 Home Medications ?Medication ?Instructions ?Recorded ?Confirmed ?Last Taken ?Type vitamin B complex 1 tab PO DAILY 02/01/21 07/11/25 Unknown History calcium 600 mg (as carbonate)-vit 1 tab PO DAILY 08/29/24 07/11/25 Unknown History D3 1,000 unit-vitamin K2 90 mcg tab albuterol sulfate 90 mcg/actuation 2 puff inhalation Q6H PRN wheezing 07/11/25 07/11/25 07/18/25 History aerosol inhaler mometasone-formoterol HFA 200 1 puff inhalation DAILY 07/11/25 07/11/25 Unknown History mcg-5 mcg/actuation aerosol inhaler (Dulera) multivitamin 1 tab PO DAILY 07/11/25 07/11/25 Unknown History naproxen sodium 220 mg capsule 220 mg PO Q12H PRN Pain 07/11/25 07/11/25 07/16/25 History Exam Airway Mallampati Class: II Assessment and Plan Final Anesthetic Review NPO: Yes ASA Class: III Final Preanesthetic Review: Meds/Allgs Chart Reviewed, Consent Obtained/Reviewed and Anes Risks/Benef Reviewed Patient Risk: Intermediate Procedure Risk: Low Anesthetic Plan Anesthetic Plan: MAC: Disposition: Standard PACU
[2025-07-18 06:02] VITALS: BP 154/76; PULSE 76; RESP 16; TEMP 36.1; O2SAT 96
[2025-07-18 06:30] VITALS: BMI 24.6
[2025-07-18] MEDS: Lactated Ringers 1,000 ML 100 ML IVCONT (06:31)
--- NOTE | 2025-07-18 07:16 | MHC.SHP ---
Pre-Procedural Eval Section A - 24 Hr Update-Section A only Date of Service: 07/18/25 Section B - Complete if H&P > 30 days Chief Complaint: Benign lipomatous neoplasm of skin and subcutaneou Details of Present Illness: Has a large lipoma on the abdominal wall Relevant Family History (Specify if Yes): No Relevant Social History: None Present Medications: see Short Stay Collaborative assessment Medical History: Significant History (Ex-smoker, GERD, arthritis, bronchitis, thyroid disease) Allergies: Allergies Allergy/AdvReac Type Severity Reaction Status Date / Time meloxicam Allergy Severe esophagitis Verified 06/18/25 11:19 minocycline Allergy Severe esophagitis Verified 06/18/25 11:19 Review of Systems Sugical H&P ROS: Negative: Constitution, Cardiovascular and Respiratory Exam Surgical H&P Exam: Normal: Heart and Normal: Lungs and Significant Findings: Abdomen (Lipomatous mass of the wall) Plan Diagnosis/Plan: Unchanged I have reviewed the history and physical and performed a pertinent physical examination on my patient. No changes have occurred unless specified. Time Spent With Patient Time: Total time managing care of this patient today ____ minutes.
[2025-07-18 08:02] VITALS: BP 117/59; PULSE 70; RESP 12; TEMP 36.6; O2SAT 98
--- NOTE | 2025-07-18 08:03 | W.PM.OPN ---
Operative Note Operative Note Date of Service: 07/18/25 Narrative: Preop diagnosis: Large lipoma abdominal wall right upper quadrant Postop diagnosis: The same Procedure: Excision of large lipoma on the upper abdominal wall under anesthesia Surgeon: Murphy Wallace MD The patient is a 75 year old female with a large lipoma in the right upper quadrant. She understood the technique of the planned procedure as was the risks, benefits, and alternatives. She was brought to the operating room and placed supine under monitored anesthesia care. A surgical time-out was done. The patient received cefazolin 2 g IV preoperatively. The right upper quadrant on the area of the lipoma was prepped and draped. Lidocaine 1 % was used for local anesthesia. I made a transverse incision in the skin overlying the lipoma with a blade 15. This was carried down through the full-thickness of the skin and subcutaneous fat with electrocautery until was able to visualize the lipoma was fat. I sharply dissected the lipomatous fat off of the surrounding subcutaneous layer with electrocautery as well as Metzenbaum scissors until I was able to deliver this. I cauterized oozing areas . I irrigated the area of excision. The lipoma measured 11 cm by 7 cm. Once hemostasis was confirmed, I reapposed the subdermal layer and subcutaneous layer with Polysorb 3-0 simple interrupted sutures. Skin closure was achieved with Polysorb 4-0 subcuticular running stitch The area was infiltrated with Marcaine 0.5% for postop analgesia. Dressings were applied and the procedure was completed. The patient tolerated procedure well. There were no immediate complications. Initial and final counts of sponges and instruments were correct. Estimated blood loss was does not 25 cc. The patient was extubated without difficulty and transferred to the recovery room with stable vital signs.
[2025-07-18 08:17] VITALS: BP 131/62; PULSE 62; RESP 16; O2SAT 98
[2025-07-18 08:31] VITALS: BP 140/60; PULSE 65; RESP 16; TEMP 36.3; O2SAT 98
== END 2025-07-18 09:11 | disposition home or self-care (01) ==
PROVIDERS: PCP Internal Medicine; Visit Provider Surgery
PROC: (CPT 22903; principal; 2025-07-18 07:30)
DX: D17.1 Benign lipomatous neoplasm of skin and subcutaneous tissue of trunk (principal); K21.9 Gastro-esophageal reflux disease without esophagitis; R91.8 Other nonspecific abnormal finding of lung field; J44.9 Chronic obstructive pulmonary disease, unspecified; J41.1 Mucopurulent chronic bronchitis; J31.0 Chronic rhinitis; G47.33 Obstructive sleep apnea (adult) (pediatric); E78.5 Hyperlipidemia, unspecified; E04.2 Nontoxic multinodular goiter; E55.9 Vitamin D deficiency, unspecified; M81.0 Age-related osteoporosis without current pathological fracture; F32.5 Major depressive disorder, single episode, in full remission; Z79.899 Other long term (current) drug therapy; Z88.1 Allergy status to other antibiotic agents; Z88.8 Allergy status to other drugs, medicaments and biological substances; Z87.891 Personal history of nicotine dependence; Z56.0 Unemployment, unspecified
CPT/HCPCS: 22903; 88304; J0131; J0690; J2003; J2250; J2704; J2795; J3010

== ENCOUNTER → 2025-07-18 05:51 | Outpatient (BNV) | payer MEDICARE, SELFPAY | PROVIDERS: PCP Internal Medicine; Visit Provider Surgery | DX: D17.1 Benign lipomatous neoplasm of skin and subcutaneous tissue of trunk (principal) | CPT/HCPCS: 22903 ==

== ENCOUNTER 2025-07-31 09:42 | Outpatient (AMB) | payer MEDICARE, SELFPAY ==
--- NOTE | 2025-07-31 09:54 | A.OFFVIS_ITS ---
Vital Signs 07/31/25 10:00 Height 5 ft 3 in Weight 138 lb 14.259 oz BMI 24.6 Respiration 16 Pulse 62 Intake Visit Reasons: S/P exc. Lg. lipoma Rt abdomen under anesthesia Intake Note: Patient is seen in office for post op assessment post excision of large lipoma on the upper abdominal wall. 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 Lg. lipoma Rt abdomen under anesthesia: Details: Aislinn Sarkar is a 75 year old female here for wound check and follow up after undergoing excision of large lipoma on the upper abdominal wall under anesthesia on 07/18/[address] Wallace. Patient reports tolerating the procedure well. She took one tramadol following the surgery but otherwise did not need anything for pain. She took her dressing off after the surgery and put a dry dressing with tape she had at home and her skin got irritated and red. This has improved. She left the area open to air following. She has no concerns. [facility] Medical History Arthritis Hiatal hernia Depression Wheezing Bronchitis COPD (chronic obstructive pulmonary disease) Lipoma of abdominal wall Cervicalgia GERD (gastroesophageal reflux disease) Lipoma of chest wall Heartburn symptom Environmental and seasonal allergies Hearing loss ADAM (obstructive sleep apnea) Depression, major, in remission Multinodular thyroid Goiter Vitamin D deficiency Osteoporosis Dyslipidemia Osteopenia of left femoral neck Seasonal allergies Chronic bronchitis Pulmonary nodules Chronic rhinitis Surgical History History of excision of mass (07/18/25) Hx of colonoscopy Hx of esophagogastroduodenoscopy History of total abdominal hysterectomy and bilateral salpingo-oophorectomy Family History Father CVD (cardiovascular disease) Hypertension GI cancer Mother Hypertension Alzheimer disease Daughter Mental health disorder Sister Mental health disorder Social History (Reviewed 07/31/25 @ 10:00 by DENI Ramirez Housing: House Are you a primary small animal caretaker to a significant other at home: No Do you presently have visiting nurse or other home services: No Alcohol intake: current Alcohol intake frequency: 0-2 drinks per day Alcohol type: wine Patient Tobacco Use Status: Former Tobacco user Tobacco use type: Cigarette Years Smoked: 10 years Current occupational status: unemployed Cognitive needs: No Hearing needs: No Vision needs: Yes Review of Systems Const All systems reviewed & are unremarkable except as noted in HPI and below Physical Exam Vital Signs: Last Vital Signs Pulse 62 07/31/25 10:00 Resp 16 07/31/25 10:00 BMI result Body Mass Index 24.6 Const General: comfortable, no acute distress and alert Orientation/consciousness: patient oriented x3 Resp Effort & Inspection: normal respiratory effort and able to speak in complete sentences GI Other: RUQ excision site- steri strips removed, incision well approximated and healed, no surrounding erythema, mild old ecchymosis of lateral aspect and mild ind uration underlying the incision itself with mild edema Inspection: No distended Palpation (GI): Soft to palpation and nontender Skin General skin exam: no rashes or lesions noted Neuro General: patient oriented x3 and moves all extremities Results Reviewed Results Reviewed: Soft tissue, right abdomen, excision: Mature lobular adipose tissue, consistent with lipoma Assessment & Plan Assessment & Plan (1) Lipoma of abdominal wall: Code(s): D17.1 - Benign lipomatous neoplasm of skin and subcutaneous tissue of trunk Category: Medical Plan 75 year old female s/p excision of large lipoma on the upper abdominal wall under anesthesia on 07/18/25. She tolerated the procedure well. Her incision site is well healed without evidence of infection. She has no concerns. She is to follow up as needed if she develops concerns. Patient comfortable with plan. Coding Level of Care Code Global (40107) Diagnoses Lipoma of abdominal wall D17.1
[2025-07-31 10:00] VITALS: PULSE 62; RESP 16; BMI 24.6
--- OUTSIDE RECORDS SUMMARY | 2025-07-31 10:57 | XMS_ITS | Clinical Summary ---
Author Organization [employer] Address [address] [place] [address] [address] [place] [address] Care Team Providers Care Optical Coating Technician Name Role Phone Unavailable Primary Care [...] age to complete this topic Insurance MEDICARE [facility] [id number]
--- OUTSIDE RECORDS SUMMARY | 2025-07-31 10:57 | XMS_ITS | Patient Health Record ---
Author Organization [facility] Address [address] [place] [address] Care Team Providers Care Automation Lead Name Role Phone Lizzy LEMOS, Keli Primary Care Provider Slick Newsome Jr Reason For Referral No Information Plan Of Treatment No Information Insurance Providers Payer Name Payer Address Payer Phone Subscriber Number Group Number Insured Name Patient Relationship to Insured Coverage Start Date Coverage End Date MEDICARE OF [place] [address] [place] [id number] ANDREW RON Self - patient is the insured MEDEX ATTN CLAIMS [address] [place] [address] [id number] ANDREW RON Self - patient is the insured
== END 2025-07-31 10:23 | disposition home or self-care (01) ==
LOC: HO.HGS 09:42
PROVIDERS: PCP Internal Medicine; Visit Provider Physician Assistant Surgical
DX: D17.1 Benign lipomatous neoplasm of skin and subcutaneous tissue of trunk (principal)
CPT/HCPCS: 99024

== ENCOUNTER → 2025-07-31 09:42 | Outpatient (BNVA) | payer MEDICARE, SELFPAY | PROVIDERS: PCP Internal Medicine; Visit Provider Physician Assistant Surgical | DX: Z98.890 Other specified postprocedural states (principal); D17.1 Benign lipomatous neoplasm of skin and subcutaneous tissue of trunk | CPT/HCPCS: 99212 ==

== ENCOUNTER 2025-08-15 13:20 | Outpatient (REF) | payer MEDICARE, SELFPAY ==
--- NOTE | ~2025-08-15 | MM_ITS ---
EXAMINATION: MM SCREENING DIGITAL BREAST TOMOSYNTHESIS, BILATERAL CLINICAL INFORMATION: Screening. Asymptomatic. COMPARISON: Mammography: Comparison is made with available priors TECHNIQUE: Digital breast mammography with tomosynthesis is performed in both the craniocaudal and mediolateral oblique views along with computer-aided detection (CAD). FINDINGS: There are scattered areas of fibroglandular density. There are no significant masses, abnormal calcifications, or other abnormalities. MM/MM tomosynthesis screening BI IMPRESSION: No mammographic evidence of malignancy. ASSESSMENT: BI-RADS Category 1: Negative RECOMMENDATION: Routine annual mammography screening. 1 year F/U This examination should not preclude the clinical evaluation of a suspicious palpable abnormality. This patient's information was entered into a reminder system with a target due date for their next mammogram. Electronically signed by: Martha Cohen DO 08/19/2025 09:56 AM MICHELLE
--- OUTSIDE RECORDS SUMMARY | 2025-08-15 13:37 | XMS_ITS | Patient Health Record ---
Author Organization [facility] Address [address] [place] [address] Care Team Providers Care Production Associate Name Role Phone Lizzy LEMOS, Keli Primary Care Provider Slick Newsome Jr [phone] Reason For Referral No Information Plan Of Treatment No Information Insurance Providers Payer Name Payer Address Payer Phone Subscriber Number Group Number Insured Name Patient Relationship to Insured Coverage Start Date Coverage End Date MEDICARE OF [place] [address] [place] [id number] [phone] [id number] ANDREW RON Self - patient is the insured MEDEX ATTN CLAIMS [address] [place] [address] [id number] ANDREW RON Self - patient is the insured
--- OUTSIDE RECORDS SUMMARY | 2025-08-15 13:37 | XMS_ITS | Clinical Summary ---
Author Organization [employer] Address [address] [place] [address] [address] [place] [address] Care Team Providers Care Curing Machine Operator Name Role Phone Unavailable Primary Care Provider [...] age to complete this topic Insurance MEDICARE [facility] [place] [id number]
== END 2025-08-15 13:21 | disposition home or self-care (01) ==
LOC: HO.MAMMO 13:20
PROVIDERS: PCP Internal Medicine; Visit Provider Internal Medicine
DX: Z12.31 Encounter for screening mammogram for malignant neoplasm of breast (principal)
CPT/HCPCS: 77063; 77067

== ENCOUNTER → 2025-08-15 13:30 | Outpatient (BNV) | payer MEDICARE, SELFPAY | PROVIDERS: PCP Internal Medicine; Visit Provider Internal Medicine | DX: Z12.31 Encounter for screening mammogram for malignant neoplasm of breast (principal) | CPT/HCPCS: 77063; 77067 ==

== ENCOUNTER 2025-09-10 09:25 | Outpatient (AMB) | payer MEDICARE, SELFPAY ==
[2025-09-10 09:37] VITALS: BP 132/90; PULSE 71; RESP 16; TEMP 36.7; O2SAT 98; BMI 24.4
--- NOTE | 2025-09-10 09:37 | AM.OFFVISMDC ---
Intake Vital Signs 09/10/25 09:37 Height 5 ft 3 in Weight 138 lb BMI 24.4 BP 132/90 H Blood Pressure Location Rt brachial Position Sitting Respiration 16 Pulse 71 Pulse Source Pulse Oximeter Temp 98.1 F Temp Source Oral Pulse Oximetry (%) 98 Oxygen Delivery Method Room Air Intake Visit Reasons: SHERIDAN G0439 Intake Note: Pt is here today for her SWV: Last mammogram 08/15/25, bone density scan 07/23/24, colonoscopy 01/02/19 Full Stack Software Developer Required: No Allergies meloxicam Allergy (Severe, Verified 09/10/25 10:01) esophagitis minocycline Allergy (Severe, Verified 09/10/25 10:01) esophagitis Medication List - Last Reconciled 09/10/25 by Keli Ball MD acetaminophen 1,000 mg (2 x 500 mg) PO Q6H PRN albuterol sulfate 90 mcg/actuation 2 puffs inhalation Q6H PRN atorvastatin 20 mg PO DAILY calcium carb-vitamin D3-vit K2 600 mg-1,000 unit-90 mcg 1 tab PO DAILY citalopram 40 mg PO DAILY hydrocortisone 2.5% 1 appl topical BID PRN lorazepam 0.5 mg PO DAILY PRN mometasone-formoterol 200-5 mcg/actuation (Dulera) 1 puff inhalation DAILY multivitamin 1 tab PO DAILY naproxen sodium 220 mg PO Q12H PRN roflumilast (Daliresp) 250 mcg PO DAILY 30 days tramadol 50 mg PO TID PRN vitamin B complex 1 tab PO DAILY HPI SWV G0439 HPI Details SWV 74 year-old lady with history of pulmonary nodules, chronic bronchitis, obstructive sleep apnea, followed by Pulmonary; has osteopenia in left femoral neck and left femur , multinodular thyroid, currently followed by endocrine clinic, has dyslipidemia , depression , and osteoarthritis, here today for her subsequent annual wellness visit. She is up-to-date with her screening mammogram done 1 08/15/2025 with normal findings, had a bone density scan done in 2023 which showed presence of osteopenia in left femoral neck and left femur, and had a normal screening colonoscopy done in 2018, repeat due in 2028. . She had a normal fasting lipid panel screening and fasting glucose done 01/22/2025 She is up-to-date with her flu vaccine, pneumococcal vaccine, RSV, Shingrix vaccine and Tdap, but does not want to get the COVID booster . ? Medical / Social History Reviewed? Past Medical History ?Yes . ? [facility] Division of Care / Care Team list updated ?Yes . ? Surgical/Hospitalization History ?Yes . ? Current Medications (including OTC and supplements) ?Yes . ? Family History ?Yes . ? Tobacco Control form ?Yes . ? AUDIT-C (Alcohol use) form ?Yes . ? Illicit drug use in Social History ?Yes . ? Current diagnosis of depression? ?yes. Patient feels that she has been having more depressed mood even on citalopram 40 mg daily brought about by relationship problems with her boyfriend. Seeking assistance in getting an appointment to see a therapist. ? Appropriate PHQ2/PHQ9 completed ?Yes . ? Data entered by ?Ste[employer] Pan Form Placing Supervisor and reviewed by provider ? Fall Risk ? Fall History? Have you had any falls with injury in the past year? ?No . ? Have you had two or more falls in the past year? ?No . ? Fall Risk Assessment: ?No falls in the past year . ? HRA filled out by the patient, reviewed by Provider and scanned. ?SWV ? Balance? Romberg negative ? Tandem walk ?Yes . ? Walk and Turn ?Yes . ? Rise from sit to stand ?Yes . ?Vision? Corrective lens ?Yes ? Vision screen ? Up-to-date, [facility], legally blind left eye, 20/40 right eye ?Hearing? Whisper test ?fail, has Hearing aids which she returned , stating she does not need it still . ?Written Plan?Completed. See Patient Documents.? HPI Comments History of Present Illness Details Complains of recurrent neck pain and stiffness. She has been seen at the walk-in clinic and was referred for chiropractic evaluation and treatment. Has been prescribed cyclobenzaprine in the past which she has not really been using, it did help her sleep. Takes Aleve as needed which affords temporary relief. Patient states that the chiropractic treatment has stopped helping. [facility] Medical History (Updated 09/11/25 @ 00:13 by Keli Ball MD) Hiatal hernia Depression COPD (chronic obstructive pulmonary disease) Lipoma of abdominal wall Cervicalgia GERD (gastroesophageal reflux disease) Lipoma of chest wall Environmental and seasonal allergies Hearing loss ADAM (obstructive sleep apnea) Multinodular thyroid Vitamin D deficiency Osteoporosis Dyslipidemia Osteopenia of left femoral neck Chronic bronchitis Pulmonary nodules Chronic rhinitis Surgical History History of excision of mass (07/18/25) Hx of colonoscopy Hx of esophagogastroduodenoscopy History of total abdominal hysterectomy and bilateral salpingo-oophorectomy Family History Father CVD (cardiovascular disease) Hypertension GI cancer Mother Hypertension Alzheimer disease Daughter Mental health disorder Sister Mental health disorder Social History Housing: House Are you a primary home day care provider to a significant other at home: No Do you presently have visiting nurse or other home services: No Alcohol intake: current Alcohol intake frequency: 0-2 drinks per day Alcohol type: wine Patient Tobacco Use Status: Former Tobacco user Tobacco use type: Cigarette Years Smoked: 10 years Current occupational status: unemployed Cognitive needs: No Hearing needs: No Vision needs: Yes Questionnaire Medicare Wellness Checkup [age] During the past 4 weeks, how much have you been bothered by emotional problems such as feeling anxious, depressed, irritable, sad or downhearted, and blue?: moderately During the past 4 weeks, has your physical & emotional health limited your social activities with family, friends, neighbors, or groups?: not at all During the past 4 weeks, how much bodily pain have you generally had?: moderate pain During the past 4 weeks, was someone available to help you if you needed & wanted help?: yes, quite a bit During the past 4 weeks, what was the hardest physical activity you could do for at least 2 minutes?: light Can you get to places out of walking distance without help? (For eg., can you travel alone on buses, taxis or drive your car?): Yes Can you go shopping for groceries or clothes without someone's help?: Yes Can you prepare your own meals?: Yes Can you do your housework without help?: Yes Because of any health problems, do you need the help of another person with your personal care needs such as eating, bathing, dressing or getting around the house?: No Can you handle your own money without help?: Yes During the past 4 weeks, how would you rate your health in general?: good During the past 4 weeks how have things been going for you?: pretty well Are you having difficulties driving your car?: no Do you always fasten your seat belt when you are in a car?: yes, usually During past 4 weeks, have you been bothered by the following: never: Falling or dizzy when standing up, Sexual problems?, Trouble eating well?, Teeth or denture problems? and Problems using the telephone? and sometimes: Tiredness or fatigue? Have you fallen 2 or more times in the past year?: No Are you afraid of falling?: No Are you a smoker?: no During the past 4 weeks, how many drinks of wine, beer, or other alcoholic beverages did you have?: 6-9 drinks per week Do you exercise for about 20 minutes 3 or more times a week?: yes, most of the time Have you been given information to help with the following?: no: Hazards in your house that might hurt you? and no: Keeping track of your medications? How often do you have trouble taking medicines the way you have been told to take them?: I always take medicine as prescribed How confident are you that you can control & manage most of your health problems?: very confident What is your race?: White Mini Mental State Exam (MMSE) Orientation What is the (year) (season) (date) (day) (month)?: year (2024), season (Fall), date (09/10/25), day (Monday ) and month () Where are we (state) (county) (town or city) (hospital) (floor)?: state ([facility]), county ([place]), town or city ([place]) and hospital/clinic ([facility]) Score Score: 9 Activity of Daily Living Bathing - sponge bath, tub bath or shower: receives no assistance (gets in/out by self, if usual bathing means Dressing - getting clothes from closets & drawers, including inner/outer garments & fasteners.: gets clothes & gets completely dressed without help Toileting - going to the 'toilet room' for urine/bowel elimination & cleaning self/arranging clothes: goes to toilet room, cleans self, arranges clothes without help Transfer: moves in & out of bed and chair without help (may use support object) Continence: controls urination/bowel movements completely by self Feeding: feeds self without help Total Score: 0 Information obtained from: patient Using telephone: independent Traveling: independent Shopping: independent Preparing meals: independent Housework: independent Taking medicine: independent Managing money: independent PHQ-9 Over the last 2 weeks, how often have you been bothered by any of the following problems? 1. Little interest or pleasure in doing things: several days 2. Feeling down, depressed, or hopeless: several days 3. Trouble falling or staying asleep, or sleeping too much: several days 4. Feeling tired or having little energy: several days 5. Poor appetite or overeating: several days 6. Feeling bad about yourself - or that you are a failure or have let yourself or your family down: not at all 7. Trouble concentrating on things, such as reading the newspaper or watching television: not at all 8. Moving or speaking so slowly that other people could have noticed. Or the opposite - being so fidgety or restless that you have been moving around a lot more than usual: not at all 9. Thoughts that you would be better off or of hurting yourself in some way: not at all Total score: 5 Depression Screening Interpretation: Positive (Referred to mental worker for assistance in getting counseling) Depression Screening Follow-up: Existing condition, In treatment and Community Mental Health Worker F/U Depression Screening Done: Yes 65686 - PHQ-9 Billing: Yes Source: Developed by Drs. Gabo Weems, Mary Briscoe, Simone Smith and colleagues, with an educational javon from [employer]. Review of Systems Const All systems reviewed & are unremarkable except as noted in HPI and below Neuro Reports Abnormal speech present Physical Exam Vital Signs: Last Vital Signs Temp 98.1 F 09/10/25 09:37 Pulse 71 09/10/25 09:37 Resp 16 09/10/25 09:37 BP 132/90 H 09/10/25 09:37 Pulse Ox 98 09/10/25 09:37 Oxygen Delivery Method Room Air 09/10/25 09:37 BMI result Body Mass Index 24.4 Const General: no acute distress Nutritional Appearance: well nourished Orientation/consciousness: patient oriented x3 Neck Neck: Yes full ROM and Yes no lymphadenopathy Resp Auscultation: clear to auscultation bilaterally Back/Spine/Pelvis Cervical Spine: cervical ROM normal, No cervical muscular tenderness, No pain with cervical ROM and cervical spasm Skin General skin exam: no rashes or lesions noted Neuro General: patient oriented x3, gait normal and moves all extremities Cognition (Neuro): normal cognition Speech: Abnormal speech present Gait exam (Neuro): Normal gait present Motor exam (neuro): 5/5 motor strength present throughout Assessment & Plan Assessment & Plan (1) Encounter for subsequent annual wellness visit (AWV) in Medicare patient: Code(s): Z00.00 - Encounter for general adult medical examination without abnormal findings Plan: Medical wellness checklist reviewed, discussed with patient and updated. Up-to-date with vaccinations. Up-to-date with her advanced directives. (2) Depression: Code(s): F32.A - Depression, unspecified Plan: Continued on citalopram, refill sent for lorazepam 0.5 mg to take 1 tablet only as needed for acute anxiety attacks. Cautioned that medication is habit forming. Referral to our mental health coordinator for assistance in getting in for therapy (3) Cervicalgia: Code(s): M54.2 - Cervicalgia Plan: Prescription sent for tizanidine 4 mg per tablet to take 1/2-1 tablet at bedtime as needed for painful muscle spasm, may take an Aleve only as needed for severe pain and may alternate with Tylenol 500 mg twice a day as needed. Referral for physical therapy ordered (4) Dyslipidemia: Code(s): E78.5 - Hyperlipidemia, unspecified Plan: Currently on atorvastatin 20 mg daily (5) Osteoporosis: Code(s): M81.0 - Age-related osteoporosis without current pathological fracture Plan: Patient declined further treatment continue taking vitamin-D 3 and calcium supplements. Encouraged regular exercise with weight-bearing (6) Chronic bronchitis: Code(s): J42 - Unspecified chronic bronchitis Qualifiers: Chronic bronchitis type: mucopurulent Qualified Code(s): J41.1 - Mucopurulent chronic bronchitis Plan: Followed by Pulmonary Clinic, currently on Dulera (7) ADAM (obstructive sleep apnea): Code(s): G47.33 - Obstructive sleep apnea (adult) (pediatric) Plan: Compliant with CPAP Medications: New tizanidine 4 mg PO BEDTIME PRN 20 tabs 0RF muscle spasticity Refilled lorazepam 0.5 mg PO DAILY PRN 20 tabs 0RF anxiety Quality Reporting (2019) Depression/Bipolar (159/160/161/177) PHQ-9: Total score: 5 Coding Level of Care Code Medicare Subsequent (G0439) Est Pt Level 4 (72090) Diagnoses Encounter for subsequent annual wellness visit (AWV) in Medicare patient Z00.00 Depression F32.A Cervicalgia M54.2 Dyslipidemia E78.5 Osteoporosis M81.0 Mucopurulent chronic bronchitis J41.1 Chronic bronchitis type: mucopurulent ADAM (obstructive sleep apnea) G47.33 Additional Codes PHQ-9 - 76026 - PHQ-9 Billing: Yes ([id number])
--- OUTSIDE RECORDS SUMMARY | 2025-09-10 10:45 | XMS_ITS | Clinical Summary ---
Author Organization [employer] Address [address] [place] [address] [address] [place] [address] Care Team Providers Care Machine Cutter Name Role Phone Unavailable Primary Care Provider [...] age to complete this topic Insurance MEDICARE [facility] [place] [id number]
--- OUTSIDE RECORDS SUMMARY | 2025-09-10 10:45 | XMS_ITS | Patient Health Record ---
Author Organization [facility] Address [address] [place] [address] Care Team Providers Care Armature And Rotor Winder Name Role Phone Lizzy LEMOS, Keli Primary Care Provider Slick Newsome Jr [phone] Reason For Referral No Information Plan Of Treatment No Information Insurance Providers Payer Name Payer Address Payer Phone Subscriber Number Group Number Insured Name Patient Relationship to Insured Coverage Start Date Coverage End Date MEDICARE OF [place] [address] [place] [address] [id number] ANDREW RON Self - patient is the insured MEDEX ATTN CLAIMS [address] [place] [address] [id number] ANDREW RON Self - patient is the insured
== END 2025-09-10 11:06 | disposition home or self-care (01) ==
LOC: HO.HMCC 09:26
PROVIDERS: PCP Internal Medicine; Visit Provider Internal Medicine
DX: Z00.00 Encounter for general adult medical examination without abnormal findings (principal); F32.A Depression, unspecified; J41.1 Mucopurulent chronic bronchitis; M54.2 Cervicalgia; E78.5 Hyperlipidemia, unspecified; M81.0 Age-related osteoporosis without current pathological fracture; G47.33 Obstructive sleep apnea (adult) (pediatric)

== ENCOUNTER → 2025-09-10 09:25 | Outpatient (BNVA) | payer MEDICARE, SELFPAY | PROVIDERS: PCP Internal Medicine; Visit Provider Internal Medicine | DX: Z13.31 Encounter for screening for depression (principal); M54.2 Cervicalgia; E78.5 Hyperlipidemia, unspecified; M81.0 Age-related osteoporosis without current pathological fracture; J41.1 Mucopurulent chronic bronchitis; G47.33 Obstructive sleep apnea (adult) (pediatric); Z99.89 Dependence on other enabling machines and devices | CPT/HCPCS: 96127; 99212 ==

== ENCOUNTER 2025-09-17 09:51 | Outpatient (AMB) | payer MEDICARE, SELFPAY ==
[2025-09-17 09:53] VITALS: BP 156/0; PULSE 79; O2SAT 99; BMI 24.4
--- NOTE | 2025-09-17 09:53 | MHC.OFFVIS ---
Vital Signs 09/17/25 09:53 Height 5 ft 3 in Weight 137 lb 12.623 oz BMI 24.4 BP 156/0 H Blood Pressure Location Lt brachial Position Sitting Pulse 79 Pulse Source Pulse Oximeter Pulse Oximetry (%) 99 Oxygen Delivery Method Room Air Intake Visit Reasons: COPD Brewmaster Required: No Solid Waste Facility Supervisor: Solid Waste Facility Supervisor offered & declined Accompanied by: Self / Same As Patient Allergies meloxicam Allergy (Severe, Verified 09/17/25 09:57) esophagitis minocycline Allergy (Severe, Verified 09/17/25 09:57) esophagitis HPI Comments Details: The patient is a 75 year-old woman with a known history of pulmonary nodules. Overall she has been doing well for respiratory status. Denies any coughing or shortness of breath or any other concerning symptoms. She did have a CT scan of the chest back in June 2018. We did review the images here in the office. He does have an 8 mm ground-glass the pulmonary nodule in addition to other smaller nodules. I did compare this finding to her CT scan from 2014 and it was indeed interval increase in the size of the nodules. Her CT scan from 2016 was relatively similar to the 1 she had 2018. Based on the fact that this was nodules are subsolid and ground glassy when he to monitor them for longer period of time. The fact that the increasing size from 2014 2016 also suggested we have to monitor this very closely to avoid smoldering malignant processes. At this point the patient is scheduled to undergo a CT scan now. She did have a CT scan of the chest that was personally by us in the office back in August 2019 demonstrating multiple pulmonary nodules largest 1 measuring 8 mm and ground-glass in nature. Explained to her that the ground-glass nodular densities we have to follow little longer due to the possibility of a smoldering malignancy. At this point the patient will have a repeat CT scan this month which should be 1 year from her last 1. In addition to that we will check for allergies. 12/12/2020 the patient is here for pulmonary follow-up visit. Overall she continues to have this productive cough which is ongoing and on comfortable. Sometimes she feels that is a postnasal drip and sometimes she feels the mucus is coming from her lungs. Did do accumulate in the the neck area and she feels congested. She did try the singular but was not very helpful. We did have her go for blood work but no significant allergies noted. No significant eosinophilia noted and normal sedimentation rate. At this point the patient has evidence of chronic bronchitis with ongoing wheezing and rhonchi. The patient is not interested in using inhalers at this time. She is open to trying azithromycin 3 times a week and see if this helps with the treatment of a chronic bronchitis. In addition to that we did look at her CT scan of the chest. We did compare this CT scan to there CT scan from [facility] back in 2019 and also from 2017. It appears that she has this 1 cm subsolid nodular density. Does not appear to have significant change in size which is reassuring. However it is subsolid and ground-glass therefore should be monitor closely. Based on the fact that the nodule looks fairly the same will hold off on doing any more CT scans until 18 months from now. In the meantime will treat her for the chronic bronchitis her follow-up in 3 months. 06/02/2021 the patient is here for a pulmonary follow-up visit. Since we last spoke she is doing better on the Breo. Her cough and chest congestion are improved. She did not have the blood work which she will have it done today to assess for her underlying chronic bronchitis. She also has a pulmonary nodule which is a ground-glass the nodular density in the right upper lobe that is measuring 9 mm back and August 2020. patient is concerned because she is developing some chest heaviness and some increase discomfort in the chest area and some fullness in her chest than axilla and neck area. She is concerned about this nodule. She has looked at all reports going back to 2015 in appears that the measurements and slowly increased in size. Therefore based on worsening symptoms and the interval increase in the right upper lobe nodular density on however repeat a CT scan of the chest now. 07/27/2021 the patient is here for a pulmonary follow-up visit. Since we last spoke the patient stopped the Breo. She did not really see any significant improvement. She does feel this sensation that she wants to cough in does have some shortness of breath at times. Her breathing does feel better. 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 Otherwise her blood work was reassuring. We also reviewed her CT scan of the chest personally by me as the subsolid nodular density in the right upper lobe which appears to be pretty stable when compared to 2019 measuring between 9-10 mm in size. In addition to that there was a 5 mm ground-glass nodular density in the right lower lobe. She also has other subcentimeter pulmonary nodules that are solid in nature that appear to be stable as well. No evidence of any pneumonitis or airway disease. On examination she does have some wheezing. Will provide her with a peak flow in order for her to check her peak flows while she goes back on the Breo. if she does not feel that the Breo is helping she will call so we can provide her with an alternative inhaler. 01/24/2022 patient is here for a pulmonary follow-up visit. She continues to have a cough. Moderate severity. Sometimes the cough is a result of a scratchy throat. Sometimes she even scratches her throat with her finger. A does provide some relief sometimes she feels that the cough is more the and associated with chest tightness and wheezing. She has been using the Breo which has been partially helpful. We did talk about considering other medications to suppress her upper airway cough syndrome. She is going to try some dark chocolate and also we did talk about the Tessalon Perles. Patient may also have an allergic component to the for Astelin nasal spray may be helpful. In the meantime she also has some wheezing on examination. Therefore will optimize therapy by switching her Breo to Trelegy. I am hopeful that this provides additional support. When she completes the months on Trelegy come go back to Breo and see if her symptoms reoccur. The patient has underlying pulmonary nodules. She should have a CT scan a year from her last 1 which will be sometime in May 2022. Will follow-up after that. 06/22/2022 the patient is here for a pulmonary follow-up visit. The patient continues to complaint of cough. She did try the Trelegy inhaler but was not helpful. She went back on the Breo. Still she does not see any significant improvement. On examination she does have expiratory wheezing. Will go ahead and add Spiriva to Breo see if this provides better affect. In addition to that she did undergo a CT scan of the chest that was personally by me. We did compared to her CT scans from 2020 and 2019. The subsolid pulmonary nodules not changing significantly but he did increase briefly from 9 mm to 10 mm since last year. I do not see any worsening solid component to the nodule. At this point will plan to repeat the CT scan in 1 year. In the meantime will present her at thoracic conference to can look at the nodule a little closer in multidisciplinary approach since the had a slight increase in size. 12/27/2022 the patient is here for a pulmonary follow-up visit. The patient overall is doing better. She is tolerating the Breo. She did not tolerate the Spiriva due to dryness of her mouth and other adverse effects. Therefore she stopped it. She did not really see any significant improvement on the Spiriva anyway. She continues on the Breo. Now she is going to allergy season. She does have a cough and some nasal congestion. She is using her nasal sprays with good effect. On examination she also has some mild wheezing. Therefore will go ahead and add Singulair to her regimen to help with allergic symptoms and asthma symptoms as well. The patient also has significant daytime drowsiness with an Peralta score elevated at 10 over 24. She has had episodes which she has awakened suddenly at nighttime with shortness of breath. She has noticed a day been happening more often and she is getting concern. Usually happen when she is in deep sleep. This is very likely to be sleep apnea. Therefore will have her undergo a home sleep study at this time. She also has pulmonary nodules however closely monitoring. She is due for CT scan in May. Therefore, will follow-up after her sleep study. But, if her sleep study is negative she can postpone that visit till May after her CT scan. 06/22/2023 the patient is here for a pulmonary follow-up visit. The patient overall has been doing well. Denies any significant shortness of breath or wheezing. She is responding well to the current respiratory regimen which is Breo. She is tried multiple inhalers in the past without any good response. The patient has been exercising regularly. She does get winded at times. On examination she does have some wheezing. I did recommend we can increase the Breo to the 200 mcg dose at least for a month and see if it helps. She also complains of daytime drowsiness. The patient did have a home sleep study. It demonstrated that she did have mild sleep apnea primarily while sleeping supine. She will try positional therapy. I will give her some ideas. However, she continues have daytime drowsiness she should consider trial of CPAP specially because of her cardiovascular risk factors. We did review her CT scan of the chest that she had in May 2023 demonstrating stable subsolid pulmonary nodule in the rather low. Has not changed in the last few years. This is a subsolid nodule so we just have to make sure we follow it a little bit longer. She has had CT scans now for some time. Therefore will plan to follow this nodule in 18-24 months. If the patient develops any worsening symptoms prior to that she is to call the office for an earlier assessment. 06/21/2024 the patient is here for a pulmonary follow-up visit over the went to time she had a hard time with slow. She had pharyngitis and also some difficulty swallowing. She did go to an urgent care and she was given additional allergy medications without any significant improvement. So her symptoms did improve. Then after that effort her told her that she was having some issues with halitosis. She wants to see a dentist. She had to have a tooth extraction which she had recently without any complications. Seems to be getting a little better. She still has a little bit of soreness in the throat. Also has poor dentition. Will be reasonable to treat with chlorhexidine at this time. The patient also has pulmonary nodules noted on previous CT scans specially from 06/14/2023. Will go ahead and plan to repeat the CT scan in 6 months specially with her ongoing respiratory symptoms. She is responding well to the Breo inhaler. She did not do well on the higher dose so she was brought down to the 100 mcg dose with better effect. She still has some wheezing at times. The patient also has nasal congestion will go ahead and start her nasal therapy. 12/25/2024 the patient is here for pulmonary follow-up visit. Overall she is doing okay. She still has the same complaints of this very tenacious mucus buildup in her throat. Sometimes it chokes her up. Sometimes difficult to expectorate. Sometimes is related to a sore throat. She does not feel like it is really drainage from the nose. She is not sure is coming from. She did have a CT scan of the chest recently that were I personally reviewed with her. She still has this irregular looking nodular density in the right upper lobe that has not appear to change compared to last year. Although is irregular and concerning in appearance. Therefore still think that she should continue to follow yearly basis. In addition to that her rest of the lungs appeared to be healthy. She does have an exam have erythematous slow. She does complaint of reflux at times. I do believe that reflux may be playing a big role in her ongoing chronic bronchitis. Likely for micro aspirations. Will go ahead and start her on azithromycin to see this provides relief. In addition to that will order a barium swallow. She does not feel like her maintenance inhalers helping so therefore she can hold off although she should have a rescue inhaler available in case she needs it. And if she notices that she needs it more than 2 times a week she needs to go back on her maintenance inhaler. Will plan to follow-up in 4-6 months. If she has any issues prior to this she will call for an earlier assessment. Also to note because she has been on citalopram when she starts the macrolide therapy she will need to get an EKG to make sure that her QT is within normal limits. 06/18/2025 the patient is here for pulmonary follow-up visit. Overall she is doing a little bit better. She did take the azithromycin for the chronic bronchitis and it did help her but not completely. Now she is off it and she still feels a chest congestion. Does not feel like it is a postnasal drip. We also checked her swallowing swallow is perfectly fine except for small hiatal hernia. She feels like the chest congestion is mainly in the lungs. She did try the Breo with the Breo was not working for her. Will go ahead and switch over to Dulera hopefully with the medication she can have better medication distribution with the HFA formulation. The patient also is willing to try Daliresp. For chronic bronchitis. We can try the small dose of 250 mcg dose and increase it as long she can not tolerate from a GI standpoint. We can also increase it further. However, if she continues to be symptomatic will go ahead and repeat a CAT scan little sooner a consider bronchoscopy. Will follow-up in 3 months see her progress. If she has any issues she can always call for further recommendations. 09/17/2025 the patient is here for pulmonary follow-up visit. Overall the patient has been doing well. She continues her respiratory therapy as prescribed. She did not tolerate the Daliresp due mood changes. Therefore she quickly stopped it. Today her blood pressure is elevated but she is going to some psychosocial issues right now. We rechecked the blood pressure continues to be elevated 160/90. she is going to recheck it again when she is more settled at the [facility]. Then at that point if it continues to be elevated she will call her primary care doctor. We did review her CT scan of the chest. last CT scan was back in November 2024. he continues to have atypical subsolid ill-defined right upper lobe pulmonary nodule. It appears to be becoming more prominent slightly increased in size. Therefore the appearance is concerning although has not been significantly changing. Will follow-up with a repeat CT scan in a year From the last 1. The patient will continue with her respiratory regimen as prescribed. [facility] Medical History (Updated 09/18/25 @ 19:36 by Valentin Badillo MD) Hiatal hernia Depression COPD (chronic obstructive pulmonary disease) Lipoma of abdominal wall Cervicalgia GERD (gastroesophageal reflux disease) Lipoma of chest wall Environmental and seasonal allergies Hearing loss ADAM (obstructive sleep apnea) Multinodular thyroid Vitamin D deficiency Osteoporosis Dyslipidemia Osteopenia of left femoral neck Chronic bronchitis Pulmonary nodules Chronic rhinitis Surgical History History of excision of mass (07/18/25) Hx of colonoscopy Hx of esophagogastroduodenoscopy History of total abdominal hysterectomy and bilateral salpingo-oophorectomy Family History Father CVD (cardiovascular disease) Hypertension GI cancer Mother Hypertension Alzheimer disease Daughter Mental health disorder Sister Mental health disorder Social History Housing: House Are you a primary palliative care nurse to a significant other at home: No Do you presently have visiting nurse or other home services: No Alcohol intake: current Alcohol intake frequency: 0-2 drinks per day Alcohol type: wine Patient Tobacco Use Status: Former Tobacco user Tobacco use type: Cigarette Years Smoked: 10 years Current occupational status: unemployed Cognitive needs: No Hearing needs: No Vision needs: Yes Review of Systems Const Reports no additional complaints, Reports daytime sleepiness, Denies frequent falls, Denies headache(s), Reports snoring and Denies weakness Eyes Denies blind spots, Denies blurry vision, Denies change in vision, Denies diplopia and Denies loss of vision ENT Reports no additional complaints, Denies vertigo, Denies dizziness and Denies headache(s) Card Reports no additional complaints and Reports dyspnea on exertion Resp Reports no additional complaints, Reports chest congestion, Reports cough, Reports dyspnea on exertion, Reports snoring and Denies wheezing GI Reports dyspepsia and Reports heartburn Details: Denies nausea or vomiting Musc Reports no additional complaints, Reports as per HPI, Denies abnormal gait and Denies numbness Skin/Breast Reports wounds (Abrasion of left knee) Neuro Denies abnormal gait, Denies vertigo, Denies dizziness, Denies frequent falls, Denies headache(s), Denies lack of coordination, Denies loss of vision, Denies memory loss, Denies numbness and Denies weakness Psych Reports anxiety and Denies memory loss Aller/Immun Denies wheezing Physical Exam Vital Signs: Last Vital Signs Pulse 79 09/17/25 09:53 BP 156/0 H 09/17/25 09:53 Pulse Ox 99 09/17/25 09:53 Oxygen Delivery Method Room Air 09/17/25 09:53 BMI result Body Mass Index 24.4 Const General: alert Neck Neck: Yes normal visual inspection Chest Chest palpation & inspection: abnormal inspection of the chest (lipoma) Resp Auscultation: no wheezes and diminished lung sounds Cardio Rate: regular rate Rhythm: regular rhythm Heart sounds: S1 normal heart sound present and S2 normal heart sound present GI Inspection: Yes normal to inspection and No distended Assessment & Plan Assessment & Plan (1) Pulmonary nodules: Code(s): R91.8 - Other nonspecific abnormal finding of lung field Category: Medical (2) Chronic rhinitis: Code(s): J31.0 - Chronic rhinitis Category: Medical (3) Chronic bronchitis: Code(s): J42 - Unspecified chronic bronchitis Category: Medical Qualifiers: Chronic bronchitis type: mucopurulent Qualified Code(s): J41.1 - Mucopurulent chronic bronchitis (4) ADAM (obstructive sleep apnea): Code(s): G47.33 - Obstructive sleep apnea (adult) (pediatric) Category: Medical (5) GERD (gastroesophageal reflux disease): Code(s): K21.9 - Gastro-esophageal reflux disease without esophagitis Category: Medical Qualifiers: Esophagitis presence: without esophagitis Qualified Code(s): K21.9 - Gastro-esophageal reflux disease without esophagitis (6) Hypertension: Code(s): I10 - Essential (primary) hypertension Category: Medical Qualifiers: Hypertension type: unspecified Qualified Code(s): I10 - Essential (primary) hypertension Plan Positional sleep therapy. Consider elastic mandibular device with her dentist. ELOINA as needed and prior to exercise activity repeat CT scan November 2025 Astelin nasal spray Fluticasone continue Dulera stopped daliresp 250mcg will recheck blood pressure on Monday and if continued to be elevated she will call her primary care F/U 4-6 months Orders: Orders Basic Metabolic Panel 11/24/25 R91.8 - Other nonspecific abnormal finding of lung field CT chest w IV con 11/24/25 R91.8 - Other nonspecific abnormal finding of lung field Coding Level of Care Code Est Pt Level 4 (33590) Diagnoses Pulmonary nodules R91.8 Chronic rhinitis J31.0 Mucopurulent chronic bronchitis J41.1 Chronic bronchitis type: mucopurulent ADAM (obstructive sleep apnea) G47.33 Gastroesophageal reflux disease without esophagitis K21.9 Esophagitis presence: without esophagitis Hypertension, unspecified type I10 Hypertension type: unspecified Time Spent (min) 18
--- OUTSIDE RECORDS SUMMARY | 2025-09-17 09:59 | XMS_ITS | Patient Health Record ---
Author Organization [facility] Address [address] [place] [address] Care Team Providers Care Antique Refinisher Name Role Phone Lizzy LEMOS, Keli Primary Care Provider Slick Newsome Jr Reason For Referral No Information Plan Of Treatment No Information Insurance Providers Payer Name Payer Address Payer Phone Subscriber Number Group Number Insured Name Patient Relationship to Insured Coverage Start Date Coverage End Date MEDICARE OF [place] [address] [place] [address] [id number] ANDREW RON Self - patient is the insured [employer] ATT[employer] CLAIMS [address] [place] [address] [id number] ANDREW RON Self - patient is the insured
--- OUTSIDE RECORDS SUMMARY | 2025-09-17 09:59 | XMS_ITS | Clinical Summary ---
Author Organization [employer] Address [address] [place] [address] [address] [place] [address] Care Team Providers Care Labor Training Manager Name Role Phone Unavailable Primary Care Provider [...] [facility] [place] [id number]
== END 2025-09-17 10:21 | disposition home or self-care (01) ==
LOC: HO.HPS 09:52
PROVIDERS: PCP Internal Medicine; Visit Provider Hospitalist
DX: R91.8 Other nonspecific abnormal finding of lung field (principal); J31.0 Chronic rhinitis; J41.1 Mucopurulent chronic bronchitis; G47.33 Obstructive sleep apnea (adult) (pediatric); K21.9 Gastro-esophageal reflux disease without esophagitis; I10 Essential (primary) hypertension
CPT/HCPCS: 99214

== ENCOUNTER → 2025-09-17 09:51 | Outpatient (BNVA) | payer MEDICARE, SELFPAY | PROVIDERS: PCP Internal Medicine; Visit Provider Hospitalist | DX: I10 Essential (primary) hypertension (principal); Z87.891 Personal history of nicotine dependence; R91.8 Other nonspecific abnormal finding of lung field; J41.1 Mucopurulent chronic bronchitis; J31.0 Chronic rhinitis; G47.33 Obstructive sleep apnea (adult) (pediatric); K21.9 Gastro-esophageal reflux disease without esophagitis | CPT/HCPCS: 99212 ==

== ENCOUNTER 2025-09-19 11:01 | Emergency (ER) | payer MEDICARE, SELFPAY ==
[2025-09-19 11:25] VITALS: BP 162/72; PULSE 74; RESP 20; TEMP 36.4; O2SAT 98; BMI 24.1
--- NOTE | 2025-09-19 11:25 | ED_ITS ---
HPI - General Adult General Chief complaint: General Medical Stated complaint: High Blood Pressure Time Seen by Provider: 09/19/25 14:54 History of Present Illness ED Provider: Navin CARRILLO narrative: The patient is a 75-year-old female who says that she does not have a history of hypertension. However when she was recently at her primary care doctor's office she was noted to have high blood pressure readings. The patient told her PCP that she has been very anxious lately. The patient was prescribed lorazepam with a plan for using this medication as needed for anxiety and to follow up for a recheck of the blood pressure. The patient had an outpatient appointment with her psych arnp 2 days ago and had elevated blood pressure readings as well. The patient has been very worried about her blood pressure. Today she went to a [facility] in checked her blood pressure and her blood pressure was elevated at 189/100. At that point she decided to come to the emergency room. She came to the emergency room because of the high blood pressure reading and not because of a headache, chest pain, shortness of breath, visual changes, or any other new symptoms. Related Data Home Medications ?Medication ?Instructions ?Recorded ?Confirmed vitamin B complex 1 tab PO DAILY 02/01/2106/25 calcium 600 mg (as carbonate)-vit 1 tab PO DAILY 08/2907/11/25 D3 1,000 unit-vitamin K2 90 mcg tab albuterol sulfate 90 mcg/actuation 2 puff inhalation Q 6H PRN wheezing 07/11/25 07/11/25 aerosol inhaler mometasone-formoterol HFA 200 1 puff inhalation DAILY 07/11/25 07/11/25 mcg-5 mcg/actuation aerosol inhaler (Dulera) multivitamin 1 tab PO DAILY 07/11/2506/25 naproxen sodium 220 mg capsule 220 mg PO Q12H PRN Pain 07/11/25 07/11/25 Previous Rx's ?Medication ?Instructions ?Recorded hydrocortisone 2.5 % topical cream 1 appl topical BID PRN skin 08/29/24 irritation #30 grams acetaminophen 500 mg capsule 1,000 mg (2 x 500 mg) PO Q6H PRN 02/03/25 pain #30 caps citalopram 40 mg tablet 40 mg PO DAILY #90 tabs 05/27 06/19 atorvastatin 20 mg tablet 20 mg PO DAILY #90 tabs 06/26 10/19 tramadol 50 mg tablet 50 mg PO TID PRN pain #12 ta bs 07/18/25 lorazepam 0.5 mg tablet 0.5 mg PO DAILY PRN anxiety #20 09/10/25 tabs tizanidine 4 mg tablet 4 mg PO BEDTIME PRN muscle 1 11/11/24 spasticity #20 tabs losartan 50 mg tablet 50 mg PO DAILY #30 tabs 08/26 03/19 Allergies Allergy/AdvReac Type Severity Reaction Status Date / Time meloxicam Allergy Severe esophagitis Verified 09/19/25 11:29 minocycline Allergy Severe esophagitis Verified 09/19/25 11:29 Review of Systems 2 Review of Systems: Yes all other systems are reviewed and are negative [facility] Past Medical History Medical History (Updated 09/20/25 @ 00:01 by Vernell Amador) Hiatal hernia Depression COPD (chronic obstructive pulmonary disease) Lipoma of abdominal wall Cervicalgia GERD (gastroesophageal reflux disease) Lipoma of chest wall Environmental and seasonal allergies Hearing loss ADAM (obstructive sleep apnea) Multinodular thyroid Vitamin D deficiency Osteoporosis Dyslipidemia Osteopenia of left femoral neck Chronic bronchitis Pulmonary nodules Chronic rhinitis Surgical History History of excision of mass (07/18/25) Hx of colonoscopy Hx of esophagogastroduodenoscopy History of total abdominal hysterectomy and bilateral salpingo-oophorectomy Family History Family History Father CVD (cardiovascular disease) Hypertension GI cancer Mother Hypertension Alzheimer disease Daughter Mental health disorder Sister Mental health disorder Social History Social History Housing: House Are you a primary resident care associate to a significant other at home: No Do you presently have visiting nurse or other home services: No Alcohol intake: current Alcohol intake frequency: 0-2 drinks per day Alcohol type: wine Patient Tobacco Use Status: Former Tobacco user Tobacco use type: Cigarette Years Smoked: 10 years Advance Directives: Yes Advance Directives on File: Yes Advance Directives Date on File: 08/26/22 Do you have a plan to hurt others: No Plan Current occupational status: unemployed Cognitive needs: No Hearing needs: No Vision needs: Yes Physical Exam ED Vital Signs: Vital Signs - 24 hr 09/19/25 14:00 09/19/25 16:02 Temperature 98.0 F 98.0 F Pulse Rate 72 72 Respiratory Rate 16 16 Blood Pressure 161/58 H 161/58 H Pulse Oximetry 98 98 Oxygen Delivery Method Room Air Room Air BMI result Body Mass Index 24.1 Const Other: The patient is awake and alert, pleasant cooperative. Seems to be a healthy looking 75-year-old. Orientation/consciousness: patient oriented x3 HENMT Other: The face is symmetrical. Mucous membranes moist. Eyes Other: Pupils are round equal, conjunctivae are clear, extraocular movements intact Neck Neck: Yes normal visual inspection, Yes full ROM and Yes no JVD Resp Effort & Inspection: normal respiratory effort Auscultation: clear to auscultation bilaterally Cardio Rate: regular rate Rhythm: regular rhythm Heart sounds: S1 normal heart sound present and S2 normal heart sound present GI Other: Abdomen is soft and nontender Skin Other: The skin is dry and unremarkable Neuro General: patient oriented x3, gait normal, tone normal, moves all extremities, no focal motor deficits and CN's II-XI intact bilaterally Extrem Other: There is no calf swelling or tenderness. No asymmetry. No peripheral edema. Course Course Course Narrative: This is a Rapid Medical Exam performed in triage by Essence Medrano PA-C. Full HPI, ROS and PE to be performed by primary ED provider. 75-year-old female with a past medical history HTN, depression, GERD, ADAM, HLD, bronchitis, presenting to the ED c/o high blood pressure x about a week - was elevated at multiple doctors appts this week. Denies taking antihypertensives. denies PETERS, CP, dizziness PE: ambulating w/steady gauit, NAD, nontoxic Plan: EKG, labs Medical Decision Making Medical Decision Making MDM Narrative: The patient is a 75-year-old female who comes to the emergency room primarily because of a high blood pressure reading. Apparently she 1st was noted to have some high blood pressure readings at a PCP office recently and was prescribed lorazepam. She subsequently followed up with her psych arnp who also felt her blood pressure was a bit high. Today she [facility] and was concerned about the degree of elevation of her blood pressure. She does not really have any symptoms to suggest an acute hypertensive emergency or other acute process. She looks entirely well. EKGs unremarkable. Labs are normal. I think she probably has new hypertension. She will be started on losartan 50 mg daily and should follow up with her PCP. Lab Data 09/19/25 11:57 09/19/25 11:57 Labs: Lab Results 09/19/25 Range/Units 11:57 WBC 8.7 (4.8-10.8) X10*3/uL RBC 4.64 (4.20-5.50) X10*6/uL Hgb 15.2 (12.0-16.0) g/dl Hct 45.1 (37.0-47.0) % MCV 97.2 (80.0-98.0) fL MCH 32.8 (27.0-33.0) pg MCHC 33.7 (31.0-35.0) g/dl RDW 12.9 (11.0-16.0) % Plt Count 314 (160-400) X10*3/uL MPV 8.8 L (9.4-12.3) fL Immature Gran % (Auto) 0.3 (0.0-0.4) % Neut % (Auto) 72.6 (45-73) % Lymph % (Auto) 17.2 L (20-40) % Gooding % (Auto) 8.1 (2-11) % Eos % (Auto) 1.2 (0-4) % Baso % (Auto) 0.6 (0-2) % Lymph # (Auto) 1.5 (1.2-4.9) X10*3/uL Gooding # (Auto) 0.7 (0.1-1.2) X10*3/uL Eos # (Auto) 0.1 (0.0-0.4) X10*3/uL Baso # (Auto) 0.1 (0.0-0.2) X10*3/uL Abs Immat Gran (auto) 0.03 (0.00-0.03) X10*3/uL Absolute Neuts (auto) 6.3 (2.0-8.3) x10*3/uL Absolute Nucleated RBC 0.000 (0.0-0.012) X10*3/uL Nucleated RBC % (auto) 0.0 (0.0-0.2) /100WBC Sodium 139 (135-145) mmol/L Potassium 4.1 (3.3-5.1) mmol/L Chloride 104 (96-108) mmol/L Carbon Dioxide 27 (22-29) mmol/L Anion Gap 12 (12-20) BUN 19 H (9-16) mg/dL Creatinine 0.64 (0.5-1.4) mg/dL Estim Creat Clear Calc 60.9 Estimated GFR > 60 Random Glucose 87 (60-115) mg/dL Calcium 9.3 (8.4-10.2) mg/dL Magnesium 2.2 (1.6-2.6) mg/dL Total Bilirubin 0.4 (0.0-1.0) mg/dL Direct Bilirubin 0.2 (0.0-0.5) mg/dL AST 20 (5-31) U/L ALT 23 (0-31) U/L Alkaline Phosphatase 83 (39-117) U/L Troponin I High Sens < 2.7 (<3.5-17.0) ng/L Total Protein 6.8 (6.5-8.0) g/dL Albumin 4.4 (3.5-5.0) g/dL Independent Interpretation I performed an independent interpretation of an: EKG Interpretation: EKG at 11:50 shows normal sinus rhythm at 74 beats per minute. No acute ischemic changes. Similar to previous EKG. Discharge Plan Discharge Clinical Impression: Hypertension Qualifiers: Hypertension type: unspecified Qualified Code(s): I10 - Essential (primary) hypertension Patient Disposition: Home, Self-Care Instructions: Hypertension (ED) Additional Instructions: I believe that you have had enough high blood pressure readings that you should be on blood pressure medication. I have sent a prescription for the medication losartan which you should take once a day. Therefore please start taking this medication once a day. Contact your regular doctor's office for a follow up appointment in the next couple of weeks for recheck of your blood pressure and a discussion of the use of this medication. Drink lot of fluids to keep yourself well hydrated. Return to the emergency room if you feel significantly worse. Prescriptions: New losartan 50 mg tablet 50 mg PO DAILY Qty: 30 0RF No Action citalopram 40 mg tablet 40 mg PO DAILY Qty: 90 1RF atorvastatin 20 mg tablet 20 mg PO DAILY Qty: 90 1RF albuterol sulfate 90 mcg/actuation HFA aerosol inhaler 2 puff INHALATION Q6H PRN (Reason: wheezing) naproxen sodium 220 mg Capsule 220 mg PO Q12H PRN (Reason: Pain) Dulera 200-5 mcg/actuation HFA aerosol inhaler 1 puff inhalation DAILY multivitamin Tablet 1 tab PO DAILY tramadol 50 mg tablet 50 mg PO TID PRN (Reason: pain) Qty: 12 0RF vitamin B complex Tablet 1 tab PO DAILY calcium carb-vitamin D3-vit K2 600 mg-1,000 unit-90 mcg tablet 1 tab PO DAILY hydrocortisone 2.5 % cream 1 appl topical BID PRN (Reason: skin irritation) Qty: 30 0RF acetaminophen 500 mg capsule 1,000 mg PO Q6H PRN (Reason: pain) Qty: 30 0RF tizanidine 4 mg tablet 4 mg PO BEDTIME PRN (Reason: muscle spasticity) Qty: 20 0RF lorazepam 0.5 mg tablet 0.5 mg PO DAILY PRN (Reason: anxiety) Qty: 20 0RF Referrals: Keli Ball MD [Primary Care Provider, Internal Medicine] Interventions: ED Discharge Assessment Last Done: 09/19/25 16:02 Discharge Date/Time: 09/19/25 16:03 Print Language: Emirati
--- NOTE | 2025-09-19 11:28 | ECG_ITS ---
Test Reason : htn Blood Pressure : */* mmHG Vent. Rate : 74 BPM Atrial Rate : 74 BPM P-R Int : 152 ms QRS Dur : 84 ms QT Int : 398 ms P-R-T Axes : 42 -13 48 degrees QTcB Int : 441 ms Normal sinus rhythm Minimal voltage criteria for LVH, may be normal variant ( [place] product ) Borderline ECG When compared with ECG of 01-Jan-2025 11:51, No significant change was found Referred By: Essence Medrano Electronically Signed By: ZACARIAS SCHOFIELD MD
[2025-09-19 12:02] LABS: MANUAL DIFF FLAG NO
[2025-09-19 12:04] LABS: Hematocrit 45.1 % (37.0-47.0); Hemoglobin 15.2 g/dl (12.0-16.0); Imm Gran Abs Auto 0.03 X10*3/uL (0.00-0.03); Imm Gran Pct Auto 0.3 % (0.0-0.4); Lymphocytes Absolute Auto 1.5 X10*3/uL (1.2-4.9); Mean Corpuscular HGB Conc 33.7 g/dl (31.0-35.0); Mean Corpuscular Hemoglobin 32.8 pg (27.0-33.0); Mean Corpuscular Volume 97.2 fL (80.0-98.0); NRBC Abs Auto 0.000 X10*3/uL (0.0-0.012); NRBC Pct Auto 0.0 /100WBC (0.0-0.2); Platelet Count 314 X10*3/uL (160-400); Red Blood Count 4.64 X10*6/uL (4.20-5.50); White Blood Count 8.7 X10*3/uL (4.8-10.8)
--- OUTSIDE RECORDS SUMMARY | 2025-09-19 12:05 | XMS_ITS | Clinical Summary ---
Author Organization [employer] Address [address] [place] [address] [address] [place] [address] Care Team Providers Care Organic Chemistry Teacher Name Role Phone Unavailable Primary Care Provider [...] age to complete this topic Insurance MEDICARE [facility] [place] [id number]
--- OUTSIDE RECORDS SUMMARY | 2025-09-19 12:05 | XMS_ITS | Patient Health Record ---
Author Organization [facility] Address [address] [place] [address] Care Team Providers Care President & Ceo [employer] Name Role Phone Lizzy LEMOS, Keli Primary Care Provider Slick Newsome Jr Reason For Referral No Information Plan Of Treatment No Information Insurance Providers Payer Name Payer Address Payer Phone Subscriber Number Group Number Insured Name Patient Relationship to Insured Coverage Start Date Coverage End Date MEDICARE OF [place] [address] [place] [id number] ANDREW RON Self - patient is the insured MED[employer] ATT[employer] CLAIMS [address] [place] [address] [phone] [id number] ANDREW RON Self - patient is the insured
[2025-09-19 12:20] LABS: Alanine Aminotransferase 23 U/L (0-31); Albumin Level 4.4 g/dL (3.5-5.0); Alkaline Phosphatase 83 U/L (39-117); Anion Gap 12 (12-20); Aspartate Amino Transferase 20 U/L (5-31); Blood Urea Nitrogen 19 mg/dL (9-16); Calcium 9.3 mg/dL (8.4-10.2); Carbon Dioxide 27 mmol/L (22-29); Chloride 104 mmol/L (96-108); Creatinine Clr Calc Pharmacy 60.9; Estimated Glomerular Filt Rate > 60; Magnesium 2.2 mg/dL (1.6-2.6); Potassium 4.1 mmol/L (3.3-5.1); Sodium 139 mmol/L (135-145); Total Protein 6.8 g/dL (6.5-8.0)
[2025-09-19 12:28] LABS: Troponin-I High Sensitivity < 2.7 ng/L (<3.5-17.0)
[2025-09-19 14:00] VITALS: BP 161/58; PULSE 72; RESP 16; TEMP 36.7; O2SAT 98
[2025-09-19 16:02] VITALS: BP 161/58; PULSE 72; RESP 16; TEMP 36.7; O2SAT 98
== END 2025-09-19 16:03 | disposition home or self-care (01) ==
PROVIDERS: Physician Assistant; Emergency Provider Emergency Medicine; PCP Internal Medicine
DX: F41.9 Anxiety disorder, unspecified (principal); I10 Essential (primary) hypertension; J44.9 Chronic obstructive pulmonary disease, unspecified; K21.9 Gastro-esophageal reflux disease without esophagitis; E78.5 Hyperlipidemia, unspecified; Z87.891 Personal history of nicotine dependence; Z79.899 Other long term (current) drug therapy
CPT/HCPCS: 36415; 80048; 80076; 83735; 84484; 85025; 93005; 99283; 99284

== ENCOUNTER → 2025-09-19 11:28 | Outpatient (BNV) | payer MEDICARE, SELFPAY | PROVIDERS: Emergency Provider Emergency Medicine; PCP Internal Medicine; Visit Provider Internal Medicine Cardiovascular Disease | DX: I10 Essential (primary) hypertension (principal) | CPT/HCPCS: 93010 ==